=== PATIENT | female | born 1960 | race Caucasian/White ===

== ENCOUNTER → 2018-01-27 | Outpatient (REF) | payer MEDICARE ==
[2018-01-27 15:36] LABS: ALBUMIN/GLOBULIN RATIO 1.11 (1.00-1.93); ALKALINE PHOSPHATASE 77 U/L (45-117); ALT/SGPT 49 U/L (12-78); ANION GAP 12 MEQ/L (8-16); AST/SGOT 43 U/L (7-37); BILIRUBIN,TOTAL 1.1 MG/DL (0.2-1.0); BLOOD UREA NITROGEN 8 MG/DL (7-18); CARBON DIOXIDE LEVEL 31 MEQ/L (21-32); CHLORIDE LEVEL 93 MEQ/L (98-107); CHOLESTEROL LEVEL 224 MG/DL (<200); CHOLESTEROL RISK RATIO 2.036 (<5); CREATININE FOR GFR 0.64 MG/DL (0.55-1.30); GLOMERULAR FILTRATION RATE > 60.0 (>51); GLUCOSE, FASTING 103 MG/DL (70-100); HDL CHOLESTEROL 110 MG/DL (>40); LDL CHOLESTEROL 100.2 MG/DL (<100); NON-HDL-C 114 MG/DL; SODIUM LEVEL 136 MEQ/L (136-145); TOTAL PROTEIN 7.6 GM/DL (6.4-8.2); TRIGLYCERIDES LEVEL 69 MG/DL (<150)
== END ==
LOC: M SFHCLACO 10:08
DX: I10 Essential (primary) hypertension (principal); Z68.37 Body mass index [BMI] 37.0-37.9, adult; E63.9 Nutritional deficiency, unspecified; K21.9 Gastro-esophageal reflux disease without esophagitis; F10.10 Alcohol abuse, uncomplicated
CPT/HCPCS: 80053

== ENCOUNTER 2018-05-20 11:00 | Inpatient (IN) | payer MEDICARE ==
[2018-05-20 12:58] LABS: BASO % 0.2 % (0.0-1.0); EOS % 0.2 % (0.0-3.0); HEMATOCRIT 36.8 % (36.0-47.0); HEMOGLOBIN 14.2 g/dl (12.0-15.5); IMMATURE GRANULOCYTE % 0.4 % (0-3.0); LYMPH # 0.8 10^3/uL (1.5-4.5); LYMPH % 16.7 % (24.0-44.0); MEAN CORPUSCULAR HEMOGLOBIN 35.4 pg (27.0-33.0); MEAN CORPUSCULAR VOLUME 91.8 fl (80.0-96.0); MONO # 0.5 10^3/uL (0.0-0.8); MONO % 10.7 % (0.0-5.0); NEUTROPHILS # 3.2 10^3/uL (1.8-7.7); NEUTROPHILS % 71.8 % (36.0-66.0); PLATELET COUNT, AUTOMATED 235 10^3/uL (150-450); RED BLOOD COUNT 4.01 10^6/uL (4.00-5.40); WHITE BLOOD COUNT 4.5 10^3/uL (4.0-10.0)
[2018-05-20 12:59] LABS: MEAN CORPUSCULAR HGB CONC 36.5 g/dl (32.0-36.5); POS COUNT POS FLAG
[2018-05-20 13:06] LABS: INR 0.89; PROTHROMBIN TIME 12.1 SECONDS (12.1-14.4)
[2018-05-20 13:07] LABS: PARTIAL THROMBOPLASTIN TIME 25.3 SECONDS (25.4-37.6)
[2018-05-20 13:29] LABS: ALBUMIN 4.4 GM/DL (3.2-5.2); ALBUMIN/GLOBULIN RATIO 1.22 (1.00-1.93); ALKALINE PHOSPHATASE 91 U/L (45-117); ALT/SGPT 144 U/L (12-78); ANION GAP 11 MEQ/L (8-16); AST/SGOT 110 U/L (7-37); BILIRUBIN,DIRECT 0.4 MG/DL (0.0-0.2); BILIRUBIN,TOTAL 1.3 MG/DL (0.2-1.0); BLOOD UREA NITROGEN 14 MG/DL (7-18); C REACTIVE PROTEIN QUANTITATIV 1.26 MG/DL (0.00-0.30); CALCIUM LEVEL 7.7 MG/DL (8.5-10.1); CARBON DIOXIDE LEVEL 31 MEQ/L (21-32); CHLORIDE LEVEL 75 MEQ/L (98-107); CPK CREATINE PHOSPHOKINASE 159 U/L (26-192); CREATININE FOR GFR 1.11 MG/DL (0.55-1.30); GLOMERULAR FILTRATION RATE 53.7 (>51); GLUCOSE, FASTING 103 MG/DL (70-100); TROPONIN I < 0.02 NG/ML (< 0.10)
[2018-05-20 13:34] LABS: CK-MB VALUE MASS 3.4 NG/ML (<3.6); MB/CK RELATIVE INDEX 2.13 (< OR =4)
[2018-05-20 13:36] LABS: SODIUM LEVEL 117 MEQ/L (136-145)
[2018-05-20 13:37] LABS: POTASSIUM SERUM 2.6 MEQ/L (3.5-5.1)
[2018-05-20] MEDS: NS 1,000 ML IV (14:00)
[2018-05-20 14:37] LABS: OSMOLALITY SERUM 244 MOSM/KG (275-295)
[2018-05-20 16:09] LABS: SODIUM,RANDOM URINE 46 MEQ/L
[2018-05-20 16:12] LABS: APPEARANCE, URINE CLEAR (CLEAR); BACTERIA, URINE AUTO 1+ (NEGATIVE); BILIRUBIN, URINE AUTO NEGATIVE (NEGATIVE); BLOOD, URINE BLOOD NEGATIVE (NEGATIVE); COLOR, URINE YELLOW (YELLOW); GLUCOSE, URINE (UA) AUTO NEGATIVE (NEGATIVE); KETONE, URINE AUTO NEGATIVE (NEGATIVE); LEUKOCYTE ESTERASE, URINE AUTO TRACE (NEGATIVE); NITRITE, URINE AUTO NEGATIVE (NEGATIVE); PROTEIN, URINE AUTO NEGATIVE (NEGATIVE); RBC, URINE AUTO 0 /HPF (0-3); SPECIFIC GRAVITY URINE AUTO 1.002 (1.002-1.035); SQUAMOUS EPITHELIAL CELL UR AU 1 /HPF (0-6); UROBILINOGEN, URINE AUTO 0.2 mg/dL (0.0-2.0); WBC, URINE AUTO 5 /HPF (0-3)
[2018-05-20 16:29] LABS: OSMOLALITY URINE 144 MOSM/KG (500-800)
[2018-05-20] MEDS: POTASSIUM CHLORIDE 10 MEQ SR TABLET PO ×2 (16:51→23:48)
[2018-05-20] MEDS: NORCO, ANEXSIA 5/325MG TABLET (HYDROcodone/ACETAMINOPHEN) PO (16:52)
[2018-05-20] MEDS: MAG SULF 1GM/100ML (MAG RUN) 1 GM in APPROPRIATE DILUENT 1 EA IV ×3 (16:52→23:50)
[2018-05-20] MEDS ORDERED: ONDANSETRON 4 MG TAB (S0181) PO (20:15)
[2018-05-20] MEDS ORDERED: ONDANSETRON 4MG/2ML VIAL (J2405) IV (20:15)
[2018-05-20] MEDS: PERCOCET 5MG/325MG TAB PO (20:24)
[2018-05-20 21:02] LABS: ANION GAP 12 MEQ/L (8-16); BLOOD UREA NITROGEN 11 MG/DL (7-18); CALCIUM LEVEL 7.5 MG/DL (8.5-10.1); CARBON DIOXIDE LEVEL 30 MEQ/L (21-32); CHLORIDE LEVEL 82 MEQ/L (98-107); GLOMERULAR FILTRATION RATE > 60.0 (>51); GLUCOSE, FASTING 105 MG/DL (70-100); MAGNESIUM LEVEL 1.6 MG/DL (1.8-2.4); POTASSIUM SERUM 3.1 MEQ/L (3.5-5.1)
[2018-05-20 21:54] LABS: SODIUM LEVEL 124 MEQ/L (136-145)
[2018-05-20] MEDS ORDERED: LORazepam 2 MG/ML VIAL (J2060) IV (22:00)
[2018-05-20] MEDS: KETOROLAC 30 MG/ML VIAL (J1885) IV (23:47)
[2018-05-20] MEDS: LISINOPRIL 40 MG TAB PO (23:48)
[2018-05-20] MEDS: ASPIRIN 81 MG ENTERIC TAB PO (23:48)
[2018-05-21] MEDS: CARVedilol 12.5 MG TAB PO ×3 (00:05→20:41)
[2018-05-21 01:04] LABS: ANION GAP 9 MEQ/L (8-16); BLOOD UREA NITROGEN 14 MG/DL (7-18); CALCIUM LEVEL 7.2 MG/DL (8.5-10.1); CARBON DIOXIDE LEVEL 31 MEQ/L (21-32); CHLORIDE LEVEL 85 MEQ/L (98-107); CREATININE FOR GFR 0.95 MG/DL (0.55-1.30); GLOMERULAR FILTRATION RATE > 60.0 (>51); GLUCOSE, FASTING 110 MG/DL (70-100); POTASSIUM SERUM 3.3 MEQ/L (3.5-5.1); SODIUM LEVEL 125 MEQ/L (136-145)
[2018-05-21] MEDS: MAG SULF 1GM/100ML (MAG RUN) 1 GM in APPROPRIATE DILUENT 1 EA IV (01:28)
[2018-05-21] MEDS: PERCOCET 5MG/325MG TAB PO ×2 (01:28→05:54)
[2018-05-21] MEDS: TIOTROPIUM INHALER/CAPSULE (SPIRIVA) INH (07:28)
[2018-05-21 07:36] LABS: ALBUMIN 3.8 GM/DL (3.2-5.2); ALBUMIN/GLOBULIN RATIO 1.27 (1.00-1.93); ALKALINE PHOSPHATASE 73 U/L (45-117); ALT/SGPT 108 U/L (12-78); ANION GAP 8 MEQ/L (8-16); AST/SGOT 70 U/L (7-37); BILIRUBIN,TOTAL 0.9 MG/DL (0.2-1.0); BLOOD UREA NITROGEN 12 MG/DL (7-18); CALCIUM LEVEL 7.7 MG/DL (8.5-10.1); CARBON DIOXIDE LEVEL 32 MEQ/L (21-32); CHLORIDE LEVEL 87 MEQ/L (98-107); CREATININE FOR GFR 0.79 MG/DL (0.55-1.30); GLOMERULAR FILTRATION RATE > 60.0 (>51); GLUCOSE, FASTING 84 MG/DL (70-100); MAGNESIUM LEVEL 2.3 MG/DL (1.8-2.4); POTASSIUM SERUM 3.6 MEQ/L (3.5-5.1); SODIUM LEVEL 127 MEQ/L (136-145); TOTAL PROTEIN 6.8 GM/DL (6.4-8.2)
[2018-05-21 07:49] LABS: BASO % 0.3 % (0.0-1.0); EOS % 0.9 % (0.0-3.0); HEMATOCRIT 34.6 % (36.0-47.0); IMMATURE GRANULOCYTE % 0.3 % (0-3.0); LYMPH # 0.9 10^3/uL (1.5-4.5); LYMPH % 27.4 % (24.0-44.0); MEAN CORPUSCULAR HEMOGLOBIN 35.5 pg (27.0-33.0); MEAN CORPUSCULAR VOLUME 94.5 fl (80.0-96.0); MONO # 0.5 10^3/uL (0.0-0.8); MONO % 13.7 % (0.0-5.0); NEUTROPHILS # 1.9 10^3/uL (1.8-7.7); NEUTROPHILS % 57.4 % (36.0-66.0); PLATELET COUNT, AUTOMATED 220 10^3/uL (150-450); RED BLOOD COUNT 3.66 10^6/uL (4.00-5.40); RED CELL DISTRIBUTION WIDTH 13.4 % (11.5-14.5); WHITE BLOOD COUNT 3.3 10^3/uL (4.0-10.0)
[2018-05-21 07:51] LABS: POS COUNT POS FLAG
[2018-05-21 07:55] LABS: MEAN CORPUSCULAR HGB CONC 37.6 g/dl (32.0-36.5)
[2018-05-21] MEDS: D5W 1,000 ML IV (08:15)
[2018-05-21] MEDS: ALBUTEROL SULFATE 2.5 MG/0.5 ML INH NEB SOLN NEB ×3 (08:37→21:38)
[2018-05-21] MEDS: THIAMINE 100 MG TAB PO ×2 (09:00→20:41)
[2018-05-21] MEDS: NICOTINE 14 MG/24 HR TRANSDERMAL TD (09:00)
[2018-05-21] MEDS: amLODIPine 10 MG TAB PO (09:00)
[2018-05-21] MEDS ORDERED: NICOTINE 21MG/24HR 1 EA TRANSDERMAL TD (09:00)
[2018-05-21] MEDS ORDERED: MULTIVITAMINS/MINERALS THERAP 1 TAB PO (09:00)
[2018-05-21] MEDS ORDERED: FOLIC ACID 1 MG TAB PO (09:00)
[2018-05-21] MEDS ORDERED: NICOTINE 14 MG/24 HR TRANSDERMAL TD (09:00)
[2018-05-21] MEDS: MULTIVITAMINS/MINERALS THERAP 1 TAB PO (09:00)
[2018-05-21] MEDS: ENOXAPARIN 40 MG/0.4 ML SYRINGE (J1650) SC (09:00)
[2018-05-21] MEDS ORDERED: THIAMINE 100 MG TAB PO (09:00)
[2018-05-21] MEDS: FOLIC ACID 1 MG TAB PO (09:10)
[2018-05-21] MEDS: LORazepam 2 MG TAB PO (10:48)
[2018-05-21 12:07] LABS: ANION GAP 5 MEQ/L (8-16); BLOOD UREA NITROGEN 12 MG/DL (7-18); CALCIUM LEVEL 7.8 MG/DL (8.5-10.1); CARBON DIOXIDE LEVEL 34 MEQ/L (21-32); CHLORIDE LEVEL 86 MEQ/L (98-107); CREATININE FOR GFR 0.77 MG/DL (0.55-1.30); GLOMERULAR FILTRATION RATE > 60.0 (>51); GLUCOSE, FASTING 90 MG/DL (70-100); POTASSIUM SERUM 3.6 MEQ/L (3.5-5.1); SODIUM LEVEL 125 MEQ/L (136-145)
[2018-05-21] MEDS ORDERED: KCL 20MEQ IN D5W 1000ML 1,000 ML IV (13:00)
[2018-05-21 13:51] LABS: OSMOLALITY URINE 180 MOSM/KG (500-800)
[2018-05-21 14:07] LABS: SODIUM,RANDOM URINE 52 MEQ/L
[2018-05-21] MEDS: CALCIUM GLUCONATE 1,000 MG in D5W MINI-BAG PLUS 100 ML IV (15:34)
[2018-05-21] MEDS: KCL 20MEQ IN D5W 1000ML 1,000 ML IV (17:00)
[2018-05-21 18:20] LABS: ANION GAP 8 MEQ/L (8-16); BLOOD UREA NITROGEN 13 MG/DL (7-18); CALCIUM LEVEL 8.8 MG/DL (8.5-10.1); CARBON DIOXIDE LEVEL 33 MEQ/L (21-32); CHLORIDE LEVEL 85 MEQ/L (98-107); GLOMERULAR FILTRATION RATE > 60.0 (>51); GLUCOSE, FASTING 101 MG/DL (70-100); POTASSIUM SERUM 4.2 MEQ/L (3.5-5.1); SODIUM LEVEL 126 MEQ/L (136-145)
[2018-05-21] MEDS: ASPIRIN 81 MG ENTERIC TAB PO (20:41)
[2018-05-21] MEDS: SYMBICORT 80/4.5MCG INHALER 6GM INH (21:38)
[2018-05-22 01:28] LABS: OSMOLALITY URINE 170 MOSM/KG (500-800)
[2018-05-22 01:31] LABS: SODIUM,RANDOM URINE 51 MEQ/L
[2018-05-22 02:49] LABS: BASO % 0.5 % (0.0-1.0); EOS # 0.1 10^3/uL (0.0-0.50); EOS % 2.3 % (0.0-3.0); HEMOGLOBIN 12.3 g/dl (12.0-15.5); IMMATURE GRANULOCYTE % 0.5 % (0-3.0); LYMPH # 0.9 10^3/uL (1.5-4.5); LYMPH % 23.5 % (24.0-44.0); MEAN CORPUSCULAR HEMOGLOBIN 34.8 pg (27.0-33.0); MEAN CORPUSCULAR HGB CONC 36.2 g/dl (32.0-36.5); MEAN CORPUSCULAR VOLUME 96.3 fl (80.0-96.0); MONO # 0.6 10^3/uL (0.0-0.8); MONO % 14.2 % (0.0-5.0); NEUTROPHILS # 2.3 10^3/uL (1.8-7.7); PLATELET COUNT, AUTOMATED 211 10^3/uL (150-450); RED BLOOD COUNT 3.53 10^6/uL (4.00-5.40); RED CELL DISTRIBUTION WIDTH 13.5 % (11.5-14.5); WHITE BLOOD COUNT 3.9 10^3/uL (4.0-10.0)
[2018-05-22 03:12] LABS: ALBUMIN 3.5 GM/DL (3.2-5.2); ALBUMIN/GLOBULIN RATIO 1.09 (1.00-1.93); ALKALINE PHOSPHATASE 80 U/L (45-117); ALT/SGPT 92 U/L (12-78); ANION GAP 8 MEQ/L (8-16); AST/SGOT 49 U/L (7-37); BILIRUBIN,TOTAL 0.6 MG/DL (0.2-1.0); BLOOD UREA NITROGEN 11 MG/DL (7-18); CALCIUM LEVEL 8.6 MG/DL (8.5-10.1); CARBON DIOXIDE LEVEL 31 MEQ/L (21-32); CHLORIDE LEVEL 88 MEQ/L (98-107); GLOMERULAR FILTRATION RATE > 60.0 (>51); GLUCOSE, FASTING 92 MG/DL (70-100); MAGNESIUM LEVEL 1.6 MG/DL (1.8-2.4); POTASSIUM SERUM 4.1 MEQ/L (3.5-5.1); SODIUM LEVEL 127 MEQ/L (136-145); TOTAL PROTEIN 6.7 GM/DL (6.4-8.2)
[2018-05-22] MEDS: ACETAMINOPHEN TAB 650MG DOSE (2X325MG) PO ×2 (03:12→11:46)
[2018-05-22] MEDS: KCL 20MEQ IN D5W 1000ML 1,000 ML IV (03:13)
[2018-05-22] MEDS: MAG SULF 1GM/100ML (MAG RUN) 1 GM in APPROPRIATE DILUENT 1 EA IV (04:30)
[2018-05-22] MEDS: TIOTROPIUM INHALER/CAPSULE (SPIRIVA) INH (07:48)
[2018-05-22] MEDS: SYMBICORT 80/4.5MCG INHALER 6GM INH ×2 (07:48→21:21)
[2018-05-22] MEDS: ALBUTEROL SULFATE 2.5 MG/0.5 ML INH NEB SOLN NEB ×3 (07:48→15:27)
[2018-05-22] MEDS: MULTIVITAMINS/MINERALS THERAP 1 TAB PO (08:35)
[2018-05-22] MEDS: FOLIC ACID 1 MG TAB PO (08:36)
[2018-05-22] MEDS: CARVedilol 12.5 MG TAB PO ×2 (08:36→20:42)
[2018-05-22] MEDS: amLODIPine 10 MG TAB PO (08:36)
[2018-05-22] MEDS: NICOTINE 14 MG/24 HR TRANSDERMAL TD (08:37)
[2018-05-22] MEDS: THIAMINE 100 MG TAB PO ×2 (08:37→20:41)
[2018-05-22] MEDS: ENOXAPARIN 40 MG/0.4 ML SYRINGE (J1650) SC (08:37)
[2018-05-22 09:43] LABS: SODIUM,RANDOM URINE 79 MEQ/L
[2018-05-22 11:25] LABS: OSMOLALITY URINE 244 MOSM/KG (500-800)
[2018-05-22 11:26] LABS: ANION GAP 10 MEQ/L (8-16); BLOOD UREA NITROGEN 11 MG/DL (7-18); CARBON DIOXIDE LEVEL 29 MEQ/L (21-32); CHLORIDE LEVEL 87 MEQ/L (98-107); CREATININE FOR GFR 0.65 MG/DL (0.55-1.30); GLOMERULAR FILTRATION RATE > 60.0 (>51); GLUCOSE, FASTING 77 MG/DL (70-100); SODIUM LEVEL 126 MEQ/L (136-145)
[2018-05-22] MEDS: LevoFLOXacin 250 MG TABLET PO (11:46)
[2018-05-22] MEDS: FUROSEMIDE 20 MG/2 ML VIAL (J1940) IV (11:47)
[2018-05-22] MEDS ORDERED: SODIUM CHLORIDE 1 GM TAB PO (12:00)
[2018-05-22 15:26] LABS: ANION GAP 8 MEQ/L (8-16); BLOOD UREA NITROGEN 12 MG/DL (7-18); CALCIUM LEVEL 8.5 MG/DL (8.5-10.1); CARBON DIOXIDE LEVEL 29 MEQ/L (21-32); CHLORIDE LEVEL 87 MEQ/L (98-107); CREATININE FOR GFR 0.73 MG/DL (0.55-1.30); GLOMERULAR FILTRATION RATE > 60.0 (>51); GLUCOSE, FASTING 129 MG/DL (70-100); POTASSIUM SERUM 3.8 MEQ/L (3.5-5.1); SODIUM LEVEL 124 MEQ/L (136-145)
[2018-05-22] MEDS: SODIUM CHLORIDE 1 GM TAB PO ×2 (15:39→20:41)
[2018-05-22] MEDS: PERCOCET 5MG/325MG TAB PO ×2 (15:40→23:43)
[2018-05-22] MEDS: ASPIRIN 81 MG ENTERIC TAB PO (20:41)
[2018-05-23 00:34] LABS: ANION GAP 9 MEQ/L (8-16); BLOOD UREA NITROGEN 13 MG/DL (7-18); CALCIUM LEVEL 8.6 MG/DL (8.5-10.1); CARBON DIOXIDE LEVEL 29 MEQ/L (21-32); CHLORIDE LEVEL 88 MEQ/L (98-107); CREATININE FOR GFR 0.66 MG/DL (0.55-1.30); GLOMERULAR FILTRATION RATE > 60.0 (>51); GLUCOSE, FASTING 101 MG/DL (70-100); SODIUM LEVEL 126 MEQ/L (136-145)
[2018-05-23] MEDS: LevoFLOXacin 250 MG TABLET PO (06:05)
[2018-05-23] MEDS: PERCOCET 5MG/325MG TAB PO ×2 (06:07→20:09)
[2018-05-23] MEDS: SYMBICORT 80/4.5MCG INHALER 6GM INH ×2 (07:43→21:13)
[2018-05-23] MEDS: TIOTROPIUM INHALER/CAPSULE (SPIRIVA) INH (07:43)
[2018-05-23] MEDS: ALBUTEROL SULFATE 2.5 MG/0.5 ML INH NEB SOLN NEB ×4 (07:43→23:26)
[2018-05-23] MEDS: NICOTINE 14 MG/24 HR TRANSDERMAL TD (09:21)
[2018-05-23] MEDS: SODIUM CHLORIDE 1 GM TAB PO ×3 (09:21→20:08)
[2018-05-23] MEDS: ENOXAPARIN 40 MG/0.4 ML SYRINGE (J1650) SC (09:21)
[2018-05-23] MEDS: amLODIPine 10 MG TAB PO (09:22)
[2018-05-23] MEDS: THIAMINE 100 MG TAB PO ×2 (09:22→20:08)
[2018-05-23] MEDS: CARVedilol 12.5 MG TAB PO ×2 (09:22→20:09)
[2018-05-23] MEDS: FOLIC ACID 1 MG TAB PO (09:22)
[2018-05-23] MEDS: MULTIVITAMINS/MINERALS THERAP 1 TAB PO (09:22)
[2018-05-23 10:49] LABS: BASO % 0.2 % (0.0-1.0); EOS # 0.1 10^3/uL (0.0-0.50); EOS % 2.3 % (0.0-3.0); HEMATOCRIT 35.3 % (36.0-47.0); HEMOGLOBIN 12.8 g/dl (12.0-15.5); IMMATURE GRANULOCYTE % 0.2 % (0-3.0); LYMPH # 0.9 10^3/uL (1.5-4.5); LYMPH % 20.3 % (24.0-44.0); MEAN CORPUSCULAR HEMOGLOBIN 35.5 pg (27.0-33.0); MEAN CORPUSCULAR HGB CONC 36.3 g/dl (32.0-36.5); MEAN CORPUSCULAR VOLUME 97.8 fl (80.0-96.0); MONO # 0.6 10^3/uL (0.0-0.8); MONO % 13.1 % (0.0-5.0); NEUTROPHILS # 2.7 10^3/uL (1.8-7.7); NEUTROPHILS % 63.9 % (36.0-66.0); PLATELET COUNT, AUTOMATED 223 10^3/uL (150-450); RED BLOOD COUNT 3.61 10^6/uL (4.00-5.40); RED CELL DISTRIBUTION WIDTH 13.4 % (11.5-14.5); WHITE BLOOD COUNT 4.3 10^3/uL (4.0-10.0)
[2018-05-23 11:02] LABS: ALBUMIN 3.7 GM/DL (3.2-5.2); ALBUMIN/GLOBULIN RATIO 1.12 (1.00-1.93); ALKALINE PHOSPHATASE 84 U/L (45-117); ALT/SGPT 87 U/L (12-78); ANION GAP 9 MEQ/L (8-16); AST/SGOT 44 U/L (7-37); BILIRUBIN,TOTAL 0.5 MG/DL (0.2-1.0); BLOOD UREA NITROGEN 11 MG/DL (7-18); CALCIUM LEVEL 8.7 MG/DL (8.5-10.1); CARBON DIOXIDE LEVEL 29 MEQ/L (21-32); CHLORIDE LEVEL 90 MEQ/L (98-107); GLOMERULAR FILTRATION RATE > 60.0 (>51); GLUCOSE, FASTING 110 MG/DL (70-100); MAGNESIUM LEVEL 1.2 MG/DL (1.8-2.4); SODIUM LEVEL 128 MEQ/L (136-145); URIC ACID 3.8 MG/DL (2.6-6.0)
[2018-05-23] MEDS: ACETAMINOPHEN TAB 650MG DOSE (2X325MG) PO (11:27)
[2018-05-23 13:23] LABS: CREATININE,RANDOM URINE 59.2 MG/DL
[2018-05-23 13:23] LABS: SODIUM,RANDOM URINE 59 MEQ/L
[2018-05-23] MEDS: MAG SULF 1GM/100ML (MAG RUN) 1 GM in APPROPRIATE DILUENT 1 EA IV ×3 (13:37→15:48)
[2018-05-23] MEDS: PANTOPRAZOLE 40MG TAB (PROTONIX) PO (13:37)
[2018-05-23 16:50] LABS: ANION GAP 9 MEQ/L (8-16); BLOOD UREA NITROGEN 14 MG/DL (7-18); CARBON DIOXIDE LEVEL 28 MEQ/L (21-32); CHLORIDE LEVEL 91 MEQ/L (98-107); CREATININE FOR GFR 0.83 MG/DL (0.55-1.30); GLOMERULAR FILTRATION RATE > 60.0 (>51); GLUCOSE, FASTING 125 MG/DL (70-100); SODIUM LEVEL 128 MEQ/L (136-145)
[2018-05-23] MEDS: ASPIRIN 81 MG ENTERIC TAB PO (20:09)
[2018-05-23] MEDS: NYSTATIN 100,000 UNITS/GM TOPICAL PWD 15 GM TOP (20:09)
[2018-05-23 22:24] LABS: ANION GAP 10 MEQ/L (8-16); BLOOD UREA NITROGEN 17 MG/DL (7-18); CARBON DIOXIDE LEVEL 28 MEQ/L (21-32); CHLORIDE LEVEL 93 MEQ/L (98-107); CREATININE FOR GFR 0.79 MG/DL (0.55-1.30); GLOMERULAR FILTRATION RATE > 60.0 (>51); GLUCOSE, FASTING 113 MG/DL (70-100); POTASSIUM SERUM 4.3 MEQ/L (3.5-5.1); SODIUM LEVEL 131 MEQ/L (136-145)
[2018-05-24 05:21] LABS: EOS # 0.1 10^3/uL (0.0-0.50); EOS % 1.9 % (0.0-3.0); HEMATOCRIT 32.9 % (36.0-47.0); HEMOGLOBIN 11.9 g/dl (12.0-15.5); IMMATURE GRANULOCYTE % 0.3 % (0-3.0); LYMPH # 0.9 10^3/uL (1.5-4.5); LYMPH % 29.3 % (24.0-44.0); MEAN CORPUSCULAR HEMOGLOBIN 35.3 pg (27.0-33.0); MEAN CORPUSCULAR HGB CONC 36.2 g/dl (32.0-36.5); MEAN CORPUSCULAR VOLUME 97.6 fl (80.0-96.0); MONO # 0.6 10^3/uL (0.0-0.8); MONO % 17.8 % (0.0-5.0); NEUTROPHILS # 1.6 10^3/uL (1.8-7.7); NEUTROPHILS % 49.7 % (36.0-66.0); PLATELET COUNT, AUTOMATED 218 10^3/uL (150-450); RED BLOOD COUNT 3.37 10^6/uL (4.00-5.40); RED CELL DISTRIBUTION WIDTH 13.4 % (11.5-14.5); WHITE BLOOD COUNT 3.1 10^3/uL (4.0-10.0)
[2018-05-24 05:39] LABS: ALBUMIN 3.2 GM/DL (3.2-5.2); ALBUMIN/GLOBULIN RATIO 0.86 (1.00-1.93); ALKALINE PHOSPHATASE 92 U/L (45-117); ALT/SGPT 73 U/L (12-78); ANION GAP 10 MEQ/L (8-16); AST/SGOT 39 U/L (7-37); BILIRUBIN,TOTAL 0.3 MG/DL (0.2-1.0); BLOOD UREA NITROGEN 17 MG/DL (7-18); CALCIUM LEVEL 8.9 MG/DL (8.5-10.1); CARBON DIOXIDE LEVEL 24 MEQ/L (21-32); CHLORIDE LEVEL 96 MEQ/L (98-107); CREATININE FOR GFR 0.66 MG/DL (0.55-1.30); GLOMERULAR FILTRATION RATE > 60.0 (>51); GLUCOSE, FASTING 85 MG/DL (70-100); MAGNESIUM LEVEL 1.5 MG/DL (1.8-2.4); POTASSIUM SERUM 4.3 MEQ/L (3.5-5.1); SODIUM LEVEL 130 MEQ/L (136-145); TOTAL PROTEIN 6.9 GM/DL (6.4-8.2)
[2018-05-24] MEDS: LevoFLOXacin 250 MG TABLET PO (06:10)
[2018-05-24] MEDS: MAG SULF 1GM/100ML (MAG RUN) 1 GM in APPROPRIATE DILUENT 1 EA IV ×2 (07:47→12:11)
[2018-05-24] MEDS: ALBUTEROL SULFATE 2.5 MG/0.5 ML INH NEB SOLN NEB ×3 (07:56→23:42)
[2018-05-24] MEDS: TIOTROPIUM INHALER/CAPSULE (SPIRIVA) INH (07:56)
[2018-05-24] MEDS: SYMBICORT 80/4.5MCG INHALER 6GM INH ×2 (07:56→21:52)
[2018-05-24] MEDS: NYSTATIN 100,000 UNITS/GM TOPICAL PWD 15 GM TOP ×2 (08:51→20:32)
[2018-05-24] MEDS: ENOXAPARIN 40 MG/0.4 ML SYRINGE (J1650) SC (08:51)
[2018-05-24] MEDS: NICOTINE 14 MG/24 HR TRANSDERMAL TD (08:51)
[2018-05-24] MEDS: MULTIVITAMINS/MINERALS THERAP 1 TAB PO (08:51)
[2018-05-24] MEDS: PANTOPRAZOLE 40MG TAB (PROTONIX) PO (08:51)
[2018-05-24] MEDS: SODIUM CHLORIDE 1 GM TAB PO ×3 (08:52→20:31)
[2018-05-24] MEDS: CARVedilol 12.5 MG TAB PO ×2 (08:52→20:32)
[2018-05-24] MEDS: FOLIC ACID 1 MG TAB PO (08:52)
[2018-05-24] MEDS: amLODIPine 10 MG TAB PO (08:52)
[2018-05-24] MEDS: LISINOPRIL 10 MG TAB PO ×2 (12:10→20:31)
[2018-05-24] MEDS: ASPIRIN 81 MG ENTERIC TAB PO (20:31)
[2018-05-24] MEDS: PERCOCET 5MG/325MG TAB PO (23:45)
[2018-05-25 05:13] LABS: BASO % 0.8 % (0.0-1.0); EOS # 0.1 10^3/uL (0.0-0.50); HEMATOCRIT 32.5 % (36.0-47.0); HEMOGLOBIN 11.7 g/dl (12.0-15.5); IMMATURE GRANULOCYTE % 0.4 % (0-3.0); LYMPH % 36.5 % (24.0-44.0); MEAN CORPUSCULAR HEMOGLOBIN 34.6 pg (27.0-33.0); MEAN CORPUSCULAR VOLUME 96.2 fl (80.0-96.0); MONO # 0.6 10^3/uL (0.0-0.8); MONO % 21.8 % (0.0-5.0); NEUTROPHILS % 37.5 % (36.0-66.0); PLATELET COUNT, AUTOMATED 225 10^3/uL (150-450); RED BLOOD COUNT 3.38 10^6/uL (4.00-5.40); RED CELL DISTRIBUTION WIDTH 13.5 % (11.5-14.5); WHITE BLOOD COUNT 2.7 10^3/uL (4.0-10.0)
[2018-05-25] MEDS: LevoFLOXacin 250 MG TABLET PO (05:18)
[2018-05-25 05:32] LABS: ALBUMIN 3.1 GM/DL (3.2-5.2); ALBUMIN/GLOBULIN RATIO 0.89 (1.00-1.93); ALKALINE PHOSPHATASE 69 U/L (45-117); ALT/SGPT 79 U/L (12-78); ANION GAP 8 MEQ/L (8-16); AST/SGOT 48 U/L (7-37); BILIRUBIN,TOTAL 0.4 MG/DL (0.2-1.0); BLOOD UREA NITROGEN 18 MG/DL (7-18); CALCIUM LEVEL 8.4 MG/DL (8.5-10.1); CARBON DIOXIDE LEVEL 25 MEQ/L (21-32); CHLORIDE LEVEL 99 MEQ/L (98-107); CREATININE FOR GFR 0.54 MG/DL (0.55-1.30); GLOMERULAR FILTRATION RATE > 60.0 (>51); GLUCOSE, FASTING 73 MG/DL (70-100); MAGNESIUM LEVEL 1.3 MG/DL (1.8-2.4); POTASSIUM SERUM 4.4 MEQ/L (3.5-5.1); SODIUM LEVEL 132 MEQ/L (136-145); TOTAL PROTEIN 6.6 GM/DL (6.4-8.2)
[2018-05-25] MEDS: MAGNESIUM OXIDE 400 MG TAB (MAG-OX) PO ×3 (06:03→20:09)
[2018-05-25] MEDS: MAG SULF 1GM/100ML (MAG RUN) 1 GM in APPROPRIATE DILUENT 1 EA IV ×2 (06:58→10:23)
[2018-05-25] MEDS: ALBUTEROL SULFATE 2.5 MG/0.5 ML INH NEB SOLN NEB ×3 (08:00→23:41)
[2018-05-25] MEDS: ENOXAPARIN 40 MG/0.4 ML SYRINGE (J1650) SC (08:54)
[2018-05-25] MEDS: NICOTINE 14 MG/24 HR TRANSDERMAL TD (08:54)
[2018-05-25] MEDS: NYSTATIN 100,000 UNITS/GM TOPICAL PWD 15 GM TOP ×2 (08:54→20:09)
[2018-05-25] MEDS: CARVedilol 12.5 MG TAB PO ×2 (08:54→20:08)
[2018-05-25] MEDS: SODIUM CHLORIDE 1 GM TAB PO (08:54)
[2018-05-25] MEDS: MULTIVITAMINS/MINERALS THERAP 1 TAB PO (08:55)
[2018-05-25] MEDS: LISINOPRIL 10 MG TAB PO ×2 (08:55→20:09)
[2018-05-25] MEDS: amLODIPine 10 MG TAB PO (08:55)
[2018-05-25] MEDS: PANTOPRAZOLE 40MG TAB (PROTONIX) PO (08:56)
[2018-05-25] MEDS: FOLIC ACID 1 MG TAB PO (08:56)
[2018-05-25] MEDS: SYMBICORT 80/4.5MCG INHALER 6GM INH ×2 (09:06→21:22)
[2018-05-25] MEDS: TIOTROPIUM INHALER/CAPSULE (SPIRIVA) INH (09:06)
[2018-05-25] MEDS: ASPIRIN 81 MG ENTERIC TAB PO (20:09)
[2018-05-26 05:49] LABS: BASO % 1.2 % (0.0-1.0); EOS # 0.1 10^3/uL (0.0-0.50); EOS % 3.1 % (0.0-3.0); HEMATOCRIT 33.8 % (36.0-47.0); HEMOGLOBIN 12.2 g/dl (12.0-15.5); IMMATURE GRANULOCYTE % 0.4 % (0-3.0); LYMPH # 0.9 10^3/uL (1.5-4.5); LYMPH % 36.3 % (24.0-44.0); MEAN CORPUSCULAR HEMOGLOBIN 35.5 pg (27.0-33.0); MEAN CORPUSCULAR HGB CONC 36.1 g/dl (32.0-36.5); MEAN CORPUSCULAR VOLUME 98.3 fl (80.0-96.0); MONO # 0.5 10^3/uL (0.0-0.8); MONO % 19.7 % (0.0-5.0); NEUTROPHILS % 39.3 % (36.0-66.0); PLATELET COUNT, AUTOMATED 246 10^3/uL (150-450); RED BLOOD COUNT 3.44 10^6/uL (4.00-5.40); RED CELL DISTRIBUTION WIDTH 13.4 % (11.5-14.5); WHITE BLOOD COUNT 2.6 10^3/uL (4.0-10.0)
[2018-05-26 06:16] LABS: ALBUMIN 3.3 GM/DL (3.2-5.2); ALBUMIN/GLOBULIN RATIO 0.94 (1.00-1.93); ALKALINE PHOSPHATASE 84 U/L (45-117); ALT/SGPT 93 U/L (12-78); ANION GAP 8 MEQ/L (8-16); AST/SGOT 61 U/L (7-37); BILIRUBIN,TOTAL 0.3 MG/DL (0.2-1.0); BLOOD UREA NITROGEN 17 MG/DL (7-18); CALCIUM LEVEL 8.9 MG/DL (8.5-10.1); CARBON DIOXIDE LEVEL 24 MEQ/L (21-32); CHLORIDE LEVEL 100 MEQ/L (98-107); CREATININE FOR GFR 0.65 MG/DL (0.55-1.30); GLOMERULAR FILTRATION RATE > 60.0 (>51); GLUCOSE, FASTING 83 MG/DL (70-100); POTASSIUM SERUM 4.6 MEQ/L (3.5-5.1); SODIUM LEVEL 132 MEQ/L (136-145); TOTAL PROTEIN 6.8 GM/DL (6.4-8.2)
[2018-05-26] MEDS: TIOTROPIUM INHALER/CAPSULE (SPIRIVA) INH (07:55)
[2018-05-26] MEDS: SYMBICORT 80/4.5MCG INHALER 6GM INH (07:55)
[2018-05-26] MEDS: ALBUTEROL SULFATE 2.5 MG/0.5 ML INH NEB SOLN NEB (07:57)
[2018-05-26] MEDS: MAG SULF 1GM/100ML (MAG RUN) 1 GM in APPROPRIATE DILUENT 1 EA IV ×3 (08:04→10:29)
[2018-05-26] MEDS: NICOTINE 14 MG/24 HR TRANSDERMAL TD (08:10)
[2018-05-26] MEDS: ENOXAPARIN 40 MG/0.4 ML SYRINGE (J1650) SC (08:10)
[2018-05-26] MEDS: MAGNESIUM OXIDE 400 MG TAB (MAG-OX) PO (08:11)
[2018-05-26] MEDS: FOLIC ACID 1 MG TAB PO (08:11)
[2018-05-26] MEDS: PANTOPRAZOLE 40MG TAB (PROTONIX) PO (08:11)
[2018-05-26] MEDS: MULTIVITAMINS/MINERALS THERAP 1 TAB PO (08:11)
[2018-05-26] MEDS: amLODIPine 10 MG TAB PO (08:14)
[2018-05-26] MEDS: LISINOPRIL 10 MG TAB PO (08:14)
[2018-05-26] MEDS: CARVedilol 12.5 MG TAB PO (08:14)
[2018-05-26] MEDS: NYSTATIN 100,000 UNITS/GM TOPICAL PWD 15 GM TOP (08:15)
== END 2018-05-26 12:41 | disposition home or self-care (01) | DRG 641 ==
LOC: M PCU 05-21 12:18 → M ED 11:00 → M ED INP 20:03
DX: E87.1 Hypo-osmolality and hyponatremia (principal); N39.0 Urinary tract infection, site not specified; E83.42 Hypomagnesemia; I70.203 Unspecified atherosclerosis of native arteries of extremities, bilateral legs; K70.10 Alcoholic hepatitis without ascites; R51 Headache; J44.9 Chronic obstructive pulmonary disease, unspecified; F17.210 Nicotine dependence, cigarettes, uncomplicated; I10 Essential (primary) hypertension; Z79.899 Other long term (current) drug therapy; E78.5 Hyperlipidemia, unspecified; E87.6 Hypokalemia; Z79.82 Long term (current) use of aspirin; Z96.641 Presence of right artificial hip joint; E83.51 Hypocalcemia; B96.4 Proteus (mirabilis) (morganii) as the cause of diseases classified elsewhere

== ENCOUNTER → 2018-06-19 | Outpatient (CLI) | payer MEDICARE ==
[~2018-06-19] MED LIST: ISOVUE-370 76% 100ML VIAL (Q9967) As Ordered
== END ==
LOC: M RAD 11:02
DX: M79.651 Pain in right thigh (principal); M79.652 Pain in left thigh; K44.9 Diaphragmatic hernia without obstruction or gangrene; I70.301 Unspecified atherosclerosis of unspecified type of bypass graft(s) of the extremities, right leg; I70.0 Atherosclerosis of aorta; I70.202 Unspecified atherosclerosis of native arteries of extremities, left leg
CPT/HCPCS: Q9967

== ENCOUNTER 2018-07-03 06:38 | Outpatient (CLI) | payer MEDICARE ==
[2018-07-03] MEDS: MAGNESIUM SULFATE 1 GM/100 ML D5W BAG (10MG/ML) (J3475) IV ×4 (07:18→10:15)
== END 2018-07-03 11:20 | disposition home or self-care (01) ==
LOC: M INFU 06:38
DX: E83.42 Hypomagnesemia (principal)
CPT/HCPCS: J3475

== ENCOUNTER → 2018-07-30 | Outpatient (CLI) | payer MEDICARE ==
[~2018-07-30] MED LIST changes: +HEPARIN 1,000 UNITS/ML 10ML VIAL (FOR RADIOLOGY& DIALYSIS ONLY) As Ordered; +ISOVUE-300 61% 50ML VIAL (Q9967) As Ordered; -ISOVUE-370 76% 100ML VIAL (Q9967) As Ordered; +LIDOCAINE 2% MDV 20 ML VIAL As Ordered; +MIDAZOLAM INJ 2 MG/2 ML VIAL (J2250) As Ordered; +diphenhydrAMINE 50 MG CAP As Ordered; +fentaNYL 100 MCG/2 ML INJECTION (J3010) As Ordered
== END | disposition home or self-care (01) ==
LOC: M IRPRO 06:27
DX: I73.9 Peripheral vascular disease, unspecified (principal)
CPT/HCPCS: 36246

== ENCOUNTER 2018-08-28 10:54 | Inpatient (IN) | payer MEDICARE ==
[~2018-08-28 10:54] MED LIST changes: -HEPARIN 1,000 UNITS/ML 10ML VIAL (FOR RADIOLOGY& DIALYSIS ONLY) As Ordered; -ISOVUE-300 61% 50ML VIAL (Q9967) As Ordered; +LIDOCAINE 1% MDV 20ML VIAL SQ; -LIDOCAINE 2% MDV 20 ML VIAL As Ordered; -MIDAZOLAM INJ 2 MG/2 ML VIAL (J2250) As Ordered; -diphenhydrAMINE 50 MG CAP As Ordered; -fentaNYL 100 MCG/2 ML INJECTION (J3010) As Ordered
[2018-08-28] MEDS: LR 1,000 ML IV (12:15)
[2018-08-28] MEDS ORDERED: LIDOCAINE 1% SDV INJ 30 ML VIAL As Ordered ×2 (12:42→16:47)
[2018-08-28] MEDS ORDERED: BUPIVACAINE HCL 0.5% 30 ML VIAL As Ordered ×2 (12:43→16:48)
[2018-08-28] MEDS ORDERED: ONDANSETRON 4MG/2ML VIAL (J2405) As Ordered (16:15)
[2018-08-28] MEDS ORDERED: LIDOCAINE 2% INJ 100 MG/5 ML SDV (FOR ANES.) As Ordered (16:15)
[2018-08-28] MEDS ORDERED: dexameTHASONE 4 MG/ML 1ML VIAL (J1100) As Ordered ×2 (16:15)
[2018-08-28] MEDS ORDERED: ROCURONIUM BROMIDE 50 MG/5 ML VIAL As Ordered (16:15)
[2018-08-28] MEDS ORDERED: PROPOFOL 200 MG/20 ML VIAL As Ordered (16:15)
[2018-08-28] MEDS ORDERED: HEPARIN SOD (PORCINE) 5000 UNITS/ML VIAL As Ordered ×3 (16:16→16:47)
[2018-08-28] MEDS ORDERED: HYDROmorphone HCL 2 MG/ML 1ML VIAL (J1170) As Ordered (16:21)
[2018-08-28] MEDS ORDERED: MIDAZOLAM INJ 2 MG/2 ML VIAL (J2250) As Ordered (16:21)
[2018-08-28] MEDS ORDERED: fentaNYL 250 MCG/5 ML INJECTION (J3010) As Ordered (16:22)
[2018-08-28] MEDS ORDERED: THROMBIN SOLN 20,000 UNITS KIT As Ordered (16:47)
[2018-08-28] MEDS: THROMBIN SOLN 20,000 UNITS KIT As Ordered (17:35)
[2018-08-28] MEDS: HEPARIN SOD (PORCINE) 5000 UNITS/ML VIAL As Ordered (18:40)
[2018-08-28] MEDS ORDERED: ONDANSETRON 4MG/2ML VIAL (J2405) IV ×2 (19:00→19:30)
[2018-08-28] MEDS ORDERED: NORCO, ANEXSIA 5/325MG TABLET (HYDROcodone/ACETAMINOPHEN) PO (19:00)
[2018-08-28] MEDS ORDERED: ACETAMINOPHEN TAB 650MG DOSE (2X325MG) PO (19:00)
[2018-08-28] MEDS: fentaNYL 100 MCG/2 ML INJECTION (J3010) IV ×4 (19:15→19:36)
[2018-08-28] MEDS ORDERED: fentaNYL 100 MCG/2 ML INJECTION (J3010) As Ordered (19:18)
[2018-08-28] MEDS ORDERED: ALBUTEROL 90 MCG/ACT 8GM HFA INHALER INH (19:30)
[2018-08-28] MEDS ORDERED: LR 1,000 ML IV (19:30)
[2018-08-28] MEDS: NORCO, ANEXSIA 5/325MG TABLET (HYDROcodone/ACETAMINOPHEN) PO ×2 (19:35→20:00)
[2018-08-28] MEDS ORDERED: PILL CRUSHER/CUTTER 1 EACH XX (19:45)
[2018-08-28] MEDS: ASPIRIN 81 MG ENTERIC TAB PO (21:54)
[2018-08-28] MEDS: DOCUSATE SODIUM 100 MG CAP PO (21:55)
[2018-08-28] MEDS: MAGNESIUM OXIDE 400 MG TAB (MAG-OX) PO (21:55)
[2018-08-28] MEDS: CARVedilol 12.5 MG TAB PO (21:55)
[2018-08-28] MEDS: LISINOPRIL 10 MG TAB PO (21:56)
[2018-08-28] MEDS: CLOPIDOGREL 75 MG TAB PO (21:56)
[2018-08-28] MEDS ORDERED: HEPARIN SOD (PORCINE) 5000 UNITS/ML VIAL SC (22:00)
[2018-08-29] MEDS: NORCO, ANEXSIA 5/325MG TABLET (HYDROcodone/ACETAMINOPHEN) PO ×2 (00:14→08:52)
[2018-08-29 06:16] LABS: BASO % 0.2 % (0.0-1.0); HEMATOCRIT 37.3 % (36.0-47.0); HEMOGLOBIN 12.9 g/dl (12.0-15.5); IMMATURE GRANULOCYTE % 0.5 % (0-3.0); LYMPH # 0.6 10^3/uL (1.5-4.5); LYMPH % 9.7 % (24.0-44.0); MEAN CORPUSCULAR HEMOGLOBIN 33.2 pg (27.0-33.0); MEAN CORPUSCULAR HGB CONC 34.6 g/dl (32.0-36.5); MEAN CORPUSCULAR VOLUME 96.1 fl (80.0-96.0); MONO # 0.1 10^3/uL (0.0-0.8); NEUTROPHILS # 5.3 10^3/uL (1.8-7.7); NEUTROPHILS % 87.6 % (36.0-66.0); PLATELET COUNT, AUTOMATED 250 10^3/uL (150-450); RED BLOOD COUNT 3.88 10^6/uL (4.00-5.40); RED CELL DISTRIBUTION WIDTH 12.4 % (11.5-14.5); WHITE BLOOD COUNT 6.1 10^3/uL (4.0-10.0)
[2018-08-29 07:15] LABS: ANION GAP 8 MEQ/L (8-16); BLOOD UREA NITROGEN 12 MG/DL (7-18); CALCIUM LEVEL 8.4 MG/DL (8.5-10.1); CARBON DIOXIDE LEVEL 27 MEQ/L (21-32); CHLORIDE LEVEL 96 MEQ/L (98-107); CREATININE FOR GFR 0.73 MG/DL (0.55-1.30); GLOMERULAR FILTRATION RATE > 60.0 (>51); GLUCOSE, FASTING 144 MG/DL (70-100); POTASSIUM SERUM 4.2 MEQ/L (3.5-5.1); SODIUM LEVEL 131 MEQ/L (136-145)
[2018-08-29] MEDS: TIOTROPIUM INHALER/CAPSULE (SPIRIVA) INH (07:23)
[2018-08-29] MEDS: FLUBLOK(EGG FREE)(QUAD)INFLUENZA VACC 0.5ML SYRINGE (90682)18YRS&OLDER IM (08:44)
[2018-08-29] MEDS: amLODIPine 10 MG TAB PO (08:46)
[2018-08-29] MEDS: MAGNESIUM OXIDE 400 MG TAB (MAG-OX) PO ×3 (08:46→21:53)
[2018-08-29] MEDS: DOCUSATE SODIUM 100 MG CAP PO ×2 (08:46→21:00)
[2018-08-29] MEDS: CARVedilol 12.5 MG TAB PO ×2 (08:46→21:54)
[2018-08-29] MEDS: MULTIVITAMINS/MINERALS THERAP 1 TAB PO (08:47)
[2018-08-29] MEDS: THIAMINE 100 MG TAB PO (08:47)
[2018-08-29] MEDS: LISINOPRIL 10 MG TAB PO ×2 (08:48→21:54)
[2018-08-29] MEDS: NICOTINE 14 MG/24 HR TRANSDERMAL TD (08:48)
[2018-08-29] MEDS: PANTOPRAZOLE 40MG TAB (PROTONIX) PO (08:48)
[2018-08-29] MEDS: ASPIRIN 81 MG ENTERIC TAB PO (21:54)
[2018-08-30] MEDS: TIOTROPIUM INHALER/CAPSULE (SPIRIVA) INH ×3 (00:33→21:00)
[2018-08-30] MEDS: NORCO, ANEXSIA 5/325MG TABLET (HYDROcodone/ACETAMINOPHEN) PO ×2 (03:07→14:42)
[2018-08-30] MEDS: NICOTINE 14 MG/24 HR TRANSDERMAL TD (08:39)
[2018-08-30] MEDS: amLODIPine 10 MG TAB PO (08:42)
[2018-08-30] MEDS: MAGNESIUM OXIDE 400 MG TAB (MAG-OX) PO ×3 (08:43→20:05)
[2018-08-30] MEDS: THIAMINE 100 MG TAB PO (08:43)
[2018-08-30] MEDS: MULTIVITAMINS/MINERALS THERAP 1 TAB PO (08:43)
[2018-08-30] MEDS: LISINOPRIL 10 MG TAB PO ×2 (08:43→20:05)
[2018-08-30] MEDS: PANTOPRAZOLE 40MG TAB (PROTONIX) PO (08:43)
[2018-08-30] MEDS: CARVedilol 12.5 MG TAB PO ×2 (08:44→20:04)
[2018-08-30] MEDS: DOCUSATE SODIUM 100 MG CAP PO ×2 (08:44→20:03)
[2018-08-30] MEDS: ASPIRIN 81 MG ENTERIC TAB PO (20:05)
[2018-08-31] MEDS: NORCO, ANEXSIA 5/325MG TABLET (HYDROcodone/ACETAMINOPHEN) PO (02:07)
[2018-08-31] MEDS: NICOTINE 14 MG/24 HR TRANSDERMAL TD (09:11)
[2018-08-31] MEDS: amLODIPine 10 MG TAB PO (09:11)
[2018-08-31] MEDS: MAGNESIUM OXIDE 400 MG TAB (MAG-OX) PO (09:11)
[2018-08-31] MEDS: DOCUSATE SODIUM 100 MG CAP PO (09:12)
[2018-08-31] MEDS: MULTIVITAMINS/MINERALS THERAP 1 TAB PO (09:12)
[2018-08-31] MEDS: LISINOPRIL 10 MG TAB PO (09:12)
[2018-08-31] MEDS: CARVedilol 12.5 MG TAB PO (09:12)
[2018-08-31] MEDS: PANTOPRAZOLE 40MG TAB (PROTONIX) PO (09:12)
[2018-08-31] MEDS: THIAMINE 100 MG TAB PO (09:45)
== END 2018-08-31 14:18 | disposition home or self-care (01) | DRG 272 ==
LOC: M OR 10:54 → M MSPAV 20:42
PROC: 04CH0ZZ Extirpation of Matter from Right External Iliac Artery, Open Approach (ICD-10-PCS; principal; 2018-08-28 12:15)
PROC: 04CK0ZZ Extirpation of Matter from Right Femoral Artery, Open Approach (ICD-10-PCS; 2018-08-28 12:15)
PROC: 04UK0JZ Supplement Right Femoral Artery with Synthetic Substitute, Open Approach (ICD-10-PCS; 2018-08-28 12:15)
PROC: 04UH0JZ Supplement Right External Iliac Artery with Synthetic Substitute, Open Approach (ICD-10-PCS; 2018-08-28 12:15)
DX: T82.868A Thrombosis due to vascular prosthetic devices, implants and grafts, initial encounter (principal); I87.8 Other specified disorders of veins; I70.219 Atherosclerosis of native arteries of extremities with intermittent claudication, unspecified extremity; I10 Essential (primary) hypertension; J44.9 Chronic obstructive pulmonary disease, unspecified; Z87.891 Personal history of nicotine dependence; Z79.899 Other long term (current) drug therapy; Z79.82 Long term (current) use of aspirin; E78.5 Hyperlipidemia, unspecified; Y83.2 Surgical operation with anastomosis, bypass or graft as the cause of abnormal reaction of the patient, or of later complication, without mention of misadventure at the time of the procedure

== ENCOUNTER → 2018-10-13 | Outpatient (CLI) | payer MEDICARE ==
[~2018-10-13] MED LIST changes: +AMLO10TA5 PO; +ASPI81TA85 PO; +CARV25TA PO; +FOLI1TAB11 PO; +HYDR50TAB PO; -LIDOCAINE 1% MDV 20ML VIAL SQ; +LIPI80TA PO; +LISI10TA4 PO; +LISI40TA PO; +MAG400TA PO; +NICO14PA TD; +NORCOTAB PO; +PANT40TA3 PO; +PLAV1TAB2 PO; +PROAAER10 INH; +SYMB80INH INH; +THIA100TA PO; +TIOT18INH INH; +VITA50TA47 PO; +VITMTA PO
--- NOTE | 2018-10-19 14:25 | REP ---
Unilateral right lower extremity arterial Doppler ultrasound: History: Peripheral vascular disease. Breast pain right leg. Findings: Ankle brachial index on the right is measured at 0.57. A 2.1 cm right-sided Tian's cyst is noted incidentally. There is a 3.8 x 4.4 x 2.0 cm hematoma at the right common femoral artery and anastomosis of the bypass graft. Bypass graft is less than optimally visualized. No flow is seen in the bypass graft. Biphasic and monophasic waveforms are noted throughout the arterial tree in the right lower extremity. There is evidence of severe 3.4 to 1 stenosis in the superficial femoral artery. The the distal superficial femoral artery is occluded. Popliteal arteries revascularized. Velocity chart right lower extremity arteries: Right CF A 112 cm/S Profunda 105 Proximal SFA 63 to 217 Mid SFA occluded. Distal SFA occluded. Popliteal 56 Proximal AT A 25 reversed. Tibioperoneal trunk 28 Proximal COMMUTATOR V RING ASSEMBLER 21 Distal COMMUTATOR V RING ASSEMBLER 20 12/04. Distal AT A 42 Electronically Signed by Lionel Gan MD 10/13/2018 03:11 P
== END ==
LOC: M RAD 10:23
PROVIDERS: ATTEND Surgery Vascular Surgery
DX: I70.291 Other atherosclerosis of native arteries of extremities, right leg (principal); M71.21 Synovial cyst of popliteal space [Baker], right knee; I74.3 Embolism and thrombosis of arteries of the lower extremities

== ENCOUNTER 2018-11-19 22:09 | Emergency (ER) | payer MEDICARE ==
[~2018-11-19] VITALS: Ht 149.9 cm; Wt 87.2 kg
[2018-11-19] MEDS ORDERED: NS 1,000 ML IV SCH (22:40)
[2018-11-19] MEDS ORDERED: LIDOCAINE 4% INJ 5 ML AMP INH ONE (22:45)
[2018-11-19] MEDS ORDERED: KETAMINE HCL 200 MG/20 ML VIAL IV ONE (23:00)
[2018-11-19 23:22] LABS: BLOOD UREA NITROGEN 21 MG/DL (7-18); CALCIUM LEVEL 8.9 MG/DL (8.5-10.1); CARBON DIOXIDE LEVEL 29 MEQ/L (21-32); CHLORIDE LEVEL 99 MEQ/L (98-107); CREATININE FOR GFR 0.81 MG/DL (0.55-1.30); GLOMERULAR FILTRATION RATE > 60.0 (>51); GLUCOSE, FASTING 119 MG/DL (70-100); POTASSIUM SERUM 3.5 MEQ/L (3.5-5.1); SODIUM LEVEL 135 MEQ/L (136-145)
[2018-11-19 23:23] LABS: ALBUMIN 3.4 GM/DL (3.2-5.2); ALT/SGPT 16 U/L (12-78); BILIRUBIN,DIRECT 0.1 MG/DL (0.0-0.2); BILIRUBIN,TOTAL 0.4 MG/DL (0.2-1.0); C REACTIVE PROTEIN QUANTITATIV 4.18 MG/DL (0.00-0.30); COMPLEMENT C4 19 MG/DL (10-40); TOTAL PROTEIN 7.3 GM/DL (6.4-8.2)
[2018-11-20 01:30] VITALS: BP 166/91
[2018-11-20] MEDS ORDERED: PRED20TA PO (02:09)
[2018-11-20] MEDS ORDERED: LOSA25TA14 PO (02:09)
[2018-11-22 08:51] LABS: TRYPTASE 4.1 ug/L (2.2-13.2)
[2018-11-25 00:06] LABS: C1 ESTER INHIB. NON FUNCTIONAL 30 mg/dL (21-39); C1 ESTERASE INHIB. FUNCTIONAL > 109 (.); COAGULATION FACTOR XII ACTIVIT 109 % (50-150)
== END 2018-11-20 02:24 | disposition home or self-care (01) ==
LOC: M ED 22:09
DX: T78.3XXA Angioneurotic edema, initial encounter (principal); Y92.9 Unspecified place or not applicable; Y93.9 Activity, unspecified; I10 Essential (primary) hypertension; Z79.82 Long term (current) use of aspirin; Z79.899 Other long term (current) drug therapy
CPT/HCPCS: 36430; 80048; 80076; 83519; 85280; 85652; 86140; 86160; 86161; 86850; 86900; 86901; 86927; 93041; 94640; 94760; 99285; P9017

== ENCOUNTER 2021-07-09 05:42 | Inpatient (IN) | payer MEDICARE ==
[~2021-07-09] VITALS: Ht 160 cm; Wt 97.1 kg
[~2021-07-09 05:42] MED LIST changes: -AMLO10TA5 PO; +AMLO1TAB25 PO; -ASPI81TA85 PO; +ASPI81TA86 PO; +HYDR-3715 PO; +LISI10TA22 PO; -LISI10TA4 PO; -LISI40TA PO; +LISI40TA4 PO; +LOSA25TA14 PO; -MAG400TA PO; +MAGN400T35 PO; -NORCOTAB PO; +PANT40TA29 PO; -PANT40TA3 PO; +PRED20TA PO
[2021-07-09] MEDS ORDERED: IPRATROPIUM 0.5MG/ALBUTEROL 2.5MG INH SOL UD 3ML (DUONEB) NEB PRN (05:50)
[2021-07-09 06:08] LABS: ABG BASE EXCESS 3.2 (-2.0-2.0); ABG HCO3 27.1 MEQ/L (22.0-26.0); ABG PARTIAL PRESSURE CO2 39.1 mmHg (35.0-45.0); ABG PARTIAL PRESSURE O2 83.3 mmHg (75.0-100.0); ABG STANDARD HCO3 27.3 MEQ/L (22.0-26.0); ABG TOTAL CO2 28.3 MEQ/L (23.0-31.0); ABG pH (ARTERIAL) 7.459 UNITS (7.350-7.450)
[2021-07-09 06:23] LABS: BASO % 0.4 % (0.0-1.0); HEMATOCRIT 49.7 % (36.0-47.0); HEMOGLOBIN 17.1 g/dl (12.0-15.5); LYMPH # 0.6 10^3/uL (1.5-5.0); LYMPH % 7.7 % (24.0-44.0); MEAN CORPUSCULAR HEMOGLOBIN 31.8 pg (27.0-33.0); MEAN CORPUSCULAR HGB CONC 34.4 g/dl (32.0-36.5); MEAN CORPUSCULAR VOLUME 92.4 fl (80.0-96.0); MONO # 0.5 10^3/uL (0.0-0.8); NEUTROPHILS # 6.4 10^3/uL (1.5-8.5); NEUTROPHILS % 84.6 % (36.0-66.0); RED BLOOD COUNT 5.38 10^6/uL (4.00-5.40); WHITE BLOOD COUNT 7.6 10^3/uL (4.0-10.0)
[2021-07-09 07:00] LABS: PLATELET COUNT, AUTOMATED 222 10^3/uL (150-450)
[2021-07-09 07:44] LABS: ALBUMIN 2.8 GM/DL (3.2-5.2); ALT/SGPT 26 U/L (12-78); BILIRUBIN,DIRECT 0.3 MG/DL (0.0-0.2); BILIRUBIN,TOTAL 0.8 MG/DL (0.2-1.0); BLOOD UREA NITROGEN 11 MG/DL (7-18); CALCIUM LEVEL 7.6 MG/DL (8.8-10.2); CARBON DIOXIDE LEVEL 29 MEQ/L (21-32); CHLORIDE LEVEL 92 MEQ/L (98-107); CK-MB VALUE MASS < 1.0 NG/ML (<3.6); CPK CREATINE PHOSPHOKINASE 88 U/L (26-192); CREATININE FOR GFR 0.64 MG/DL (0.55-1.30); GLOMERULAR FILTRATION RATE > 60.0 (>45); GLUCOSE, FASTING 134 MG/DL (70-100); MB/CK RELATIVE INDEX 1.14 (< OR =4); NT-PRO BNP 993 PG/ML (<125); POTASSIUM SERUM 3.5 MEQ/L (3.5-5.1); SODIUM LEVEL 131 MEQ/L (136-145); TOTAL PROTEIN 6.7 GM/DL (6.4-8.2); TROPONIN I < 0.02 NG/ML (< 0.10)
--- NOTE | 2021-07-09 07:44 | REP ---
INDICATION: DYSPNEA/COUGH COMPARISON: 05/20/2018 TECHNIQUE: Portable AP view of the chest FINDINGS: The mediastinum and cardiac silhouette are stable and within normal limits for portable technique. Right lower lobe airspace disease suggests acute pneumonia. Possible small adjacent pleural reaction. No pneumothorax. Skeletal structures are intact. IMPRESSION: Early right lower lobe opacity suggesting pneumonia. <Electronically signed by Adan White > 07/09/21 [id number]
[2021-07-09] MEDS: SYMBICORT 160/4.5MCG INHALER 6GM INH SCH ×2 (08:00→20:21)
[2021-07-09] MEDS ORDERED: CARV3.12 PO (08:15)
[2021-07-09] MEDS ORDERED: AMLO25TA PO (08:15)
[2021-07-09] MEDS ORDERED: HOME MED LIST COMPLETE! XX SCH (08:20)
[2021-07-09] MEDS: CARVedilol 3.125 MG TAB PO SCH ×2 (09:00→19:53)
--- NOTE | 2021-07-09 11:41 | CR.PDOC ---
General Date of Consultation: Jul 09, 2021 Referring Provider: Mila Elias MD Attending Physician: MARILIN ARELLANO MD Consultation REASON FOR CONSULTATION/CHIEF COMPLAINT: Acute hypoxic respiratory failure 2/2 COVID pneumonia HISTORY OF PRESENT ILLNESS: 60-year-old female with PMHx of asthma and COPD, o besity, smoker presenting to ED for increased shortness of breath. Patient states that she was exposed to COVID via friends and is unvaccinated. She was put on nonrebreather mask with 86% saturation and brought to ED. She was tried on nasal cannula 5L however failed that and was placed on BiPAP (16/6 and FIO2 60%) in the ED. CXR shows right lower lobe pneumonia. Patient is being admitted for COVID pneumonia and possible secondary bacterial pneumonia with acute hypoxic respiratory failure. Pulmon Patient was seen at bedside with her BiPAP mask on. She states that the mask made her feel claustrophobic and would like to remove it. Trial of weaning off BiPAP was conducted and pt was saturating around 96%. Has dry cough and shortness of breath. No other complaints. ALLERGIES: Please see below. HOME MEDICATIONS: Please see below. PAST MEDICAL HISTORY/PAST SURGICAL HISTORY: (obtained from chart review; patient was unable to speak in complete sentences due to BiPAP) 1. COPD 2. Mild persistent asthma 3. Obesity BMI of 37.9 4. Hypertension 5. Depression 6. GERD 7. Stress incontinence 8. Active smoker 9. Peripheral vascular disease with complete occlusion of her bilateral SFA with claudication since 2009 10. History of CVA right basal ganglia lacunar infarct in 2007 11. Chronic low back pain status post laminectomy 12. Cholecystectomy 1997 13. Laminectomy 1990 14. L5-S1 spinal fusion 2001 15. Right femoral-popliteal bypass in November 2010 FAMILY HISTORY: Father from [place] Mother has hypertension diabetes and valvular heart disease SOCIAL HISTORY: Tobacco use: active smoker ETOH: occasional Illicit drug use: denies REVIEW OF SYSTEMS: CONSTITUTIONAL: denies current fever, chills HEENT: +cough CARDIOVASCULAR: denies chest pain or palpitations RESPIRATORY: +shortness of breath GENITOURINARY: denies dysuria MUSCULOSKELETAL: denies myalgias or arthralgias GASTROINTESTINAL: denies n/v/d, constipation, abdominal pain SKIN: denies new skin lesions NEUROLOGICAL: denies any headaches PSYCHIATRIC: denies any new mood changes PHYSICAL EXAMINATION: VITAL SIGNS: Please see below. GENERAL APPEARANCE: in no acute distress HEENT: head normocephalic atraumatic; moist mucus membranes RESPIRATORY: b/l wheezing heard throughout lung reynolds; good air entry b/l CARDIOVASCULAR: regular rate and rhythm; S1, S2; no murmurs, gallops or rubs noted ABDOMEN: soft, nondistended, normoactive bowel sounds, no tenderness to palpation EXTREMITIES: tender to palpation on her Left calf; no pitting edema b/l NEUROLOGICAL: CN II-XII grossly intact; no focal neurological deficits PSYCHIATRIC: appropriate mood and affect LABORATORY DATA: Please see below. ASSESSMENT/PLAN: This is a 60 year old female presenting with shortness of breath, testing positive for COVID admitted under hospitalist for acute hypoxic respiratory failure 2/2 COVID pneumonia. She was initially tried on NC 5L however failed that and was placed on BiPAP (16/6 and FIO2 60%) in the ED. Trial of weaning off BiPAP was conducted and pt was saturating around 96%; will recommend Vapotherm instead. Patient does not need to admitted to ICU. 1. Acute hypoxic respiratory failure 2/2 COVID pneumonia and possible secondary bacterial PNA superimposed -CXR from ED showed Right lower lobe opacity; unable to r/o superimposed secondary bacterial PNA -start her on Remdesivir as well as Dexamethasone -recommend Vapotherm instead of BiPAP 2. COPD -b/l lung reynolds have wheezing -continue her home inhalers of Albuterol and Spiriva Vital Signs/I&O Vital Signs Date Time Temp Pulse Resp B/P (MAP) Pulse Ox O2 Delivery O2 Flow Rate FiO2 07/09/21 10:30 75 24 153/83 (106) 97 NIPPV (BIPAP/CPAP) 07/09/21 06:09 98.3 07/09/21 06:09 60 Laboratory Data Labs 24H Laboratory Tests 2 07/09/21 05:55: Lactic Acid Level 2.1*H 07/09/21 05:56: Immature Granulocyte % (Auto) 0.3, Neutrophils (%) (Auto) 84.6H, Lymphocytes (%) (Auto) 7.7L, Monocytes (%) (Auto) 7.0, Eosinophils (%) (Auto) 0.0, Basophils (%) (Auto) 0.4, Neutrophils # (Auto) 6.4, Lymphocytes # (Auto) 0.6L, Monocytes # (Auto) 0.5, Eosinophils # (Auto) 0.0, Basophils # (Auto) 0.0, Nucleated Red Blood Cells % (auto) 0.0 07/09/21 05:58: Blood Gas Bicarbonate Standard 27.3H, Arterial Blood pH 7.459H, Arterial Blood Partial Pressure CO2 39.1, Arterial Blood Partial Pressure O2 83.3, Arterial Blood Total CO2 28.3, Arterial Blood HCO3 27.1H, Arterial Blood Base Excess 3.2H, Arterial Blood Oxygen Saturation 96.0 07/09/21 06:50: Anion Gap 10, Glomerular Filtration Rate > 60.0, Calcium Level 7.6L, Total Bilirubin 0.8, Direct Bilirubin 0.3H, Aspartate Amino Transf (AST/SGOT) 31, Alanine Aminotransferase (ALT/SGPT) 26, Alkaline Phosphatase 99, Total Creatine Kinase 88, Creatine Kinase MB < 1.0, Creatine Kinase MB Relative Index 1.14, Troponin I < 0.02, BX-Yeb-L-Type Natriuretic Peptide 993H, Total Protein 6.7, Albumin 2.8L, Albumin/Globulin Ratio 0.7L CBC/BMP Laboratory Tests 07/09/21 05:56 07/09/21 06:50 Microbiology Microbiology 07/09/21 Blood Culture, Received Pending 07/09/21 Respiratory Virus Panel (PCR) ([facility]) - Final, Complete SARS-CoV-2 (COVID 19) 07/09/21 Blood Culture, Received Pending Allergies Coded Allergies: lisinopril (Verified Allergy, Unknown, 07/09/21) Home Medications Scheduled Amlodipine Besylate (Amlodipine Besylate) 2.5 Mg Tablet, 2.5 MG PO DAILY, (Reported) Carvedilol (Carvedilol) 3.125 Mg Tablet, 3.125 MG PO BID, (Reported) GME ATTESTATION GME ATTESTATION My faculty preceptor for this patient encounter was physically present during the encounter and was fully available. All aspects of the patient interview, examination, medical decision making process, and medical care plan development were reviewed and approved by the faculty preceptor. The faculty preceptor is aware and concurs with the plan as stated in the body of this note and will attest to such by his/her cosignature. ATTENDING NOTE This is a 60-year-old female with past medical history of COPD being admitted to the hospital with COVID-19 pneumonia. She was having symptom of myalgia arthralgia and fever for several days. This was followed by shortness of breath for the last several days, the reason for why patient came to the emergency department. In the emergency department, patient was found to be profoundly hypoxic and requiring BiPAP. Therefore ICU was consulted. Upon my evaluation of patient, patient appears to be stable and conversing well. On examination, she has predominantly expiratory wheeze with very subtle inspiratory crackles. This led me to think that she is a mild COPD exacerbation as opposed to COVID-19 pneumonia. Patient was immediately put on BiPAP in the emergency department without any evidence of respiratory acidosis. Therefore, I recommend patient to be switched to Vapotherm and immediately get treatment for COVID-19 pneumonitis. She should also get remdesivir and Decadron. Her inhaler; albuterol and Spiriva should also be continued during this hospitalization. Latoya Lira DO Jul 09, 2021 11:40 MARILIN ARELLANO MD Jul 09, 2021 15:30
[2021-07-09] MEDS: ALBUTEROL 90 MCG/ACT 8GM HFA INHALER INH SCH ×3 (12:00→23:24)
[2021-07-09] MEDS: ACETAMINOPHEN TAB 650MG DOSE (2X325MG) PO PRN ×2 (12:50→23:19)
[2021-07-09] MEDS ORDERED: REMDESIVIR 200 MG in NS 250 ML IV ONE ×2 (13:00→18:00)
--- NOTE | 2021-07-09 13:28 | HPEPDOC ---
General Date of Admission 07/09/21 Date of Service: Jul 09, 2021 Chief Complaint The patient is a 60-year-old female admitted with a reason for visit of SOB. Source: Patient, RN/MD History of Present Illness 60-year-old female with asthma and COPD, obesity, smoker presented to the emergency room for respiratory distress. She has a 7 day history of upper respiratory symptoms and increasing shortness of breath. Today she called EMS for respiratory distress. EMS on arrival found her to be saturating at 60% in room air. She has had multiple COVID exposures from friends. She is unvaccinated. She complained of stuffy nose sore throat cough congestion along with body aches malaise and increasing shortness of breath. She was put on nonrebreather mask with 86% saturation and brought to ED. she was tried on nasal cannula 5 L however she was so she was placed on BiPAP in the ED. Currently she is at 60% FiO2 16 x 6 BiPAP support. Chest x-ray showed right lower lobe pn eumonia. Patient is being admitted for COVID pneumonia and possibly secondary bacterial pneumonia with acute hypoxic respiratory failure. Patient also complained of loose bowel movements denied any abdominal pain or vomiting. She does have some nausea and poor appetite. Home Medications Scheduled Amlodipine Besylate (Amlodipine Besylate) 2.5 Mg Tablet, 2.5 MG PO DAILY, (Reported) Carvedilol (Carvedilol) 3.125 Mg Tablet, 3.125 MG PO BID, (Reported) Allergies Coded Allergies: lisinopril (Verified Allergy, Unknown, 07/09/21) Past Medical History Medical History COPD Mild persistent asthma Obesity BMI of 37.9 Hypertension Depression GERD Stress incontinence Smoker Peripheral vascular disease with complete occlusion of her bilateral SFA with claudication since 2009 History of CVA right basal ganglia lacunar infarct in 2007 Chronic low back pain status post laminectomy Cholecystectomy 1997 Laminectomy 1990 L5-S1 spinal fusion 2001 Right femoral-popliteal bypass in November 2010 Family History Father from [place] Mother has hypertension diabetes and valvular heart disease Social History * Smoker: current smoker Alcohol: occationally Drugs: denies A-FIB/CHADSVASC A-FIB History Current/History of A-Fib/PAF?: No Review of Systems Constitutional: Reports: Malaise, Weakness, Fatigue Eyes: Denies: Pain, Vision change ENT: Reports: Head Aches, Sinus Congestion, Sore Throat Skin: Denies: Rash, Lesions, Breakdown Pulmonary: Reports: Dyspnea, Cough Cardiovascular: Denies: Chest Pain, Palpitations, Orthopnea, Paroxysmal Noc. Dyspnea, Lt Headedness Gastrointestinal: Reports: Nausea, Diarrhea Genitourinary: Denies: Dysuria, Frequency, Incontinence, Retention Hematologic: Denies: Bruising, Bleeding Excessively Musculoskeletal: Reports: Back Pain; Denies: Neck Pain, Joint Pain, Muscle Pain, Spasms Physical Examination General Exam: Positive: Alert, Cooperative, Other (On BiPAP) Eye Exam: Positive: PERRLA, Conjunctiva & lids normal, EOMI; Negative: Sclera icteric ENT Exam: Positive: Atraumatic, Mucous membr. moist/pink, Pharynx Normal Neck Exam: Positive: Supple; Negative: JVD, thyromegaly Chest Exam: Positive: Rhonchi, Wheezing, Diminished, Other (Diffuse crackles) Heart Exam: Positive: Rate Normal, Regular Rhythm, Normal S1, Normal S2; Negative: Murmurs, Rubs Telemetry: Positive: Sinus Abdomen Exam: Positive: Normal bowel sounds, Soft; Negative: Tenderness Extremity Exam: Negative: Clubbing, Cyanosis, Edema Psych Exam: Positive: Memory Intact, Oriented x 3 Vital Signs Vital Signs Date Time Temp Pulse Resp B/P (MAP) Pulse Ox O2 Delivery O2 Flow Rate FiO2 07/09/21 07:45 79 26 169/81 (110) 97 NIPPV (BIPAP/CPAP) 07/09/21 06:09 98.3 07/09/21 06:09 60 Laboratory Data Labs 24H Laboratory Tests 2 07/09/21 05:55: Lactic Acid Level 2.1*H 07/09/21 05:56: Immature Granulocyte % (Auto) 0.3, Neutrophils (%) (Auto) 84.6H, Lymphocytes (%) (Auto) 7.7L, Monocytes (%) (Auto) 7.0, Eosinophils (%) (Auto) 0.0, Basophils (%) (Auto) 0.4, Neutrophils # (Auto) 6.4, Lymphocytes # (Auto) 0.6L, Monocytes # (Auto) 0.5, Eosinophils # (Auto) 0.0, Basophils # (Auto) 0.0, Nucleated Red Blood Cells % (auto) 0.0 07/09/21 05:58: Blood Gas Bicarbonate Standard 27.3H, Arterial Blood pH 7.459H, Arterial Blood Partial Pressure CO2 39.1, Arterial Blood Partial Pressure O2 83.3, Arterial Blood Total CO2 28.3, Arterial Blood HCO3 27.1H, Arterial Blood Base Excess 3.2H, Arterial Blood Oxygen Saturation 96.0 07/09/21 06:50: Anion Gap 10, Glomerular Filtration Rate > 60.0, Calcium Level 7.6L, Total Bilirubin 0.8, Direct Bilirubin 0.3H, Aspartate Amino Transf (AST/SGOT) 31, Alanine Aminotransferase (ALT/SGPT) 26, Alkaline Phosphatase 99, Total Creatine Kinase 88, Creatine Kinase MB < 1.0, Creatine Kinase MB Relative Index 1.14, Troponin I < 0.02, QL-Uqv-G-Type Natriuretic Peptide 993H, Total Protein 6.7, Albumin 2.8L, Albumin/Globulin Ratio 0.7L CBC/BMP Laboratory Tests 07/09/21 05:56 07/09/21 06:50 Microbiology Microbiology 07/09/21 Blood Culture, Received Pending 07/09/21 Respiratory Virus Panel (PCR) ([facility]LAN) - Final, Complete SARS-CoV-2 (COVID 19) 07/09/21 Blood Culture, Received Pending Assessment/Plan 60-year-old female with asthma and COPD, obesity, smoker presented to the emergency room for respiratory distress. She has a 7 day history of upper respiratory symptoms and increasing shortness of breath. Today she called EMS for respiratory distress. EMS on arrival found her to be saturating at 60% in room air. She has had multiple COVID exposures from friends. She is unvaccinated. She complained of stuffy nose sore throat cough congestion along with body aches malaise and increasing shortness of breath. She was put on nonrebreather mask with 86% saturation and brought to ED. she was tried on nasal cannula 5 L however she was so she was placed on BiPAP in the ED. Currently she is at 60% FiO2 16 x 6 BiPAP support. Chest x-ray showed right lower lobe pneumonia. Patient is being admitted for COVID pneumonia and possibly secondary bacterial pneumonia with acute hypoxic respiratory failure. Covid pneumonia with acute hypoxic respiratory failure Patient is on BiPAP in ED We will try to wean off BiPAP and see if she can tolerate Vapotherm Start on dexamethasone, remdesivir, aspirin Incentive spirometry when able and awake proning if able. Albuterol and Symbicort inhalers. Covid labs ordered Possible bacterial pneumonia We will start on levofloxacin We will check a mycoplasma antibody urine for Legionella and urine for Streptococcus pneumonia Procalcitonin Asthma/COPD exacerbation Will continue with dexamethasone twice a day, Symbicort, albuterol and levofloxacin Hypertension Continue home meds Mild dehydration Has increased hematocrit Plan / VTE VTE Prophylaxis Ordered?: Yes Mila Elias MD Jul 09, 2021 08:15
[2021-07-09] MEDS ORDERED: SODIUM CHLORIDE 0.9% INJ 10 ML SYR IV ONE ×2 (15:00→18:00)
[2021-07-09 15:30] VITALS: O2SAT 93
[2021-07-09 15:34] VITALS: BP 175/85
[2021-07-09] MEDS: dexameTHASONE 20MG/5ML VIAL (J1100 PER 1MG) IV SCH ×2 (15:39→19:46)
[2021-07-09] MEDS: PANTOPRAZOLE 40MG VIAL (C9113 PER 1) IV SCH ×2 (15:42→19:46)
[2021-07-09] MEDS: LevoFLOXacin IV 750 MG in IV 1 EA IV SCH (15:46)
[2021-07-09] MEDS: ENOXAPARIN 40MG/0.4ML SYRINGE (J1650 PER 10MG) SC SCH (15:47)
[2021-07-09] MEDS: ASPIRIN 81MG ENTERIC TABLET PO SCH (15:47)
--- NOTE | 2021-07-09 19:18 | ECGEPIP ---
[facility] - ED Test Date: 2021-07-09 Pat Name: KALI KEYES Department: Room: 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
[2021-07-09 19:54] VITALS: BP 168/74
[2021-07-09] MEDS ORDERED: traZODone 25MG PER 1/2 TABLET PO ONE (20:00)
[2021-07-10] VITALS (7 sets, daily range): BP systolic 142–173; BP diastolic 62–87; O2SAT 94–95
[2021-07-10] MEDS ORDERED: KETOROLAC 30 MG/ML 1ML VIAL IV ONE (02:45)
[2021-07-10] MEDS: ALBUTEROL 90 MCG/ACT 8GM HFA INHALER INH SCH ×6 (03:25→23:32)
[2021-07-10 06:34] LABS: BASO % 0.2 % (0.0-1.0); HEMATOCRIT 47.4 % (36.0-47.0); HEMOGLOBIN 16.3 g/dl (12.0-15.5); LYMPH # 0.6 10^3/uL (1.5-5.0); LYMPH % 12.1 % (24.0-44.0); MEAN CORPUSCULAR HGB CONC 34.4 g/dl (32.0-36.5); MEAN CORPUSCULAR VOLUME 90.3 fl (80.0-96.0); MONO # 0.2 10^3/uL (0.0-0.8); NEUTROPHILS # 3.8 10^3/uL (1.5-8.5); NEUTROPHILS % 82.3 % (36.0-66.0); PLATELET COUNT, AUTOMATED 210 10^3/uL (150-450); RED BLOOD COUNT 5.25 10^6/uL (4.00-5.40); WHITE BLOOD COUNT 4.6 10^3/uL (4.0-10.0)
[2021-07-10 06:54] LABS: ALBUMIN 2.4 GM/DL (3.2-5.2); ALT/SGPT 22 U/L (12-78); BILIRUBIN,DIRECT 0.2 MG/DL (0.0-0.2); BILIRUBIN,TOTAL 0.6 MG/DL (0.2-1.0); BLOOD UREA NITROGEN 13 MG/DL (7-18); CALCIUM LEVEL 8.4 MG/DL (8.8-10.2); CARBON DIOXIDE LEVEL 29 MEQ/L (21-32); CHLORIDE LEVEL 93 MEQ/L (98-107); CREATININE FOR GFR 0.54 MG/DL (0.55-1.30); GLOMERULAR FILTRATION RATE > 60.0 (>45); GLUCOSE, FASTING 139 MG/DL (70-100); MAGNESIUM LEVEL 1.2 MG/DL (1.8-2.4); SODIUM LEVEL 130 MEQ/L (136-145); TOTAL PROTEIN 6.8 GM/DL (6.4-8.2)
[2021-07-10] MEDS: SYMBICORT 160/4.5MCG INHALER 6GM INH SCH ×2 (07:44→20:52)
[2021-07-10] MEDS: MAG SULF 1GM/100ML (MAG RUN) 1 GM in IV 1 EA IV SCH ×4 (09:39→19:01)
[2021-07-10] MEDS: dexameTHASONE 20MG/5ML VIAL (J1100 PER 1MG) IV SCH ×2 (09:40→20:33)
[2021-07-10] MEDS: LIDOCAINE 5% (LIDODERM) PATCH TD SCH (09:40)
[2021-07-10] MEDS: PANTOPRAZOLE 40MG VIAL (C9113 PER 1) IV SCH ×2 (09:40→20:33)
[2021-07-10] MEDS: ENOXAPARIN 40MG/0.4ML SYRINGE (J1650 PER 10MG) SC SCH (09:40)
[2021-07-10] MEDS: POTASSIUM CHLORIDE 10MEQ SR TABLET PO SCH ×3 (09:41→13:00)
[2021-07-10] MEDS: CARVedilol 3.125 MG TAB PO SCH ×2 (09:41→20:36)
[2021-07-10] MEDS: ASPIRIN 81MG ENTERIC TABLET PO SCH (09:42)
[2021-07-10] MEDS: LevoFLOXacin IV 750 MG in IV 1 EA IV SCH (11:27)
[2021-07-10] MEDS: ACETAMINOPHEN TAB 650MG DOSE (2X325MG) PO PRN ×2 (11:36→20:48)
--- NOTE | 2021-07-10 12:20 | IPNPDOC ---
Text Note Date of Service The patient was seen on 07/10/21. NOTE Subjective: Patient is a 60-year-old female with a history of asthma and COPD who presented to the emergency department with respiratory distress. Patient has a 7-day history of respiratory symptoms including shortness of breath. Patient was found to be Covid positive. Chest x-ray shows right lower lobe pneumonia. Patient was admitted for Covid pneumonia and possible secondary bacterial pneumonia with acute hypoxic respiratory failure requiring Vapotherm. Patient states that she is still having some shortness of breath but is otherwise feeling better. Review of systems: General: Patient denies fevers HEENT: Patient denies headaches Cardiovascular: Patient denies chest pain Respiratory: Patient reports improvement in her shortness of breath. GI: Patient denies abdominal pain, nausea, vomiting, diarrhea : Patient denies increased frequency or pain with urination Extremities: Patient denies swelling or pain in extremities Neurological: Patient denies numbness or tingling in legs Physical exam: Vitals: See below General: Alert and oriented female patient who was sitting on the edge of the bed when I walked in. Patient Vapotherm nasal cannula oxygen in place. Patient did not appear to be in any acute distress HEENT: Normocephalic, atraumatic, moist mucous membranes. Neck: No lymphadenopathy or thyromegaly Cardiac: Regular rate and rhythm, no murmurs, normal S1, normal S2 Pulm: Diminished breath sounds with scattered end expiratory wheezing Abd: Nondistended, nontender to palpation, normal bowel sounds Ext: No edema bilateral lower extremities Labs: See below Imaging: No new imaging has been performed Assessment/plan: 60-year-old female with history of asthma COPD, obesity, smoking who presented to the emergency room with respiratory distress and was found to have COVID-19 pneumonia 1. Acute hypoxic respiratory failure requiring Vapotherm therapy. Patient was initially placed on BiPAP. Pulmonology saw the patient and recommended trying Vapotherm. Patient has been able to tolerate Vapotherm. Patient has been started on dexamethasone and remdesivir. Baricitinib will be added today. Continue using albuterol and Symbicort inhalers. 2. COVID-19. Continue oxygen therapy as above. 3. Possible bacterial pneumonia. Will start on levofloxacin. Continue to monitor. 4. Asthma/COPD exacerbation. Patient will be on dexamethasone twice a day, Symbicort, albuterol levofloxacin. 5. Hypertension. Continue home medications. 6. Hypokalemia. This has been repleted and will continue to monitor. 7. Hypomagnesemia. Patient will receive 4 mag runs throughout the day today to replete her magnesium as this is quite low. 8. Hyponatremia. We will continue to monitor at this time. This does appear chronic in nature. DVT Prophylaxis: Lovenox Disposition: Pending improvement in oxygenation. VS,Fishbone, I+O VS, Fishbone, I+O Laboratory Tests 07/10/21 05:55 Vital Signs Date Time Temp Pulse Resp B/P (MAP) Pulse Ox O2 Delivery O2 Flow Rate FiO2 07/10/21 11:28 96.6 77 20 144/66 (92) 96 HVNI-Vapotherm 35.0 50 I&O- Last 24 Hours up to 6 AM 07/10/21 06:00 Intake Total 800 ml Balance 800 ml HALI GUPTA DO Jul 10, 2021 12:20
[2021-07-10] MEDS ORDERED: REMDESIVIR 100 MG in NS 250 ML IV SCH (13:00)
[2021-07-10] MEDS ORDERED: SODIUM CHLORIDE 0.9% INJ 10 ML SYR IV SCH (14:00)
[2021-07-10] MEDS: BARICITINIB 2MG TABLET (OLUMIANT) FOR EUA PO SCH (14:58)
[2021-07-10 17:07] LABS: MYCOPLASMA PNEUMONIAE IgG 702 U/mL (0-99); MYCOPLASMA PNEUMONIAE IgM <770 U/mL (0-769)
[2021-07-10] MEDS ORDERED: traMADol 50 MG TAB PO ONE (18:00)
[2021-07-10] MEDS: REMDESIVIR 100 MG in NS 250 ML IV SCH (18:06)
[2021-07-10] MEDS: SODIUM CHLORIDE 0.9% INJ 10 ML SYR IV SCH (19:51)
[2021-07-10] MEDS: **NOTE PATIENT COMMENT** MISC XX SCH (21:26)
[2021-07-10] MEDS ORDERED: traZODone 25MG PER 1/2 TABLET PO ONE (22:00)
[2021-07-10] MEDS ORDERED: ANALGESIC BALM CRM 3OZ TOP PRN (22:00)
[2021-07-11] MEDS: ALBUTEROL 90 MCG/ACT 8GM HFA INHALER INH SCH ×5 (03:59→20:00)
[2021-07-11 04:00] VITALS: BP 155/80
[2021-07-11 08:05] LABS: BASO % 0.2 % (0.0-1.0); HEMATOCRIT 47.7 % (36.0-47.0); HEMOGLOBIN 16.2 g/dl (12.0-15.5); LYMPH # 0.7 10^3/uL (1.5-5.0); LYMPH % 15.9 % (24.0-44.0); MEAN CORPUSCULAR HEMOGLOBIN 31.5 pg (27.0-33.0); MEAN CORPUSCULAR VOLUME 92.8 fl (80.0-96.0); MONO # 0.3 10^3/uL (0.0-0.8); NEUTROPHILS # 3.4 10^3/uL (1.5-8.5); NEUTROPHILS % 77.2 % (36.0-66.0); PLATELET COUNT, AUTOMATED 252 10^3/uL (150-450); RED BLOOD COUNT 5.14 10^6/uL (4.00-5.40); WHITE BLOOD COUNT 4.4 10^3/uL (4.0-10.0)
[2021-07-11] MEDS: SYMBICORT 160/4.5MCG INHALER 6GM INH SCH ×2 (08:12→20:55)
[2021-07-11 08:19] LABS: INR 1.05; PROTHROMBIN TIME 14.1 SECONDS (12.7-14.5)
[2021-07-11 08:20] LABS: PARTIAL THROMBOPLASTIN TIME 30.4 SECONDS (25.9-37.0)
[2021-07-11 09:00] LABS: ALBUMIN 2.5 GM/DL (3.2-5.2); ALT/SGPT 24 U/L (12-78); BILIRUBIN,DIRECT 0.2 MG/DL (0.0-0.2); BILIRUBIN,TOTAL 0.6 MG/DL (0.2-1.0); BLOOD UREA NITROGEN 19 MG/DL (7-18); CALCIUM LEVEL 8.1 MG/DL (8.8-10.2); CARBON DIOXIDE LEVEL 31 MEQ/L (21-32); CHLORIDE LEVEL 95 MEQ/L (98-107); CPK CREATINE PHOSPHOKINASE 208 U/L (26-192); CREATININE FOR GFR 0.58 MG/DL (0.55-1.30); FERRITIN 399 NG/ML (8-252); GLOMERULAR FILTRATION RATE > 60.0 (>45); GLUCOSE, FASTING 144 MG/DL (70-100); LDH LACTATE DEHYDROGENASE 269 U/L (84-246); MAGNESIUM LEVEL 1.9 MG/DL (1.8-2.4); NT-PRO BNP 633 PG/ML (<125); POTASSIUM SERUM 3.8 MEQ/L (3.5-5.1); SODIUM LEVEL 131 MEQ/L (136-145); TOTAL PROTEIN 6.6 GM/DL (6.4-8.2); TROPONIN I < 0.02 NG/ML (< 0.10)
[2021-07-11] MEDS: dexameTHASONE 20MG/5ML VIAL (J1100 PER 1MG) IV SCH ×2 (09:11→21:32)
[2021-07-11] MEDS: ASPIRIN 81MG ENTERIC TABLET PO SCH (09:11)
[2021-07-11] MEDS: PANTOPRAZOLE 40MG VIAL (C9113 PER 1) IV SCH ×2 (09:12→21:32)
[2021-07-11] MEDS: LevoFLOXacin IV 750 MG in IV 1 EA IV SCH (09:12)
[2021-07-11] MEDS: ENOXAPARIN 40MG/0.4ML SYRINGE (J1650 PER 10MG) SC SCH (09:13)
[2021-07-11] MEDS: LIDOCAINE 5% (LIDODERM) PATCH TD SCH (09:13)
[2021-07-11] MEDS: ACETAMINOPHEN TAB 650MG DOSE (2X325MG) PO PRN (09:14)
[2021-07-11] MEDS: CARVedilol 3.125 MG TAB PO SCH ×2 (09:14→21:32)
[2021-07-11] MEDS: BARICITINIB 2MG TABLET (OLUMIANT) FOR EUA PO SCH (09:14)
[2021-07-11 13:58] VITALS: BP 146/78
--- NOTE | 2021-07-11 15:21 | IPNPDOC ---
Text Note Date of Service The patient was seen on 07/11/21. NOTE Subjective: Patient is a 60-year-old female with a history of asthma and COPD presented to the emergency department with respiratory distress. Patient had a 7-day history of respiratory symptoms including shortness of breath and cough. Patient was found to be Covid positive. Chest x-ray shows right lower lobe pneumonia. Patient was admitted for Covid pneumonia possible secondary bacterial pneumonia with acute hypoxic respiratory failure requiring Vapotherm. Patient states that she feels like she is still getting better but when she gets up and walks around, the shortness of breath is worse. Patient does not any other complaints today. Review of systems: General: Patient denies fevers HEENT: Patient denies headaches Cardiovascular: Patient denies chest pain Respiratory: Patient reports shortness of breath as above GI: Patient denies abdominal pain, nausea, vomiting, diarrhea : Patient denies increased frequency or pain with urination Extremities: Patient denies swelling or pain in extremities Neurological: Patient denies numbness or tingling in legs Physical exam: Vitals: See below General: Alert and oriented female patient who was laying in bed when I walked in the room. Patient had Vapotherm nasal cannula oxygen in place. Patient did not appear to be in any acute distress. HEENT: Normocephalic, atraumatic, moist mucous membranes. Neck: No lymphadenopathy or thyromegaly Cardiac: Regular rate and rhythm, no murmurs, normal S1, normal S2 Pulm: Diminished breath sounds with scattered end expiratory wheezing bilaterally Abd: Nondistended, nontender to palpation, normal bowel sounds Ext: No edema bilateral lower extremities Labs: See below Imaging: No new imaging has been performed Assessment/plan: 60-year-old female with a history of asthma, COPD, obesity, smoking who presented to the emergency room with respiratory distress found to have COVID-19 pneumonia 1. Acute hypoxic respiratory failure requiring Vapotherm therapy. Patient was initially placed on BiPAP. Pulmonology saw the patient recommended trying Vapotherm. Patient has been able to tolerate Vapotherm. Patient is on dexamethasone, remdesivir, and baricitinib. Continue albuterol and Symbicort. Continue to wean down oxygen as tolerated. 2. COVID-19. Continue oxygen therapy as above. 3. Possible bacterial pneumonia. Continue levofloxacin. 4. Asthma/COPD exacerbation. Patient is on dexamethasone twice a day. Continue Symbicort and albuterol. 5. Hypertension. Continue home medications. 6. Hypokalemia, this is resolved with repletion. We will continue to monitor. 7. Hypomagnesemia. Resolved with repletion. Continue to monitor. 8. Hyponatremia. This appears chronic in nature and does not appear to be causing her any symptoms at this time. We will continue to monitor. DVT Prophylaxis: Lovenox Disposition: Pending improvement in oxygenation Nathaniel OLIVARES, I+O VSNathaniel I+O Laboratory Tests 07/11/21 07:36 Vital Signs Date Time Temp Pulse Resp B/P (MAP) Pulse Ox O2 Delivery O2 Flow Rate FiO2 07/11/21 13:58 97.8 72 22 146/78 (100) 94 HVNI-Vapotherm 35.0 60 I&O- Last 24 Hours up to 6 AM 07/11/21 06:00 Intake Total 1800 ml Output Total 450 ml Balance 1350 ml HALI GUPTA DO Jul 11, 2021 15:21
[2021-07-11] MEDS: SODIUM CHLORIDE 0.9% INJ 10 ML SYR IV SCH (17:28)
[2021-07-11] MEDS: REMDESIVIR 100 MG in NS 250 ML IV SCH (17:28)
[2021-07-11 20:00] VITALS: O2SAT 94
[2021-07-11] MEDS: **NOTE PATIENT COMMENT** MISC XX SCH (21:32)
[2021-07-11] MEDS: NYSTATIN 100,000 UNITS/GM TOPICAL PWD 15 GM TOP SCH (21:32)
[2021-07-11] MEDS: traZODone 50 MG TAB PO PRN (21:32)
[2021-07-11 22:00] VITALS: BP 153/70
[2021-07-12] MEDS: ALBUTEROL 90 MCG/ACT 8GM HFA INHALER INH SCH ×2 (01:04→03:22)
[2021-07-12] MEDS: LEVALBUTEROL 1.25 MG/0.5 ML CONCENTRATE NEB INH SCH ×6 (04:00→23:06)
[2021-07-12 07:03] LABS: HEMATOCRIT 46.9 % (36.0-47.0); HEMOGLOBIN 16.2 g/dl (12.0-15.5); MEAN CORPUSCULAR HEMOGLOBIN 32.1 pg (27.0-33.0); MEAN CORPUSCULAR HGB CONC 34.5 g/dl (32.0-36.5); MEAN CORPUSCULAR VOLUME 92.9 fl (80.0-96.0); PLATELET COUNT, AUTOMATED 266 10^3/uL (150-450); RED BLOOD COUNT 5.05 10^6/uL (4.00-5.40); WHITE BLOOD COUNT 4.7 10^3/uL (4.0-10.0)
[2021-07-12 07:26] LABS: BLOOD UREA NITROGEN 18 MG/DL (7-18); CALCIUM LEVEL 8.1 MG/DL (8.8-10.2); CARBON DIOXIDE LEVEL 33 MEQ/L (21-32); CHLORIDE LEVEL 95 MEQ/L (98-107); CREATININE FOR GFR 0.59 MG/DL (0.55-1.30); GLOMERULAR FILTRATION RATE > 60.0 (>45); GLUCOSE, FASTING 124 MG/DL (70-100); MAGNESIUM LEVEL 1.6 MG/DL (1.8-2.4); POTASSIUM SERUM 3.8 MEQ/L (3.5-5.1); SODIUM LEVEL 132 MEQ/L (136-145)
[2021-07-12] MEDS: SYMBICORT 160/4.5MCG INHALER 6GM INH SCH ×2 (07:56→21:05)
[2021-07-12 07:59] LABS: ATYPICAL LYMPH 1 % (0-5); LYMPHOCYTES 8 % (16-44); MONOCYTES 2 % (0-5); NEUTROPHILS 89 % (28-66); PLATELET ESTIMATE NORMAL (NORMAL)
[2021-07-12] MEDS: LevoFLOXacin IV 750 MG in IV 1 EA IV SCH (10:23)
[2021-07-12] MEDS: BARICITINIB 2MG TABLET (OLUMIANT) FOR EUA PO SCH (10:24)
[2021-07-12] MEDS: ASPIRIN 81MG ENTERIC TABLET PO SCH (10:24)
[2021-07-12] MEDS: dexameTHASONE 20MG/5ML VIAL (J1100 PER 1MG) IV SCH ×2 (10:25→20:33)
[2021-07-12] MEDS: PANTOPRAZOLE 40MG VIAL (C9113 PER 1) IV SCH ×2 (10:25→20:33)
[2021-07-12] MEDS: ENOXAPARIN 40MG/0.4ML SYRINGE (J1650 PER 10MG) SC SCH (10:27)
[2021-07-12] MEDS: NYSTATIN 100,000 UNITS/GM TOPICAL PWD 15 GM TOP SCH ×2 (10:27→20:33)
[2021-07-12] MEDS: LIDOCAINE 5% (LIDODERM) PATCH TD SCH (10:27)
[2021-07-12] MEDS: CARVedilol 3.125 MG TAB PO SCH ×2 (10:27→20:38)
[2021-07-12 14:00] VITALS: BP 171/90
--- NOTE | 2021-07-12 14:43 | IPNPDOC ---
Text Note Date of Service The patient was seen on 07/12/21. NOTE Subjective: Patient is a 60-year-old female with a history of asthma and COPD presents to the emergency department with respiratory distress. Patient had a 7-day history of respiratory symptoms including shortness of breath and cough. Patient was found to be Covid positive. Chest x-ray shows right lower lobe pneumonia. Patient was noted Covid pneumonia. Patient is getting slightly better. Patient does say her shortness of breath is improved although she is coughing more but this is a dry cough. Patient is otherwise feeling well. Patient denies having any issues eating or drinking. Review of systems: General: Patient denies fevers HEENT: Patient denies headaches Cardiovascular: Patient denies chest pain Respiratory: Patient reports decrease shortness of breath and increased cough that is nonproductive GI: Patient denies abdominal pain, nausea, vomiting, diarrhea : Patient denies increased frequency or pain with urination Extremities: Patient denies swelling or pain in extremities Neurological: Patient denies numbness or tingling in legs Physical exam: Vitals: See below General: Alert and oriented female patient who was sitting on the edge of the bed with Vapotherm nasal cannula oxygen in place when I walked in. Patient did not appear to be in any acute distress. HEENT: Normocephalic, atraumatic, moist mucous membranes. Neck: No lymphadenopathy or thyromegaly Cardiac: Regular rate and rhythm, no murmurs, normal S1, normal S2 Pulm: Diminished breath sounds bilaterally Abd: Nondistended, nontender to palpation, normal bowel sounds Ext: No edema bilateral lower extremities Labs: See below Imaging: No new imaging has been performed Assessment/plan: 60-year-old female with history of asthma, COPD, obesity, smoking who presented to the emergency room with respiratory distress found to have COVID-19 pneumonia. 1. Acute hypoxic respiratory failure requiring Vapotherm therapy. Initially placed on BiPAP. Pulmonology saw the patient and recommended Vapotherm. Patient's been doing well on Vapotherm. Continue dexamethasone, remdesivir, baricitinib. Continue albuterol and Symbicort for COPD. Continue wean down oxygen as tolerated. 2. COVID-19. Continue oxygen treatment as above. 3. Possible bacterial pneumonia. Continue levofloxacin for total 7 days. 4. Asthma/COPD exacerbation. On dexamethasone twice a day. Continue Symbicort and albuterol. 5. Hypertension. Continue home medications. 6. Hypokalemia. This is resolved with repletion. Continue to monitor. 7. Hypomagnesemia. Patient needs repletion today which has been ordered. 8. Hyponatremia. This appears chronic in nature and is asymptomatic at this time. DVT Prophylaxis: Lovenox Disposition: Pending improvement oxygenation. VS,Fishbone, I+O VS, Fishbone, I+O Laboratory Tests 07/12/21 06:17 Vital Signs Date Time Temp Pulse Resp B/P (MAP) Pulse Ox O2 Delivery O2 Flow Rate FiO2 07/12/21 10:25 69 150/70 07/12/21 07:58 93 HVNI-Vapotherm 25.0 60 07/12/21 06:05 98.4 18 I&O- Last 24 Hours up to 6 AM 07/12/21 05:59 Intake Total 1040 ml Output Total 0 ml Balance 1040 ml HALI GUPTA DO Jul 12, 2021 14:43
[2021-07-12] MEDS ORDERED: MAG SULF 1GM/100ML (MAG RUN) 1 GM in IV 1 EA IV ONE (15:00)
[2021-07-12 17:38] VITALS: O2SAT 92
[2021-07-12] MEDS: REMDESIVIR 100 MG in NS 250 ML IV SCH (19:10)
[2021-07-12] MEDS: SODIUM CHLORIDE 0.9% INJ 10 ML SYR IV SCH (19:11)
[2021-07-12] MEDS: traZODone 50 MG TAB PO PRN (20:33)
[2021-07-12] MEDS: **NOTE PATIENT COMMENT** MISC XX SCH (20:38)
[2021-07-12 22:00] VITALS: BP_SYST 185; BP_SYST 191; BP_DIAS 100; BP_DIAS 103; O2SAT 92
[2021-07-12 23:00] VITALS: BP 191/100
[2021-07-12] MEDS ORDERED: **hydrALAZINE** 50 MG TAB PO ONE (23:05)
[2021-07-13 00:30] VITALS: BP 165/89
[2021-07-13] MEDS: LEVALBUTEROL 1.25 MG/0.5 ML CONCENTRATE NEB INH SCH ×4 (02:57→15:27)
[2021-07-13 05:17] LABS: HEMATOCRIT 48.3 % (36.0-47.0); HEMOGLOBIN 16.4 g/dl (12.0-15.5); MEAN CORPUSCULAR VOLUME 91.3 fl (80.0-96.0); PLATELET COUNT, AUTOMATED 269 10^3/uL (150-450); RED BLOOD COUNT 5.29 10^6/uL (4.00-5.40); WHITE BLOOD COUNT 4.4 10^3/uL (4.0-10.0)
[2021-07-13 05:26] LABS: INR 1.04; PARTIAL THROMBOPLASTIN TIME 28.9 SECONDS (25.9-37.0)
[2021-07-13] MEDS: LevoFLOXacin 750 MG TABLET PO SCH (05:28)
[2021-07-13] MEDS: CARVedilol 3.125 MG TAB PO SCH ×2 (05:29→19:50)
[2021-07-13] MEDS: ACETAMINOPHEN TAB 650MG DOSE (2X325MG) PO PRN ×3 (05:30→19:51)
[2021-07-13 05:44] LABS: ATYPICAL LYMPH 2 % (0-5); LYMPHOCYTES 13 % (16-44); MONOCYTES 13 % (0-5); NEUTROPHILS 72 % (28-66)
[2021-07-13 05:45] LABS: PLATELET ESTIMATE NORMAL (NORMAL)
[2021-07-13 05:53] LABS: ALT/SGPT 43 U/L (12-78); BILIRUBIN,DIRECT 0.2 MG/DL (0.0-0.2); BILIRUBIN,TOTAL 0.6 MG/DL (0.2-1.0); BLOOD UREA NITROGEN 15 MG/DL (7-18); CALCIUM LEVEL 8.1 MG/DL (8.8-10.2); CARBON DIOXIDE LEVEL 33 MEQ/L (21-32); CHLORIDE LEVEL 96 MEQ/L (98-107); CPK CREATINE PHOSPHOKINASE 180 U/L (26-192); FERRITIN 354 NG/ML (8-252); GLOMERULAR FILTRATION RATE > 60.0 (>45); GLUCOSE, FASTING 128 MG/DL (70-100); LDH LACTATE DEHYDROGENASE 349 U/L (84-246); MAGNESIUM LEVEL 1.5 MG/DL (1.8-2.4); NT-PRO BNP 1033 PG/ML (<125); POTASSIUM SERUM 3.8 MEQ/L (3.5-5.1); SODIUM LEVEL 134 MEQ/L (136-145); TOTAL PROTEIN 7.2 GM/DL (6.4-8.2); TROPONIN I < 0.02 NG/ML (< 0.10)
[2021-07-13 06:00] VITALS: BP 124/64
[2021-07-13] MEDS: BARICITINIB 2MG TABLET (OLUMIANT) FOR EUA PO SCH (08:06)
[2021-07-13] MEDS: ENOXAPARIN 40MG/0.4ML SYRINGE (J1650 PER 10MG) SC SCH (08:06)
[2021-07-13] MEDS: MAG SULF 1GM/100ML (MAG RUN) 1 GM in IV 1 EA IV SCH ×2 (08:07→11:35)
[2021-07-13] MEDS: LIDOCAINE 5% (LIDODERM) PATCH TD SCH (08:07)
[2021-07-13] MEDS: ASPIRIN 81MG ENTERIC TABLET PO SCH (08:08)
[2021-07-13] MEDS: PANTOPRAZOLE 40MG VIAL (C9113 PER 1) IV SCH ×2 (08:08→19:51)
[2021-07-13] MEDS: dexameTHASONE 20MG/5ML VIAL (J1100 PER 1MG) IV SCH ×2 (08:08→19:51)
[2021-07-13] MEDS: NYSTATIN 100,000 UNITS/GM TOPICAL PWD 15 GM TOP SCH ×2 (08:13→19:51)
[2021-07-13] MEDS: SYMBICORT 160/4.5MCG INHALER 6GM INH SCH ×2 (09:36→19:58)
--- NOTE | 2021-07-13 15:58 | IPNPDOC ---
Text Note Date of Service The patient was seen on 07/13/21. NOTE Subjective: Patient is a 60-year-old female with history of asthma and COPD presented to the emergency department with respiratory distress. Patient had a 7-day history of respiratory symptoms shortness of breath and cough prior to coming in. Patient was found to be COVID-19 positive. Chest x-ray showed right lower lobe pneumonia. Patient was noted also to have Covid pneumonia. Patient is getting slightly better but is complaining of a headache when her blood pressure gets elevated. Patient has a medication list included amlodipine 10 mg. Patient is otherwise doing well. Review of systems: General: Patient denies fevers HEENT: Patient denies headaches Cardiovascular: Patient denies chest pain Respiratory: Patient denies shortness of breath, cough GI: Patient denies abdominal pain, nausea, vomiting, diarrhea : Patient denies increased frequency or pain with urination Extremities: Patient denies swelling or pain in extremities Neurological: Patient denies numbness or tingling in legs Physical exam: Vitals: See below General: Alert and oriented female sitting on side of the bed when I walked in with Vapotherm a post cannula oxygen in place. Patient did not appear to be in any acute HEENT: Normocephalic, atraumatic, moist mucous membranes. Neck: No lymphadenopathy or thyromegaly Cardiac: Regular rate and rhythm, no murmurs, normal S1, normal S2 Pulm: Diminished breath sounds bilaterally Abd: Nondistended, nontender to palpation, normal bowel sounds Ext: No edema bilateral lower extremities Labs: See below Imaging: No new imaging is been performed Assessment/plan: 60-year-old female with a history of asthma, COPD, obesity, smoking who p resented to the emergency department in respiratory distress was found to have COVID-19 pneumonia. 1. Acute hypoxic respiratory failure secondary to COVID-19. Initially placed on BiPAP. Pulmonology saw the patient recommended Vapotherm. Patient has been doing well on Vapotherm. Continue dexamethasone, remdesivir, baricitinib. Patient is on Symbicort for COPD. Continue to wean down oxygen as tolerated. 2. COVID-19. Continue treatment as above. 3. Possible bacterial pneumonia. Continue levofloxacin for 7 days. 4. Asthma/COPD exacerbation. On dexamethasone twice a day. Continue Symbicort. 5. Hypertension. Patient was on amlodipine 10 mg at home. This has been increased. Patient stated that her headache went away when she got the full dose of amlodipine today. 6. Hypokalemia. Resolved with repletion. Continue to monitor. 7. Hypomagnesemia. Patient needs repletion today which has been ordered. 8. Hyponatremia. This appears chronic in nature and she is asymptomatic at this time. DVT Prophylaxis: Lovenox Disposition: Pending provement oxygenation. VS,Fishbone, I+O VS, Fishbone, I+O Laboratory Tests 07/13/21 04:42 Vital Signs Date Time Temp Pulse Resp B/P (MAP) Pulse Ox O2 Delivery O2 Flow Rate FiO2 07/13/21 15:24 92 HVNI-Vapotherm 15.0 45 07/13/21 11:45 83 201/100 07/13/21 06:00 96.8 20 I&O- Last 24 Hours up to 6 AM 07/13/21 06:00 Intake Total 600 ml Balance 600 ml HALI GUPTA DO Jul 13, 2021 15:58
[2021-07-13 16:00] VITALS: BP 130/69
[2021-07-13] MEDS: SODIUM CHLORIDE 0.9% INJ 10 ML SYR IV SCH (17:10)
[2021-07-13] MEDS: REMDESIVIR 100 MG in NS 250 ML IV SCH (17:10)
[2021-07-13 19:49] VITALS: BP 172/85
[2021-07-13] MEDS: **NOTE PATIENT COMMENT** MISC XX SCH (19:52)
[2021-07-14 03:37] VITALS: BP 184/90
[2021-07-14] MEDS ORDERED: **hydrALAZINE** 50 MG TAB PO ONE (03:50)
[2021-07-14 05:26] VITALS: BP 132/88
[2021-07-14] MEDS: ACETAMINOPHEN TAB 650MG DOSE (2X325MG) PO PRN ×3 (05:27→19:18)
[2021-07-14] MEDS: LevoFLOXacin 750 MG TABLET PO SCH (05:27)
[2021-07-14] MEDS: SYMBICORT 160/4.5MCG INHALER 6GM INH SCH ×2 (07:49→20:06)
[2021-07-14 08:05] LABS: BASO % 0.2 % (0.0-1.0); HEMOGLOBIN 15.4 g/dl (12.0-15.5); LYMPH # 0.6 10^3/uL (1.5-5.0); LYMPH % 12.5 % (24.0-44.0); MEAN CORPUSCULAR HGB CONC 34.2 g/dl (32.0-36.5); MEAN CORPUSCULAR VOLUME 90.5 fl (80.0-96.0); MONO # 0.3 10^3/uL (0.0-0.8); NEUTROPHILS # 3.8 10^3/uL (1.5-8.5); PLATELET COUNT, AUTOMATED 285 10^3/uL (150-450); RED BLOOD COUNT 4.97 10^6/uL (4.00-5.40); WHITE BLOOD COUNT 4.9 10^3/uL (4.0-10.0)
[2021-07-14 08:31] LABS: BLOOD UREA NITROGEN 16 MG/DL (7-18); CARBON DIOXIDE LEVEL 34 MEQ/L (21-32); CHLORIDE LEVEL 94 MEQ/L (98-107); GLOMERULAR FILTRATION RATE > 60.0 (>45); GLUCOSE, FASTING 141 MG/DL (70-100); MAGNESIUM LEVEL 1.4 MG/DL (1.8-2.4); POTASSIUM SERUM 3.4 MEQ/L (3.5-5.1); SODIUM LEVEL 133 MEQ/L (136-145)
[2021-07-14] MEDS: BARICITINIB 2MG TABLET (OLUMIANT) FOR EUA PO SCH (09:08)
[2021-07-14] MEDS: ENOXAPARIN 40MG/0.4ML SYRINGE (J1650 PER 10MG) SC SCH (09:09)
[2021-07-14] MEDS: PANTOPRAZOLE 40MG VIAL (C9113 PER 1) IV SCH ×2 (09:09→19:20)
[2021-07-14] MEDS: dexameTHASONE 20MG/5ML VIAL (J1100 PER 1MG) IV SCH ×2 (09:09→19:20)
[2021-07-14] MEDS: NYSTATIN 100,000 UNITS/GM TOPICAL PWD 15 GM TOP SCH ×2 (09:09→19:20)
[2021-07-14] MEDS: CARVedilol 3.125 MG TAB PO SCH (09:10)
[2021-07-14] MEDS: ASPIRIN 81MG ENTERIC TABLET PO SCH (09:10)
[2021-07-14] MEDS: LIDOCAINE 5% (LIDODERM) PATCH TD SCH (09:10)
[2021-07-14 10:35] VITALS: BP 184/91
[2021-07-14] MEDS ORDERED: CARVedilol 3.125 MG TAB PO ONE (11:25)
[2021-07-14] MEDS: MAG SULF 1GM/100ML (MAG RUN) 1 GM in IV 1 EA IV SCH ×3 (11:47→17:38)
[2021-07-14] MEDS: POTASSIUM CHLORIDE 10MEQ SR TABLET PO SCH ×2 (11:48→13:44)
[2021-07-14 13:43] VITALS: BP 148/73
[2021-07-14] MEDS ORDERED: KETOROLAC 30 MG/ML 1ML VIAL IV ONE (14:15)
--- NOTE | 2021-07-14 15:34 | IPNPDOC ---
Text Note Date of Service The patient was seen on 07/14/21. NOTE Subjective: Patient is a 60-year-old female with history of asthma and COPD presented to emergency department with respiratory distress. Patient had a 7- day history of respiratory symptoms of shortness of breath and cough prior to coming in. Patient was found to be COVID-19 positive. Chest x-ray showed right lower lobe pneumonia. Patient was also noted to have Covid pneumonia. Patient's breathing is getting better but she is complaining of a headache on the left side of her head for the past 5 to 6 days although has been getting worse over the past few days. Patient's blood pressures also been elevated. Patient has medication list that includes amlodipine 10 mg carvedilol 25 mg which she had not been on prior to this. Patient is otherwise feeling well. Review of systems: General: Patient denies fevers HEENT: Patient reports headaches as above Cardiovascular: Patient denies chest pain Respiratory: Patient reports improvement in her shortness of breath, cough GI: Patient denies abdominal pain, nausea, vomiting, diarrhea : Patient denies increased frequency or pain with urination Extremities: Patient denies swelling or pain in extremities Neurological: Patient denies numbness or tingling in legs Physical exam: Vitals: See below General: Alert and oriented female patient who was sitting on the side of the bed when I walked in. Patient had Vapotherm nasal cannula in place. Patient did not appear to be in any acute distress. HEENT: Normocephalic, atraumatic, moist mucous membranes. Neck: No lymphadenopathy or thyromegaly Cardiac: Regular rate and rhythm, no murmurs, normal S1, normal S2 Pulm: Diminished breath sounds bilaterally. Abd: Nondistended, nontender to palpation, normal bowel sounds Ext: No edema bilateral lower extremities Labs: See below Imaging: No new imaging has been performed Assessment/plan: 60-year-old female with history of asthma, COPD, obesity, smoking presented the emergency department respiratory distress who was found to have COVID-19 pneumonia. 1. Acute hypoxic respiratory failure secondary COVID-19. Initially placed on BiPAP. Pulmonary saw the patient recommended Vapotherm. Patient doing well we continue to wean down Vapotherm. Continue dexamethasone, baricitinib. Remdesivir course finished. Patient is on Symbicort for COPD. 2. COVID-19. Continue treatment as above. 3. Possible bacterial pneumonia. Continue levofloxacin for 7 days. 4. Headache. Patient describes a headache starting in the back of her neck radiating up to the right side of her head. Patient says that the headache is better when her blood pressure is better controlled but was still complaining of a headache today. Due to the area of the headache, patient could have giant cell arteritis however, patient is being treated with high-dose steroids that she is on dexamethasone 10 mg twice a day. This is higher than the dose of prednisone that is given for giant cell arteritis. Is patient still having headaches I believe this is lower down the differential however, we will order an ESR today but this may be falsely elevated due to the patient's active COVID- 19 infection. Patient will continue with steroids. Patient was given a dose of Toradol see if this will help with a headache. Blood pressure medication has also been increased. 5. Asthma/COPD exacerbation. On dexamethasone twice a day. Continue Symbicort. 6. Hypertension. Carvedilol has been increased to 12.5 twice daily. Continue amlodipine 10 mg. 7. Hypokalemia. Repletion today. 8. Hypomagnesemia. Repleted today. 9. Hyponatremia. This appears chronic in nature and she is asymptomatic at this time. DVT Prophylaxis: Lovenox Disposition: Pending clinical improvement. VS,Nathaniel, I+O VSNathaniel, I+O Laboratory Tests 07/14/21 06:30 Vital Signs Date Time Temp Pulse Resp B/P (MAP) Pulse Ox O2 Delivery O2 Flow Rate FiO2 07/14/21 13:43 97.2 82 20 148/73 (98) 93 HVNI-Vapotherm 15.0 45 I&O- Last 24 Hours up to 6 AM 07/14/21 06:00 Intake Total 960 ml Balance 960 ml HALI GUPTA DO Jul 14, 2021 15:34
[2021-07-14] MEDS: hydrOXYzine 25 MG TAB PO PRN (19:18)
[2021-07-14] MEDS: CARVedilol 12.5 MG TAB PO SCH (19:18)
[2021-07-14] MEDS: **NOTE PATIENT COMMENT** MISC XX SCH (19:20)
[2021-07-14 20:28] VITALS: BP 144/78
[2021-07-15] MEDS: ACETAMINOPHEN TAB 650MG DOSE (2X325MG) PO PRN ×3 (01:19→16:12)
[2021-07-15 04:46] VITALS: BP 180/80
[2021-07-15] MEDS: CARVedilol 12.5 MG TAB PO SCH ×2 (05:02→20:56)
[2021-07-15] MEDS: LevoFLOXacin 750 MG TABLET PO SCH (05:02)
[2021-07-15 05:11] LABS: BASO % 0.2 % (0.0-1.0); HEMATOCRIT 44.9 % (36.0-47.0); HEMOGLOBIN 15.7 g/dl (12.0-15.5); LYMPH # 0.6 10^3/uL (1.5-5.0); LYMPH % 11.9 % (24.0-44.0); MEAN CORPUSCULAR HEMOGLOBIN 31.3 pg (27.0-33.0); MEAN CORPUSCULAR VOLUME 89.4 fl (80.0-96.0); MONO # 0.3 10^3/uL (0.0-0.8); MONO % 6.2 % (2.0-8.0); NEUTROPHILS # 3.9 10^3/uL (1.5-8.5); NEUTROPHILS % 80.1 % (36.0-66.0); PLATELET COUNT, AUTOMATED 306 10^3/uL (150-450); RED BLOOD COUNT 5.02 10^6/uL (4.00-5.40); WHITE BLOOD COUNT 4.9 10^3/uL (4.0-10.0)
[2021-07-15 05:26] LABS: INR 1.02; PARTIAL THROMBOPLASTIN TIME 26.7 SECONDS (25.9-37.0); PROTHROMBIN TIME 13.8 SECONDS (12.7-14.5)
[2021-07-15 05:37] LABS: ALBUMIN 2.6 GM/DL (3.2-5.2); ALT/SGPT 37 U/L (12-78); BILIRUBIN,DIRECT 0.2 MG/DL (0.0-0.2); BILIRUBIN,TOTAL 0.7 MG/DL (0.2-1.0); BLOOD UREA NITROGEN 18 MG/DL (7-18); C REACTIVE PROTEIN QUANTITATIV 1.13 MG/DL (0.00-0.30); CALCIUM LEVEL 7.6 MG/DL (8.8-10.2); CARBON DIOXIDE LEVEL 34 MEQ/L (21-32); CHLORIDE LEVEL 92 MEQ/L (98-107); CPK CREATINE PHOSPHOKINASE 88 U/L (26-192); CREATININE FOR GFR 0.61 MG/DL (0.55-1.30); FERRITIN 380 NG/ML (8-252); GLOMERULAR FILTRATION RATE > 60.0 (>45); GLUCOSE, FASTING 141 MG/DL (70-100); LDH LACTATE DEHYDROGENASE 301 U/L (84-246); MAGNESIUM LEVEL 1.7 MG/DL (1.8-2.4); NT-PRO BNP 542 PG/ML (<125); POTASSIUM SERUM 4.3 MEQ/L (3.5-5.1); SODIUM LEVEL 130 MEQ/L (136-145); TOTAL PROTEIN 6.1 GM/DL (6.4-8.2); TROPONIN I < 0.02 NG/ML (< 0.10)
[2021-07-15 05:54] LABS: ERYTHROCYTE SEDIMENTATION RATE 2 mm/hr (0-30)
[2021-07-15 08:00] VITALS: BP 174/83
[2021-07-15] MEDS ORDERED: MAG SULF 1GM/100ML (MAG RUN) 1 GM in IV 1 EA IV ONE (08:00)
[2021-07-15] MEDS: PANTOPRAZOLE 40MG VIAL (C9113 PER 1) IV SCH ×2 (09:06→20:56)
[2021-07-15] MEDS: ASPIRIN 81MG ENTERIC TABLET PO SCH (09:06)
[2021-07-15] MEDS: ENOXAPARIN 40MG/0.4ML SYRINGE (J1650 PER 10MG) SC SCH (09:07)
[2021-07-15] MEDS: dexameTHASONE 20MG/5ML VIAL (J1100 PER 1MG) IV SCH ×2 (09:07→20:56)
[2021-07-15] MEDS: LIDOCAINE 5% (LIDODERM) PATCH TD SCH (09:07)
[2021-07-15] MEDS: BARICITINIB 2MG TABLET (OLUMIANT) FOR EUA PO SCH (09:07)
[2021-07-15] MEDS: NYSTATIN 100,000 UNITS/GM TOPICAL PWD 15 GM TOP SCH ×2 (09:08→20:56)
[2021-07-15] MEDS: SYMBICORT 160/4.5MCG INHALER 6GM INH SCH ×2 (09:19→20:01)
[2021-07-15] MEDS: hydrOXYzine 25 MG TAB PO PRN ×2 (09:25→16:12)
[2021-07-15] MEDS ORDERED: CHLORTHALIDONE 25 MG TAB PO ONE (12:20)
--- NOTE | 2021-07-15 12:22 | IPNPDOC ---
Text Note Date of Service The patient was seen on 07/15/21. NOTE Subjective: Patient is a 60-year-old female with history of asthma and COPD presented to the emergency department respiratory distress. Patient had a 7-day history of respiratory symptoms including shortness of breath and cough prior to coming in. Patient was found to be COVID-19 positive. Chest x-ray showed right lower lobe pneumonia. Patient also noted to have Covid pneumonia. Patient's breathing is getting better. Patient's blood pressure has been elevated and her blood pressure medications have been increased. Patient is also having a worsening headache along the right side of her neck into the back of her head. Patient is otherwise feeling better today. Review of systems: General: Patient denies fevers HEENT: Patient reports headaches as above Cardiovascular: Patient denies chest pain Respiratory: Patient reports improvement in her shortness of breath and her cough GI: Patient denies abdominal pain, nausea, vomiting, diarrhea : Patient denies increased frequency or pain with urination Extremities: Patient denies swelling or pain in extremities Neurological: Patient denies numbness or tingling in legs Physical exam: Vitals: See below General: Alert and oriented female patient who was sitting in the bedside chair with oxygen. Patient had nasal cannula oxygen in place. Patient not appear to be in any acute distress HEENT: Normocephalic, atraumatic, moist mucous membranes. Neck: No lymphadenopathy or thyromegaly. Patient had a very hypertonic trapezius and scalene muscles on the right side of her neck Cardiac: Regular rate and rhythm, no murmurs, normal S1, normal S2 Pulm: Diminished breath sounds bilaterally with scattered end expiratory wheezing Abd: Nondistended, nontender to palpation, normal bowel sounds Ext: No edema bilateral lower extremities Labs: See below Imaging: No new imaging is been performed Assessment/plan: 60-year-old female with a history of asthma, COPD, obesity, smoking presented the emergency department respiratory distress found to have COVID-19 pneumonia. 1. Acute hypoxic respiratory failure secondary COVID-19. Initially placed on BiPAP. Pulmonary saw the patient and recommended Vapotherm. Patient was weaned off of Vapotherm onto nasal cannula oxygen. Patient is currently on 3 L. Tracey nue dexamethasone and baricitinib. Remdesivir course is been finished. Continue Symbicort for COPD. 2. COVID-19. Continue current treatment as above. 3. Possible bacterial pneumonia. Levofloxacin day 7 was today. Has been discontinued. 4. Headache. This appears to be a tension headache. ESR was normal. Giant cell arteritis is very unlikely at this time however, we will continue to mo nitor. Patient is currently on steroids. I will continue to treat the patient's headaches as needed. 5. Asthma/COPD exacerbation. On dexamethasone and Symbicort. 6. Hypertension. Still having blood pressures in the 170s to 180s systolic. Patient cannot be on JACKELYN or ARB therapy as she had angioedema to lisinopril. Thiazide type diuretic could be added however, patient is already hyponatremic and this will most likely only worsen this. We will increase the patient's carvedilol at this time. 7. Hypokalemia. Continue repletion as necessary. 8. Hypomagnesemia. Continue repletion as necessary. 9. Hyponatremia. This appears chronic in nature and she is asymptomatic at this time. DVT Prophylaxis: Lovenox Disposition: Pending clinical improvement Nathaniel OLIVARES, I+O VSNathaniel I+O Laboratory Tests 07/15/21 04:35 Vital Signs Date Time Temp Pulse Resp B/P (MAP) Pulse Ox O2 Delivery O2 Flow Rate FiO2 07/15/21 09:00 3.0 07/15/21 08:00 97.1 86 18 174/83 (113) 94 Nasal Cannula 07/15/21 04:46 45 I&O- Last 24 Hours up to 6 AM 07/15/21 06:00 Intake Total 1260 ml Balance 1260 ml HALI GUPTA DO Jul 15, 2021 12:22
[2021-07-15 13:03] VITALS: BP 168/92
[2021-07-15] MEDS: **hydrALAZINE** 10 MG TAB PO SCH ×2 (13:06→17:30)
[2021-07-15 14:33] VITALS: BP 148/88
[2021-07-15] MEDS: traZODone 50 MG TAB PO PRN (20:56)
[2021-07-15] MEDS: **NOTE PATIENT COMMENT** MISC XX SCH (20:57)
[2021-07-15 21:00] VITALS: BP 150/74
[2021-07-16] VITALS (8 sets, daily range): BP systolic 132–163; BP diastolic 62–90; O2SAT 93–96
[2021-07-16] MEDS: ACETAMINOPHEN TAB 650MG DOSE (2X325MG) PO PRN ×4 (00:05→18:39)
[2021-07-16] MEDS: hydrOXYzine 25 MG TAB PO PRN ×4 (00:05→18:39)
[2021-07-16] MEDS: **hydrALAZINE** 10 MG TAB PO SCH ×4 (06:00→18:00)
[2021-07-16 07:14] LABS: BASO % 0.3 % (0.0-1.0); EOS % 0.2 % (0.0-3.0); HEMATOCRIT 47.2 % (36.0-47.0); HEMOGLOBIN 16.5 g/dl (12.0-15.5); LYMPH # 0.7 10^3/uL (1.5-5.0); LYMPH % 10.4 % (24.0-44.0); MEAN CORPUSCULAR HEMOGLOBIN 31.4 pg (27.0-33.0); MEAN CORPUSCULAR VOLUME 89.7 fl (80.0-96.0); MONO # 0.6 10^3/uL (0.0-0.8); MONO % 9.3 % (2.0-8.0); NEUTROPHILS # 5.1 10^3/uL (1.5-8.5); NEUTROPHILS % 78.4 % (36.0-66.0); PLATELET COUNT, AUTOMATED 351 10^3/uL (150-450); RED BLOOD COUNT 5.26 10^6/uL (4.00-5.40); WHITE BLOOD COUNT 6.6 10^3/uL (4.0-10.0)
[2021-07-16 07:59] LABS: BLOOD UREA NITROGEN 17 MG/DL (7-18); CALCIUM LEVEL 7.8 MG/DL (8.8-10.2); CARBON DIOXIDE LEVEL 35 MEQ/L (21-32); CHLORIDE LEVEL 92 MEQ/L (98-107); CREATININE FOR GFR 0.65 MG/DL (0.55-1.30); GLOMERULAR FILTRATION RATE > 60.0 (>45); GLUCOSE, FASTING 110 MG/DL (70-100); MAGNESIUM LEVEL 1.7 MG/DL (1.8-2.4); POTASSIUM SERUM 4.2 MEQ/L (3.5-5.1); SODIUM LEVEL 130 MEQ/L (136-145)
[2021-07-16] MEDS: SYMBICORT 160/4.5MCG INHALER 6GM INH SCH ×2 (08:18→20:48)
[2021-07-16] MEDS: ASPIRIN 81MG ENTERIC TABLET PO SCH (08:26)
[2021-07-16] MEDS: BARICITINIB 2MG TABLET (OLUMIANT) FOR EUA PO SCH (08:27)
[2021-07-16] MEDS: LIDOCAINE 5% (LIDODERM) PATCH TD SCH (08:27)
[2021-07-16] MEDS: CARVedilol 12.5 MG TAB PO SCH ×2 (08:27→20:47)
[2021-07-16] MEDS: PANTOPRAZOLE 40MG VIAL (C9113 PER 1) IV SCH (08:28)
[2021-07-16] MEDS: dexameTHASONE 20MG/5ML VIAL (J1100 PER 1MG) IV SCH ×2 (08:28→20:48)
[2021-07-16] MEDS: ENOXAPARIN 40MG/0.4ML SYRINGE (J1650 PER 10MG) SC SCH (08:28)
[2021-07-16] MEDS: NYSTATIN 100,000 UNITS/GM TOPICAL PWD 15 GM TOP SCH ×2 (08:30→20:48)
[2021-07-16] MEDS ORDERED: CHLORTHALIDONE 25 MG TAB PO SCH (09:00)
[2021-07-16] MEDS ORDERED: MAG SULF 1GM/100ML (MAG RUN) 1 GM in IV 1 EA IV ONE (13:15)
--- NOTE | 2021-07-16 13:17 | IPNPDOC ---
Text Note Date of Service The patient was seen on 07/16/21. NOTE SUBJECTIVE: Patient is seen and examined this morning at bedside. She states that she did not sleep well and is feeling slightly worse today than yesterday. She does note her breathing feels stable and is not worse than yesterday. She reports continued intermittent headaches. She denies any sputum and her cough or hemoptysis. OBJECTIVE: VITAL SIGNS: See below GENERAL: Alert, comfortable, in no acute distress HEENT: Normocephalic, atraumatic, moist mucous membranes NECK: Supple, trachea midline, no lymphadenopathy CARDIOVASCULAR: Regular rate and rhythm, normal S1 and S2. No murmurs, rubs, or gallops RESPIRATORY: End expiratory wheeze throughout bilateral lung reynolds with diminished breath sounds throughout. ABDOMEN: Soft, nontender, nondistended, bowel sounds present. EXTREMITIES: No cyanosis or edema. PSYCHIATRIC: Mood and affect appropriate ASSESSMENT/PLAN: 60-year-old female with past medical history of asthma, COPD, obesity, and tobacco abuse, presented initially with shortness of breath found to have COVID- 19 pneumonia #Acute hypoxic respiratory failure secondary to COVID-19 pneumonia Status post BiPAP and Vapotherm, currently on 3 L via nasal cannula of oxygen Status post remdesivir. Continue dexamethasone and baricitinib. On admission she was started on IV Protonix 40 mg twice daily I suspect for GI prophylaxis while she is on the IV dexamethasone. Continue with regular prone positioning and incentive spirometer use. #COPD with acute exacerbation On dexamethasone as above Continue home Symbicort. #Possible superimposed bacterial pneumonia Status post 7-day course of Levaquin #Recurrent headache Likely tension type, may be related to steroid use, continue supportive care #Hypertension patient's blood pressure improved today after increasing dose of carvedilol Continue to avoid JACKELYN inhibitor's or ARB due to history of angioedema on lisinopril #Hypokalemia Improved, continue to replete as needed #Hypomagnesemia Persistently low today, will give IV magnesium sulfate Patient has been on 40 mg twice daily IV Protonix since admission, I suspect as GI prophylaxis while on steroids as this is not a home medication. This is likely why she has persistent hypomagnesemia despite adequate replacement Will decrease her dose of Protonix to once a day to help prevent electrolyte abnormality #Hyponatremia Stable and asymptomatic, likely chronic Monitor BMP daily DVT prophylaxis: Subcutaneous Lovenox Disposition: Pending clinical improvement, may need home oxygen therapy on discharge VS,Fishbone, I+O VS, Fishbone, I+O Laboratory Tests 07/16/21 06:43 Vital Signs Date Time Temp Pulse Resp B/P (MAP) Pulse Ox O2 Delivery O2 Flow Rate FiO2 07/16/21 12:39 177/79 07/16/21 09:00 2.0 07/16/21 09:00 93 Nasal Cannula 07/16/21 08:27 90 07/16/21 06:52 97.7 20 07/15/21 04:46 45 I&O- Last 24 Hours up to 6 AM 07/16/21 06:00 Intake Total 940 ml Balance 940 ml GME ATTESTATION GME ATTESTATION My faculty preceptor for this patient encounter was physically present during the encounter and was fully available. All aspects of the patient interview, examination, medical decision making process, and medical care plan development were reviewed and approved by the faculty preceptor. The faculty preceptor is aware and concurs with the plan as stated in the body of this note and will attest to such by his/her cosignature. ATTENDING NOTE I, Wellington Gupta DO, have independently examined this patient and performed my own physical exam, as well as reviewed the documentation and edited where necessary. I have discussed in detail with the resident the findings and plan of treatment as documented by the resident and edited their note. I agree with their findings and treatment plan and have edited their documentation. I will continue to follow the patient during this hospital stay. RODGER BLACKMAN D.O. Jul 16, 2021 13:17 WELLINGTON GUPTA DO Jul 16, 2021 16:20
[2021-07-16] MEDS: **NOTE PATIENT COMMENT** MISC XX SCH (20:48)
[2021-07-16] MEDS: NICOTINE 14 MG/24 HR TRANSDERMAL TD PRN (22:31)
[2021-07-16] MEDS: traZODone 50 MG TAB PO PRN (22:31)
[2021-07-17] MEDS: hydrOXYzine 25 MG TAB PO PRN ×2 (01:49→16:58)
[2021-07-17] MEDS: ACETAMINOPHEN TAB 650MG DOSE (2X325MG) PO PRN ×3 (01:51→16:58)
[2021-07-17 04:00] VITALS: BP 160/80
[2021-07-17] MEDS: **hydrALAZINE** 10 MG TAB PO SCH ×4 (06:00→18:00)
[2021-07-17 06:55] VITALS: BP 152/76
[2021-07-17 07:17] LABS: HEMATOCRIT 50.3 % (36.0-47.0); HEMOGLOBIN 17.2 g/dl (12.0-15.5); MEAN CORPUSCULAR HEMOGLOBIN 31.3 pg (27.0-33.0); MEAN CORPUSCULAR HGB CONC 34.2 g/dl (32.0-36.5); MEAN CORPUSCULAR VOLUME 91.6 fl (80.0-96.0); PLATELET COUNT, AUTOMATED 376 10^3/uL (150-450); RED BLOOD COUNT 5.49 10^6/uL (4.00-5.40); WHITE BLOOD COUNT 7.2 10^3/uL (4.0-10.0)
[2021-07-17 07:48] LABS: BLOOD UREA NITROGEN 18 MG/DL (7-18); CARBON DIOXIDE LEVEL 36 MEQ/L (21-32); CHLORIDE LEVEL 94 MEQ/L (98-107); CREATININE FOR GFR 0.62 MG/DL (0.55-1.30); GLOMERULAR FILTRATION RATE > 60.0 (>45); GLUCOSE, FASTING 112 MG/DL (70-100); MAGNESIUM LEVEL 1.8 MG/DL (1.8-2.4); POTASSIUM SERUM 4.2 MEQ/L (3.5-5.1); SODIUM LEVEL 133 MEQ/L (136-145)
[2021-07-17] MEDS: ASPIRIN 81MG ENTERIC TABLET PO SCH (08:10)
[2021-07-17] MEDS: CARVedilol 12.5 MG TAB PO SCH ×2 (08:11→21:35)
[2021-07-17] MEDS: BARICITINIB 2MG TABLET (OLUMIANT) FOR EUA PO SCH (08:11)
[2021-07-17] MEDS: dexameTHASONE 20MG/5ML VIAL (J1100 PER 1MG) IV SCH (08:11)
[2021-07-17] MEDS: LIDOCAINE 5% (LIDODERM) PATCH TD SCH (08:18)
[2021-07-17] MEDS: ENOXAPARIN 40MG/0.4ML SYRINGE (J1650 PER 10MG) SC SCH (08:18)
[2021-07-17] MEDS: NYSTATIN 100,000 UNITS/GM TOPICAL PWD 15 GM TOP SCH ×2 (08:18→21:35)
[2021-07-17] MEDS: SYMBICORT 160/4.5MCG INHALER 6GM INH SCH ×2 (08:28→21:11)
[2021-07-17] MEDS ORDERED: PANTOPRAZOLE 40MG VIAL (C9113 PER 1) IV SCH (09:00)
--- NOTE | 2021-07-17 09:59 | IPNPDOC ---
Text Note Date of Service The patient was seen on 07/17/21. NOTE SUBJECTIVE: Patient is seen and examined this morning at bedside. She states she is feeling slightly better than yesterday but still feels like she is not at her baseline functioning. She gets short of breath with any exertion. She is sitting up in a chair this morning and states she has been working with physical therapy. Continues with nonproductive cough and wheezing. OBJECTIVE: VITAL SIGNS: See below GENERAL: Alert, comfortable, in no acute distress HEENT: Normocephalic, atraumatic, moist mucous membranes NECK: Supple, trachea midline, no lymphadenopathy CARDIOVASCULAR: Regular rate and rhythm, normal S1 and S2. No murmurs, rubs, or gallops RESPIRATORY: End expiratory wheeze throughout bilateral lung reynolds with diminished breath sounds throughout. ABDOMEN: Soft, nontender, nondistended, bowel sounds present. EXTREMITIES: No cyanosis or edema. PSYCHIATRIC: Mood and affect appropriate ASSESSMENT/PLAN: 60-year-old female with past medical history of asthma, COPD, obesity, and tobacco abuse, presented initially with shortness of breath found to have COVID- 19 pneumonia #Acute hypoxic respiratory failure secondary to COVID-19 pneumonia Status post BiPAP and Vapotherm, currently on 2-3 L via nasal cannula of oxygen Status post remdesivir. Continue dexamethasone and baricitinib. Continue Protonix while on steroid. Continue with regular prone positioning and incentive spirometer use. #COPD with acute exacerbation On dexamethasone as above Continue home Symbicort. #Possible superimposed bacterial pneumonia Status post 7-day course of Levaquin #Recurrent headache Likely tension type, may be related to steroid use, continue supportive care #Hypertension Continue to titrate up on dose of carvedilol for optimal blood pressure control Continue to avoid JACKELYN inhibitor's or ARB due to history of angioedema on lisinopril #Hypokalemia Resolved with potassium supplementation #Hypomagnesemia Resolved with decreased dosing of Protonix and magnesium supplementation #Hyponatremia Stable and asymptomatic, likely chronic DVT prophylaxis: Subcutaneous Lovenox Disposition: - Transfer to [facility] status today - Anticipate DC home tomorrow with / care at home VS,Nathaniel, I+O VS, Fishbone, I+O Laboratory Tests 07/17/21 06:22 Vital Signs Date Time Temp Pulse Resp B/P (MAP) Pulse Ox O2 Delivery O2 Flow Rate FiO2 07/17/21 08:10 77 152/76 07/17/21 04:00 99.0 20 97 07/16/21 23:46 Nasal Cannula 2.0 07/15/21 04:46 45 I&O- Last 24 Hours up to 6 AM 07/17/21 06:00 Intake Total 600 ml Balance 600 ml GME ATTESTATION GME ATTESTATION My faculty preceptor for this patient encounter was physically present during the encounter and was fully available. All aspects of the patient interview, examination, medical decision making process, and medical care plan development were reviewed and approved by the faculty preceptor. The faculty preceptor is aware and concurs with the plan as stated in the body of this note and will attest to such by his/her cosignature. ATTENDING NOTE I, Ena Aiken, have independently examined this patient and performed my own physical exam, as well as reviewed the documentation and edited where necessary with the resident. For medical students we have performed the physical exam together and discussed medical decision making and I have verified the history. I have discussed in detail with the resident / student the findings and plan of treatment as documented by the resident / student and edited their note. I agree with their findings and treatment plan and have edited their documentation. I will continue to follow the patient during this hospital stay. RODGER BLACKMAN D.O. Jul 17, 2021 09:59 ENA AIKEN MD Jul 17, 2021 14:34
[2021-07-17 20:00] VITALS: O2SAT 96
[2021-07-17 21:32] VITALS: BP 152/80
[2021-07-17] MEDS: **NOTE PATIENT COMMENT** MISC XX SCH (21:36)
[2021-07-18] VITALS: O2SAT 95
[2021-07-18] MEDS: traZODone 50 MG TAB PO PRN (00:29)
[2021-07-18 04:00] VITALS: O2SAT 90
[2021-07-18 05:24] VITALS: BP 144/80
[2021-07-18 05:31] VITALS: O2SAT 96
[2021-07-18 05:51] LABS: HEMATOCRIT 49.4 % (36.0-47.0); HEMOGLOBIN 16.9 g/dl (12.0-15.5); MEAN CORPUSCULAR HEMOGLOBIN 31.2 pg (27.0-33.0); MEAN CORPUSCULAR HGB CONC 34.2 g/dl (32.0-36.5); MEAN CORPUSCULAR VOLUME 91.1 fl (80.0-96.0); PLATELET COUNT, AUTOMATED 408 10^3/uL (150-450); RED BLOOD COUNT 5.42 10^6/uL (4.00-5.40); WHITE BLOOD COUNT 7.4 10^3/uL (4.0-10.0)
[2021-07-18] MEDS: **hydrALAZINE** 10 MG TAB PO SCH ×3 (05:58→12:00)
[2021-07-18 06:00] VITALS: O2SAT 96
[2021-07-18 06:21] LABS: BLOOD UREA NITROGEN 18 MG/DL (7-18); CALCIUM LEVEL 8.1 MG/DL (8.8-10.2); CARBON DIOXIDE LEVEL 38 MEQ/L (21-32); CHLORIDE LEVEL 93 MEQ/L (98-107); CREATININE FOR GFR 0.64 MG/DL (0.55-1.30); GLOMERULAR FILTRATION RATE > 60.0 (>45); GLUCOSE, FASTING 128 MG/DL (70-100); MAGNESIUM LEVEL 1.6 MG/DL (1.8-2.4); POTASSIUM SERUM 4.5 MEQ/L (3.5-5.1); SODIUM LEVEL 131 MEQ/L (136-145)
[2021-07-18] MEDS: SYMBICORT 160/4.5MCG INHALER 6GM INH SCH (07:55)
[2021-07-18] MEDS ORDERED: MAG SULF 1GM/100ML (MAG RUN) 1 GM in IV 1 EA IV ONE (07:55)
[2021-07-18] MEDS: ASPIRIN 81MG ENTERIC TABLET PO SCH (08:46)
[2021-07-18] MEDS: CARVedilol 12.5 MG TAB PO SCH (08:47)
[2021-07-18] MEDS: LIDOCAINE 5% (LIDODERM) PATCH TD SCH (08:48)
[2021-07-18] MEDS: ENOXAPARIN 40MG/0.4ML SYRINGE (J1650 PER 10MG) SC SCH (08:48)
[2021-07-18] MEDS: NYSTATIN 100,000 UNITS/GM TOPICAL PWD 15 GM TOP SCH (08:49)
[2021-07-18] MEDS ORDERED: PANTOPRAZOLE 40MG TAB (PROTONIX) PO SCH (09:00)
[2021-07-18] MEDS ORDERED: PRED10TA2 PO (10:20)
[2021-07-18] MEDS ORDERED: CARV25TA PO (10:20)
[2021-07-18] MEDS ORDERED: AMLO1TAB25 PO (10:20)
[2021-07-18] MEDS: BARICITINIB 2MG TABLET (OLUMIANT) FOR EUA PO SCH (10:35)
[2021-07-18] MEDS: NICOTINE 14 MG/24 HR TRANSDERMAL TD PRN (10:35)
[2021-07-18 12:00] VITALS: BP 142/76
[2021-07-18] MEDS: ACETAMINOPHEN TAB 650MG DOSE (2X325MG) PO PRN (13:40)
--- NOTE | 2021-07-18 13:57 | DS.PDOC ---
Discharge Summary General Date of Admission Jul 09, 2021 at 07:56 Date of Discharge July 18, 2021 Attending Physician: ENA AIKEN MD Discharge Summary PROCEDURES PERFORMED DURING STAY: None. ADMITTING/DISCHARGE DIAGNOSES: Acute hypoxic respiratory failure secondary to COVID-19 pneumonia Superimposed bacterial pneumonia/community-acquired pneumonia COPD Mild persistent asthma Obesity Hypertension GERD Depression Stress incontinence Tobacco abuse Peripheral vascular disease History of CVA Chronic low back pain COMPLICATIONS/CHIEF COMPLAINT: Covid-19, Respiratory Failure. HISTORY OF PRESENT ILLNESS: 60-year-old female who presented to the emergency room due to 7 days of worsening upper respiratory symptoms including worsening shortness of breath. The patient had called EMS due to her difficulty breathing and was found to be saturating 60% on room air at home. The patient reported multiple Covid exposures from her friends. The patient is unvaccinated. She additionally complained of runny nose, sore throat, cough, congestion, body aches, and fatigue. She noted recent loose bowel movements over the preceding few days with poor appetite due to nausea. She denies any abdominal pain or vomiting. In the emergency department, the patient was found to be satting 86% on nonrebreather and was initiated on BiPAP. Chest x-ray findings showed a right lower lobe pneumonia and testing for SARS-CoV-2 virus was positive. Hospitalist team was called for admission. HOSPITAL COURSE: The patient was admitted to the hospital and started on treatment for both COVID-19 pneumonia and superimposed bacterial pneumonia with acute exacerbation of COPD. For the bacterial pneumonia, the patient completed a 7-day course of Levaquin. For the COVID-19 pneumonia, the patient required BiPAP initially and was able to be titrated down to Vapotherm and eventually to 3 L/min via nasal cannula. She was treated with remdesivir and dexamethasone on admission. The day following her admission, baricitinib was added to her treatment regimen. On the day of discharge, the patient continues to require supplemental oxygen via nasal cannula at 2 L/min. She will be discharged to use this at home and follow-up with her primary care provider regarding discontinuation of supplemental oxygen when she has improved further. Additionally, the patient will be discharged on oral prednisone taper. Additionally, throughout the patient's hospitalization she had elevated blood pressure readings. Her home doses of amlodipine and carvedilol were titrated up in order to better control her blood pressure. The patient was discharged on these higher doses of both amlodipine and carvedilol compared to her home doses. During the patient's admission, she had multiple electrolyte abnormalities including hypokalemia, hypomagnesemia, and hyponatremia. These were monitored and electrolytes were repleted as necessary. DISCHARGE MEDICATIONS: Please see below. ALLERGIES: Please see below. PHYSICAL EXAMINATION ON DISCHARGE: VITAL SIGNS: Please see below. GENERAL: Alert, comfortable, in no acute distress HEENT: Normocephalic, atraumatic, moist mucous membranes NECK: Supple, trachea midline, no lymphadenopathy CARDIOVASCULAR: Regular rate and rhythm, normal S1 and S2. No murmurs, rubs, or gallops RESPIRATORY: End expiratory wheeze throughout bilateral lung reynolds with diminished breath sounds throughout. ABDOMEN: Soft, nontender, nondistended, bowel sounds present. EXTREMITIES: No cyanosis or edema. PSYCHIATRIC: Mood and affect appropriate LABORATORY DATA: Please see below. IMAGING: (Impressions per radiologist report) - CXR Early right lower lobe opacity suggesting pneumonia. PROGNOSIS: Fair ACTIVITY: As tolerated. DIET: As tolerated DISCHARGE PLAN/DISPOSITION: Home with home health DISCHARGE INSTRUCTIONS: Follow-up with your PCP in 7-10 days Please complete full steroid taper Please take new prescriptions for blood pressure medications which are a higher dose than your home medications were. If your symptoms return or your condition worsens, please call your PCP or return to the ED for further evaluation. ITEMS TO FOLLOWUP ON ON OUTPATIENT: 1. COVID-19 pneumonia requiring supplemental oxygen 2. Electrolyte abnormalities during hospital admission 3. Hypertension, the patient's blood pressure medications have been adjusted during her hospitalization. DISCHARGE CONDITION: Stable. TIME SPENT ON DISCHARGE: 35 minutes. Vital Signs/I&Os Vital Signs Date Time Temp Pulse Resp B/P (MAP) Pulse Ox O2 Delivery O2 Flow Rate FiO2 07/18/21 12:00 142/76 07/18/21 09:00 2.0 07/18/21 08:46 67 07/18/21 06:00 96 Nasal Cannula 07/18/21 05:24 96.6 18 07/15/21 04:46 45 I&O- Last 24 Hours up to 6 AM 07/18/21 06:00 Intake Total 2100 ml Balance 2100 ml Laboratory Data Labs 24H Laboratory Tests 2 07/18/21 05:22: Nucleated Red Blood Cells % (auto) 0.0, Anion Gap 0L, Glomerular Filtration Rate > 60.0, Calcium Level 8.1L, Magnesium Level 1.6L CBC/BMP Laboratory Tests 07/18/21 05:22 Microbiology Microbiology 07/09/21 Blood Culture - Final, Complete NO GROWTH AFTER 5 DAYS 07/09/21 Respiratory Virus Panel (PCR) ([facility]) - Final, Complete SARS-CoV-2 (COVID 19) 07/09/21 Blood Culture - Final, Complete NO GROWTH AFTER 5 DAYS Discharge Medications Scheduled Amlodipine Besylate (Amlodipine Besylate) 10 Mg Tablet, 10 MG PO DAILY Carvedilol (Carvedilol) 25 Mg Tablet, 25 MG PO BID Prednisone (Prednisone) 10 Mg Tablet, 10 MG PO TAPER Take 4 tabs daily x 3 days, then 3 tabs daily x 3 days, then 2 tabs daily x 3 days, then 1 tab daily x 3 days and stop Scheduled PRN Hydroxyzine HCl (Hydroxyzine HCl) 25 Mg Tablet, 25 MG PO Q6HP PRN for ANXIETY Allergies Coded Allergies: lisinopril (Verified Allergy, Unknown, 07/09/21) GME ATTESTATION GME ATTESTATION My faculty preceptor for this patient encounter was physically present during the encounter and was fully available. All aspects of the patient interview, examination, medical decision making process, and medical care plan development were reviewed and approved by the faculty preceptor. The faculty preceptor is aware and concurs with the plan as stated in the body of this note and will attest to such by his/her cosignature. ATTENDING NOTE I, Ena Aiken, have independently examined this patient and performed my own physical exam, as well as reviewed the documentation and edited where necessary with the resident. For medical students we have performed the physical exam together and discussed medical decision making and I have verified the history. I have discussed in detail with the resident / student the findings and plan of treatment as documented by the resident / student and edited their note. I agree with their findings and treatment plan and have edited their documentation. I will continue to follow the patient during this hospital stay. Time spent on discharge 35 minutes RODGER BLACKMAN D.O. Jul 18, 2021 13:56 ENA AIKEN MD Jul 18, 2021 15:06
[2021-07-18] MEDS ORDERED: HYDR-3363 PO (14:38)
[2021-07-19 17:07] LABS: BODY FLUID CULTURE Not indicated. (.); LEGIONELLA ANTIGEN URINE Negative (Negative); ORGANISM ID Not indicated. (.); SPECIMEN SOURCE Urine (.); URINE STREP PNEUMONIAE ANTIGEN Negative (Negative)
== END 2021-07-18 14:36 | disposition home health service (06) | DRG 177 ==
LOC: M ED 05:42 → M ED INP 07:56 → UNDOADMIN 07:56 → ENRESERV 09:40 → M 4MAIN 15:26
PROVIDERS: ADMIT Internal Medicine Nephrology; ATTEND Internal Medicine
DX: U07.1 COVID-19 (principal); J12.82 Pneumonia due to coronavirus disease 2019; J15.9 Unspecified bacterial pneumonia; J96.01 Acute respiratory failure with hypoxia; J44.1 Chronic obstructive pulmonary disease with (acute) exacerbation; J44.0 Chronic obstructive pulmonary disease with (acute) lower respiratory infection; E87.1 Hypo-osmolality and hyponatremia; E66.9 Obesity, unspecified; Z68.37 Body mass index [BMI] 37.0-37.9, adult; I73.9 Peripheral vascular disease, unspecified; Z86.73 Personal history of transient ischemic attack (TIA), and cerebral infarction without residual deficits; F17.200 Nicotine dependence, unspecified, uncomplicated; M54.59 Other low back pain; K21.9 Gastro-esophageal reflux disease without esophagitis; I10 Essential (primary) hypertension; J45.30 Mild persistent asthma, uncomplicated; Z79.899 Other long term (current) drug therapy; Z88.8 Allergy status to other drugs, medicaments and biological substances; E86.0 Dehydration; E83.42 Hypomagnesemia; E87.6 Hypokalemia

== ENCOUNTER → 2021-07-30 | Outpatient (REF) | payer MEDICARE ==
[~2021-07-30] MED LIST changes: +AMLO25TA PO; +CARV3.12 PO; +HYDR-3363 PO; +PRED10TA2 PO
[2021-07-30 16:53] LABS: HEMOGLOBIN 14.2 g/dl (12.0-15.5); MEAN CORPUSCULAR HEMOGLOBIN 31.2 pg (27.0-33.0); MEAN CORPUSCULAR HGB CONC 33.8 g/dl (32.0-36.5); MEAN CORPUSCULAR VOLUME 92.3 fl (80.0-96.0); PLATELET COUNT, AUTOMATED 277 10^3/uL (150-450); RED BLOOD COUNT 4.55 10^6/uL (4.00-5.40); WHITE BLOOD COUNT 7.9 10^3/uL (4.0-10.0)
[2021-07-30 17:33] LABS: ALBUMIN 3.1 GM/DL (3.2-5.2); ALT/SGPT 29 U/L (12-78); BILIRUBIN,TOTAL 0.7 MG/DL (0.2-1.0); BLOOD UREA NITROGEN 17 MG/DL (7-18); CALCIUM LEVEL 9.2 MG/DL (8.8-10.2); CARBON DIOXIDE LEVEL 33 MEQ/L (21-32); CHLORIDE LEVEL 94 MEQ/L (98-107); CREATININE FOR GFR 0.67 MG/DL (0.55-1.30); GLOMERULAR FILTRATION RATE > 60.0 (>45); GLUCOSE, FASTING 99 MG/DL (70-100); MAGNESIUM LEVEL 1.2 MG/DL (1.8-2.4); SODIUM LEVEL 134 MEQ/L (136-145); TOTAL PROTEIN 6.5 GM/DL (6.4-8.2)
== END ==
LOC: M SFHCADAM 12:02
PROVIDERS: ATTEND Physician Assistant
DX: U09.9 Post COVID-19 condition, unspecified (principal); E61.2 Magnesium deficiency

== ENCOUNTER 2021-10-10 11:54 | Inpatient (IN) | payer MEDICARE ==
[~2021-10-10] VITALS: Ht 152.4 cm; Wt 94.9 kg
[~2021-10-10 11:54] MED LIST changes: +LOSA25TA13 PO; -LOSA25TA14 PO
[2021-10-10] MEDS ORDERED: PANT40TA29 PO (12:03)
[2021-10-10] MEDS ORDERED: CLOP75TA2 PO (12:03)
[2021-10-10] MEDS ORDERED: BREO1INH3 INH (12:03)
[2021-10-10] MEDS ORDERED: ALBU8.5H INH (12:03)
[2021-10-10] MEDS ORDERED: HYDR-3490 PO (12:03)
[2021-10-10 12:31] LABS: VENOUS BASE EXCESS 9.9 (-2.0-2.0); VENOUS HCO3 38.2 MEQ/L (23.0-27.0); VENOUS O2 SATURATION 58.7 % (60.0-80.0); VENOUS PARTIAL PRESSURE CO2 67.1 mmHg (38.0-50.0); VENOUS PARTIAL PRESSURE O2 31.4 mmHg (30.0-50.0); VENOUS PH 7.373 UNITS (7.330-7.430); VENOUS STANDARD HCO3 32.6 MEQ/L; VENOUS TOTAL CO2 40.2 MEQ/L (24.0-28.0)
[2021-10-10 12:35] LABS: HEMATOCRIT 40.7 % (36.0-47.0); HEMOGLOBIN 14.2 g/dl (12.0-15.5); MEAN CORPUSCULAR HEMOGLOBIN 31.1 pg (27.0-33.0); MEAN CORPUSCULAR HGB CONC 34.9 g/dl (32.0-36.5); MEAN CORPUSCULAR VOLUME 89.1 fl (80.0-96.0); PLATELET COUNT, AUTOMATED 272 10^3/uL (150-450); RED BLOOD COUNT 4.57 10^6/uL (4.00-5.40); WHITE BLOOD COUNT 3.8 10^3/uL (4.0-10.0)
[2021-10-10 12:50] LABS: ABG BASE EXCESS 8.6 (-2.0-2.0); ABG HCO3 35.5 MEQ/L (22.0-26.0); ABG O2 SATURATION 91.2 % (95.0-99.0); ABG PARTIAL PRESSURE CO2 57.9 mmHg (35.0-45.0); ABG STANDARD HCO3 32.3 MEQ/L (22.0-26.0); ABG TOTAL CO2 37.3 MEQ/L (23.0-31.0); ABG pH (ARTERIAL) 7.406 UNITS (7.350-7.450)
[2021-10-10] MEDS: COMBIVENT RESPIMAT 100-20MCG INHALER 4GM INH SCH ×3 (12:58→13:49)
[2021-10-10 13:22] LABS: ALBUMIN 3.7 GM/DL (3.2-5.2); ALT/SGPT 23 U/L (12-78); BILIRUBIN,DIRECT 0.3 MG/DL (0.0-0.2); BILIRUBIN,TOTAL 0.7 MG/DL (0.2-1.0); BLOOD UREA NITROGEN 12 MG/DL (7-18); CALCIUM LEVEL 8.9 MG/DL (8.8-10.2); CARBON DIOXIDE LEVEL 37 MEQ/L (21-32); CHLORIDE LEVEL 83 MEQ/L (98-107); CREATININE FOR GFR 0.53 MG/DL (0.55-1.30); GLOMERULAR FILTRATION RATE > 60.0 (>45); GLUCOSE, FASTING 125 MG/DL (70-100); NT-PRO BNP 297 PG/ML (<125); SODIUM LEVEL 130 MEQ/L (136-145); TOTAL PROTEIN 7.1 GM/DL (6.4-8.2)
[2021-10-10 13:27] LABS: ATYPICAL LYMPH 8 % (0-5); LYMPHOCYTES 16 % (16-44); MONOCYTES 14 % (0-5); NEUTROPHILS 61 % (28-66); PLATELET ESTIMATE NORMAL (NORMAL)
[2021-10-10] MEDS ORDERED: ACETAMINOPHEN 500 MG TAB PO ONE (13:35)
[2021-10-10] MEDS ORDERED: POTASSIUM CHLORIDE 10MEQ SR TABLET PO ONE (14:00)
[2021-10-10] MEDS ORDERED: ISOVUE-370 76% 100ML VIAL As Ordered ONE (14:13)
[2021-10-10] MEDS ORDERED: OSELTAMIVIR PHOSPHATE 75 MG CAP (TAMIFLU) PO ONE (14:30)
[2021-10-10] MEDS ORDERED: HYDR-3363 PO (14:41)
[2021-10-10] MEDS ORDERED: CARV25TA PO (14:41)
[2021-10-10] MEDS ORDERED: AMLO1TAB25 PO (14:41)
[2021-10-10] MEDS ORDERED: ALB2.5NEB INH (14:41)
[2021-10-10] MEDS ORDERED: HOME MED LIST COMPLETE! XX SCH (14:45)
[2021-10-10] MEDS: IPRATROPIUM 0.5MG/ALBUTEROL 2.5MG INH SOL UD 3ML (DUONEB) NEB SCH ×2 (15:50→20:23)
[2021-10-10] MEDS: methylPREDNISolone 125MG 2ML VIAL IV SCH ×2 (16:06→20:45)
[2021-10-10] MEDS: PANTOPRAZOLE 40MG TAB (PROTONIX) PO SCH (16:07)
[2021-10-10] MEDS: CLOPIDOGREL 75 MG TAB PO SCH (16:07)
[2021-10-10] MEDS: cefTRIAXone SOD 1 GM in D5W MINI-BAG PLUS 50 ML IV SCH (16:08)
[2021-10-10 17:21] LABS: MAGNESIUM LEVEL 2.2 MG/DL (1.8-2.4)
[2021-10-10 17:24] VITALS: BP 141/86
[2021-10-10] MEDS ORDERED: IPRATROPIUM 0.5MG/ALBUTEROL 2.5MG INH SOL UD 3ML (DUONEB) NEB PRN (17:25)
[2021-10-10 17:26] LABS: INR 0.93; PROTHROMBIN TIME 12.9 SECONDS (12.7-14.5)
[2021-10-10 17:27] LABS: PARTIAL THROMBOPLASTIN TIME 26.9 SECONDS (25.9-37.0)
[2021-10-10] MEDS: DOXYCYCLINE HYCLATE 100 MG in D5W MINI-BAG PLUS 100 ML IV SCH (17:31)
[2021-10-10] MEDS: hydrOXYzine 25 MG TAB PO PRN (18:44)
[2021-10-10 20:00] VITALS: BP 149/95
[2021-10-10] MEDS: ADVAIR HFA 230/21MCG INHALER INH SCH (20:23)
[2021-10-10 20:36] LABS: BLOOD UREA NITROGEN 13 MG/DL (7-18); CALCIUM LEVEL 8.9 MG/DL (8.8-10.2); CARBON DIOXIDE LEVEL 33 MEQ/L (21-32); CHLORIDE LEVEL 84 MEQ/L (98-107); CREATININE FOR GFR 0.89 MG/DL (0.55-1.30); GLOMERULAR FILTRATION RATE > 60.0 (>45); GLUCOSE, FASTING 266 MG/DL (70-100); POTASSIUM SERUM 3.5 MEQ/L (3.5-5.1); SODIUM LEVEL 125 MEQ/L (136-145)
[2021-10-10] MEDS: CARVedilol 12.5 MG TAB PO SCH (20:45)
[2021-10-10] MEDS: OSELTAMIVIR PHOSPHATE 75 MG CAP (TAMIFLU) PO SCH (21:07)
[2021-10-10 21:31] LABS: ABG BASE EXCESS 6.8 (-2.0-2.0); ABG HCO3 32.5 MEQ/L (22.0-26.0); ABG O2 SATURATION 92.7 % (95.0-99.0); ABG PARTIAL PRESSURE CO2 50.2 mmHg (35.0-45.0); ABG PARTIAL PRESSURE O2 64.5 mmHg (75.0-100.0); ABG STANDARD HCO3 30.5 MEQ/L (22.0-26.0); ABG pH (ARTERIAL) 7.429 UNITS (7.350-7.450)
[2021-10-10] MEDS: ACETAMINOPHEN TAB 650MG DOSE (2X325MG) PO PRN (21:33)
[2021-10-10] MEDS ORDERED: TIOTROPIUM INHALER/CAPSULE (SPIRIVA) INH ONE (22:00)
[2021-10-10] MEDS ORDERED: NS 1,000 ML IV SCH (22:05)
[2021-10-11] VITALS: BP 157/84
[2021-10-11] MEDS: IPRATROPIUM 0.5MG/ALBUTEROL 2.5MG INH SOL UD 3ML (DUONEB) NEB SCH ×6 (00:03→20:00)
[2021-10-11] MEDS: methylPREDNISolone 125MG 2ML VIAL IV SCH ×4 (03:45→21:30)
[2021-10-11] MEDS: DOXYCYCLINE HYCLATE 100 MG in D5W MINI-BAG PLUS 100 ML IV SCH ×2 (03:46→17:17)
[2021-10-11 04:00] VITALS: BP 150/81
[2021-10-11 05:28] LABS: HEMATOCRIT 36.7 % (36.0-47.0); HEMOGLOBIN 13.2 g/dl (12.0-15.5); MEAN CORPUSCULAR HEMOGLOBIN 31.5 pg (27.0-33.0); MEAN CORPUSCULAR VOLUME 87.6 fl (80.0-96.0); PLATELET COUNT, AUTOMATED 253 10^3/uL (150-450); RED BLOOD COUNT 4.19 10^6/uL (4.00-5.40); WHITE BLOOD COUNT 1.6 10^3/uL (4.0-10.0)
[2021-10-11] MEDS: hydrOXYzine 25 MG TAB PO PRN ×2 (05:50→19:08)
[2021-10-11 06:00] LABS: BLOOD UREA NITROGEN 15 MG/DL (7-18); CALCIUM LEVEL 8.4 MG/DL (8.8-10.2); CARBON DIOXIDE LEVEL 33 MEQ/L (21-32); CHLORIDE LEVEL 86 MEQ/L (98-107); CREATININE FOR GFR 0.62 MG/DL (0.55-1.30); GLOMERULAR FILTRATION RATE > 60.0 (>45); GLUCOSE, FASTING 198 MG/DL (70-100); MAGNESIUM LEVEL 1.7 MG/DL (1.8-2.4); POTASSIUM SERUM 3.3 MEQ/L (3.5-5.1); SODIUM LEVEL 128 MEQ/L (136-145)
[2021-10-11] MEDS ORDERED: POTASSIUM CHLORIDE 10MEQ SR TABLET PO ONE (07:45)
[2021-10-11 07:50] VITALS: BP 198/100
[2021-10-11] MEDS: ADVAIR HFA 230/21MCG INHALER INH SCH ×2 (08:13→20:24)
[2021-10-11] MEDS: NS 1,000 ML IV SCH (08:22)
[2021-10-11] MEDS: MAG SULF 1GM/100ML (MAG RUN) 1 GM in IV 1 EA IV SCH ×2 (08:23→10:02)
[2021-10-11] MEDS: ACETAMINOPHEN TAB 650MG DOSE (2X325MG) PO PRN ×2 (08:24→18:51)
[2021-10-11] MEDS: CLOPIDOGREL 75 MG TAB PO SCH (08:24)
[2021-10-11] MEDS: ENOXAPARIN 40MG/0.4ML SYRINGE (J1650 PER 10MG) SC SCH (08:25)
[2021-10-11] MEDS: CARVedilol 12.5 MG TAB PO SCH ×2 (08:25→20:15)
[2021-10-11] MEDS: PANTOPRAZOLE 40MG TAB (PROTONIX) PO SCH (08:26)
[2021-10-11 09:33] VITALS: BP 138/74
[2021-10-11] MEDS: OSELTAMIVIR PHOSPHATE 75 MG CAP (TAMIFLU) PO SCH ×2 (10:11→20:14)
[2021-10-11 13:10] LABS: ABG HCO3 34.1 MEQ/L (22.0-26.0); ABG O2 SATURATION 91.1 % (95.0-99.0); ABG PARTIAL PRESSURE CO2 48.1 mmHg (35.0-45.0); ABG STANDARD HCO3 32.6 MEQ/L (22.0-26.0); ABG TOTAL CO2 35.5 MEQ/L (23.0-31.0); ABG pH (ARTERIAL) 7.468 UNITS (7.350-7.450)
[2021-10-11] MEDS: guaiFENesin ER 600 MG TAB PO SCH ×2 (13:48→20:14)
[2021-10-11] MEDS: traMADol 50 MG TAB PO PRN (13:49)
[2021-10-11] MEDS: cefTRIAXone SOD 1 GM in D5W MINI-BAG PLUS 50 ML IV SCH (15:39)
[2021-10-11 16:00] VITALS: BP 150/80
[2021-10-11] MEDS: SODIUM CHLORIDE HYPERTONIC 3% 15ML NEB SOL INH SCH (16:00)
[2021-10-11] MEDS: NICOTINE 14 MG/24 HR TRANSDERMAL TD SCH (17:08)
[2021-10-11 20:00] VITALS: BP 180/90
[2021-10-12] VITALS: BP 154/89
[2021-10-12] MEDS: traMADol 50 MG TAB PO PRN ×3 (00:16→18:47)
[2021-10-12] MEDS: IPRATROPIUM 0.5MG/ALBUTEROL 2.5MG INH SOL UD 3ML (DUONEB) NEB SCH ×7 (00:51→23:49)
[2021-10-12] MEDS: SODIUM CHLORIDE HYPERTONIC 3% 15ML NEB SOL INH SCH ×2 (00:51→06:22)
[2021-10-12] MEDS: NS 1,000 ML IV SCH (01:06)
[2021-10-12] MEDS: methylPREDNISolone 125MG 2ML VIAL IV SCH ×4 (03:56→22:06)
[2021-10-12] MEDS: DOXYCYCLINE HYCLATE 100 MG in D5W MINI-BAG PLUS 100 ML IV SCH ×2 (03:56→17:35)
[2021-10-12 04:00] VITALS: BP 173/83
[2021-10-12 06:22] LABS: HEMATOCRIT 38.4 % (36.0-47.0); HEMOGLOBIN 13.2 g/dl (12.0-15.5); MEAN CORPUSCULAR HEMOGLOBIN 31.1 pg (27.0-33.0); MEAN CORPUSCULAR HGB CONC 34.4 g/dl (32.0-36.5); MEAN CORPUSCULAR VOLUME 90.4 fl (80.0-96.0); PLATELET COUNT, AUTOMATED 248 10^3/uL (150-450); RED BLOOD COUNT 4.25 10^6/uL (4.00-5.40); WHITE BLOOD COUNT 4.5 10^3/uL (4.0-10.0)
[2021-10-12] MEDS: TIOTROPIUM INHALER/CAPSULE (SPIRIVA) INH SCH (06:22)
[2021-10-12] MEDS: ADVAIR HFA 230/21MCG INHALER INH SCH ×2 (06:22→19:18)
[2021-10-12 06:48] LABS: BLOOD UREA NITROGEN 13 MG/DL (7-18); CALCIUM LEVEL 8.6 MG/DL (8.8-10.2); CARBON DIOXIDE LEVEL 35 MEQ/L (21-32); CHLORIDE LEVEL 87 MEQ/L (98-107); CREATININE FOR GFR 0.58 MG/DL (0.55-1.30); GLOMERULAR FILTRATION RATE > 60.0 (>45); GLUCOSE, FASTING 152 MG/DL (70-100); POTASSIUM SERUM 3.6 MEQ/L (3.5-5.1); SODIUM LEVEL 129 MEQ/L (136-145)
[2021-10-12 08:36] VITALS: BP 154/88
[2021-10-12] MEDS: ENOXAPARIN 40MG/0.4ML SYRINGE (J1650 PER 10MG) SC SCH (09:06)
[2021-10-12] MEDS: NICOTINE 14 MG/24 HR TRANSDERMAL TD SCH (09:06)
[2021-10-12] MEDS: guaiFENesin ER 600 MG TAB PO SCH ×2 (09:07→22:06)
[2021-10-12] MEDS: OSELTAMIVIR PHOSPHATE 75 MG CAP (TAMIFLU) PO SCH ×2 (09:07→22:06)
[2021-10-12] MEDS: CARVedilol 12.5 MG TAB PO SCH ×2 (09:07→22:06)
[2021-10-12] MEDS: PANTOPRAZOLE 40MG TAB (PROTONIX) PO SCH (09:07)
[2021-10-12] MEDS: CLOPIDOGREL 75 MG TAB PO SCH (09:07)
[2021-10-12] MEDS: hydrOXYzine 25 MG TAB PO PRN ×2 (10:05→22:05)
[2021-10-12 12:28] VITALS: BP 164/78
[2021-10-12] MEDS ORDERED: methylPREDNISolone 125MG 2ML VIAL IV ONE (13:00)
[2021-10-12 13:32] LABS: ABG BASE EXCESS 10.3 (-2.0-2.0); ABG O2 SATURATION 92.5 % (95.0-99.0); ABG PARTIAL PRESSURE CO2 52.3 mmHg (35.0-45.0); ABG PARTIAL PRESSURE O2 64.7 mmHg (75.0-100.0); ABG STANDARD HCO3 33.9 MEQ/L (22.0-26.0); ABG TOTAL CO2 37.6 MEQ/L (23.0-31.0); ABG pH (ARTERIAL) 7.456 UNITS (7.350-7.450)
[2021-10-12] MEDS: ACETAMINOPHEN TAB 650MG DOSE (2X325MG) PO PRN (13:56)
[2021-10-12 15:25] VITALS: BP 145/83
[2021-10-12] MEDS: cefTRIAXone SOD 1 GM in D5W MINI-BAG PLUS 50 ML IV SCH (16:43)
[2021-10-12 20:00] VITALS: BP 125/69
[2021-10-13] MEDS: ACETAMINOPHEN TAB 650MG DOSE (2X325MG) PO PRN ×3 (00:02→16:06)
[2021-10-13] MEDS: traMADol 50 MG TAB PO PRN ×3 (01:44→20:20)
[2021-10-13] MEDS: IPRATROPIUM 0.5MG/ALBUTEROL 2.5MG INH SOL UD 3ML (DUONEB) NEB SCH ×6 (03:40→23:08)
[2021-10-13] MEDS: methylPREDNISolone 125MG 2ML VIAL IV SCH (04:00)
[2021-10-13] MEDS: DOXYCYCLINE HYCLATE 100 MG in D5W MINI-BAG PLUS 100 ML IV SCH ×2 (05:28→16:49)
[2021-10-13] MEDS ORDERED: predniSONE 20 MG TAB PO ONE (06:00)
[2021-10-13 06:29] LABS: HEMOGLOBIN 13.3 g/dl (12.0-15.5); MEAN CORPUSCULAR HEMOGLOBIN 30.6 pg (27.0-33.0); MEAN CORPUSCULAR VOLUME 87.4 fl (80.0-96.0); PLATELET COUNT, AUTOMATED 338 10^3/uL (150-450); RED BLOOD COUNT 4.35 10^6/uL (4.00-5.40); WHITE BLOOD COUNT 6.1 10^3/uL (4.0-10.0)
[2021-10-13 06:53] LABS: BLOOD UREA NITROGEN 21 MG/DL (7-18); CALCIUM LEVEL 8.7 MG/DL (8.8-10.2); CARBON DIOXIDE LEVEL 37 MEQ/L (21-32); CHLORIDE LEVEL 83 MEQ/L (98-107); CREATININE FOR GFR 0.64 MG/DL (0.55-1.30); GLOMERULAR FILTRATION RATE > 60.0 (>45); GLUCOSE, FASTING 144 MG/DL (70-100); POTASSIUM SERUM 3.5 MEQ/L (3.5-5.1); SODIUM LEVEL 128 MEQ/L (136-145)
[2021-10-13 06:58] VITALS: BP 166/94
[2021-10-13] MEDS: ADVAIR HFA 230/21MCG INHALER INH SCH ×2 (08:11→19:35)
[2021-10-13] MEDS: TIOTROPIUM INHALER/CAPSULE (SPIRIVA) INH SCH (08:11)
[2021-10-13] MEDS: PANTOPRAZOLE 40MG TAB (PROTONIX) PO SCH (10:20)
[2021-10-13] MEDS: CARVedilol 12.5 MG TAB PO SCH ×2 (10:22→20:20)
[2021-10-13] MEDS: guaiFENesin ER 600 MG TAB PO SCH ×2 (10:22→20:20)
[2021-10-13] MEDS: OSELTAMIVIR PHOSPHATE 75 MG CAP (TAMIFLU) PO SCH ×2 (10:23→20:20)
[2021-10-13] MEDS: ENOXAPARIN 40MG/0.4ML SYRINGE (J1650 PER 10MG) SC SCH (10:23)
[2021-10-13] MEDS: NICOTINE 14 MG/24 HR TRANSDERMAL TD SCH (10:23)
[2021-10-13] MEDS: CLOPIDOGREL 75 MG TAB PO SCH (10:23)
[2021-10-13] MEDS: predniSONE 20 MG TAB PO SCH ×2 (11:38→20:20)
[2021-10-13] MEDS: NYSTATIN 500,000 U/5 ML SUSP UDC SS SCH ×2 (11:38→17:55)
[2021-10-13] MEDS: SODIUM CHLORIDE NASAL 0.65% SPRAY BTL (OCEAN) PRN ×2 (11:47→20:37)
[2021-10-13] MEDS: hydrOXYzine 25 MG TAB PO PRN (13:25)
[2021-10-13 14:00] VITALS: BP 120/70
[2021-10-13] MEDS: cefTRIAXone SOD 1 GM in D5W MINI-BAG PLUS 50 ML IV SCH (16:06)
[2021-10-13] MEDS: ANALGESIC BALM CRM 3OZ TOP SCH ×2 (16:14→20:20)
[2021-10-13 20:20] VITALS: BP 159/88
[2021-10-14] MEDS: NYSTATIN 500,000 U/5 ML SUSP UDC SS SCH ×4 (00:49→18:22)
[2021-10-14] MEDS ORDERED: ONDANSETRON 4MG/2ML VIAL IV PRN (02:35)
[2021-10-14] MEDS: IPRATROPIUM 0.5MG/ALBUTEROL 2.5MG INH SOL UD 3ML (DUONEB) NEB SCH ×6 (03:12→23:23)
[2021-10-14 06:00] LABS: HEMATOCRIT 36.7 % (36.0-47.0); HEMOGLOBIN 12.9 g/dl (12.0-15.5); MEAN CORPUSCULAR HEMOGLOBIN 30.5 pg (27.0-33.0); MEAN CORPUSCULAR HGB CONC 35.1 g/dl (32.0-36.5); MEAN CORPUSCULAR VOLUME 86.8 fl (80.0-96.0); PLATELET COUNT, AUTOMATED 345 10^3/uL (150-450); RED BLOOD COUNT 4.23 10^6/uL (4.00-5.40); WHITE BLOOD COUNT 5.6 10^3/uL (4.0-10.0)
[2021-10-14] MEDS: DOXYCYCLINE HYCLATE 100 MG in D5W MINI-BAG PLUS 100 ML IV SCH (06:15)
[2021-10-14 06:21] LABS: BLOOD UREA NITROGEN 16 MG/DL (7-18); CALCIUM LEVEL 8.2 MG/DL (8.8-10.2); CARBON DIOXIDE LEVEL 39 MEQ/L (21-32); CHLORIDE LEVEL 80 MEQ/L (98-107); CREATININE FOR GFR 0.53 MG/DL (0.55-1.30); GLOMERULAR FILTRATION RATE > 60.0 (>45); GLUCOSE, FASTING 133 MG/DL (70-100); SODIUM LEVEL 126 MEQ/L (136-145)
[2021-10-14] MEDS: TIOTROPIUM INHALER/CAPSULE (SPIRIVA) INH SCH (07:41)
[2021-10-14] MEDS: ADVAIR HFA 230/21MCG INHALER INH SCH ×2 (07:43→19:21)
[2021-10-14] MEDS: POTASSIUM CHLORIDE 10MEQ SR TABLET PO SCH ×3 (09:56→11:41)
[2021-10-14] MEDS: OSELTAMIVIR PHOSPHATE 75 MG CAP (TAMIFLU) PO SCH ×2 (09:56→20:52)
[2021-10-14] MEDS: CARVedilol 12.5 MG TAB PO SCH ×2 (09:59→20:56)
[2021-10-14] MEDS: CLOPIDOGREL 75 MG TAB PO SCH (10:00)
[2021-10-14] MEDS: ENOXAPARIN 40MG/0.4ML SYRINGE (J1650 PER 10MG) SC SCH (10:00)
[2021-10-14] MEDS: guaiFENesin ER 600 MG TAB PO SCH ×2 (10:00→20:52)
[2021-10-14] MEDS: predniSONE 20 MG TAB PO SCH ×2 (10:00→20:52)
[2021-10-14] MEDS: DOXYCYCLINE HYCLATE 100MG TABLET PO SCH ×2 (10:00→20:52)
[2021-10-14] MEDS: PANTOPRAZOLE 40MG TAB (PROTONIX) PO SCH (10:00)
[2021-10-14] MEDS: ANALGESIC BALM CRM 3OZ TOP SCH ×3 (10:01→20:58)
[2021-10-14] MEDS: NICOTINE 14 MG/24 HR TRANSDERMAL TD SCH (10:01)
[2021-10-14] MEDS: SODIUM CHLORIDE NASAL 0.65% SPRAY BTL (OCEAN) PRN (10:08)
[2021-10-14] MEDS: ACETAMINOPHEN TAB 650MG DOSE (2X325MG) PO PRN (13:20)
[2021-10-14 14:00] VITALS: BP 128/70
[2021-10-14] MEDS: traMADol 50 MG TAB PO PRN (18:23)
[2021-10-14 21:40] VITALS: BP 124/58
[2021-10-15] MEDS: NYSTATIN 500,000 U/5 ML SUSP UDC SS SCH ×4 (01:21→17:59)
[2021-10-15] MEDS: hydrOXYzine 25 MG TAB PO PRN (01:21)
[2021-10-15] MEDS: IPRATROPIUM 0.5MG/ALBUTEROL 2.5MG INH SOL UD 3ML (DUONEB) NEB SCH ×6 (03:07→23:16)
[2021-10-15 06:00] VITALS: BP 128/68
[2021-10-15 06:49] LABS: HEMATOCRIT 36.6 % (36.0-47.0); HEMOGLOBIN 12.6 g/dl (12.0-15.5); MEAN CORPUSCULAR HEMOGLOBIN 30.7 pg (27.0-33.0); MEAN CORPUSCULAR HGB CONC 34.4 g/dl (32.0-36.5); MEAN CORPUSCULAR VOLUME 89.1 fl (80.0-96.0); PLATELET COUNT, AUTOMATED 341 10^3/uL (150-450); RED BLOOD COUNT 4.11 10^6/uL (4.00-5.40)
[2021-10-15 07:16] LABS: BLOOD UREA NITROGEN 16 MG/DL (7-18); CALCIUM LEVEL 8.5 MG/DL (8.8-10.2); CARBON DIOXIDE LEVEL 41 MEQ/L (21-32); CHLORIDE LEVEL 86 MEQ/L (98-107); CREATININE FOR GFR 0.56 MG/DL (0.55-1.30); GLOMERULAR FILTRATION RATE > 60.0 (>45); GLUCOSE, FASTING 138 MG/DL (70-100); SODIUM LEVEL 131 MEQ/L (136-145)
[2021-10-15] MEDS: TIOTROPIUM INHALER/CAPSULE (SPIRIVA) INH SCH (07:27)
[2021-10-15] MEDS: ADVAIR HFA 230/21MCG INHALER INH SCH ×2 (07:27→20:00)
[2021-10-15] MEDS: guaiFENesin ER 600 MG TAB PO SCH ×2 (08:38→20:21)
[2021-10-15] MEDS: ENOXAPARIN 40MG/0.4ML SYRINGE (J1650 PER 10MG) SC SCH (08:38)
[2021-10-15] MEDS: DOXYCYCLINE HYCLATE 100MG TABLET PO SCH ×2 (08:38→20:21)
[2021-10-15] MEDS: PANTOPRAZOLE 40MG TAB (PROTONIX) PO SCH (08:39)
[2021-10-15] MEDS: CLOPIDOGREL 75 MG TAB PO SCH (08:39)
[2021-10-15] MEDS: predniSONE 20 MG TAB PO SCH ×2 (08:39→20:21)
[2021-10-15] MEDS: OSELTAMIVIR PHOSPHATE 75 MG CAP (TAMIFLU) PO SCH (08:39)
[2021-10-15] MEDS: NICOTINE 14 MG/24 HR TRANSDERMAL TD SCH (08:40)
[2021-10-15] MEDS: ANALGESIC BALM CRM 3OZ TOP SCH ×3 (08:40→20:22)
[2021-10-15] MEDS: CARVedilol 12.5 MG TAB PO SCH ×2 (09:00→20:22)
[2021-10-15 14:00] VITALS: BP 164/76
[2021-10-15] MEDS: traMADol 50 MG TAB PO PRN (14:03)
[2021-10-15 22:00] VITALS: BP 136/76
[2021-10-16] MEDS: hydrOXYzine 25 MG TAB PO PRN (00:17)
[2021-10-16] MEDS: NYSTATIN 500,000 U/5 ML SUSP UDC SS SCH ×2 (00:17→05:05)
[2021-10-16] MEDS: IPRATROPIUM 0.5MG/ALBUTEROL 2.5MG INH SOL UD 3ML (DUONEB) NEB SCH ×3 (04:00→11:19)
[2021-10-16 06:00] VITALS: BP 152/89
[2021-10-16] MEDS: ADVAIR HFA 230/21MCG INHALER INH SCH (07:40)
[2021-10-16] MEDS: TIOTROPIUM INHALER/CAPSULE (SPIRIVA) INH SCH (07:40)
[2021-10-16] MEDS: PANTOPRAZOLE 40MG TAB (PROTONIX) PO SCH (08:05)
[2021-10-16] MEDS: DOXYCYCLINE HYCLATE 100MG TABLET PO SCH (08:05)
[2021-10-16] MEDS: predniSONE 20 MG TAB PO SCH (08:06)
[2021-10-16] MEDS: CLOPIDOGREL 75 MG TAB PO SCH (08:06)
[2021-10-16] MEDS: guaiFENesin ER 600 MG TAB PO SCH (08:07)
[2021-10-16 08:08] VITALS: BP 155/89
[2021-10-16] MEDS: CARVedilol 12.5 MG TAB PO SCH (08:08)
[2021-10-16] MEDS: ENOXAPARIN 40MG/0.4ML SYRINGE (J1650 PER 10MG) SC SCH (08:09)
[2021-10-16] MEDS: NICOTINE 14 MG/24 HR TRANSDERMAL TD SCH (08:09)
[2021-10-16] MEDS: ANALGESIC BALM CRM 3OZ TOP SCH (08:17)
[2021-10-16] MEDS ORDERED: DOXY100T PO (10:46)
[2021-10-16] MEDS ORDERED: BREO1INH3 INH (10:46)
[2021-10-16] MEDS ORDERED: PRED10TA2 PO (10:46)
[2021-10-16] MEDS ORDERED: MUCI600T31 PO (10:46)
== END 2021-10-16 13:50 | disposition home or self-care (01) | DRG 193 ==
LOC: M ED 11:54 → M ED INP 14:54 → ENRESERV 16:15 → M PCU 17:20 → M MSPAV 10-12 14:15
PROVIDERS: ADMIT Internal Medicine; ATTEND Family Medicine
DX: J10.1 Influenza due to other identified influenza virus with other respiratory manifestations (principal); J96.01 Acute respiratory failure with hypoxia; J44.1 Chronic obstructive pulmonary disease with (acute) exacerbation; Z68.41 Body mass index [BMI] 40.0-44.9, adult; E87.1 Hypo-osmolality and hyponatremia; I10 Essential (primary) hypertension; E66.9 Obesity, unspecified; K21.9 Gastro-esophageal reflux disease without esophagitis; I73.9 Peripheral vascular disease, unspecified; Z79.899 Other long term (current) drug therapy; Z88.8 Allergy status to other drugs, medicaments and biological substances; Z86.73 Personal history of transient ischemic attack (TIA), and cerebral infarction without residual deficits; G44.209 Tension-type headache, unspecified, not intractable

== ENCOUNTER 2022-02-12 17:37 | Inpatient (IN) | payer MEDICARE ==
[~2022-02-12] VITALS: Ht 149.9 cm; Wt 99.1 kg
[~2022-02-12 17:37] MED LIST changes: +ALB2.5NEB INH; +ALBU8.5H INH; +BREO1INH3 INH; +CLOP75TA2 PO; +DOXY100T PO; +HYDR-3490 PO; +MUCI600T31 PO
[2022-02-12] MEDS ORDERED: PRED20TA PO (17:53)
[2022-02-12] MEDS ORDERED: SPIR-10 PO (17:53)
[2022-02-12] MEDS ORDERED: COMBIVENT RESPIMAT 100-20MCG INHALER 4GM INH ONE (18:15)
[2022-02-12 18:24] LABS: BASO % 0.1 % (0.0-1.0); HEMATOCRIT 43.4 % (36.0-47.0); HEMOGLOBIN 15.1 g/dl (12.0-15.5); LYMPH # 0.6 10^3/uL (1.5-5.0); LYMPH % 5.7 % (24.0-44.0); MEAN CORPUSCULAR HEMOGLOBIN 30.1 pg (27.0-33.0); MEAN CORPUSCULAR HGB CONC 34.8 g/dl (32.0-36.5); MEAN CORPUSCULAR VOLUME 86.5 fl (80.0-96.0); MONO # 0.4 10^3/uL (0.0-0.8); MONO % 3.8 % (2.0-8.0); NEUTROPHILS # 9.4 10^3/uL (1.5-8.5); NEUTROPHILS % 89.9 % (36.0-66.0); PLATELET COUNT, AUTOMATED 227 10^3/uL (150-450); RED BLOOD COUNT 5.02 10^6/uL (4.00-5.40); WHITE BLOOD COUNT 10.4 10^3/uL (4.0-10.0)
[2022-02-12 18:28] LABS: ABG BASE EXCESS 8.4 (-2.0-2.0); ABG HCO3 33.7 MEQ/L (22.0-26.0); ABG O2 SATURATION 93.8 % (95.0-99.0); ABG PARTIAL PRESSURE CO2 48.2 mmHg (35.0-45.0); ABG PARTIAL PRESSURE O2 66.5 mmHg (75.0-100.0); ABG STANDARD HCO3 32.1 MEQ/L (22.0-26.0); ABG TOTAL CO2 35.1 MEQ/L (23.0-31.0); ABG pH (ARTERIAL) 7.462 UNITS (7.350-7.450)
[2022-02-12] MEDS ORDERED: FUROSEMIDE 40MG/4ML VIAL (J1940) IV ONE (18:55)
[2022-02-12] MEDS ORDERED: ACETAMINOPHEN 325 MG TAB PO ONE (18:55)
[2022-02-12 19:00] LABS: ALBUMIN 2.7 GM/DL (3.2-5.2); ALT/SGPT 22 U/L (12-78); BILIRUBIN,DIRECT 0.2 MG/DL (0.0-0.2); BILIRUBIN,TOTAL 0.8 MG/DL (0.2-1.0); BLOOD UREA NITROGEN 16 MG/DL (7-18); CALCIUM LEVEL 7.8 MG/DL (8.8-10.2); CARBON DIOXIDE LEVEL 31 MEQ/L (21-32); CHLORIDE LEVEL 84 MEQ/L (98-107); CREATININE FOR GFR 0.58 MG/DL (0.55-1.30); GLOMERULAR FILTRATION RATE > 60.0 (>45); GLUCOSE, FASTING 124 MG/DL (70-100); NT-PRO BNP 326 PG/ML (<125); POTASSIUM SERUM 3.3 MEQ/L (3.5-5.1); SODIUM LEVEL 125 MEQ/L (136-145); TOTAL PROTEIN 5.5 GM/DL (6.4-8.2)
[2022-02-12] MEDS ORDERED: POTA99TA14 PO (20:43)
[2022-02-12] MEDS ORDERED: MAGN500T6 PO (20:43)
[2022-02-12] MEDS ORDERED: HOME MED LIST COMPLETE! XX SCH (20:45)
[2022-02-12] MEDS ORDERED: TRAM50TA2 PO (20:48)
[2022-02-12] MEDS ORDERED: SPIRONOLACTONE 25 MG TAB PO SCH (21:00)
[2022-02-12 21:29] LABS: PHOSPHORUS LEVEL 2.8 MG/DL (2.5-4.9)
[2022-02-12] MEDS ORDERED: IPRATROPIUM 0.5MG/ALBUTEROL 2.5MG INH SOL UD 3ML (DUONEB) NEB ONE (21:30)
[2022-02-12] MEDS ORDERED: methylPREDNISolone 125MG 2ML VIAL IV SCH (22:00)
[2022-02-12] MEDS: guaiFENesin ER 600 MG TAB PO SCH (22:05)
[2022-02-12] MEDS: CARVedilol 12.5 MG TAB PO SCH (22:05)
[2022-02-12] MEDS ORDERED: POTASSIUM CHLORIDE 10MEQ SR TABLET PO ONE (23:20)
[2022-02-12] MEDS: NIFEdipine 30 MG XL TAB PO SCH (23:55)
[2022-02-13] MEDS ORDERED: FUROSEMIDE 40MG/4ML VIAL (J1940) IV SCH
[2022-02-13] MEDS ORDERED: ACETAMINOPHEN 500 MG TAB PO ONE (00:55)
[2022-02-13] MEDS ORDERED: ALBUTEROL SULFATE 2.5 MG/0.5 ML INH NEB SOLN INH ONE (01:00)
[2022-02-13] MEDS ORDERED: methylPREDNISolone 125MG 2ML VIAL IV SCH (01:00)
[2022-02-13 01:22] LABS: BLOOD UREA NITROGEN 20 MG/DL (7-18); CALCIUM LEVEL 8.5 MG/DL (8.8-10.2); CARBON DIOXIDE LEVEL 37 MEQ/L (21-32); CHLORIDE LEVEL 75 MEQ/L (98-107); CREATININE FOR GFR 0.88 MG/DL (0.55-1.30); GLOMERULAR FILTRATION RATE > 60.0 (>45); GLUCOSE, FASTING 164 MG/DL (70-100); POTASSIUM SERUM 3.7 MEQ/L (3.5-5.1); SODIUM LEVEL 119 MEQ/L (136-145)
[2022-02-13] MEDS ORDERED: GLUCOSE 4GM CHEW TABLET PO PRN (01:35)
[2022-02-13] MEDS ORDERED: DEXTROSE 50% 50 ML SYRINGE IV PRN (01:35)
[2022-02-13] MEDS ORDERED: GLUCAGON INJ 1MG VIAL SC PRN (01:35)
[2022-02-13] MEDS: INSULIN LISPRO (NovoLOG) PER UNIT SC SCH ×2 (01:45→05:49)
[2022-02-13] MEDS ORDERED: IPRATROPIUM 0.5MG/ALBUTEROL 2.5MG INH SOL UD 3ML (DUONEB) NEB SCH (02:00)
[2022-02-13 02:39] LABS: ABG BASE EXCESS 11.1 (-2.0-2.0); ABG O2 SATURATION 95.4 % (95.0-99.0); ABG PARTIAL PRESSURE CO2 52.3 mmHg (35.0-45.0); ABG PARTIAL PRESSURE O2 73.1 mmHg (75.0-100.0); ABG STANDARD HCO3 34.9 MEQ/L (22.0-26.0); ABG TOTAL CO2 38.6 MEQ/L (23.0-31.0); ABG pH (ARTERIAL) 7.468 UNITS (7.350-7.450)
[2022-02-13] MEDS ORDERED: NS 500 ML IV ONE (03:30)
[2022-02-13] MEDS ORDERED: NS 1,000 ML IV SCH (03:30)
[2022-02-13] MEDS: methylPREDNISolone 125MG 2ML VIAL IV SCH ×3 (05:49→21:31)
[2022-02-13] MEDS ORDERED: ALBUTEROL SULFATE 2.5 MG/0.5 ML INH NEB SOLN NEB SCH (08:00)
[2022-02-13 08:11] LABS: CALCIUM LEVEL 8.5 MG/DL (8.8-10.2); CREATININE FOR GFR 1.02 MG/DL (0.55-1.30); GLOMERULAR FILTRATION RATE 58.5 (>45); POTASSIUM SERUM 3.7 MEQ/L (3.5-5.1)
[2022-02-13] MEDS ORDERED: traMADol 50 MG TAB PO ONE (08:45)
[2022-02-13] MEDS: PANTOPRAZOLE 40MG TAB (PROTONIX) PO SCH (09:11)
[2022-02-13] MEDS: guaiFENesin ER 600 MG TAB PO SCH ×2 (09:11→20:46)
[2022-02-13] MEDS: ENOXAPARIN 40MG/0.4ML SYRINGE (J1650 PER 10MG) SC SCH (09:12)
[2022-02-13] MEDS: CARVedilol 12.5 MG TAB PO SCH ×2 (09:13→20:46)
[2022-02-13] MEDS: CLOPIDOGREL 75 MG TAB PO SCH (09:13)
[2022-02-13] MEDS: FORMOTEROL FUMARATE 20 MCG/2 ML INHALATION SOLUTION (PERFOROMIST) INH SCH ×2 (13:00→20:00)
[2022-02-13] MEDS: TIOTROPIUM INHALER/CAPSULE (SPIRIVA) INH SCH (13:00)
[2022-02-13] MEDS: BUDESONIDE 0.5 MG/2 ML INHALATION SUSPENSION INH SCH ×2 (13:00→20:16)
[2022-02-13] MEDS: ALBUTEROL SULFATE 2.5 MG/0.5 ML INH NEB SOLN NEB SCH ×3 (13:08→20:16)
[2022-02-13 13:51] LABS: BLOOD UREA NITROGEN 20 MG/DL (7-18); CALCIUM LEVEL 8.9 MG/DL (8.8-10.2); CARBON DIOXIDE LEVEL 32 MEQ/L (21-32); CHLORIDE LEVEL 80 MEQ/L (98-107); CREATININE FOR GFR 0.95 MG/DL (0.55-1.30); GLOMERULAR FILTRATION RATE > 60.0 (>45); GLUCOSE, FASTING 160 MG/DL (70-100); POTASSIUM SERUM 3.7 MEQ/L (3.5-5.1); SODIUM LEVEL 123 MEQ/L (136-145)
[2022-02-13] MEDS: hydrOXYzine 25 MG TAB PO PRN (14:26)
[2022-02-13 14:58] LABS: SODIUM,RANDOM URINE < 10 MEQ/L
[2022-02-13 15:02] LABS: OSMOLALITY URINE 721 MOSM/KG (50-1400)
[2022-02-13] MEDS: NYSTATIN 500,000 U/5 ML SUSP UDC SS SCH ×2 (16:57→20:46)
[2022-02-13 18:25] VITALS: BP 147/79
[2022-02-13] MEDS: NS 1,000 ML IV SCH (19:38)
[2022-02-13] MEDS: MAG SULF 1GM/100ML (MAG RUN) 1 GM in IV 1 EA IV SCH ×2 (19:38→20:45)
[2022-02-13 19:40] LABS: BLOOD UREA NITROGEN 21 MG/DL (7-18); CALCIUM LEVEL 8.9 MG/DL (8.8-10.2); CARBON DIOXIDE LEVEL 35 MEQ/L (21-32); CHLORIDE LEVEL 80 MEQ/L (98-107); GLOMERULAR FILTRATION RATE > 60.0 (>45); GLUCOSE, FASTING 160 MG/DL (70-100); POTASSIUM SERUM 3.8 MEQ/L (3.5-5.1); SODIUM LEVEL 120 MEQ/L (136-145)
[2022-02-13 20:00] VITALS: O2SAT 92
[2022-02-13 20:13] VITALS: BP 155/68
[2022-02-13] MEDS: NIFEdipine 30 MG XL TAB PO SCH (20:56)
[2022-02-13 22:00] VITALS: BP 144/69; O2SAT 92
[2022-02-13] MEDS: traMADol 50 MG TAB PO PRN (22:02)
[2022-02-14] VITALS (11 sets, daily range): BP systolic 130–166; BP diastolic 70–88; O2SAT 92–93
[2022-02-14] MEDS: ACETAMINOPHEN TAB 650MG DOSE (2X325MG) PO PRN ×2 (00:34→09:24)
[2022-02-14] MEDS: hydrOXYzine 25 MG TAB PO PRN ×2 (00:34→19:22)
[2022-02-14] MEDS: ALBUTEROL SULFATE 2.5 MG/0.5 ML INH NEB SOLN NEB SCH ×6 (00:46→19:27)
[2022-02-14 01:19] LABS: BLOOD UREA NITROGEN 18 MG/DL (7-18); CALCIUM LEVEL 8.6 MG/DL (8.8-10.2); CARBON DIOXIDE LEVEL 37 MEQ/L (21-32); CHLORIDE LEVEL 79 MEQ/L (98-107); CREATININE FOR GFR 0.67 MG/DL (0.55-1.30); GLOMERULAR FILTRATION RATE > 60.0 (>45); GLUCOSE, FASTING 142 MG/DL (70-100); POTASSIUM SERUM 3.9 MEQ/L (3.5-5.1); SODIUM LEVEL 122 MEQ/L (136-145)
[2022-02-14 05:14] LABS: EOS # 0.1 10^3/uL (0.0-0.5); HEMATOCRIT 42.5 % (36.0-47.0); HEMOGLOBIN 14.9 g/dl (12.0-15.5); LYMPH # 0.6 10^3/uL (1.5-5.0); LYMPH % 5.7 % (24.0-44.0); MEAN CORPUSCULAR HEMOGLOBIN 29.7 pg (27.0-33.0); MEAN CORPUSCULAR HGB CONC 35.1 g/dl (32.0-36.5); MEAN CORPUSCULAR VOLUME 84.7 fl (80.0-96.0); MONO # 0.4 10^3/uL (0.0-0.8); MONO % 3.7 % (2.0-8.0); NEUTROPHILS # 9.9 10^3/uL (1.5-8.5); NEUTROPHILS % 88.9 % (36.0-66.0); PLATELET COUNT, AUTOMATED 218 10^3/uL (150-450); RED BLOOD COUNT 5.02 10^6/uL (4.00-5.40); WHITE BLOOD COUNT 11.2 10^3/uL (4.0-10.0)
[2022-02-14] MEDS: methylPREDNISolone 125MG 2ML VIAL IV SCH ×3 (05:25→21:46)
[2022-02-14 05:35] LABS: BLOOD UREA NITROGEN 18 MG/DL (7-18); CALCIUM LEVEL 9.2 MG/DL (8.8-10.2); CARBON DIOXIDE LEVEL 36 MEQ/L (21-32); CHLORIDE LEVEL 79 MEQ/L (98-107); CREATININE FOR GFR 0.66 MG/DL (0.55-1.30); GLOMERULAR FILTRATION RATE > 60.0 (>45); GLUCOSE, FASTING 147 MG/DL (70-100); SODIUM LEVEL 121 MEQ/L (136-145)
[2022-02-14] MEDS ORDERED: INSULIN LISPRO (NovoLOG) PER UNIT SC SCH ×2 (07:30→21:00)
[2022-02-14] MEDS: FORMOTEROL FUMARATE 20 MCG/2 ML INHALATION SOLUTION (PERFOROMIST) INH SCH ×2 (08:00→19:27)
[2022-02-14] MEDS: BUDESONIDE 0.5 MG/2 ML INHALATION SUSPENSION INH SCH ×2 (08:45→19:27)
[2022-02-14] MEDS: TIOTROPIUM INHALER/CAPSULE (SPIRIVA) INH SCH (08:45)
[2022-02-14] MEDS: INSULIN LISPRO (NovoLOG) PER UNIT SC SCH ×4 (08:48→20:38)
[2022-02-14] MEDS: ENOXAPARIN 40MG/0.4ML SYRINGE (J1650 PER 10MG) SC SCH (09:22)
[2022-02-14] MEDS: NYSTATIN 500,000 U/5 ML SUSP UDC SS SCH ×3 (09:22→20:38)
[2022-02-14] MEDS: CLOPIDOGREL 75 MG TAB PO SCH (09:24)
[2022-02-14] MEDS: PANTOPRAZOLE 40MG TAB (PROTONIX) PO SCH (09:24)
[2022-02-14] MEDS: CARVedilol 12.5 MG TAB PO SCH ×2 (09:24→20:37)
[2022-02-14] MEDS: guaiFENesin ER 600 MG TAB PO SCH ×2 (09:24→20:36)
[2022-02-14] MEDS: NS 1,000 ML IV SCH ×2 (09:25→21:47)
[2022-02-14 12:36] LABS: BLOOD UREA NITROGEN 20 MG/DL (7-18); CALCIUM LEVEL 8.9 MG/DL (8.8-10.2); CARBON DIOXIDE LEVEL 34 MEQ/L (21-32); CHLORIDE LEVEL 81 MEQ/L (98-107); CREATININE FOR GFR 0.78 MG/DL (0.55-1.30); GLOMERULAR FILTRATION RATE > 60.0 (>45); GLUCOSE, FASTING 126 MG/DL (70-100); POTASSIUM SERUM 3.7 MEQ/L (3.5-5.1); SODIUM LEVEL 125 MEQ/L (136-145)
[2022-02-14 12:49] LABS: OSMOLALITY URINE 758 MOSM/KG (50-1400)
[2022-02-14 12:54] LABS: SODIUM,RANDOM URINE < 10 MEQ/L
[2022-02-14 18:23] LABS: BLOOD UREA NITROGEN 23 MG/DL (7-18); CALCIUM LEVEL 8.8 MG/DL (8.8-10.2); CARBON DIOXIDE LEVEL 35 MEQ/L (21-32); CHLORIDE LEVEL 85 MEQ/L (98-107); CREATININE FOR GFR 0.76 MG/DL (0.55-1.30); GLOMERULAR FILTRATION RATE > 60.0 (>45); GLUCOSE, FASTING 142 MG/DL (70-100); POTASSIUM SERUM 4.2 MEQ/L (3.5-5.1); SODIUM LEVEL 125 MEQ/L (136-145)
[2022-02-14] MEDS: NIFEdipine 30 MG XL TAB PO SCH (21:45)
[2022-02-14] MEDS: traMADol 50 MG TAB PO PRN (21:46)
[2022-02-15] VITALS (17 sets, daily range): BP systolic 123–137; BP diastolic 63–87; O2SAT 84–94
[2022-02-15 00:20] LABS: BLOOD UREA NITROGEN 21 MG/DL (7-18); CALCIUM LEVEL 8.3 MG/DL (8.8-10.2); CARBON DIOXIDE LEVEL 36 MEQ/L (21-32); CHLORIDE LEVEL 86 MEQ/L (98-107); CREATININE FOR GFR 0.78 MG/DL (0.55-1.30); GLOMERULAR FILTRATION RATE > 60.0 (>45); GLUCOSE, FASTING 133 MG/DL (70-100); POTASSIUM SERUM 4.1 MEQ/L (3.5-5.1); SODIUM LEVEL 126 MEQ/L (136-145)
[2022-02-15] MEDS: ALBUTEROL SULFATE 2.5 MG/0.5 ML INH NEB SOLN NEB SCH ×7 (00:53→23:50)
[2022-02-15 04:53] LABS: BASO % 0.1 % (0.0-1.0); HEMATOCRIT 40.4 % (36.0-47.0); HEMOGLOBIN 14.1 g/dl (12.0-15.5); LYMPH # 0.4 10^3/uL (1.5-5.0); LYMPH % 3.2 % (24.0-44.0); MEAN CORPUSCULAR HEMOGLOBIN 30.7 pg (27.0-33.0); MEAN CORPUSCULAR HGB CONC 34.9 g/dl (32.0-36.5); MONO # 0.5 10^3/uL (0.0-0.8); MONO % 4.1 % (2.0-8.0); NEUTROPHILS # 10.7 10^3/uL (1.5-8.5); NEUTROPHILS % 91.9 % (36.0-66.0); PLATELET COUNT, AUTOMATED 227 10^3/uL (150-450); RED BLOOD COUNT 4.59 10^6/uL (4.00-5.40); WHITE BLOOD COUNT 11.6 10^3/uL (4.0-10.0)
[2022-02-15 05:16] LABS: BLOOD UREA NITROGEN 20 MG/DL (7-18); CALCIUM LEVEL 8.2 MG/DL (8.8-10.2); CARBON DIOXIDE LEVEL 39 MEQ/L (21-32); CHLORIDE LEVEL 85 MEQ/L (98-107); CREATININE FOR GFR 0.63 MG/DL (0.55-1.30); GLOMERULAR FILTRATION RATE > 60.0 (>45); GLUCOSE, FASTING 142 MG/DL (70-100); POTASSIUM SERUM 4.6 MEQ/L (3.5-5.1); SODIUM LEVEL 126 MEQ/L (136-145)
[2022-02-15] MEDS: methylPREDNISolone 125MG 2ML VIAL IV SCH ×3 (06:09→21:44)
[2022-02-15] MEDS: TIOTROPIUM INHALER/CAPSULE (SPIRIVA) INH SCH (07:06)
[2022-02-15] MEDS: FORMOTEROL FUMARATE 20 MCG/2 ML INHALATION SOLUTION (PERFOROMIST) INH SCH ×2 (07:06→19:52)
[2022-02-15] MEDS: BUDESONIDE 0.5 MG/2 ML INHALATION SUSPENSION INH SCH ×2 (07:06→19:52)
[2022-02-15] MEDS ORDERED: IPRATROPIUM 0.5MG/ALBUTEROL 2.5MG INH SOL UD 3ML (DUONEB) NEB ONE (08:15)
[2022-02-15] MEDS: INSULIN LISPRO (NovoLOG) PER UNIT SC SCH ×4 (09:08→20:22)
[2022-02-15] MEDS: ACETAMINOPHEN TAB 650MG DOSE (2X325MG) PO PRN ×2 (09:08→14:07)
[2022-02-15] MEDS: ENOXAPARIN 40MG/0.4ML SYRINGE (J1650 PER 10MG) SC SCH (09:09)
[2022-02-15] MEDS: NYSTATIN 500,000 U/5 ML SUSP UDC SS SCH ×3 (09:09→20:22)
[2022-02-15] MEDS: cefTRIAXone SOD 1 GM in D5W MINI-BAG PLUS 50 ML IV SCH (09:09)
[2022-02-15] MEDS: CARVedilol 12.5 MG TAB PO SCH ×2 (09:09→20:22)
[2022-02-15] MEDS: guaiFENesin ER 600 MG TAB PO SCH ×2 (09:10→20:20)
[2022-02-15] MEDS: CLOPIDOGREL 75 MG TAB PO SCH (09:10)
[2022-02-15] MEDS: PANTOPRAZOLE 40MG TAB (PROTONIX) PO SCH (09:10)
[2022-02-15] MEDS ORDERED: ISOVUE-370 76% 100ML VIAL As Ordered ONE (10:39)
[2022-02-15] MEDS: DOXYCYCLINE HYCLATE 100 MG in D5W MINI-BAG PLUS 100 ML IV SCH ×2 (11:30→21:44)
[2022-02-15] MEDS: hydrOXYzine 25 MG TAB PO PRN (11:30)
[2022-02-15 12:21] LABS: SODIUM,RANDOM URINE < 10 MEQ/L
[2022-02-15] MEDS: NIFEdipine 30 MG XL TAB PO SCH (20:21)
[2022-02-15] MEDS: NS 1,000 ML IV SCH (21:44)
[2022-02-15] MEDS: traMADol 50 MG TAB PO PRN (21:47)
[2022-02-15 22:31] LABS: OSMOLALITY URINE 916 MOSM/KG (50-1400)
[2022-02-16] VITALS: BP 154/82; O2SAT 92
[2022-02-16] MEDS: NS 1,000 ML IV SCH (00:28)
[2022-02-16] MEDS: ACETAMINOPHEN TAB 650MG DOSE (2X325MG) PO PRN ×2 (03:28→17:27)
[2022-02-16 04:00] VITALS: BP 153/89; O2SAT 92
[2022-02-16 04:52] LABS: BASO % 0.1 % (0.0-1.0); HEMATOCRIT 41.5 % (36.0-47.0); HEMOGLOBIN 13.9 g/dl (12.0-15.5); LYMPH # 0.4 10^3/uL (1.5-5.0); LYMPH % 4.5 % (24.0-44.0); MEAN CORPUSCULAR HEMOGLOBIN 29.8 pg (27.0-33.0); MEAN CORPUSCULAR HGB CONC 33.5 g/dl (32.0-36.5); MEAN CORPUSCULAR VOLUME 88.9 fl (80.0-96.0); MONO # 0.4 10^3/uL (0.0-0.8); NEUTROPHILS # 8.3 10^3/uL (1.5-8.5); NEUTROPHILS % 90.7 % (36.0-66.0); PLATELET COUNT, AUTOMATED 226 10^3/uL (150-450); RED BLOOD COUNT 4.67 10^6/uL (4.00-5.40); WHITE BLOOD COUNT 9.2 10^3/uL (4.0-10.0)
[2022-02-16 05:11] LABS: BLOOD UREA NITROGEN 20 MG/DL (7-18); CALCIUM LEVEL 8.6 MG/DL (8.8-10.2); CARBON DIOXIDE LEVEL 34 MEQ/L (21-32); CHLORIDE LEVEL 91 MEQ/L (98-107); CREATININE FOR GFR 0.68 MG/DL (0.55-1.30); GLOMERULAR FILTRATION RATE > 60.0 (>45); GLUCOSE, FASTING 214 MG/DL (70-100); SODIUM LEVEL 131 MEQ/L (136-145)
[2022-02-16] MEDS: ALBUTEROL SULFATE 2.5 MG/0.5 ML INH NEB SOLN NEB SCH ×5 (05:31→19:52)
[2022-02-16] MEDS: methylPREDNISolone 125MG 2ML VIAL IV SCH ×3 (05:57→21:58)
[2022-02-16 06:00] VITALS: BP 144/79
[2022-02-16] MEDS: TIOTROPIUM INHALER/CAPSULE (SPIRIVA) INH SCH (07:21)
[2022-02-16] MEDS: FORMOTEROL FUMARATE 20 MCG/2 ML INHALATION SOLUTION (PERFOROMIST) INH SCH ×2 (07:22→19:52)
[2022-02-16] MEDS: BUDESONIDE 0.5 MG/2 ML INHALATION SUSPENSION INH SCH ×2 (07:22→19:52)
[2022-02-16 07:47] VITALS: BP 139/83
[2022-02-16] MEDS: NYSTATIN 500,000 U/5 ML SUSP UDC SS SCH ×3 (09:59→21:56)
[2022-02-16] MEDS: ENOXAPARIN 40MG/0.4ML SYRINGE (J1650 PER 10MG) SC SCH (09:59)
[2022-02-16] MEDS: CLOPIDOGREL 75 MG TAB PO SCH (09:59)
[2022-02-16] MEDS: PANTOPRAZOLE 40MG TAB (PROTONIX) PO SCH (09:59)
[2022-02-16] MEDS: CARVedilol 12.5 MG TAB PO SCH ×2 (09:59→21:57)
[2022-02-16] MEDS: guaiFENesin ER 600 MG TAB PO SCH ×2 (09:59→21:58)
[2022-02-16] MEDS: INSULIN LISPRO (NovoLOG) PER UNIT SC SCH ×4 (10:00→21:00)
[2022-02-16] MEDS: cefTRIAXone SOD 1 GM in D5W MINI-BAG PLUS 50 ML IV SCH (10:01)
[2022-02-16] MEDS: DOXYCYCLINE HYCLATE 100 MG in D5W MINI-BAG PLUS 100 ML IV SCH ×2 (10:47→21:59)
[2022-02-16] MEDS ORDERED: TOLVAPTAN 7.5 MG HALF-TAB PO ONE (12:00)
[2022-02-16 12:37] LABS: OSMOLALITY URINE 883 MOSM/KG (50-1400)
[2022-02-16 12:57] LABS: SODIUM,RANDOM URINE 17 MEQ/L
[2022-02-16 16:15] VITALS: BP 145/80
[2022-02-16 20:00] VITALS: BP 138/76
[2022-02-16] MEDS: traMADol 50 MG TAB PO PRN (21:58)
[2022-02-16] MEDS: NIFEdipine 30 MG XL TAB PO SCH (22:08)
[2022-02-17] MEDS: ALBUTEROL SULFATE 2.5 MG/0.5 ML INH NEB SOLN NEB SCH ×6 (00:12→19:46)
[2022-02-17] MEDS: ALBUTEROL SULFATE 2.5 MG/0.5 ML INH NEB SOLN NEB PRN ×2 (01:23→14:41)
[2022-02-17 04:00] VITALS: BP 132/80
[2022-02-17 05:04] LABS: EOS % 0.1 % (0.0-3.0); HEMATOCRIT 44.1 % (36.0-47.0); HEMOGLOBIN 14.3 g/dl (12.0-15.5); LYMPH # 0.5 10^3/uL (1.5-5.0); LYMPH % 6.1 % (24.0-44.0); MEAN CORPUSCULAR HEMOGLOBIN 29.2 pg (27.0-33.0); MEAN CORPUSCULAR HGB CONC 32.4 g/dl (32.0-36.5); MEAN CORPUSCULAR VOLUME 90.2 fl (80.0-96.0); MONO # 0.2 10^3/uL (0.0-0.8); MONO % 2.6 % (2.0-8.0); NEUTROPHILS # 6.8 10^3/uL (1.5-8.5); NEUTROPHILS % 90.3 % (36.0-66.0); PLATELET COUNT, AUTOMATED 253 10^3/uL (150-450); RED BLOOD COUNT 4.89 10^6/uL (4.00-5.40); WHITE BLOOD COUNT 7.6 10^3/uL (4.0-10.0)
[2022-02-17 05:23] LABS: BLOOD UREA NITROGEN 17 MG/DL (7-18); CALCIUM LEVEL 8.3 MG/DL (8.8-10.2); CARBON DIOXIDE LEVEL 36 MEQ/L (21-32); CHLORIDE LEVEL 92 MEQ/L (98-107); CREATININE FOR GFR 0.62 MG/DL (0.55-1.30); GLOMERULAR FILTRATION RATE > 60.0 (>45); GLUCOSE, FASTING 142 MG/DL (70-100); POTASSIUM SERUM 4.1 MEQ/L (3.5-5.1); SODIUM LEVEL 132 MEQ/L (136-145)
[2022-02-17] MEDS: methylPREDNISolone 125MG 2ML VIAL IV SCH ×3 (06:05→20:39)
[2022-02-17] MEDS: BUDESONIDE 0.5 MG/2 ML INHALATION SUSPENSION INH SCH ×2 (07:14→19:44)
[2022-02-17] MEDS: FORMOTEROL FUMARATE 20 MCG/2 ML INHALATION SOLUTION (PERFOROMIST) INH SCH ×2 (07:14→19:46)
[2022-02-17] MEDS: TIOTROPIUM INHALER/CAPSULE (SPIRIVA) INH SCH (07:14)
[2022-02-17 07:33] VITALS: BP 158/75
[2022-02-17] MEDS: CARVedilol 12.5 MG TAB PO SCH ×2 (08:24→20:40)
[2022-02-17] MEDS: ENOXAPARIN 40MG/0.4ML SYRINGE (J1650 PER 10MG) SC SCH (08:24)
[2022-02-17] MEDS: CLOPIDOGREL 75 MG TAB PO SCH (08:24)
[2022-02-17] MEDS: NYSTATIN 500,000 U/5 ML SUSP UDC SS SCH ×3 (08:24→20:39)
[2022-02-17] MEDS: guaiFENesin ER 600 MG TAB PO SCH ×2 (08:25→20:39)
[2022-02-17] MEDS: PANTOPRAZOLE 40MG TAB (PROTONIX) PO SCH (08:25)
[2022-02-17] MEDS: INSULIN LISPRO (NovoLOG) PER UNIT SC SCH ×4 (08:26→20:38)
[2022-02-17 09:32] LABS: SODIUM,RANDOM URINE 12 MEQ/L
[2022-02-17 09:43] LABS: OSMOLALITY URINE 577 MOSM/KG (50-1400)
[2022-02-17] MEDS: cefTAZidime 2 GM in D5W MINI-BAG PLUS 50 ML IV SCH ×2 (09:51→16:54)
[2022-02-17 10:00] VITALS: BP 138/88
[2022-02-17] MEDS: DOXYCYCLINE HYCLATE 100 MG in D5W MINI-BAG PLUS 100 ML IV SCH ×2 (11:02→20:39)
[2022-02-17] MEDS: NICOTINE 14 MG/24 HR TRANSDERMAL TD SCH (12:22)
[2022-02-17] MEDS: hydrOXYzine 25 MG TAB PO PRN (14:28)
[2022-02-17] MEDS ORDERED: TOLVAPTAN 15 MG TAB (SAMSCA) PO ONE (15:00)
[2022-02-17 15:59] VITALS: BP 134/78
[2022-02-17 20:00] VITALS: BP 152/60
[2022-02-17] MEDS: NIFEdipine 30 MG XL TAB PO SCH (20:42)
[2022-02-17] MEDS: traMADol 50 MG TAB PO PRN (22:18)
[2022-02-18] MEDS: cefTAZidime 2 GM in D5W MINI-BAG PLUS 50 ML IV SCH ×3 (01:03→18:15)
[2022-02-18] MEDS: ALBUTEROL SULFATE 2.5 MG/0.5 ML INH NEB SOLN NEB SCH ×6 (01:22→21:24)
[2022-02-18 04:00] VITALS: BP 140/90
[2022-02-18] MEDS: methylPREDNISolone 125MG 2ML VIAL IV SCH ×3 (04:56→21:56)
[2022-02-18 05:47] LABS: BASO % 0.1 % (0.0-1.0); HEMOGLOBIN 14.1 g/dl (12.0-15.5); LYMPH # 0.5 10^3/uL (1.5-5.0); LYMPH % 6.6 % (24.0-44.0); MEAN CORPUSCULAR HEMOGLOBIN 30.6 pg (27.0-33.0); MEAN CORPUSCULAR HGB CONC 33.6 g/dl (32.0-36.5); MEAN CORPUSCULAR VOLUME 91.1 fl (80.0-96.0); MONO # 0.3 10^3/uL (0.0-0.8); MONO % 4.3 % (2.0-8.0); NEUTROPHILS # 6.9 10^3/uL (1.5-8.5); PLATELET COUNT, AUTOMATED 276 10^3/uL (150-450); RED BLOOD COUNT 4.61 10^6/uL (4.00-5.40); WHITE BLOOD COUNT 7.8 10^3/uL (4.0-10.0)
[2022-02-18 06:19] LABS: BLOOD UREA NITROGEN 19 MG/DL (7-18); CALCIUM LEVEL 8.4 MG/DL (8.8-10.2); CARBON DIOXIDE LEVEL 36 MEQ/L (21-32); CHLORIDE LEVEL 94 MEQ/L (98-107); CREATININE FOR GFR 0.91 MG/DL (0.55-1.30); GLOMERULAR FILTRATION RATE > 60.0 (>45); GLUCOSE, FASTING 224 MG/DL (70-100); POTASSIUM SERUM 3.7 MEQ/L (3.5-5.1); SODIUM LEVEL 136 MEQ/L (136-145)
[2022-02-18] MEDS: FORMOTEROL FUMARATE 20 MCG/2 ML INHALATION SOLUTION (PERFOROMIST) INH SCH ×2 (07:54→21:24)
[2022-02-18] MEDS: TIOTROPIUM INHALER/CAPSULE (SPIRIVA) INH SCH (07:54)
[2022-02-18] MEDS: BUDESONIDE 0.5 MG/2 ML INHALATION SUSPENSION INH SCH ×2 (07:54→21:23)
[2022-02-18 08:00] VITALS: BP 181/84
[2022-02-18] MEDS: CARVedilol 12.5 MG TAB PO SCH ×2 (10:00→20:29)
[2022-02-18] MEDS: PANTOPRAZOLE 40MG TAB (PROTONIX) PO SCH (10:01)
[2022-02-18] MEDS: CLOPIDOGREL 75 MG TAB PO SCH (10:01)
[2022-02-18] MEDS: NICOTINE 14 MG/24 HR TRANSDERMAL TD SCH (10:02)
[2022-02-18] MEDS: NYSTATIN 500,000 U/5 ML SUSP UDC SS SCH ×3 (10:02→20:28)
[2022-02-18] MEDS: INSULIN LISPRO (NovoLOG) PER UNIT SC SCH ×4 (10:02→20:05)
[2022-02-18] MEDS: ENOXAPARIN 40MG/0.4ML SYRINGE (J1650 PER 10MG) SC SCH (10:03)
[2022-02-18] MEDS: guaiFENesin ER 600 MG TAB PO SCH ×2 (10:03→20:29)
[2022-02-18] MEDS: DOXYCYCLINE HYCLATE 100MG TABLET PO SCH ×2 (10:38→20:29)
[2022-02-18 11:50] VITALS: BP 140/68
[2022-02-18] MEDS ORDERED: FUROSEMIDE 40MG/4ML VIAL (J1940) IV ONE (12:05)
[2022-02-18 15:57] VITALS: BP 165/87
[2022-02-18] MEDS: hydrOXYzine 25 MG TAB PO PRN (19:15)
[2022-02-18 19:34] VITALS: BP 144/70
[2022-02-18] MEDS: NIFEdipine 30 MG XL TAB PO SCH (20:29)
[2022-02-18] MEDS: traMADol 50 MG TAB PO PRN (23:55)
[2022-02-19] MEDS: ALBUTEROL SULFATE 2.5 MG/0.5 ML INH NEB SOLN NEB SCH ×6 (01:53→20:37)
[2022-02-19] MEDS: cefTAZidime 2 GM in D5W MINI-BAG PLUS 50 ML IV SCH ×3 (02:07→17:37)
[2022-02-19 04:00] VITALS: BP 135/78
[2022-02-19 04:59] LABS: BASO % 0.1 % (0.0-1.0); LYMPH # 0.6 10^3/uL (1.5-5.0); LYMPH % 6.5 % (24.0-44.0); MEAN CORPUSCULAR HGB CONC 33.3 g/dl (32.0-36.5); MEAN CORPUSCULAR VOLUME 89.9 fl (80.0-96.0); MONO # 0.4 10^3/uL (0.0-0.8); MONO % 3.7 % (2.0-8.0); NEUTROPHILS # 8.3 10^3/uL (1.5-8.5); PLATELET COUNT, AUTOMATED 290 10^3/uL (150-450); RED BLOOD COUNT 4.67 10^6/uL (4.00-5.40); WHITE BLOOD COUNT 9.4 10^3/uL (4.0-10.0)
[2022-02-19 05:19] LABS: BLOOD UREA NITROGEN 23 MG/DL (7-18); CALCIUM LEVEL 8.8 MG/DL (8.8-10.2); CARBON DIOXIDE LEVEL 40 MEQ/L (21-32); CHLORIDE LEVEL 93 MEQ/L (98-107); CREATININE FOR GFR 0.75 MG/DL (0.55-1.30); GLOMERULAR FILTRATION RATE > 60.0 (>45); GLUCOSE, FASTING 184 MG/DL (70-100); POTASSIUM SERUM 3.7 MEQ/L (3.5-5.1); SODIUM LEVEL 136 MEQ/L (136-145)
[2022-02-19] MEDS: methylPREDNISolone 125MG 2ML VIAL IV SCH (05:48)
[2022-02-19] MEDS: hydrOXYzine 25 MG TAB PO PRN ×2 (05:48→17:41)
[2022-02-19] MEDS: FORMOTEROL FUMARATE 20 MCG/2 ML INHALATION SOLUTION (PERFOROMIST) INH SCH ×2 (07:12→20:38)
[2022-02-19] MEDS: BUDESONIDE 0.5 MG/2 ML INHALATION SUSPENSION INH SCH ×2 (07:12→20:37)
[2022-02-19] MEDS: TIOTROPIUM INHALER/CAPSULE (SPIRIVA) INH SCH (07:27)
[2022-02-19 08:00] VITALS: BP 140/84
[2022-02-19] MEDS: NYSTATIN 500,000 U/5 ML SUSP UDC SS SCH ×3 (08:22→20:27)
[2022-02-19] MEDS: ENOXAPARIN 40MG/0.4ML SYRINGE (J1650 PER 10MG) SC SCH (08:24)
[2022-02-19] MEDS: NICOTINE 14 MG/24 HR TRANSDERMAL TD SCH (08:24)
[2022-02-19] MEDS: INSULIN LISPRO (NovoLOG) PER UNIT SC SCH ×4 (08:24→20:08)
[2022-02-19] MEDS: CLOPIDOGREL 75 MG TAB PO SCH (08:25)
[2022-02-19] MEDS: guaiFENesin ER 600 MG TAB PO SCH ×2 (08:25→20:28)
[2022-02-19] MEDS: PANTOPRAZOLE 40MG TAB (PROTONIX) PO SCH (08:25)
[2022-02-19] MEDS: DOXYCYCLINE HYCLATE 100MG TABLET PO SCH ×2 (08:25→20:27)
[2022-02-19] MEDS: CARVedilol 12.5 MG TAB PO SCH ×2 (08:26→20:28)
[2022-02-19] MEDS: predniSONE 20 MG TAB PO SCH (09:12)
[2022-02-19] MEDS ORDERED: FUROSEMIDE 40MG/4ML VIAL (J1940) IV ONE (10:15)
[2022-02-19] MEDS: ACETAMINOPHEN TAB 650MG DOSE (2X325MG) PO PRN (10:52)
[2022-02-19] MEDS ORDERED: POTASSIUM CHLORIDE 10MEQ SR TABLET PO ONE (11:00)
[2022-02-19 12:00] VITALS: BP 140/52
[2022-02-19 16:00] VITALS: BP 153/54
[2022-02-19 20:07] VITALS: BP 144/84
[2022-02-19] MEDS: traMADol 50 MG TAB PO PRN (20:29)
[2022-02-19] MEDS: NIFEdipine 30 MG XL TAB PO SCH (20:33)
[2022-02-20] MEDS: ALBUTEROL SULFATE 2.5 MG/0.5 ML INH NEB SOLN NEB SCH ×7 (00:37→23:20)
[2022-02-20] MEDS: ACETAMINOPHEN TAB 650MG DOSE (2X325MG) PO PRN (01:16)
[2022-02-20] MEDS: cefTAZidime 2 GM in D5W MINI-BAG PLUS 50 ML IV SCH ×2 (02:15→10:48)
[2022-02-20 04:13] VITALS: BP 130/70
[2022-02-20 05:38] LABS: BASO % 0.1 % (0.0-1.0); HEMATOCRIT 42.1 % (36.0-47.0); HEMOGLOBIN 13.9 g/dl (12.0-15.5); LYMPH # 1.9 10^3/uL (1.5-5.0); MEAN CORPUSCULAR HEMOGLOBIN 29.6 pg (27.0-33.0); MEAN CORPUSCULAR VOLUME 89.6 fl (80.0-96.0); MONO # 0.8 10^3/uL (0.0-0.8); MONO % 8.6 % (2.0-8.0); NEUTROPHILS # 6.3 10^3/uL (1.5-8.5); NEUTROPHILS % 69.5 % (36.0-66.0); PLATELET COUNT, AUTOMATED 282 10^3/uL (150-450); WHITE BLOOD COUNT 9.1 10^3/uL (4.0-10.0)
[2022-02-20 05:59] LABS: BLOOD UREA NITROGEN 31 MG/DL (7-18); CALCIUM LEVEL 8.3 MG/DL (8.8-10.2); CARBON DIOXIDE LEVEL 39 MEQ/L (21-32); CHLORIDE LEVEL 89 MEQ/L (98-107); CREATININE FOR GFR 0.93 MG/DL (0.55-1.30); GLOMERULAR FILTRATION RATE > 60.0 (>45); GLUCOSE, FASTING 176 MG/DL (70-100); POTASSIUM SERUM 3.2 MEQ/L (3.5-5.1); SODIUM LEVEL 135 MEQ/L (136-145)
[2022-02-20] MEDS ORDERED: POTASSIUM CHLORIDE 10MEQ SR TABLET PO ONE (06:50)
[2022-02-20] MEDS: traMADol 50 MG TAB PO PRN ×2 (06:56→17:36)
[2022-02-20 07:57] VITALS: BP 126/58
[2022-02-20] MEDS: FORMOTEROL FUMARATE 20 MCG/2 ML INHALATION SOLUTION (PERFOROMIST) INH SCH ×2 (08:29→19:12)
[2022-02-20] MEDS: TIOTROPIUM INHALER/CAPSULE (SPIRIVA) INH SCH (08:29)
[2022-02-20] MEDS: BUDESONIDE 0.5 MG/2 ML INHALATION SUSPENSION INH SCH ×2 (08:29→19:12)
[2022-02-20] MEDS: INSULIN LISPRO (NovoLOG) PER UNIT SC SCH ×4 (08:38→20:13)
[2022-02-20] MEDS: NYSTATIN 500,000 U/5 ML SUSP UDC SS SCH ×3 (08:39→20:17)
[2022-02-20] MEDS: ENOXAPARIN 40MG/0.4ML SYRINGE (J1650 PER 10MG) SC SCH (08:39)
[2022-02-20] MEDS: predniSONE 20 MG TAB PO SCH (08:39)
[2022-02-20] MEDS: guaiFENesin ER 600 MG TAB PO SCH ×2 (08:39→20:17)
[2022-02-20] MEDS: DOXYCYCLINE HYCLATE 100MG TABLET PO SCH ×2 (08:40→20:17)
[2022-02-20] MEDS: PANTOPRAZOLE 40MG TAB (PROTONIX) PO SCH (08:40)
[2022-02-20] MEDS: CLOPIDOGREL 75 MG TAB PO SCH (08:41)
[2022-02-20] MEDS: NICOTINE 14 MG/24 HR TRANSDERMAL TD SCH (08:41)
[2022-02-20] MEDS: CARVedilol 12.5 MG TAB PO SCH ×2 (08:42→20:18)
[2022-02-20] MEDS ORDERED: SPIRONOLACTONE 50 MG TAB PO ONE (11:40)
[2022-02-20] MEDS ORDERED: FUROSEMIDE 40MG/4ML VIAL (J1940) IV ONE (11:40)
[2022-02-20] MEDS: hydrOXYzine 25 MG TAB PO PRN (12:30)
[2022-02-20] MEDS ORDERED: TIOT18INH INH (15:29)
[2022-02-20] MEDS ORDERED: PERF20NE2 INH (15:29)
[2022-02-20] MEDS ORDERED: BUDE0.5S6 INH (15:29)
[2022-02-20] MEDS: LevoFLOXacin 750 MG TABLET PO SCH (16:54)
[2022-02-20 16:56] VITALS: BP 130/85
[2022-02-20] MEDS: NIFEdipine 30 MG XL TAB PO SCH (21:14)
[2022-02-20 21:54] VITALS: BP 128/82
[2022-02-20 22:48] VITALS: BP 130/82
[2022-02-21] MEDS: traMADol 50 MG TAB PO PRN (01:46)
[2022-02-21] MEDS: ALBUTEROL SULFATE 2.5 MG/0.5 ML INH NEB SOLN NEB SCH ×6 (03:33→23:34)
[2022-02-21] MEDS: hydrOXYzine 25 MG TAB PO PRN ×2 (04:06→22:35)
[2022-02-21] MEDS: LevoFLOXacin 750 MG TABLET PO SCH (05:01)
[2022-02-21 06:00] VITALS: BP 138/74
[2022-02-21] MEDS: INSULIN LISPRO (NovoLOG) PER UNIT SC SCH ×4 (07:30→20:26)
[2022-02-21 07:35] LABS: BASO % 0.1 % (0.0-1.0); EOS % 0.1 % (0.0-3.0); HEMATOCRIT 42.7 % (36.0-47.0); HEMOGLOBIN 14.1 g/dl (12.0-15.5); LYMPH # 2.7 10^3/uL (1.5-5.0); LYMPH % 25.7 % (24.0-44.0); MEAN CORPUSCULAR HEMOGLOBIN 29.8 pg (27.0-33.0); MEAN CORPUSCULAR VOLUME 90.3 fl (80.0-96.0); MONO # 1.1 10^3/uL (0.0-0.8); MONO % 10.9 % (2.0-8.0); NEUTROPHILS # 6.5 10^3/uL (1.5-8.5); NEUTROPHILS % 62.4 % (36.0-66.0); PLATELET COUNT, AUTOMATED 267 10^3/uL (150-450); RED BLOOD COUNT 4.73 10^6/uL (4.00-5.40); WHITE BLOOD COUNT 10.4 10^3/uL (4.0-10.0)
[2022-02-21 08:04] LABS: BLOOD UREA NITROGEN 30 MG/DL (7-18); CALCIUM LEVEL 8.7 MG/DL (8.8-10.2); CARBON DIOXIDE LEVEL 44 MEQ/L (21-32); CHLORIDE LEVEL 87 MEQ/L (98-107); CREATININE FOR GFR 0.74 MG/DL (0.55-1.30); GLOMERULAR FILTRATION RATE > 60.0 (>45); GLUCOSE, FASTING 73 MG/DL (70-100); POTASSIUM SERUM 4.1 MEQ/L (3.5-5.1); SODIUM LEVEL 135 MEQ/L (136-145)
[2022-02-21] MEDS: TIOTROPIUM INHALER/CAPSULE (SPIRIVA) INH SCH (08:16)
[2022-02-21] MEDS: FORMOTEROL FUMARATE 20 MCG/2 ML INHALATION SOLUTION (PERFOROMIST) INH SCH ×2 (08:16→19:11)
[2022-02-21] MEDS: BUDESONIDE 0.5 MG/2 ML INHALATION SUSPENSION INH SCH ×2 (08:16→19:11)
[2022-02-21] MEDS: ENOXAPARIN 40MG/0.4ML SYRINGE (J1650 PER 10MG) SC SCH (08:57)
[2022-02-21] MEDS: NYSTATIN 500,000 U/5 ML SUSP UDC SS SCH ×3 (08:57→20:32)
[2022-02-21] MEDS: CARVedilol 12.5 MG TAB PO SCH ×2 (08:58→20:32)
[2022-02-21] MEDS: DOXYCYCLINE HYCLATE 100MG TABLET PO SCH ×2 (08:58→20:32)
[2022-02-21] MEDS: guaiFENesin ER 600 MG TAB PO SCH ×2 (08:58→20:32)
[2022-02-21] MEDS: predniSONE 20 MG TAB PO SCH (08:58)
[2022-02-21] MEDS: PANTOPRAZOLE 40MG TAB (PROTONIX) PO SCH (08:58)
[2022-02-21] MEDS: CLOPIDOGREL 75 MG TAB PO SCH (08:58)
[2022-02-21] MEDS: NICOTINE 14 MG/24 HR TRANSDERMAL TD SCH (08:58)
[2022-02-21] MEDS ORDERED: FUROSEMIDE 40MG/4ML VIAL (J1940) IV ONE ×2 (12:00→18:00)
[2022-02-21] MEDS ORDERED: SPIRONOLACTONE 50 MG TAB PO ONE (12:00)
[2022-02-21] MEDS ORDERED: INCR1INH INH (13:01)
[2022-02-21 14:00] VITALS: BP 132/81
[2022-02-21] MEDS ORDERED: MAG SULF 1GM/100ML (MAG RUN) 1 GM in IV 1 EA IV ONE (14:45)
[2022-02-21] MEDS: PERCOCET 5MG/325MG TAB PO PRN ×2 (18:23→22:35)
[2022-02-21 20:58] VITALS: BP 132/72
[2022-02-21] MEDS: NIFEdipine 30 MG XL TAB PO SCH (21:25)
[2022-02-22] MEDS: ALBUTEROL SULFATE 2.5 MG/0.5 ML INH NEB SOLN NEB SCH ×5 (03:37→20:08)
[2022-02-22] MEDS: PERCOCET 5MG/325MG TAB PO PRN ×4 (03:38→21:12)
[2022-02-22] MEDS: LevoFLOXacin 750 MG TABLET PO SCH (05:13)
[2022-02-22 06:00] VITALS: BP 138/77
[2022-02-22 06:59] LABS: HEMATOCRIT 41.6 % (36.0-47.0); HEMOGLOBIN 13.7 g/dl (12.0-15.5); MEAN CORPUSCULAR HEMOGLOBIN 29.4 pg (27.0-33.0); MEAN CORPUSCULAR HGB CONC 32.9 g/dl (32.0-36.5); MEAN CORPUSCULAR VOLUME 89.3 fl (80.0-96.0); PLATELET COUNT, AUTOMATED 217 10^3/uL (150-450); RED BLOOD COUNT 4.66 10^6/uL (4.00-5.40); WHITE BLOOD COUNT 10.7 10^3/uL (4.0-10.0)
[2022-02-22] MEDS: FORMOTEROL FUMARATE 20 MCG/2 ML INHALATION SOLUTION (PERFOROMIST) INH SCH ×2 (07:09→20:08)
[2022-02-22] MEDS: TIOTROPIUM INHALER/CAPSULE (SPIRIVA) INH SCH (07:09)
[2022-02-22] MEDS: BUDESONIDE 0.5 MG/2 ML INHALATION SUSPENSION INH SCH ×2 (07:09→20:08)
[2022-02-22 07:15] LABS: BLOOD UREA NITROGEN 25 MG/DL (7-18); CALCIUM LEVEL 8.6 MG/DL (8.8-10.2); CARBON DIOXIDE LEVEL 40 MEQ/L (21-32); CHLORIDE LEVEL 86 MEQ/L (98-107); CREATININE FOR GFR 0.68 MG/DL (0.55-1.30); GLOMERULAR FILTRATION RATE > 60.0 (>45); GLUCOSE, FASTING 92 MG/DL (70-100); MAGNESIUM LEVEL 1.1 MG/DL (1.8-2.4); SODIUM LEVEL 133 MEQ/L (136-145)
[2022-02-22] MEDS: INSULIN LISPRO (NovoLOG) PER UNIT SC SCH ×4 (07:20→19:36)
[2022-02-22] MEDS ORDERED: MAG SULF 1GM/100ML (MAG RUN) 1 GM in IV 1 EA IV ONE (08:00)
[2022-02-22] MEDS: NYSTATIN 500,000 U/5 ML SUSP UDC SS SCH ×3 (08:56→19:34)
[2022-02-22] MEDS: ENOXAPARIN 40MG/0.4ML SYRINGE (J1650 PER 10MG) SC SCH (08:56)
[2022-02-22] MEDS: CARVedilol 12.5 MG TAB PO SCH ×2 (09:00→19:36)
[2022-02-22] MEDS ORDERED: MAGNESIUM OXIDE 400MG TAB (MAG-OX) PO ONE (09:00)
[2022-02-22] MEDS: predniSONE 20 MG TAB PO SCH (09:00)
[2022-02-22] MEDS: PANTOPRAZOLE 40MG TAB (PROTONIX) PO SCH (09:01)
[2022-02-22] MEDS: NICOTINE 14 MG/24 HR TRANSDERMAL TD SCH (09:02)
[2022-02-22] MEDS: guaiFENesin ER 600 MG TAB PO SCH ×2 (09:03→19:34)
[2022-02-22] MEDS: CLOPIDOGREL 75 MG TAB PO SCH (09:03)
[2022-02-22] MEDS: MAGNESIUM GLUCONATE 500 MG TAB PO SCH ×2 (10:33→19:36)
[2022-02-22 14:33] VITALS: BP 126/75
[2022-02-22] MEDS ORDERED: TOLVAPTAN 15 MG TAB (SAMSCA) PO ONE (17:00)
[2022-02-22] MEDS: NIFEdipine 30 MG XL TAB PO SCH (19:35)
[2022-02-22] MEDS: hydrOXYzine 25 MG TAB PO PRN (19:37)
[2022-02-22 22:00] VITALS: BP 117/76
[2022-02-23] MEDS: ALBUTEROL SULFATE 2.5 MG/0.5 ML INH NEB SOLN NEB SCH ×4 (00:53→10:55)
[2022-02-23] MEDS: LevoFLOXacin 750 MG TABLET PO SCH (05:15)
[2022-02-23] MEDS: hydrOXYzine 25 MG TAB PO PRN (05:35)
[2022-02-23 06:00] VITALS: BP 110/57
[2022-02-23 06:13] LABS: HEMATOCRIT 40.6 % (36.0-47.0); HEMOGLOBIN 13.3 g/dl (12.0-15.5); MEAN CORPUSCULAR HEMOGLOBIN 29.4 pg (27.0-33.0); MEAN CORPUSCULAR HGB CONC 32.8 g/dl (32.0-36.5); MEAN CORPUSCULAR VOLUME 89.6 fl (80.0-96.0); PLATELET COUNT, AUTOMATED 231 10^3/uL (150-450); RED BLOOD COUNT 4.53 10^6/uL (4.00-5.40); WHITE BLOOD COUNT 10.3 10^3/uL (4.0-10.0)
[2022-02-23 06:45] LABS: BLOOD UREA NITROGEN 24 MG/DL (7-18); CALCIUM LEVEL 8.7 MG/DL (8.8-10.2); CARBON DIOXIDE LEVEL 44 MEQ/L (21-32); CHLORIDE LEVEL 91 MEQ/L (98-107); CREATININE FOR GFR 0.72 MG/DL (0.55-1.30); GLOMERULAR FILTRATION RATE > 60.0 (>45); GLUCOSE, FASTING 127 MG/DL (70-100); MAGNESIUM LEVEL 1.6 MG/DL (1.8-2.4); SODIUM LEVEL 136 MEQ/L (136-145)
[2022-02-23] MEDS: FORMOTEROL FUMARATE 20 MCG/2 ML INHALATION SOLUTION (PERFOROMIST) INH SCH (07:04)
[2022-02-23] MEDS: TIOTROPIUM INHALER/CAPSULE (SPIRIVA) INH SCH (07:04)
[2022-02-23] MEDS: BUDESONIDE 0.5 MG/2 ML INHALATION SUSPENSION INH SCH (07:04)
[2022-02-23] MEDS: ENOXAPARIN 40MG/0.4ML SYRINGE (J1650 PER 10MG) SC SCH (08:22)
[2022-02-23] MEDS: CLOPIDOGREL 75 MG TAB PO SCH (08:22)
[2022-02-23] MEDS: MAGNESIUM GLUCONATE 500 MG TAB PO SCH (08:22)
[2022-02-23] MEDS: guaiFENesin ER 600 MG TAB PO SCH (08:22)
[2022-02-23] MEDS: PANTOPRAZOLE 40MG TAB (PROTONIX) PO SCH (08:22)
[2022-02-23] MEDS: NYSTATIN 500,000 U/5 ML SUSP UDC SS SCH (08:22)
[2022-02-23] MEDS: NICOTINE 14 MG/24 HR TRANSDERMAL TD SCH (08:23)
[2022-02-23 08:24] VITALS: BP 118/59
[2022-02-23] MEDS: INSULIN LISPRO (NovoLOG) PER UNIT SC SCH (08:24)
[2022-02-23] MEDS: CARVedilol 12.5 MG TAB PO SCH (08:24)
[2022-02-23] MEDS: PERCOCET 5MG/325MG TAB PO PRN (08:27)
[2022-02-23] MEDS ORDERED: PANT40TA29 PO (10:13)
[2022-02-23] MEDS ORDERED: MUCI600T31 PO (10:13)
[2022-02-23] MEDS ORDERED: CARV25TA PO (10:13)
[2022-02-23] MEDS ORDERED: HYDR-3363 PO (10:13)
[2022-02-23] MEDS ORDERED: TORS10TA3 PO (10:13)
[2022-02-23] MEDS ORDERED: ALBU8.5H INH (10:13)
[2022-02-23] MEDS ORDERED: CLOP75TA2 PO (10:13)
[2022-02-23] MEDS ORDERED: PERCOCET PO (10:13)
[2022-02-23] MEDS ORDERED: MAGN500T6 PO (10:13)
[2022-02-23] MEDS ORDERED: POTA99TA14 PO (10:13)
== END 2022-02-23 12:05 | disposition home or self-care (01) | DRG 190 ==
LOC: M ED 17:37 → EDBD 17:37 → M ED INP 19:43 → ENRESERV 02-13 05:01 → M PCU 02-13 18:37 → M MS5PR 02-20 16:23
PROVIDERS: ADMIT Internal Medicine; ATTEND Family Medicine
DX: J44.1 Chronic obstructive pulmonary disease with (acute) exacerbation (principal); J96.21 Acute and chronic respiratory failure with hypoxia; E87.3 Alkalosis; E87.1 Hypo-osmolality and hyponatremia; N17.9 Acute kidney failure, unspecified; B37.0 Candidal stomatitis; I11.0 Hypertensive heart disease with heart failure; I73.9 Peripheral vascular disease, unspecified; E86.0 Dehydration; E87.6 Hypokalemia; I27.81 Cor pulmonale (chronic); I50.810 Right heart failure, unspecified; E66.01 Morbid (severe) obesity due to excess calories; K21.9 Gastro-esophageal reflux disease without esophagitis; E83.42 Hypomagnesemia; F41.9 Anxiety disorder, unspecified; F32.A Depression, unspecified; Z99.81 Dependence on supplemental oxygen; Z88.8 Allergy status to other drugs, medicaments and biological substances; Z79.899 Other long term (current) drug therapy; Z86.73 Personal history of transient ischemic attack (TIA), and cerebral infarction without residual deficits; Z79.52 Long term (current) use of systemic steroids; B96.5 Pseudomonas (aeruginosa) (mallei) (pseudomallei) as the cause of diseases classified elsewhere

== ENCOUNTER → 2022-03-13 | Outpatient (REF) | payer MEDICARE ==
[~2022-03-13] MED LIST changes: +BUDE0.5S6 INH; +INCR1INH INH; +MAGN500T6 PO; +PERCOCET PO; +PERF20NE2 INH; +POTA99TA14 PO; +SPIR-10 PO; +TORS10TA3 PO; +TRAM50TA2 PO
[2022-03-13 14:18] LABS: ALBUMIN 3.1 GM/DL (3.2-5.2); ALT/SGPT 16 U/L (12-78); BILIRUBIN,TOTAL 0.3 MG/DL (0.2-1.0); BLOOD UREA NITROGEN 15 MG/DL (7-18); CALCIUM LEVEL 8.5 MG/DL (8.8-10.2); CARBON DIOXIDE LEVEL 41 MEQ/L (21-32); CHLORIDE LEVEL 91 MEQ/L (98-107); CREATININE FOR GFR 0.65 MG/DL (0.55-1.30); GLOMERULAR FILTRATION RATE > 60.0 (>45); GLUCOSE, FASTING 95 MG/DL (70-100); NT-PRO BNP 219 PG/ML (<125); POTASSIUM SERUM 3.4 MEQ/L (3.5-5.1); SODIUM LEVEL 135 MEQ/L (136-145)
== END ==
LOC: M SFHCADAM 11:57
PROVIDERS: ATTEND Family Medicine
DX: R60.9 Edema, unspecified (principal)

== ENCOUNTER 2022-08-04 11:40 | Inpatient (IN) | payer MEDICARE ==
[~2022-08-04] VITALS: Ht 149.9 cm; Wt 95.6 kg
[2022-08-04] MEDS: NICOTINE 14 MG/24 HR TRANSDERMAL TD SCH (09:00)
[~2022-08-04 11:40] MED LIST changes: +CLOP75TA99 PO; -PLAV1TAB2 PO
[2022-08-04] MEDS ORDERED: methylPREDNISolone 125MG 2ML VIAL IV ONE (11:55)
[2022-08-04 12:25] LABS: VENOUS BASE EXCESS 21.1 (-2.0-2.0); VENOUS HCO3 48.8 MEQ/L (23.0-27.0); VENOUS O2 SATURATION 73.5 % (60.0-80.0); VENOUS PARTIAL PRESSURE CO2 62.5 mmHg (38.0-50.0); VENOUS PARTIAL PRESSURE O2 40.1 mmHg (30.0-50.0); VENOUS STANDARD HCO3 45.1 MEQ/L; VENOUS TOTAL CO2 50.7 MEQ/L (24.0-28.0)
[2022-08-04] MEDS ORDERED: traMADol 50 MG TAB PO ONE (12:25)
[2022-08-04] MEDS: ALBUTEROL 90 MCG/ACT 8GM HFA INHALER INH SCH ×3 (12:25→12:56)
[2022-08-04 12:28] LABS: BASO % 0.3 % (0.0-1.0); EOS % 0.4 % (0.0-3.0); HEMATOCRIT 43.7 % (36.0-47.0); HEMOGLOBIN 15.4 g/dl (12.0-15.5); LYMPH # 1.8 10^3/uL (1.5-5.0); LYMPH % 17.9 % (24.0-44.0); MEAN CORPUSCULAR HEMOGLOBIN 30.5 pg (27.0-33.0); MEAN CORPUSCULAR HGB CONC 35.2 g/dl (32.0-36.5); MEAN CORPUSCULAR VOLUME 86.5 fl (80.0-96.0); MONO # 0.8 10^3/uL (0.0-0.8); MONO % 7.4 % (2.0-8.0); NEUTROPHILS # 7.5 10^3/uL (1.5-8.5); NEUTROPHILS % 73.5 % (36.0-66.0); PLATELET COUNT, AUTOMATED 306 10^3/uL (150-450); RED BLOOD COUNT 5.05 10^6/uL (4.00-5.40); WHITE BLOOD COUNT 10.1 10^3/uL (4.0-10.0)
[2022-08-04 13:30] LABS: ALBUMIN 3.5 GM/DL (3.2-5.2); ALT/SGPT 27 U/L (12-78); BILIRUBIN,DIRECT 0.4 MG/DL (0.0-0.2); BILIRUBIN,TOTAL 1.5 MG/DL (0.2-1.0); BLOOD UREA NITROGEN 22 MG/DL (7-18); CALCIUM LEVEL 9.3 MG/DL (8.8-10.2); CARBON DIOXIDE LEVEL 50 MEQ/L (21-32); CHLORIDE LEVEL 75 MEQ/L (98-107); CREATININE FOR GFR 0.98 MG/DL (0.55-1.30); GLOMERULAR FILTRATION RATE > 60.0 (>45); GLUCOSE, FASTING 141 MG/DL (70-100); NT-PRO BNP 201 PG/ML (<125); POTASSIUM SERUM 2.4 MEQ/L (3.5-5.1); SODIUM LEVEL 129 MEQ/L (136-145); THYROXINE (T4) 13.4 UG/DL (4.5-12.0)
[2022-08-04] MEDS ORDERED: POTASSIUM CHLORIDE 10MEQ SR TABLET PO ONE ×2 (13:30→17:00)
[2022-08-04] MEDS ORDERED: KCL 10MEQ/100ML SWI (KRUN) 10 MEQ in IV 1 EA IV ONE (13:30)
[2022-08-04] MEDS ORDERED: ISOVUE-370 76% 100ML VIAL As Ordered ONE (13:35)
[2022-08-04] MEDS ORDERED: IPRATROPIUM 0.5MG/ALBUTEROL 2.5MG INH SOL UD 3ML (DUONEB) NEB PRN (14:35)
[2022-08-04] MEDS ORDERED: NICOTINE POLACRILEX 2 MG GUM PO PRN (15:05)
[2022-08-04] MEDS ORDERED: POTA595T8 PO (15:15)
[2022-08-04] MEDS ORDERED: FLUTISP NARES (15:15)
[2022-08-04] MEDS ORDERED: TORS20TA2 PO (15:15)
[2022-08-04] MEDS ORDERED: TRAM50TA2 PO (15:16)
[2022-08-04] MEDS ORDERED: NICO14DI24 TD (15:16)
[2022-08-04] MEDS ORDERED: HOME MED LIST COMPLETE! XX SCH (15:30)
[2022-08-04 16:20] LABS: MAGNESIUM LEVEL 1.1 MG/DL (1.8-2.4)
[2022-08-04] MEDS: methylPREDNISolone 40MG 1ML VIAL IV SCH (18:10)
[2022-08-04] MEDS: LevoFLOXacin 500 MG TABLET PO SCH (18:11)
[2022-08-04] MEDS ORDERED: **hydrALAZINE** 10 MG TAB PO PRN (20:25)
[2022-08-04 20:40] VITALS: BP 131/84
[2022-08-04] MEDS: IPRATROPIUM 0.5MG/ALBUTEROL 2.5MG INH SOL UD 3ML (DUONEB) NEB SCH (21:03)
[2022-08-04] MEDS: guaiFENesin ER 600 MG TAB PO SCH (21:04)
[2022-08-04] MEDS: ENOXAPARIN 40MG/0.4ML SYRINGE (J1650 PER 10MG) SC SCH (21:04)
[2022-08-04] MEDS: MAG SULF 1GM/100ML (MAG RUN) 1 GM in IV 1 EA IV SCH ×2 (21:05→22:05)
[2022-08-04] MEDS: traMADol 50 MG TAB PO PRN (21:06)
[2022-08-05] MEDS: IPRATROPIUM 0.5MG/ALBUTEROL 2.5MG INH SOL UD 3ML (DUONEB) NEB SCH ×4 (00:29→20:37)
[2022-08-05] MEDS: LIDOCAINE 5% (LIDODERM) PATCH TD SCH (01:09)
[2022-08-05 03:00] LABS: CALCIUM LEVEL 8.9 MG/DL (8.8-10.2); CREATININE FOR GFR 1.17 MG/DL (0.55-1.30); GLOMERULAR FILTRATION RATE 49.9 (>45); MAGNESIUM LEVEL 2.2 MG/DL (1.8-2.4)
[2022-08-05] MEDS: POTASSIUM CHLORIDE 10MEQ SR TABLET PO SCH ×2 (04:52→05:56)
[2022-08-05] MEDS: methylPREDNISolone 40MG 1ML VIAL IV SCH ×2 (04:52→17:39)
[2022-08-05 06:00] VITALS: BP 131/78
[2022-08-05] MEDS: CLOPIDOGREL 75 MG TAB PO SCH (08:30)
[2022-08-05] MEDS: PANTOPRAZOLE 40MG TAB (PROTONIX) PO SCH (08:30)
[2022-08-05] MEDS: guaiFENesin ER 600 MG TAB PO SCH ×2 (08:30→20:31)
[2022-08-05] MEDS: NICOTINE 14 MG/24 HR TRANSDERMAL TD SCH (08:30)
[2022-08-05] MEDS: ENOXAPARIN 40MG/0.4ML SYRINGE (J1650 PER 10MG) SC SCH ×2 (08:31→20:31)
[2022-08-05 08:32] LABS: HEMOGLOBIN 13.8 g/dl (12.0-15.5); MEAN CORPUSCULAR HEMOGLOBIN 30.5 pg (27.0-33.0); MEAN CORPUSCULAR HGB CONC 34.5 g/dl (32.0-36.5); MEAN CORPUSCULAR VOLUME 88.3 fl (80.0-96.0); PLATELET COUNT, AUTOMATED 280 10^3/uL (150-450); RED BLOOD COUNT 4.53 10^6/uL (4.00-5.40); WHITE BLOOD COUNT 11.6 10^3/uL (4.0-10.0)
[2022-08-05] MEDS: MAGIC MOUTHWASH SUSPENSION BTL SS PRN ×2 (08:37→11:08)
[2022-08-05] MEDS: traMADol 50 MG TAB PO PRN ×2 (08:37→18:51)
[2022-08-05] MEDS: NYSTATIN 100,000 UNITS/GM TOPICAL PWD 15 GM TOP SCH ×2 (08:37→20:31)
[2022-08-05] MEDS ORDERED: methylPREDNISolone 40MG 1ML VIAL IV SCH (09:00)
[2022-08-05] MEDS ORDERED: AZITHROMYCIN INJ 500 MG, VIAL MATE ADAPTER 1 EACH in NS 250 ML IV SCH (09:00)
[2022-08-05 09:07] LABS: CALCIUM LEVEL 9.6 MG/DL (8.8-10.2); CREATININE FOR GFR 1.28 MG/DL (0.55-1.30); POTASSIUM SERUM 3.9 MEQ/L (3.5-5.1)
[2022-08-05 14:00] VITALS: BP 147/75
[2022-08-05] MEDS: ACETAMINOPHEN TAB 650MG DOSE (2X325MG) PO PRN ×2 (14:56→22:28)
[2022-08-05] MEDS ORDERED: PREVNAR-20 VACCINE 0.5ML SYRINGE IM.IMMUN ONE (15:00)
[2022-08-05] MEDS ORDERED: FLUBLOK(EGG FREE)(QUAD)INFLUENZA VACC 0.5ML SYRINGE 18YRS & OLDER IM.IMMUN ONE (15:00)
[2022-08-05] MEDS: LevoFLOXacin 500 MG TABLET PO SCH (17:39)
[2022-08-05 21:00] VITALS: BP 144/75
[2022-08-05] MEDS ORDERED: NS 500 ML IV ONE (21:00)
[2022-08-05] MEDS ORDERED: NS 1,000 ML IV SCH (21:00)
[2022-08-06] MEDS: traMADol 50 MG TAB PO PRN ×3 (02:48→22:17)
[2022-08-06] MEDS: IPRATROPIUM 0.5MG/ALBUTEROL 2.5MG INH SOL UD 3ML (DUONEB) NEB SCH ×4 (02:54→19:28)
[2022-08-06] MEDS: methylPREDNISolone 40MG 1ML VIAL IV SCH ×3 (05:08→22:04)
[2022-08-06 05:38] VITALS: BP 145/80
[2022-08-06] MEDS ORDERED: TREL1AER PO (06:24)
[2022-08-06] MEDS: guaiFENesin ER 600 MG TAB PO SCH ×2 (09:26→20:11)
[2022-08-06] MEDS: PANTOPRAZOLE 40MG TAB (PROTONIX) PO SCH (09:26)
[2022-08-06] MEDS: CLOPIDOGREL 75 MG TAB PO SCH (09:26)
[2022-08-06] MEDS: LIDOCAINE 5% (LIDODERM) PATCH TD SCH ×2 (09:27→22:05)
[2022-08-06] MEDS: NICOTINE 14 MG/24 HR TRANSDERMAL TD SCH (09:27)
[2022-08-06] MEDS: ENOXAPARIN 40MG/0.4ML SYRINGE (J1650 PER 10MG) SC SCH ×2 (09:28→20:11)
[2022-08-06] MEDS: NYSTATIN 100,000 UNITS/GM TOPICAL PWD 15 GM TOP SCH ×2 (09:28→22:04)
[2022-08-06] MEDS ORDERED: MAG SULF 1GM/100ML (MAG RUN) 1 GM in IV 1 EA IV ONE ×2 (09:30→09:40)
[2022-08-06] MEDS: ALPRAZolam 0.25 MG TAB PO PRN (09:32)
[2022-08-06 14:00] VITALS: BP 132/77
[2022-08-06] MEDS ORDERED: MAG SULF 1GM/100ML (MAG RUN) X 2 DOSES (2GM TOTAL) IV SCH ×4 (15:00→22:00)
[2022-08-06] MEDS ORDERED: MIRALAX *UNIT DOSE* 17GM PACKET PO PRN (15:55)
[2022-08-06] MEDS ORDERED: SENNA 8.6 MG TAB (SENOKOT) PO PRN (15:55)
[2022-08-06] MEDS: ACETAMINOPHEN TAB 650MG DOSE (2X325MG) PO PRN (16:08)
[2022-08-06 16:12] LABS: MYCOPLASMA PNEUMONIAE IgG 354 U/mL (0-99); MYCOPLASMA PNEUMONIAE IgM <770 U/mL (0-769)
[2022-08-06 16:54] LABS: BLOOD UREA NITROGEN 21 MG/DL (7-18); CALCIUM LEVEL 9.2 MG/DL (8.8-10.2); CARBON DIOXIDE LEVEL 38 MEQ/L (21-32); CHLORIDE LEVEL 87 MEQ/L (98-107); CREATININE FOR GFR 0.98 MG/DL (0.55-1.30); GLOMERULAR FILTRATION RATE > 60.0 (>45); GLUCOSE, FASTING 153 MG/DL (70-100); POTASSIUM SERUM 3.9 MEQ/L (3.5-5.1); SODIUM LEVEL 129 MEQ/L (136-145)
[2022-08-06] MEDS ORDERED: AZITHROMYCIN INJ 500 MG, VIAL MATE ADAPTER 1 EACH in NS 250 ML IV SCH (17:00)
[2022-08-06] MEDS ORDERED: cefTRIAXone SOD 1 GM in D5W MINI-BAG PLUS 50 ML IV SCH (17:00)
[2022-08-06] MEDS ORDERED: SODIUM CHLORIDE NASAL 0.65% SPRAY BTL (OCEAN) PRN (18:50)
[2022-08-06] MEDS: MAG SULF 1GM/100ML (MAG RUN) X 2 DOSES (2GM TOTAL) IV SCH ×4 (20:54→22:03)
[2022-08-06] MEDS ORDERED: SENNA 8.6 MG TAB (SENOKOT) PO SCH (21:00)
[2022-08-07] MEDS: ACETAMINOPHEN TAB 650MG DOSE (2X325MG) PO PRN ×2 (02:33→11:12)
[2022-08-07] MEDS: IPRATROPIUM 0.5MG/ALBUTEROL 2.5MG INH SOL UD 3ML (DUONEB) NEB SCH ×3 (02:39→08:11)
[2022-08-07] MEDS: ALPRAZolam 0.25 MG TAB PO PRN ×2 (02:50→13:41)
[2022-08-07] MEDS: methylPREDNISolone 40MG 1ML VIAL IV SCH (05:16)
[2022-08-07 05:53] LABS: HEMATOCRIT 39.6 % (36.0-47.0); HEMOGLOBIN 12.8 g/dl (12.0-15.5); MEAN CORPUSCULAR HEMOGLOBIN 29.9 pg (27.0-33.0); MEAN CORPUSCULAR HGB CONC 32.3 g/dl (32.0-36.5); MEAN CORPUSCULAR VOLUME 92.5 fl (80.0-96.0); PLATELET COUNT, AUTOMATED 254 10^3/uL (150-450); RED BLOOD COUNT 4.28 10^6/uL (4.00-5.40); WHITE BLOOD COUNT 11.8 10^3/uL (4.0-10.0)
[2022-08-07 06:22] LABS: BLOOD UREA NITROGEN 18 MG/DL (7-18); CALCIUM LEVEL 9.1 MG/DL (8.8-10.2); CARBON DIOXIDE LEVEL 37 MEQ/L (21-32); CHLORIDE LEVEL 89 MEQ/L (98-107); CREATININE FOR GFR 0.74 MG/DL (0.55-1.30); GLOMERULAR FILTRATION RATE > 60.0 (>45); GLUCOSE, FASTING 146 MG/DL (70-100); MAGNESIUM LEVEL 2.2 MG/DL (1.8-2.4); POTASSIUM SERUM 4.2 MEQ/L (3.5-5.1); SODIUM LEVEL 130 MEQ/L (136-145)
[2022-08-07] MEDS: ENOXAPARIN 40MG/0.4ML SYRINGE (J1650 PER 10MG) SC SCH (09:00)
[2022-08-07] MEDS ORDERED: guaiFENesin ER 600 MG TAB PO SCH (09:00)
[2022-08-07] MEDS: traMADol 50 MG TAB PO PRN (09:28)
[2022-08-07] MEDS: PANTOPRAZOLE 40MG TAB (PROTONIX) PO SCH (09:28)
[2022-08-07] MEDS: CLOPIDOGREL 75 MG TAB PO SCH (09:29)
[2022-08-07] MEDS: NICOTINE 14 MG/24 HR TRANSDERMAL TD SCH (09:29)
[2022-08-07] MEDS: LIDOCAINE 5% (LIDODERM) PATCH TD SCH (09:30)
[2022-08-07] MEDS: NYSTATIN 100,000 UNITS/GM TOPICAL PWD 15 GM TOP SCH (09:31)
[2022-08-07] MEDS: MAGIC MOUTHWASH SUSPENSION BTL SS PRN (09:32)
[2022-08-07] MEDS ORDERED: PRED10TA2 PO (09:51)
[2022-08-07] MEDS ORDERED: CEFD300C41 PO (09:51)
[2022-08-07] MEDS ORDERED: AZIT500T5 PO (09:51)
[2022-08-07 10:15] VITALS: BP 150/85
[2022-08-07] MEDS ORDERED: CARVedilol 12.5 MG TAB PO ONE (10:30)
[2022-08-07 10:56] VITALS: BP 150/85
[2022-08-07 12:00] VITALS: BP 150/80
[2022-08-07 17:08] LABS: BODY FLUID CULTURE Not indicated. (.); LEGIONELLA ANTIGEN URINE Negative (Negative); ORGANISM ID Not indicated. (.); SPECIMEN SOURCE Urine (.); URINE STREP PNEUMONIAE ANTIGEN Negative (Negative)
[2022-08-08 15:07] LABS: CHLAMYDIA PNEUMONIAE IgM <1:10 (Neg:<1:10)
== END 2022-08-07 13:50 | disposition home health service (06) | DRG 191 ==
LOC: M ED 11:40 → M ED INP 14:28 → ENRESERV 16:40 → M MSPAV 18:48 → OBSVTOIN 08-06 08:58
PROVIDERS: ADMIT Internal Medicine; ATTEND Internal Medicine
DX: J44.1 Chronic obstructive pulmonary disease with (acute) exacerbation (principal); J96.10 Chronic respiratory failure, unspecified whether with hypoxia or hypercapnia; E87.20 Acidosis, unspecified; E87.6 Hypokalemia; Z99.81 Dependence on supplemental oxygen; K21.9 Gastro-esophageal reflux disease without esophagitis; J44.0 Chronic obstructive pulmonary disease with (acute) lower respiratory infection; F17.200 Nicotine dependence, unspecified, uncomplicated; I10 Essential (primary) hypertension; Z79.02 Long term (current) use of antithrombotics/antiplatelets; J20.9 Acute bronchitis, unspecified; Z88.8 Allergy status to other drugs, medicaments and biological substances; Z79.899 Other long term (current) drug therapy; F32.A Depression, unspecified; F41.9 Anxiety disorder, unspecified; K59.00 Constipation, unspecified

== ENCOUNTER → 2022-08-14 | Outpatient (REF) | payer MEDICARE ==
[~2022-08-14] MED LIST changes: +AZIT500T5 PO; +CEFD300C41 PO; +FLUTISP NARES; +NICO14DI24 TD; +POTA595T8 PO; +TORS20TA2 PO; +TREL1AER PO
[2022-08-14 20:03] LABS: ALBUMIN 3.4 G/DL (3.2-5.2); ALT/SGPT 28 U/L (7.0-40); BILIRUBIN,TOTAL 0.7 MG/DL (0.3-1.2); BLOOD UREA NITROGEN 25 MG/DL (9-23); CALCIUM LEVEL 8.8 MG/DL (8.3-10.6); CHLORIDE LEVEL 84 MMOL/L (98-107); CREATININE FOR GFR 0.94 MG/DL (0.55-1.30); GLOMERULAR FILTRATION RATE > 60.0 (>45); GLUCOSE, FASTING 147 MG/DL (74-106); POTASSIUM SERUM 3.6 MMOL/L (3.5-5.1); SODIUM LEVEL 134 MMOL/L (136-145); TOTAL PROTEIN 6.3 G/DL (5.7-8.2)
[2022-08-14 20:06] LABS: CARBON DIOXIDE LEVEL 40.00001 MMOL/L (20-31)
== END ==
LOC: M SFHCADAM 14:52
PROVIDERS: ATTEND Family Medicine
DX: E87.6 Hypokalemia (principal)

== ENCOUNTER 2022-09-13 18:27 | Inpatient (IN) | payer MEDICARE ==
[~2022-09-13] VITALS: Ht 149.9 cm; Wt 97.1 kg
[2022-09-13] MEDS: COMBIVENT RESPIMAT 100-20MCG INHALER 4GM INH SCH ×3 (19:31→20:51)
[2022-09-13 19:57] LABS: BASO % 0.1 % (0.0-1.0); HEMATOCRIT 36.5 % (36.0-47.0); HEMOGLOBIN 12.6 g/dl (12.0-15.5); LYMPH % 7.5 % (24.0-44.0); MEAN CORPUSCULAR HEMOGLOBIN 30.8 pg (27.0-33.0); MEAN CORPUSCULAR HGB CONC 34.5 g/dl (32.0-36.5); MEAN CORPUSCULAR VOLUME 89.2 fl (80.0-96.0); MONO # 0.7 10^3/uL (0.0-0.8); NEUTROPHILS # 11.9 10^3/uL (1.5-8.5); NEUTROPHILS % 86.7 % (36.0-66.0); PLATELET COUNT, AUTOMATED 430 10^3/uL (150-450); RED BLOOD COUNT 4.09 10^6/uL (4.00-5.40); WHITE BLOOD COUNT 13.7 10^3/uL (4.0-10.0)
[2022-09-13 19:59] LABS: VENOUS BASE EXCESS 19.5 (-2.0-2.0); VENOUS HCO3 46.1 MEQ/L (23.0-27.0); VENOUS O2 SATURATION 94.4 % (60.0-80.0); VENOUS PARTIAL PRESSURE CO2 59.6 mmHg (38.0-50.0); VENOUS PARTIAL PRESSURE O2 71.8 mmHg (30.0-50.0); VENOUS PH 7.506 UNITS (7.330-7.430); VENOUS STANDARD HCO3 43.8 MEQ/L; VENOUS TOTAL CO2 47.9 MEQ/L (24.0-28.0)
[2022-09-13] MEDS ORDERED: methylPREDNISolone 125MG 2ML VIAL IV ONE (20:15)
[2022-09-13 20:34] LABS: BLOOD UREA NITROGEN 30 MG/DL (9-23); CALCIUM LEVEL 8.4 MG/DL (8.3-10.6); CARBON DIOXIDE LEVEL > 40.0 MMOL/L (20-31); CHLORIDE LEVEL 86 MMOL/L (98-107); GLOMERULAR FILTRATION RATE 59.6 (>45); GLUCOSE, FASTING 114 MG/DL (74-106); POTASSIUM SERUM 3.3 MMOL/L (3.5-5.1); SODIUM LEVEL 137 MMOL/L (136-145)
[2022-09-13] MEDS ORDERED: ACETAMINOPHEN 500 MG TAB PO ONE (20:35)
[2022-09-13] MEDS ORDERED: LevoFLOXacin 750 MG TABLET PO SCH (21:00)
[2022-09-13] MEDS ORDERED: IPRATROPIUM 0.5MG/ALBUTEROL 2.5MG INH SOL UD 3ML (DUONEB) NEB PRN (21:25)
[2022-09-13] MEDS ORDERED: HYDR-3363 PO (22:34)
[2022-09-13] MEDS ORDERED: NAPR-885 PO (22:34)
[2022-09-13] MEDS ORDERED: PANT40TA29 PO (22:34)
[2022-09-13] MEDS ORDERED: TRAM50TA2 PO (22:34)
[2022-09-13] MEDS ORDERED: MUCI600T31 PO (22:34)
[2022-09-13] MEDS ORDERED: CARV25TA PO (22:34)
[2022-09-13] MEDS ORDERED: CLOP75TA2 PO (22:34)
[2022-09-13] MEDS ORDERED: VENTAER INH (22:34)
[2022-09-13] MEDS ORDERED: TREL1AER PO (22:34)
[2022-09-13] MEDS ORDERED: PRED10TA2 PO (22:34)
[2022-09-13] MEDS ORDERED: HOME MED LIST COMPLETE! XX SCH (22:35)
[2022-09-13] MEDS ORDERED: NS 1,000 ML IV SCH (22:35)
[2022-09-13] MEDS ORDERED: guaiFENesin SYRUP 200MG 10ML UDC PO PRN (22:35)
[2022-09-13] MEDS ORDERED: POTASSIUM CHLORIDE 10% LIQ 20MEQ/15ML UDC PO ONE (23:00)
[2022-09-13] MEDS ORDERED: LevoFLOXacin 750 MG TABLET PO ONE (23:00)
[2022-09-13] MEDS ORDERED: **hydrALAZINE HCL** 25 MG TAB PO PRN (23:25)
[2022-09-13] MEDS ORDERED: NICOTINE 7 MG/24 HR TRANSDERMAL TD PRN (23:25)
[2022-09-13] MEDS: ADVAIR HFA 230/21MCG INHALER INH SCH (23:27)
[2022-09-13] MEDS: IPRATROPIUM 0.5MG/ALBUTEROL 2.5MG INH SOL UD 3ML (DUONEB) NEB SCH (23:27)
[2022-09-13] MEDS ORDERED: SODIUM CHLORIDE NASAL 0.65% SPRAY BTL (OCEAN) PRN (23:30)
[2022-09-13] MEDS ORDERED: POLYVINYL ALCOHOL OPHTH SOLN 15ML (LIQUITEARS) OU PRN (23:30)
[2022-09-13 23:48] LABS: MAGNESIUM LEVEL 1.2 MG/DL (1.8-2.4)
[2022-09-14] MEDS: MAG SULF 1GM/100ML (MAG RUN) 1 GM in IV 1 EA IV SCH ×2 (02:17→07:15)
[2022-09-14] MEDS: traMADol 50 MG TAB PO PRN (02:22)
[2022-09-14] MEDS: IPRATROPIUM 0.5MG/ALBUTEROL 2.5MG INH SOL UD 3ML (DUONEB) NEB SCH ×5 (03:27→19:17)
[2022-09-14] MEDS ORDERED: methylPREDNISolone 40MG 1ML VIAL IV SCH ×2 (05:00→15:00)
[2022-09-14] MEDS ORDERED: MAG SULF 1GM/100ML (MAG RUN) 1 GM in IV 1 EA IV ONE (07:10)
[2022-09-14 07:16] LABS: VENOUS BASE EXCESS 17.3 (-2.0-2.0); VENOUS HCO3 40.5 MEQ/L (23.0-27.0); VENOUS PARTIAL PRESSURE O2 169.4 mmHg (30.0-50.0); VENOUS PH 7.612 UNITS (7.330-7.430); VENOUS STANDARD HCO3 41.5 MEQ/L; VENOUS TOTAL CO2 41.7 MEQ/L (24.0-28.0)
[2022-09-14 07:42] LABS: MAGNESIUM LEVEL 1.4 MG/DL (1.8-2.4)
[2022-09-14 07:59] LABS: ALBUMIN 2.9 G/DL (3.2-5.2); ALKALINE PHOSPHATASE 76 U/L (46-116); ALT/SGPT 17 U/L (7.0-40); AST/SGOT 15 U/L (<34); BILIRUBIN,TOTAL 0.4 MG/DL (0.3-1.2); BLOOD UREA NITROGEN 32 MG/DL (9-23); CALCIUM LEVEL 8.4 MG/DL (8.3-10.6); CARBON DIOXIDE LEVEL > 40.0 MMOL/L (20-31); CHLORIDE LEVEL 88 MMOL/L (98-107); CREATININE FOR GFR 1.04 MG/DL (0.55-1.30); GLUCOSE, FASTING 150 MG/DL (74-106); POTASSIUM SERUM 3.4 MMOL/L (3.5-5.1); SODIUM LEVEL 136 MMOL/L (136-145)
[2022-09-14] MEDS ORDERED: TIOTROPIUM INHALER/CAPSULE (SPIRIVA) INH SCH (08:00)
[2022-09-14] MEDS: ADVAIR HFA 230/21MCG INHALER INH SCH ×2 (08:00→19:18)
[2022-09-14] MEDS ORDERED: BUDESONIDE 0.5 MG/2 ML INHALATION SUSPENSION INH SCH (08:00)
[2022-09-14] MEDS ORDERED: IPRATROPIUM 0.5MG/ALBUTEROL 2.5MG INH SOL UD 3ML (DUONEB) NEB ONE (08:05)
[2022-09-14] MEDS ORDERED: methylPREDNISolone 125MG 2ML VIAL IV ONE (08:05)
[2022-09-14 08:12] LABS: HEMOGLOBIN A1c 5.7 % (4.0-6.0)
[2022-09-14] MEDS: PANTOPRAZOLE 40MG TAB (PROTONIX) PO SCH (09:00)
[2022-09-14] MEDS: CLOPIDOGREL 75 MG TAB PO SCH (09:00)
[2022-09-14] MEDS ORDERED: FLUTICASONE HFA 220 MCG 12 GM INHALER (FLOVENT) INH SCH (09:00)
[2022-09-14] MEDS: ENOXAPARIN 40MG/0.4ML SYRINGE (J1650 PER 10MG) SC SCH (09:00)
[2022-09-14] MEDS ORDERED: FUROSEMIDE 20MG/2ML VIAL IV ONE ×2 (09:40→10:35)
[2022-09-14] MEDS: DOXYCYCLINE HYCLATE 100 MG in D5W MINI-BAG PLUS 100 ML IV SCH ×2 (10:00→22:36)
[2022-09-14] MEDS: BUDESONIDE 0.5 MG/2 ML INHALATION SUSPENSION INH SCH ×2 (10:39→19:17)
[2022-09-14 12:02] LABS: ABG HCO3 40.3 MEQ/L (22.0-26.0); ABG O2 SATURATION 96.6 % (95.0-99.0); ABG PARTIAL PRESSURE O2 88.9 mmHg (75.0-100.0); ABG STANDARD HCO3 38.9 MEQ/L (22.0-26.0); ABG TOTAL CO2 41.9 MEQ/L (23.0-31.0); ABG pH (ARTERIAL) 7.507 UNITS (7.350-7.450)
[2022-09-14] MEDS ORDERED: POTASSIUM CHLORIDE 10MEQ SR TABLET PO ONE (12:15)
[2022-09-14] MEDS: methylPREDNISolone 40MG 1ML VIAL IV SCH ×2 (13:07→21:31)
[2022-09-14 15:46] LABS: MAGNESIUM LEVEL 1.9 MG/DL (1.8-2.4)
[2022-09-14] MEDS ORDERED: LevoFLOXacin 750 MG TABLET PO SCH (21:00)
[2022-09-14 21:15] VITALS: BP 146/86
[2022-09-14 22:11] VITALS: BP 133/63
[2022-09-14 23:00] VITALS: O2SAT 95
[2022-09-14] MEDS: NAPROXEN 250 MG TAB PO PRN (23:46)
[2022-09-15] VITALS (25 sets, daily range): BP systolic 108–155; BP diastolic 56–89; O2SAT 86–98
[2022-09-15] MEDS: IPRATROPIUM 0.5MG/ALBUTEROL 2.5MG INH SOL UD 3ML (DUONEB) NEB SCH ×6 (00:18→20:08)
[2022-09-15] MEDS: methylPREDNISolone 40MG 1ML VIAL IV SCH ×4 (02:12→19:59)
[2022-09-15 05:31] LABS: HEMATOCRIT 36.3 % (36.0-47.0); MEAN CORPUSCULAR HEMOGLOBIN 30.2 pg (27.0-33.0); MEAN CORPUSCULAR HGB CONC 33.1 g/dl (32.0-36.5); MEAN CORPUSCULAR VOLUME 91.4 fl (80.0-96.0); PLATELET COUNT, AUTOMATED 403 10^3/uL (150-450); RED BLOOD COUNT 3.97 10^6/uL (4.00-5.40); WHITE BLOOD COUNT 11.7 10^3/uL (4.0-10.0)
[2022-09-15 05:47] LABS: MAGNESIUM LEVEL 1.7 MG/DL (1.8-2.4)
[2022-09-15 05:56] LABS: ALBUMIN 3.3 G/DL (3.2-5.2); BILIRUBIN,TOTAL 0.4 MG/DL (0.3-1.2); CALCIUM LEVEL 9.2 MG/DL (8.3-10.6); CREATININE FOR GFR 1.1 MG/DL (0.55-1.30); GLOMERULAR FILTRATION RATE 53.4 (>45); PHOSPHORUS LEVEL 3.6 MG/DL (2.4-5.1); TOTAL PROTEIN 6.2 G/DL (5.7-8.2)
[2022-09-15] MEDS ORDERED: MAG SULF 1GM/100ML (MAG RUN) 1 GM in IV 1 EA IV ONE (08:00)
[2022-09-15] MEDS: BUDESONIDE 0.5 MG/2 ML INHALATION SUSPENSION INH SCH ×2 (08:08→20:08)
[2022-09-15] MEDS: ADVAIR HFA 230/21MCG INHALER INH SCH ×2 (08:08→20:09)
[2022-09-15] MEDS: CLOPIDOGREL 75 MG TAB PO SCH (08:14)
[2022-09-15] MEDS: ENOXAPARIN 40MG/0.4ML SYRINGE (J1650 PER 10MG) SC SCH (08:14)
[2022-09-15] MEDS: PANTOPRAZOLE 40MG TAB (PROTONIX) PO SCH (08:14)
[2022-09-15] MEDS: ACETAMINOPHEN TAB 650MG DOSE (2X325MG) PO PRN (09:40)
[2022-09-15] MEDS: DOXYCYCLINE HYCLATE 100 MG in D5W MINI-BAG PLUS 100 ML IV SCH ×2 (09:40→21:02)
[2022-09-15] MEDS: ACETYLCYSTEINE 20% 4 ML VIAL (200MG/ML) INH SCH ×2 (11:17→20:00)
[2022-09-15] MEDS: NAPROXEN 250 MG TAB PO PRN (18:18)
[2022-09-16] VITALS (19 sets, daily range): BP systolic 119–155; BP diastolic 56–84; O2SAT 84–99
[2022-09-16] MEDS: IPRATROPIUM 0.5MG/ALBUTEROL 2.5MG INH SOL UD 3ML (DUONEB) NEB SCH ×6 (00:38→19:43)
[2022-09-16] MEDS: methylPREDNISolone 40MG 1ML VIAL IV SCH ×3 (01:13→20:11)
[2022-09-16] MEDS ORDERED: RAMELTEON 8 MG TAB (ROZEREM) PO PRN (01:25)
[2022-09-16 06:02] LABS: HEMOGLOBIN 11.4 g/dl (12.0-15.5); MEAN CORPUSCULAR HEMOGLOBIN 30.5 pg (27.0-33.0); MEAN CORPUSCULAR HGB CONC 33.5 g/dl (32.0-36.5); MEAN CORPUSCULAR VOLUME 90.9 fl (80.0-96.0); PLATELET COUNT, AUTOMATED 367 10^3/uL (150-450); RED BLOOD COUNT 3.74 10^6/uL (4.00-5.40); WHITE BLOOD COUNT 12.7 10^3/uL (4.0-10.0)
[2022-09-16 06:26] LABS: MAGNESIUM LEVEL 1.7 MG/DL (1.8-2.4)
[2022-09-16 06:30] LABS: BILIRUBIN,TOTAL 0.4 MG/DL (0.3-1.2); CALCIUM LEVEL 8.9 MG/DL (8.3-10.6); GLOMERULAR FILTRATION RATE 59.6 (>45); TOTAL PROTEIN 5.5 G/DL (5.7-8.2)
[2022-09-16] MEDS: traMADol 50 MG TAB PO PRN (06:53)
[2022-09-16] MEDS: BUDESONIDE 0.5 MG/2 ML INHALATION SUSPENSION INH SCH (07:09)
[2022-09-16] MEDS: ADVAIR HFA 230/21MCG INHALER INH SCH ×2 (07:09→19:43)
[2022-09-16] MEDS: ACETYLCYSTEINE 20% 4 ML VIAL (200MG/ML) INH SCH ×2 (07:09→19:43)
[2022-09-16] MEDS ORDERED: MAG SULF 1GM/100ML (MAG RUN) 1 GM in IV 1 EA IV ONE ×2 (08:00→16:05)
[2022-09-16] MEDS: CLOPIDOGREL 75 MG TAB PO SCH (09:01)
[2022-09-16] MEDS: ENOXAPARIN 40MG/0.4ML SYRINGE (J1650 PER 10MG) SC SCH (09:01)
[2022-09-16] MEDS: PANTOPRAZOLE 40MG TAB (PROTONIX) PO SCH (09:01)
[2022-09-16] MEDS: DOXYCYCLINE HYCLATE 100 MG in D5W MINI-BAG PLUS 100 ML IV SCH (10:25)
[2022-09-16] MEDS: CARVedilol 3.125 MG TAB PO SCH ×2 (10:36→20:10)
[2022-09-16] MEDS ORDERED: NYSTATIN 500,000U/5ML SUSP UDC PO SCH ×2 (15:40→18:00)
[2022-09-16] MEDS: NYSTATIN 500,000U/5ML SUSP UDC SS SCH ×2 (17:39→22:18)
[2022-09-16] MEDS: DOXYCYCLINE HYCLATE 100MG TABLET PO SCH (20:10)
[2022-09-17] VITALS (13 sets, daily range): BP systolic 113–156; BP diastolic 72–83; O2SAT 80–98
[2022-09-17] MEDS: IPRATROPIUM 0.5MG/ALBUTEROL 2.5MG INH SOL UD 3ML (DUONEB) NEB SCH ×7 (00:16→23:05)
[2022-09-17 05:20] LABS: HEMATOCRIT 32.5 % (36.0-47.0); HEMOGLOBIN 11.1 g/dl (12.0-15.5); MEAN CORPUSCULAR HEMOGLOBIN 30.3 pg (27.0-33.0); MEAN CORPUSCULAR HGB CONC 34.2 g/dl (32.0-36.5); MEAN CORPUSCULAR VOLUME 88.8 fl (80.0-96.0); PLATELET COUNT, AUTOMATED 361 10^3/uL (150-450); RED BLOOD COUNT 3.66 10^6/uL (4.00-5.40); WHITE BLOOD COUNT 11.7 10^3/uL (4.0-10.0)
[2022-09-17] MEDS: ACETAMINOPHEN TAB 650MG DOSE (2X325MG) PO PRN (05:24)
[2022-09-17] MEDS: NYSTATIN 500,000U/5ML SUSP UDC SS SCH ×3 (05:24→18:14)
[2022-09-17 05:46] LABS: MAGNESIUM LEVEL 1.8 MG/DL (1.8-2.4)
[2022-09-17 05:50] LABS: ALBUMIN 2.7 G/DL (3.2-5.2); ALKALINE PHOSPHATASE 79 U/L (46-116); ALT/SGPT 21 U/L (7.0-40); AST/SGOT 19 U/L (<34); BILIRUBIN,TOTAL 0.3 MG/DL (0.3-1.2); BLOOD UREA NITROGEN 35 MG/DL (9-23); CALCIUM LEVEL 8.6 MG/DL (8.3-10.6); CARBON DIOXIDE LEVEL 38 MMOL/L (20-31); CHLORIDE LEVEL 90 MMOL/L (98-107); GLOMERULAR FILTRATION RATE > 60.0 (>45); GLUCOSE, FASTING 153 MG/DL (74-106); POTASSIUM SERUM 4.4 MMOL/L (3.5-5.1); SODIUM LEVEL 134 MMOL/L (136-145); TOTAL PROTEIN 5.4 G/DL (5.7-8.2)
[2022-09-17] MEDS: ACETYLCYSTEINE 20% 4 ML VIAL (200MG/ML) INH SCH ×2 (07:29→19:43)
[2022-09-17] MEDS: ADVAIR HFA 230/21MCG INHALER INH SCH ×2 (07:30→19:52)
[2022-09-17] MEDS: DOXYCYCLINE HYCLATE 100MG TABLET PO SCH ×2 (09:00→22:06)
[2022-09-17] MEDS: CLOPIDOGREL 75 MG TAB PO SCH (09:00)
[2022-09-17] MEDS: PANTOPRAZOLE 40MG TAB (PROTONIX) PO SCH (09:00)
[2022-09-17] MEDS: methylPREDNISolone 125MG 2ML VIAL IV SCH (09:01)
[2022-09-17] MEDS: CARVedilol 3.125 MG TAB PO SCH ×2 (09:01→22:06)
[2022-09-17] MEDS: ENOXAPARIN 40MG/0.4ML SYRINGE (J1650 PER 10MG) SC SCH (09:01)
[2022-09-17] MEDS ORDERED: TREL1AER PO (10:47)
[2022-09-18] VITALS: BP 139/77
[2022-09-18] MEDS: NYSTATIN 500,000U/5ML SUSP UDC SS SCH ×3 (00:02→12:00)
[2022-09-18] MEDS: IPRATROPIUM 0.5MG/ALBUTEROL 2.5MG INH SOL UD 3ML (DUONEB) NEB SCH ×3 (03:05→11:42)
[2022-09-18 04:00] VITALS: BP 113/73
[2022-09-18 05:14] LABS: HEMATOCRIT 34.6 % (36.0-47.0); HEMOGLOBIN 11.7 g/dl (12.0-15.5); MEAN CORPUSCULAR HEMOGLOBIN 30.6 pg (27.0-33.0); MEAN CORPUSCULAR HGB CONC 33.8 g/dl (32.0-36.5); MEAN CORPUSCULAR VOLUME 90.6 fl (80.0-96.0); PLATELET COUNT, AUTOMATED 310 10^3/uL (150-450); RED BLOOD COUNT 3.82 10^6/uL (4.00-5.40); WHITE BLOOD COUNT 10.8 10^3/uL (4.0-10.0)
[2022-09-18 05:29] LABS: MAGNESIUM LEVEL 1.5 MG/DL (1.8-2.4)
[2022-09-18 05:38] LABS: ALKALINE PHOSPHATASE 67 U/L (46-116); ALT/SGPT 22 U/L (7.0-40); AST/SGOT 29 U/L (<34); BILIRUBIN,TOTAL 0.4 MG/DL (0.3-1.2); BLOOD UREA NITROGEN 17 MG/DL (9-23); CALCIUM LEVEL 8.6 MG/DL (8.3-10.6); CARBON DIOXIDE LEVEL 35 MMOL/L (20-31); CHLORIDE LEVEL 94 MMOL/L (98-107); CREATININE FOR GFR 0.75 MG/DL (0.55-1.30); GLOMERULAR FILTRATION RATE > 60.0 (>45); GLUCOSE, FASTING 90 MG/DL (74-106); POTASSIUM SERUM 4.4 MMOL/L (3.5-5.1); SODIUM LEVEL 134 MMOL/L (136-145); TOTAL PROTEIN 5.8 G/DL (5.7-8.2)
[2022-09-18] MEDS ORDERED: MAGN400T2 PO (07:16)
[2022-09-18] MEDS ORDERED: METO25TA4 PO (07:16)
[2022-09-18] MEDS ORDERED: PRED10TA2 PO ×2 (07:17→10:45)
[2022-09-18] MEDS ORDERED: AZIT500T5 PO (07:18)
[2022-09-18 08:00] VITALS: BP 127/89
[2022-09-18] MEDS ORDERED: MAG SULF 1GM/100ML (MAG RUN) 1 GM in IV 1 EA IV ONE (08:00)
[2022-09-18] MEDS: ACETYLCYSTEINE 20% 4 ML VIAL (200MG/ML) INH SCH (08:15)
[2022-09-18] MEDS: ADVAIR HFA 230/21MCG INHALER INH SCH (08:15)
[2022-09-18 08:40] VITALS: BP 127/89
[2022-09-18] MEDS: CARVedilol 3.125 MG TAB PO SCH (08:40)
[2022-09-18] MEDS: PANTOPRAZOLE 40MG TAB (PROTONIX) PO SCH (08:40)
[2022-09-18] MEDS: ENOXAPARIN 40MG/0.4ML SYRINGE (J1650 PER 10MG) SC SCH (08:40)
[2022-09-18] MEDS: DOXYCYCLINE HYCLATE 100MG TABLET PO SCH (08:40)
[2022-09-18] MEDS: CLOPIDOGREL 75 MG TAB PO SCH (08:40)
[2022-09-18] MEDS: methylPREDNISolone 125MG 2ML VIAL IV SCH (08:40)
[2022-09-18] MEDS ORDERED: NYST50SS PO (10:45)
[2022-09-18] MEDS ORDERED: NICO14DI6 TOP (10:52)
[2022-09-18] MEDS ORDERED: NICOINH INH (10:52)
== END 2022-09-18 12:34 | disposition home health service (06) | DRG 189 ==
LOC: M ED 18:27 → M ED INP 22:34 → ENRESERV 09-14 11:40 → CANRESERV 09-14 11:40 → ENRESERV 09-14 20:16 → M PCU 09-14 22:08
PROVIDERS: ADMIT Internal Medicine; ATTEND Internal Medicine
DX: J96.21 Acute and chronic respiratory failure with hypoxia (principal); J44.0 Chronic obstructive pulmonary disease with (acute) lower respiratory infection; B37.0 Candidal stomatitis; E66.2 Morbid (severe) obesity with alveolar hypoventilation; E87.3 Alkalosis; Z68.41 Body mass index [BMI] 40.0-44.9, adult; F32.A Depression, unspecified; F41.9 Anxiety disorder, unspecified; K21.9 Gastro-esophageal reflux disease without esophagitis; G89.29 Other chronic pain; I73.9 Peripheral vascular disease, unspecified; E83.42 Hypomagnesemia; I10 Essential (primary) hypertension; R73.9 Hyperglycemia, unspecified; J20.9 Acute bronchitis, unspecified; T38.0X5A Adverse effect of glucocorticoids and synthetic analogues, initial encounter; F17.210 Nicotine dependence, cigarettes, uncomplicated; E87.6 Hypokalemia; Z79.02 Long term (current) use of antithrombotics/antiplatelets; Z79.899 Other long term (current) drug therapy; Z88.8 Allergy status to other drugs, medicaments and biological substances; Z99.81 Dependence on supplemental oxygen; Z98.62 Peripheral vascular angioplasty status; Z90.49 Acquired absence of other specified parts of digestive tract

== ENCOUNTER → 2022-09-27 | Outpatient (REF) | payer MEDICARE ==
[~2022-09-27] MED LIST changes: +MAGN400T2 PO; +METO25TA4 PO; +NAPR-885 PO; +NICO14DI6 TOP; +NICOINH INH; +NYST50SS PO; +VENTAER INH
[2022-09-27 13:17] LABS: MAGNESIUM LEVEL 1.4 MG/DL (1.8-2.4)
[2022-09-27 13:26] LABS: ALBUMIN 3.4 G/DL (3.2-5.2); ALKALINE PHOSPHATASE 84 U/L (46-116); ALT/SGPT 25 U/L (7.0-40); AST/SGOT 16 U/L (<34); BILIRUBIN,TOTAL 0.4 MG/DL (0.3-1.2); BLOOD UREA NITROGEN 27 MG/DL (9-23); CALCIUM LEVEL 9.2 MG/DL (8.3-10.6); CARBON DIOXIDE LEVEL > 40.0 MMOL/L (20-31); CHLORIDE LEVEL 92 MMOL/L (98-107); CREATININE FOR GFR 0.82 MG/DL (0.55-1.30); GLOMERULAR FILTRATION RATE > 60.0 (>45); GLUCOSE, FASTING 126 MG/DL (74-106); POTASSIUM SERUM 3.6 MMOL/L (3.5-5.1); SODIUM LEVEL 139 MMOL/L (136-145)
== END ==
LOC: M SFHCADAM 09:55
PROVIDERS: ATTEND Family Medicine
DX: E87.8 Other disorders of electrolyte and fluid balance, not elsewhere classified (principal)

== ENCOUNTER → 2022-10-11 | Outpatient (REF) | payer MEDICARE ==
[~2022-10-11] MED LIST changes: +FLUT1BLS8 INH; +IBUP-1720 PO; +IBUP200C25 PO; +IPRA0.00 INH; +LIDO5TD TOP; +NYST-38 PO; +NYST-38 SSP; -NYST50SS PO
== END ==
LOC: M LAB REF 14:50
PROVIDERS: ATTEND Internal Medicine Critical Care Medicine
DX: J44.9 Chronic obstructive pulmonary disease, unspecified (principal)

== ENCOUNTER 2022-10-17 19:43 | Inpatient (IN) | payer MEDICARE ==
[~2022-10-17] VITALS: Ht 152.4 cm; Wt 96.1 kg
[~2022-10-17 19:43] MED LIST changes: -FLUT1BLS8 INH; -IBUP-1720 PO; -IBUP200C25 PO; -IPRA0.00 INH; -LIDO5TD TOP; -NYST-38 SSP
[2022-10-17] MEDS ORDERED: IBUP200C25 PO (19:58)
[2022-10-17 20:35] LABS: VENOUS BASE EXCESS 8.5 (-2.0-2.0); VENOUS HCO3 33.5 MEQ/L (23.0-27.0); VENOUS O2 SATURATION 94.1 % (60.0-80.0); VENOUS PARTIAL PRESSURE CO2 47.7 mmHg (38.0-50.0); VENOUS PARTIAL PRESSURE O2 70.1 mmHg (30.0-50.0); VENOUS PH 7.465 UNITS (7.330-7.430); VENOUS STANDARD HCO3 32.2 MEQ/L
[2022-10-17 20:40] LABS: BASO % 0.3 % (0.0-1.0); HEMATOCRIT 38.2 % (36.0-47.0); HEMOGLOBIN 12.3 g/dl (12.0-15.5); LYMPH # 0.5 10^3/uL (1.5-5.0); LYMPH % 4.3 % (24.0-44.0); MEAN CORPUSCULAR HEMOGLOBIN 30.5 pg (27.0-33.0); MEAN CORPUSCULAR HGB CONC 32.2 g/dl (32.0-36.5); MEAN CORPUSCULAR VOLUME 94.8 fl (80.0-96.0); MONO # 0.2 10^3/uL (0.0-0.8); MONO % 1.8 % (2.0-8.0); NEUTROPHILS # 9.7 10^3/uL (1.5-8.5); NEUTROPHILS % 92.4 % (36.0-66.0); PLATELET COUNT, AUTOMATED 325 10^3/uL (150-450); RED BLOOD COUNT 4.03 10^6/uL (4.00-5.40); WHITE BLOOD COUNT 10.5 10^3/uL (4.0-10.0)
[2022-10-17 21:03] LABS: BILIRUBIN,DIRECT 0.1 MG/DL (<0.4)
[2022-10-17 21:04] LABS: ALBUMIN 3.3 G/DL (3.2-5.2); ALKALINE PHOSPHATASE 111 U/L (46-116); ALT/SGPT 21 U/L (7.0-40); AST/SGOT 20 U/L (<34); BILIRUBIN,TOTAL 0.4 MG/DL (0.3-1.2); TOTAL PROTEIN 5.5 G/DL (5.7-8.2)
[2022-10-17 21:05] LABS: THYROID STIMULATING HORMONE 0.905 uIU/ML (0.55-4.78); THYROXINE (T4) 13.7 UG/DL (4.5-10.9)
[2022-10-17 21:06] LABS: CPK CREATINE PHOSPHOKINASE 56 U/L (34-145); MB/CK RELATIVE INDEX 1.78 (< OR =4)
[2022-10-17 22:15] LABS: BLOOD UREA NITROGEN 18 MG/DL (9-23); CARBON DIOXIDE LEVEL 30 MMOL/L (20-31); CHLORIDE LEVEL 98 MMOL/L (98-107); CREATININE FOR GFR 0.77 MG/DL (0.55-1.30); GLOMERULAR FILTRATION RATE > 60.0 (>45); GLUCOSE, FASTING 189 MG/DL (74-106); POTASSIUM SERUM 4.8 MMOL/L (3.5-5.1); SODIUM LEVEL 138 MMOL/L (136-145)
[2022-10-17] MEDS ORDERED: IPRATROPIUM 0.5MG/ALBUTEROL 2.5MG INH SOL UD 3ML (DUONEB) NEB ONE (22:35)
[2022-10-18] VITALS (10 sets, daily range): BP systolic 100–170; BP diastolic 51–91; O2SAT 94–96
[2022-10-18] MEDS ORDERED: FUROSEMIDE 40MG/4ML VIAL IV ONE (00:30)
[2022-10-18] MEDS ORDERED: ISOVUE-370 76% 100ML VIAL As Ordered ONE (00:34)
[2022-10-18] MEDS ORDERED: methylPREDNISolone 125MG 2ML VIAL IV STA (01:20)
[2022-10-18] MEDS ORDERED: LEVALBUTEROL 1.25MG 0.5ML CONCENTRATE NEB NEB PRN (01:20)
[2022-10-18] MEDS: AZITHROMYCIN INJ 500 MG, VIAL MATE ADAPTER 1 EACH in NS 250 ML IV SCH (01:47)
[2022-10-18] MEDS: ACETAMINOPHEN TAB 650MG DOSE (2X325MG) PO PRN (01:53)
[2022-10-18] MEDS ORDERED: FIORICET TAB PO ONE (02:00)
[2022-10-18] MEDS ORDERED: MAGN400T2 PO (02:52)
[2022-10-18] MEDS ORDERED: LIDO5TD TOP (02:52)
[2022-10-18] MEDS ORDERED: NICOINH INH (02:52)
[2022-10-18] MEDS ORDERED: PRED10TA2 PO (02:52)
[2022-10-18] MEDS ORDERED: FLUT1BLS8 INH (02:52)
[2022-10-18] MEDS ORDERED: IBUP-1720 PO (02:52)
[2022-10-18] MEDS ORDERED: NYST-38 SSP (02:52)
[2022-10-18] MEDS ORDERED: METO25TA4 PO (02:52)
[2022-10-18] MEDS ORDERED: IPRA0.00 INH (02:52)
[2022-10-18] MEDS: IPRATROPIUM 0.5MG/ALBUTEROL 2.5MG INH SOL UD 3ML (DUONEB) NEB SCH ×5 (02:58→19:33)
[2022-10-18] MEDS ORDERED: amLODIPine 5 MG TAB PO ONE (05:45)
[2022-10-18] MEDS: TIOTROPIUM INHALER/CAPSULE (SPIRIVA) INH SCH (07:21)
[2022-10-18] MEDS: ADVAIR HFA 115/21MCG INHALER INH SCH ×2 (07:21→19:33)
[2022-10-18] MEDS ORDERED: traMADol 50 MG TAB PO PRN (08:15)
[2022-10-18] MEDS ORDERED: NYSTATIN 500,000U/5ML SUSP UDC SSP PRN (08:15)
[2022-10-18] MEDS: PANTOPRAZOLE 40MG TAB (PROTONIX) PO SCH (09:51)
[2022-10-18] MEDS: ENOXAPARIN 40MG/0.4ML SYRINGE (J1650 PER 10MG) SC SCH (09:51)
[2022-10-18] MEDS: TORSEMIDE 20 MG TAB PO SCH (09:51)
[2022-10-18] MEDS: guaiFENesin ER 600 MG TAB PO SCH ×2 (09:51→21:10)
[2022-10-18] MEDS: METOPROLOL TART 25 MG TABLET PO SCH ×2 (09:52→21:10)
[2022-10-18] MEDS: CLOPIDOGREL 75 MG TAB PO SCH (09:52)
[2022-10-18] MEDS: MAGNESIUM OXIDE 400MG TAB (MAG-OX) PO SCH (09:52)
[2022-10-18] MEDS: LIDOCAINE 5% (LIDODERM) PATCH TOP SCH (09:53)
[2022-10-18] MEDS: methylPREDNISolone 125MG 2ML VIAL IV SCH ×2 (09:53→18:01)
[2022-10-18 10:19] LABS: BASO % 0.1 % (0.0-1.0); HEMATOCRIT 36.7 % (36.0-47.0); HEMOGLOBIN 11.7 g/dl (12.0-15.5); LYMPH # 0.6 10^3/uL (1.5-5.0); LYMPH % 5.8 % (24.0-44.0); MEAN CORPUSCULAR HEMOGLOBIN 29.9 pg (27.0-33.0); MEAN CORPUSCULAR HGB CONC 31.9 g/dl (32.0-36.5); MEAN CORPUSCULAR VOLUME 93.9 fl (80.0-96.0); MONO # 0.1 10^3/uL (0.0-0.8); MONO % 0.7 % (2.0-8.0); NEUTROPHILS # 9.7 10^3/uL (1.5-8.5); NEUTROPHILS % 92.4 % (36.0-66.0); PLATELET COUNT, AUTOMATED 323 10^3/uL (150-450); RED BLOOD COUNT 3.91 10^6/uL (4.00-5.40); WHITE BLOOD COUNT 10.5 10^3/uL (4.0-10.0)
[2022-10-18 10:47] LABS: MAGNESIUM LEVEL 1.3 MG/DL (1.8-2.4)
[2022-10-18 10:49] LABS: BLOOD UREA NITROGEN 18 MG/DL (9-23); CARBON DIOXIDE LEVEL 33 MMOL/L (20-31); CHLORIDE LEVEL 96 MMOL/L (98-107); CREATININE FOR GFR 0.74 MG/DL (0.55-1.30); GLOMERULAR FILTRATION RATE > 60.0 (>45); GLUCOSE, FASTING 244 MG/DL (74-106); POTASSIUM SERUM 4.3 MMOL/L (3.5-5.1); SODIUM LEVEL 138 MMOL/L (136-145)
[2022-10-18] MEDS: MAG SULF 1GM/100ML (MAG RUN) 1 GM in IV 1 EA IV SCH ×2 (15:36→16:50)
[2022-10-19] VITALS: BP 122/63
[2022-10-19] MEDS: IPRATROPIUM 0.5MG/ALBUTEROL 2.5MG INH SOL UD 3ML (DUONEB) NEB SCH ×6 (00:25→19:23)
[2022-10-19] MEDS: AZITHROMYCIN INJ 500 MG, VIAL MATE ADAPTER 1 EACH in NS 250 ML IV SCH (00:28)
[2022-10-19] MEDS: methylPREDNISolone 125MG 2ML VIAL IV SCH ×2 (01:44→10:57)
[2022-10-19 02:00] VITALS: BP 112/59
[2022-10-19 04:00] VITALS: BP 144/74
[2022-10-19 04:33] LABS: HEMATOCRIT 34.2 % (36.0-47.0); HEMOGLOBIN 11.2 g/dl (12.0-15.5); MEAN CORPUSCULAR HEMOGLOBIN 30.5 pg (27.0-33.0); MEAN CORPUSCULAR HGB CONC 32.7 g/dl (32.0-36.5); MEAN CORPUSCULAR VOLUME 93.2 fl (80.0-96.0); PLATELET COUNT, AUTOMATED 308 10^3/uL (150-450); RED BLOOD COUNT 3.67 10^6/uL (4.00-5.40); WHITE BLOOD COUNT 15.9 10^3/uL (4.0-10.0)
[2022-10-19 04:44] LABS: INR 0.88; PROTHROMBIN TIME 12.1 SECONDS (12.5-14.5)
[2022-10-19 04:45] LABS: PARTIAL THROMBOPLASTIN TIME 21.4 SECONDS (24.8-34.2)
[2022-10-19 05:03] LABS: MAGNESIUM LEVEL 1.7 MG/DL (1.8-2.4)
[2022-10-19 05:06] LABS: ALBUMIN 3.1 G/DL (3.2-5.2); ALKALINE PHOSPHATASE 84 U/L (46-116); ALT/SGPT 20 U/L (7.0-40); AST/SGOT 15 U/L (<34); BILIRUBIN,TOTAL 0.4 MG/DL (0.3-1.2); BLOOD UREA NITROGEN 24 MG/DL (9-23); CALCIUM LEVEL 9.4 MG/DL (8.3-10.6); CARBON DIOXIDE LEVEL 32 MMOL/L (20-31); CHLORIDE LEVEL 96 MMOL/L (98-107); CREATININE FOR GFR 0.71 MG/DL (0.55-1.30); GLOMERULAR FILTRATION RATE > 60.0 (>45); GLUCOSE, FASTING 137 MG/DL (74-106); POTASSIUM SERUM 4.3 MMOL/L (3.5-5.1); SODIUM LEVEL 137 MMOL/L (136-145); TOTAL PROTEIN 5.6 G/DL (5.7-8.2)
[2022-10-19] MEDS ORDERED: MAG SULF 1GM/100ML (MAG RUN) 1 GM in IV 1 EA IV ONE (05:30)
[2022-10-19] MEDS: ADVAIR HFA 115/21MCG INHALER INH SCH (07:46)
[2022-10-19] MEDS: TIOTROPIUM INHALER/CAPSULE (SPIRIVA) INH SCH (07:46)
[2022-10-19 08:08] VITALS: BP 149/87
[2022-10-19] MEDS: METOPROLOL TART 25 MG TABLET PO SCH ×2 (08:09→20:14)
[2022-10-19] MEDS: CLOPIDOGREL 75 MG TAB PO SCH (08:09)
[2022-10-19] MEDS: PANTOPRAZOLE 40MG TAB (PROTONIX) PO SCH (08:09)
[2022-10-19] MEDS: guaiFENesin ER 600 MG TAB PO SCH ×2 (08:09→20:13)
[2022-10-19] MEDS: MAGNESIUM OXIDE 400MG TAB (MAG-OX) PO SCH (08:09)
[2022-10-19] MEDS: ENOXAPARIN 40MG/0.4ML SYRINGE (J1650 PER 10MG) SC SCH (08:09)
[2022-10-19] MEDS: LIDOCAINE 5% (LIDODERM) PATCH TOP SCH (08:10)
[2022-10-19] MEDS: TORSEMIDE 20 MG TAB PO SCH (08:10)
[2022-10-19] MEDS ORDERED: FUROSEMIDE 20MG/2ML VIAL IV ONE (10:30)
[2022-10-19] MEDS ORDERED: DOCUSATE SODIUM 100MG CAPSULE PO PRN (11:55)
[2022-10-19 13:44] VITALS: BP 125/71
[2022-10-19] MEDS: FLUTICASONE PROP 0.05% NASAL SPRAY 16 GM (FLONASE) NARES SCH (17:06)
[2022-10-19] MEDS ORDERED: LevoFLOXacin 750 MG TABLET PO SCH (18:00)
[2022-10-19] MEDS: ADVAIR HFA 230/21MCG INHALER INH SCH (19:23)
[2022-10-19 20:00] VITALS: BP 138/80
[2022-10-19] MEDS ORDERED: methylPREDNISolone 125MG 2ML VIAL IV ONE (21:00)
[2022-10-19] MEDS: ACETAMINOPHEN TAB 650MG DOSE (2X325MG) PO PRN (22:12)
[2022-10-20] VITALS: BP 138/80
[2022-10-20] MEDS: IPRATROPIUM 0.5MG/ALBUTEROL 2.5MG INH SOL UD 3ML (DUONEB) NEB SCH ×4 (00:07→11:27)
[2022-10-20 04:00] VITALS: BP 149/71
[2022-10-20 04:31] LABS: BASO % 0.1 % (0.0-1.0); HEMATOCRIT 34.4 % (36.0-47.0); HEMOGLOBIN 11.3 g/dl (12.0-15.5); LYMPH # 0.6 10^3/uL (1.5-5.0); LYMPH % 3.7 % (24.0-44.0); MEAN CORPUSCULAR HEMOGLOBIN 30.4 pg (27.0-33.0); MEAN CORPUSCULAR HGB CONC 32.8 g/dl (32.0-36.5); MEAN CORPUSCULAR VOLUME 92.5 fl (80.0-96.0); MONO # 0.5 10^3/uL (0.0-0.8); MONO % 3.5 % (2.0-8.0); NEUTROPHILS # 14.2 10^3/uL (1.5-8.5); NEUTROPHILS % 91.2 % (36.0-66.0); PLATELET COUNT, AUTOMATED 322 10^3/uL (150-450); RED BLOOD COUNT 3.72 10^6/uL (4.00-5.40); WHITE BLOOD COUNT 15.5 10^3/uL (4.0-10.0)
[2022-10-20 04:54] LABS: MAGNESIUM LEVEL 1.6 MG/DL (1.8-2.4)
[2022-10-20 04:56] LABS: ALBUMIN 2.9 G/DL (3.2-5.2); ALKALINE PHOSPHATASE 77 U/L (46-116); ALT/SGPT 20 U/L (7.0-40); AST/SGOT 14 U/L (<34); BILIRUBIN,TOTAL 0.3 MG/DL (0.3-1.2); BLOOD UREA NITROGEN 28 MG/DL (9-23); CARBON DIOXIDE LEVEL 34 MMOL/L (20-31); CHLORIDE LEVEL 96 MMOL/L (98-107); CREATININE FOR GFR 0.77 MG/DL (0.55-1.30); GLOMERULAR FILTRATION RATE > 60.0 (>45); GLUCOSE, FASTING 138 MG/DL (74-106); POTASSIUM SERUM 3.8 MMOL/L (3.5-5.1); SODIUM LEVEL 137 MMOL/L (136-145); TOTAL PROTEIN 5.5 G/DL (5.7-8.2)
[2022-10-20] MEDS: MAG SULF 1GM/100ML (MAG RUN) 1 GM in IV 1 EA IV SCH ×2 (06:37→07:55)
[2022-10-20] MEDS: LIDOCAINE 5% (LIDODERM) PATCH TOP SCH (07:54)
[2022-10-20] MEDS: CLOPIDOGREL 75 MG TAB PO SCH (07:56)
[2022-10-20] MEDS: TORSEMIDE 20 MG TAB PO SCH (07:56)
[2022-10-20] MEDS: PANTOPRAZOLE 40MG TAB (PROTONIX) PO SCH (07:57)
[2022-10-20] MEDS: guaiFENesin ER 600 MG TAB PO SCH (07:57)
[2022-10-20 08:00] VITALS: BP 146/88
[2022-10-20] MEDS: MAGNESIUM OXIDE 400MG TAB (MAG-OX) PO SCH (08:00)
[2022-10-20 08:02] VITALS: BP 146/88
[2022-10-20] MEDS: METOPROLOL TART 25 MG TABLET PO SCH (08:02)
[2022-10-20] MEDS: FLUTICASONE PROP 0.05% NASAL SPRAY 16 GM (FLONASE) NARES SCH (08:03)
[2022-10-20] MEDS: ENOXAPARIN 40MG/0.4ML SYRINGE (J1650 PER 10MG) SC SCH (08:12)
[2022-10-20] MEDS: TIOTROPIUM INHALER/CAPSULE (SPIRIVA) INH SCH (08:23)
[2022-10-20] MEDS: ADVAIR HFA 230/21MCG INHALER INH SCH (08:24)
[2022-10-20] MEDS ORDERED: predniSONE 20 MG TAB PO SCH (09:00)
[2022-10-20] MEDS ORDERED: LEVO1TAB40 PO (09:46)
[2022-10-20] MEDS ORDERED: PRED10TA2 PO (09:46)
== END 2022-10-20 11:55 | disposition home health service (06) | DRG 291 ==
LOC: M ED 19:43 → M ED INP 10-18 01:20 → ENRESERV 10-18 04:43 → M ICU 10-18 05:33
PROVIDERS: ADMIT Internal Medicine; ATTEND Internal Medicine
DX: I11.0 Hypertensive heart disease with heart failure (principal); J96.21 Acute and chronic respiratory failure with hypoxia; I50.33 Acute on chronic diastolic (congestive) heart failure; J44.1 Chronic obstructive pulmonary disease with (acute) exacerbation; Z68.41 Body mass index [BMI] 40.0-44.9, adult; I73.9 Peripheral vascular disease, unspecified; E66.01 Morbid (severe) obesity due to excess calories; G47.33 Obstructive sleep apnea (adult) (pediatric); K59.00 Constipation, unspecified; Z88.8 Allergy status to other drugs, medicaments and biological substances; Z79.899 Other long term (current) drug therapy; Z86.73 Personal history of transient ischemic attack (TIA), and cerebral infarction without residual deficits; Z99.81 Dependence on supplemental oxygen; Z87.891 Personal history of nicotine dependence

== ENCOUNTER 2022-10-25 12:45 | Outpatient (RCR) | payer MEDICARE ==
[~2022-10-25 12:45] MED LIST changes: +FLUT1BLS8 INH; +IBUP-1720 PO; +IBUP200C25 PO; +IPRA0.00 INH; +LEVO1TAB40 PO; +LIDO5TD TOP; +NYST-38 SSP
== END 2022-10-29 ==
LOC: M PT 12:45
PROVIDERS: ATTEND Family Medicine
DX: R60.9 Edema, unspecified (principal)

== ENCOUNTER 2022-11-11 13:10 | Inpatient (IN) | payer MEDICARE ==
[~2022-11-11] VITALS: Ht 149.9 cm; Wt 96.5 kg
[2022-11-11 19:09] LABS: BASO % 0.2 % (0.0-1.0); EOS # 0.1 10^3/uL (0.0-0.5); EOS % 0.7 % (0.0-3.0); HEMATOCRIT 37.4 % (36.0-47.0); HEMOGLOBIN 12.5 g/dl (12.0-15.5); LYMPH # 1.1 10^3/uL (1.5-5.0); LYMPH % 12.3 % (24.0-44.0); MEAN CORPUSCULAR HEMOGLOBIN 29.9 pg (27.0-33.0); MEAN CORPUSCULAR HGB CONC 33.4 g/dl (32.0-36.5); MEAN CORPUSCULAR VOLUME 89.5 fl (80.0-96.0); MONO # 0.9 10^3/uL (0.0-0.8); MONO % 9.6 % (2.0-8.0); NEUTROPHILS % 76.7 % (36.0-66.0); PLATELET COUNT, AUTOMATED 288 10^3/uL (150-450); RED BLOOD COUNT 4.18 10^6/uL (4.00-5.40); WHITE BLOOD COUNT 9.2 10^3/uL (4.0-10.0)
[2022-11-11 19:30] LABS: CPK CREATINE PHOSPHOKINASE 54 U/L (34-145)
[2022-11-11] MEDS ORDERED: IPRATROPIUM 0.5MG/ALBUTEROL 2.5MG INH SOL UD 3ML (DUONEB) NEB ONE (19:35)
[2022-11-11] MEDS ORDERED: ACETAMINOPHEN TAB 650MG DOSE (2X325MG) PO ONE (19:45)
[2022-11-11 19:50] LABS: ALBUMIN 3.2 G/DL (3.2-5.2); ALKALINE PHOSPHATASE 98 U/L (46-116); ALT/SGPT 18 U/L (7.0-40); AST/SGOT 21 U/L (<34); BILIRUBIN,DIRECT 0.3 MG/DL (<0.4); BILIRUBIN,TOTAL 0.9 MG/DL (0.3-1.2); BLOOD UREA NITROGEN 10 MG/DL (9-23); CALCIUM LEVEL 8.3 MG/DL (8.3-10.6); CARBON DIOXIDE LEVEL 38 MMOL/L (20-31); CHLORIDE LEVEL 88 MMOL/L (98-107); CK-MB VALUE MASS 1.6 NG/ML (<3.6); CREATININE FOR GFR 0.94 MG/DL (0.55-1.30); GLOMERULAR FILTRATION RATE > 60.0 (>45); GLUCOSE, FASTING 106 MG/DL (74-106); MB/CK RELATIVE INDEX 2.96 (< OR =4); POTASSIUM SERUM 2.6 MMOL/L (3.5-5.1); SODIUM LEVEL 134 MMOL/L (136-145); TOTAL PROTEIN 6.3 G/DL (5.7-8.2)
[2022-11-11] MEDS ORDERED: METOPROLOL 5 MG/5 ML VIAL IV STA (20:33)
[2022-11-11] MEDS ORDERED: KCL 10MEQ/100ML SWI (KRUN) 10 MEQ in IV 1 EA IV ONE ×4 (20:35)
[2022-11-11] MEDS ORDERED: ONDANSETRON 4MG 2ML VIAL IV ONE (20:35)
[2022-11-11] MEDS ORDERED: METOPROLOL TART 25 MG TABLET PO ONE (20:35)
[2022-11-11] MEDS ORDERED: FLON1SPR (21:44)
[2022-11-11] MEDS ORDERED: HOME MED LIST COMPLETE! XX SCH (21:45)
[2022-11-11] MEDS ORDERED: PIPERACILLIN/TAZOBACTAM SOD 4.5 GM in D5W MINI-BAG PLUS 50 ML IV ONE (22:00)
[2022-11-11] MEDS ORDERED: ALBUTEROL SULFATE 2.5MG/0.5ML INH NEB SOLN NEB PRN (22:15)
[2022-11-11] MEDS: METOPROLOL TART 25 MG TABLET PO SCH (23:23)
[2022-11-12] MEDS ORDERED: POTASSIUM CHLORIDE 10% LIQ 20MEQ/15ML UDC PO ONE
[2022-11-12 00:33] VITALS: BP 100/78
[2022-11-12] MEDS ORDERED: POTASSIUM CHLORIDE 10MEQ SR TABLET PO ONE ×4 (01:00→16:50)
[2022-11-12] MEDS: MAG SULF 1GM/100ML (MAG RUN) 1 GM in IV 1 EA IV SCH ×4 (01:48→05:36)
[2022-11-12] MEDS: IPRATROPIUM 0.5MG/ALBUTEROL 2.5MG INH SOL UD 3ML (DUONEB) NEB SCH ×7 (02:02→23:20)
[2022-11-12 03:33] VITALS: BP 104/77
[2022-11-12] MEDS: HEPARIN SOD (PORCINE) 5000UNITS/ML 1ML VIAL/SYRINGE SC SCH ×3 (05:36→20:51)
[2022-11-12 06:35] LABS: CALCIUM LEVEL 8.1 MG/DL (8.3-10.6); GLOMERULAR FILTRATION RATE 59.6 (>45); MAGNESIUM LEVEL 2.1 MG/DL (1.8-2.4)
[2022-11-12] MEDS: PIPERACILLIN/TAZOBACTAM SOD 3.375 GM in D5W MINI-BAG PLUS 50 ML IV SCH ×3 (06:49→17:57)
[2022-11-12] MEDS: CLOPIDOGREL 75 MG TAB PO SCH (08:30)
[2022-11-12] MEDS: PANTOPRAZOLE 40MG TAB (PROTONIX) PO SCH (08:30)
[2022-11-12] MEDS: traMADol 50 MG TAB PO PRN (08:31)
[2022-11-12] MEDS: NICOTINE 14 MG/24 HR TRANSDERMAL TD SCH (08:32)
[2022-11-12] MEDS ORDERED: PREPARATION H OINTMENT (HEMORRHOID) PR PRN (08:50)
[2022-11-12] MEDS ORDERED: predniSONE 20 MG TAB PO SCH (09:00)
[2022-11-12] MEDS: METOPROLOL TART 25 MG TABLET PO SCH ×2 (09:00→20:54)
[2022-11-12] MEDS ORDERED: PREPARATION H SUPP (HEMORRHOID) PR PRN (09:55)
[2022-11-12] MEDS ORDERED: methylPREDNISolone 40MG 1ML VIAL IV ONE (10:00)
[2022-11-12] MEDS ORDERED: SENOKOT S TAB PO PRN (10:10)
[2022-11-12] MEDS: ROSUVASTATIN 10 MG TAB (CRESTOR) PO SCH (10:42)
[2022-11-12 14:00] VITALS: BP 121/76
[2022-11-12] MEDS: ADVAIR HFA 230/21MCG INHALER INH SCH (19:47)
[2022-11-12 20:00] VITALS: BP 127/81
[2022-11-12] MEDS: guaiFENesin ER 600 MG TAB PO SCH (20:50)
[2022-11-12] MEDS: MAGNESIUM OXIDE 400MG TAB (MAG-OX) PO SCH (20:51)
[2022-11-13] VITALS (7 sets, daily range): BP systolic 88–126; BP diastolic 50–79
[2022-11-13] MEDS: PIPERACILLIN/TAZOBACTAM SOD 3.375 GM in D5W MINI-BAG PLUS 50 ML IV SCH ×2 (00:13→06:12)
[2022-11-13] MEDS: IPRATROPIUM 0.5MG/ALBUTEROL 2.5MG INH SOL UD 3ML (DUONEB) NEB SCH ×6 (03:21→23:27)
[2022-11-13] MEDS: HEPARIN SOD (PORCINE) 5000UNITS/ML 1ML VIAL/SYRINGE SC SCH ×3 (04:59→20:00)
[2022-11-13 06:22] LABS: MEAN CORPUSCULAR HEMOGLOBIN 30.2 pg (27.0-33.0); MEAN CORPUSCULAR HGB CONC 33.1 g/dl (32.0-36.5); MEAN CORPUSCULAR VOLUME 91.2 fl (80.0-96.0); PLATELET COUNT, AUTOMATED 237 10^3/uL (150-450); RED BLOOD COUNT 3.18 10^6/uL (4.00-5.40)
[2022-11-13 06:53] LABS: HEMOGLOBIN 9.6 g/dl (12.0-15.5)
[2022-11-13 06:57] LABS: BLOOD UREA NITROGEN 11 MG/DL (9-23); CALCIUM LEVEL 8.3 MG/DL (8.3-10.6); CARBON DIOXIDE LEVEL 36 MMOL/L (20-31); CHLORIDE LEVEL 96 MMOL/L (98-107); CREATININE FOR GFR 0.74 MG/DL (0.55-1.30); GLOMERULAR FILTRATION RATE > 60.0 (>45); GLUCOSE, FASTING 99 MG/DL (74-106); MAGNESIUM LEVEL 1.8 MG/DL (1.8-2.4); PHOSPHORUS LEVEL 3.7 MG/DL (2.4-5.1); POTASSIUM SERUM 3.8 MMOL/L (3.5-5.1); SODIUM LEVEL 136 MMOL/L (136-145)
[2022-11-13] MEDS: ADVAIR HFA 230/21MCG INHALER INH SCH ×2 (08:07→19:36)
[2022-11-13 08:22] LABS: HEMATOCRIT 32.6 % (36.0-47.0); HEMOGLOBIN 10.8 g/dl (12.0-15.5)
[2022-11-13] MEDS ORDERED: predniSONE 20 MG TAB PO SCH (09:00)
[2022-11-13] MEDS: guaiFENesin ER 600 MG TAB PO SCH ×2 (09:24→20:00)
[2022-11-13] MEDS: METOPROLOL TART 25 MG TABLET PO SCH ×2 (09:24→20:57)
[2022-11-13] MEDS: POTASSIUM CHLORIDE 10MEQ SR TABLET PO SCH ×2 (09:25→11:34)
[2022-11-13] MEDS: PANTOPRAZOLE 40MG TAB (PROTONIX) PO SCH (09:25)
[2022-11-13] MEDS: CLOPIDOGREL 75 MG TAB PO SCH (09:25)
[2022-11-13] MEDS: ROSUVASTATIN 10 MG TAB (CRESTOR) PO SCH (09:26)
[2022-11-13] MEDS: NICOTINE 14 MG/24 HR TRANSDERMAL TD SCH (09:26)
[2022-11-13] MEDS: FLUTICASONE PROP 0.05% NASAL SPRAY 16 GM (FLONASE) SCH (09:28)
[2022-11-13] MEDS ORDERED: methylPREDNISolone 125MG 2ML VIAL IV ONE ×2 (10:00→21:30)
[2022-11-13] MEDS: LACTOBACILLUS ACIDOPHILUS CAP (BACID) PO SCH (11:31)
[2022-11-13] MEDS: TORSEMIDE 10 MG TABLET PO SCH (11:31)
[2022-11-13] MEDS: CIPROFLOXACIN 500MG TABLET PO SCH ×2 (11:31→18:07)
[2022-11-13] MEDS: metroNIDAZOLE (FLAGYL) 500MG TABLET PO SCH ×2 (14:29→22:21)
[2022-11-13 16:08] LABS: APPEARANCE, URINE CLEAR (CLEAR); BILIRUBIN, URINE AUTO NEGATIVE (NEGATIVE); BLOOD, URINE BLOOD 2+ (NEGATIVE); COLOR, URINE STRAW (YELLOW); GLUCOSE, URINE (UA) AUTO NEGATIVE (NEGATIVE); KETONE, URINE AUTO NEGATIVE (NEGATIVE); LEUKOCYTE ESTERASE, URINE AUTO TRACE (NEGATIVE); NITRITE, URINE AUTO NEGATIVE (NEGATIVE); PROTEIN, URINE AUTO NEGATIVE (NEGATIVE); SPECIFIC GRAVITY URINE AUTO 1.005 (1.002-1.035); UROBILINOGEN, URINE AUTO 0.2 mg/dL (0.0-2.0)
[2022-11-13 16:10] LABS: BACTERIA, URINE AUTO NEGATIVE (NEGATIVE); MUCUS, URINE SMALL (NEGATIVE); RBC, URINE AUTO 1 /HPF (0-3); SQUAMOUS EPITHELIAL CELL UR AU 2 /HPF (0-6); WBC, URINE AUTO 3 /HPF (0-3)
[2022-11-13] MEDS: MAGNESIUM OXIDE 400MG TAB (MAG-OX) PO SCH (20:00)
[2022-11-13] MEDS ORDERED: KETOROLAC 30 MG/ML 1ML VIAL IV ONE (21:30)
[2022-11-13 21:53] LABS: CK-MB VALUE MASS 1.4 NG/ML (<3.6)
[2022-11-13 21:57] LABS: MB/CK RELATIVE INDEX 2.18 (< OR =4)
[2022-11-13] MEDS: LEVALBUTEROL 1.25MG 0.5ML CONCENTRATE NEB INH PRN (23:26)
[2022-11-14] MEDS: traMADol 50 MG TAB PO PRN ×2 (02:22→20:10)
[2022-11-14] MEDS: IPRATROPIUM 0.5MG/ALBUTEROL 2.5MG INH SOL UD 3ML (DUONEB) NEB SCH ×6 (03:03→23:23)
[2022-11-14] MEDS: LEVALBUTEROL 1.25MG 0.5ML CONCENTRATE NEB INH PRN (03:03)
[2022-11-14] MEDS: metroNIDAZOLE (FLAGYL) 500MG TABLET PO SCH ×3 (05:27→21:21)
[2022-11-14] MEDS: CIPROFLOXACIN 500MG TABLET PO SCH (05:27)
[2022-11-14] MEDS: HEPARIN SOD (PORCINE) 5000UNITS/ML 1ML VIAL/SYRINGE SC SCH ×3 (05:28→20:11)
[2022-11-14 06:00] VITALS: BP 117/78
[2022-11-14 06:25] LABS: HEMATOCRIT 29.7 % (36.0-47.0); HEMOGLOBIN 9.5 g/dl (12.0-15.5); MEAN CORPUSCULAR HEMOGLOBIN 29.2 pg (27.0-33.0); MEAN CORPUSCULAR VOLUME 91.4 fl (80.0-96.0); PLATELET COUNT, AUTOMATED 271 10^3/uL (150-450); RED BLOOD COUNT 3.25 10^6/uL (4.00-5.40); WHITE BLOOD COUNT 9.8 10^3/uL (4.0-10.0)
[2022-11-14 07:00] LABS: BLOOD UREA NITROGEN 18 MG/DL (9-23); CARBON DIOXIDE LEVEL 33 MMOL/L (20-31); CHLORIDE LEVEL 96 MMOL/L (98-107); CREATININE FOR GFR 0.87 MG/DL (0.55-1.30); GLOMERULAR FILTRATION RATE > 60.0 (>45); GLUCOSE, FASTING 182 MG/DL (74-106); MAGNESIUM LEVEL 1.2 MG/DL (1.8-2.4); POTASSIUM SERUM 3.6 MMOL/L (3.5-5.1); SODIUM LEVEL 137 MMOL/L (136-145)
[2022-11-14] MEDS ORDERED: MAG SULF 1GM/100ML (MAG RUN) 1 GM in IV 1 EA IV ONE ×2 (07:05→15:00)
[2022-11-14 07:36] LABS: IRON (FE) 71 UG/DL (50-170); PERCENT SATURATION 28.7 % (13.2-45.0); TOTAL IRON BINDING CAPACITY 247 UG/DL (250-425)
[2022-11-14 07:43] LABS: FERRITIN 322.8 NG/ML (7.3-270.7); FOLATE 6.6 NG/ML (>5.4); VITAMIN B12 LEVEL 919 PG/ML (211-911)
[2022-11-14] MEDS: ADVAIR HFA 230/21MCG INHALER INH SCH ×2 (08:17→19:44)
[2022-11-14] MEDS ORDERED: methylPREDNISolone 40MG 1ML VIAL IV SCH (09:00)
[2022-11-14] MEDS: LACTOBACILLUS ACIDOPHILUS CAP (BACID) PO SCH (09:59)
[2022-11-14] MEDS: guaiFENesin ER 600 MG TAB PO SCH ×2 (09:59→20:09)
[2022-11-14] MEDS: POTASSIUM CHLORIDE 10MEQ SR TABLET PO SCH ×2 (10:00→10:01)
[2022-11-14] MEDS: ROSUVASTATIN 10 MG TAB (CRESTOR) PO SCH (10:00)
[2022-11-14] MEDS: CLOPIDOGREL 75 MG TAB PO SCH (10:00)
[2022-11-14] MEDS: PANTOPRAZOLE 40MG TAB (PROTONIX) PO SCH (10:00)
[2022-11-14] MEDS: METOPROLOL TART 25 MG TABLET PO SCH ×2 (10:01→20:09)
[2022-11-14] MEDS: TORSEMIDE 10 MG TABLET PO SCH (10:01)
[2022-11-14] MEDS: methylPREDNISolone 40MG 1ML VIAL IV SCH ×3 (10:01→21:21)
[2022-11-14] MEDS: NICOTINE 14 MG/24 HR TRANSDERMAL TD SCH (10:02)
[2022-11-14] MEDS: FLUTICASONE PROP 0.05% NASAL SPRAY 16 GM (FLONASE) SCH (10:02)
[2022-11-14] MEDS: ACETAMINOPHEN TAB 650MG DOSE (2X325MG) PO PRN (10:16)
[2022-11-14] MEDS ORDERED: IPRATROPIUM 0.5MG/ALBUTEROL 2.5MG INH SOL UD 3ML (DUONEB) NEB ONE (10:30)
[2022-11-14] MEDS ORDERED: methylPREDNISolone 125MG 2ML VIAL IV ONE ×2 (10:30→10:35)
[2022-11-14] MEDS ORDERED: ISOVUE-370 76% 100ML VIAL As Ordered ONE (11:25)
[2022-11-14 11:27] LABS: CHOLESTEROL RISK RATIO 2.52 (<5); HDL CHOLESTEROL 54.2 MG/DL (>40); LDL CHOLESTEROL 65.4 MG/DL (<100)
[2022-11-14 11:35] LABS: ABG BASE EXCESS 5.4 (-2.0-2.0); ABG HCO3 30.1 MEQ/L (22.0-26.0); ABG O2 SATURATION 97.8 % (95.0-99.0); ABG PARTIAL PRESSURE CO2 44.6 mmHg (35.0-45.0); ABG PARTIAL PRESSURE O2 103.3 mmHg (75.0-100.0); ABG STANDARD HCO3 29.3 MEQ/L (22.0-26.0); ABG TOTAL CO2 31.5 MEQ/L (23.0-31.0); ABG pH (ARTERIAL) 7.447 UNITS (7.350-7.450)
[2022-11-14] MEDS ORDERED: LevoFLOXacin IV 750 MG in IV 1 EA IV SCH (12:00)
[2022-11-14 14:00] VITALS: BP 102/76
[2022-11-14] MEDS: LevoFLOXacin 750 MG TABLET PO SCH (17:37)
[2022-11-14] MEDS: MAGNESIUM OXIDE 400MG TAB (MAG-OX) PO SCH (20:10)
[2022-11-14 21:30] VITALS: BP 107/69
[2022-11-15] MEDS: methylPREDNISolone 40MG 1ML VIAL IV SCH ×4 (03:04→21:23)
[2022-11-15] MEDS: IPRATROPIUM 0.5MG/ALBUTEROL 2.5MG INH SOL UD 3ML (DUONEB) NEB SCH ×6 (03:55→23:57)
[2022-11-15 05:00] VITALS: BP 110/69
[2022-11-15] MEDS: HEPARIN SOD (PORCINE) 5000UNITS/ML 1ML VIAL/SYRINGE SC SCH ×3 (05:59→21:23)
[2022-11-15] MEDS: metroNIDAZOLE (FLAGYL) 500MG TABLET PO SCH ×3 (05:59→21:22)
[2022-11-15 06:02] LABS: HEMOGLOBIN 10.1 g/dl (12.0-15.5); MEAN CORPUSCULAR HEMOGLOBIN 29.5 pg (27.0-33.0); MEAN CORPUSCULAR HGB CONC 32.6 g/dl (32.0-36.5); MEAN CORPUSCULAR VOLUME 90.6 fl (80.0-96.0); PLATELET COUNT, AUTOMATED 307 10^3/uL (150-450); RED BLOOD COUNT 3.42 10^6/uL (4.00-5.40); WHITE BLOOD COUNT 11.5 10^3/uL (4.0-10.0)
[2022-11-15 06:33] LABS: BLOOD UREA NITROGEN 16 MG/DL (9-23); CALCIUM LEVEL 8.8 MG/DL (8.3-10.6); CARBON DIOXIDE LEVEL 33 MMOL/L (20-31); CHLORIDE LEVEL 97 MMOL/L (98-107); CREATININE FOR GFR 0.72 MG/DL (0.55-1.30); GLOMERULAR FILTRATION RATE > 60.0 (>45); GLUCOSE, FASTING 155 MG/DL (74-106); MAGNESIUM LEVEL 1.7 MG/DL (1.8-2.4); POTASSIUM SERUM 4.4 MMOL/L (3.5-5.1); SODIUM LEVEL 134 MMOL/L (136-145)
[2022-11-15] MEDS: ADVAIR HFA 230/21MCG INHALER INH SCH ×2 (07:31→19:18)
[2022-11-15] MEDS ORDERED: MAGNESIUM OXIDE 400MG TAB (MAG-OX) PO ONE (08:00)
[2022-11-15] MEDS: CLOPIDOGREL 75 MG TAB PO SCH (10:12)
[2022-11-15] MEDS: TORSEMIDE 10 MG TABLET PO SCH (10:12)
[2022-11-15] MEDS: LACTOBACILLUS ACIDOPHILUS CAP (BACID) PO SCH (10:12)
[2022-11-15] MEDS: guaiFENesin ER 600 MG TAB PO SCH ×2 (10:13→21:22)
[2022-11-15] MEDS: POTASSIUM CHLORIDE 10MEQ SR TABLET PO SCH (10:13)
[2022-11-15] MEDS: ROSUVASTATIN 10 MG TAB (CRESTOR) PO SCH (10:13)
[2022-11-15] MEDS: PANTOPRAZOLE 40MG TAB (PROTONIX) PO SCH (10:13)
[2022-11-15] MEDS: NICOTINE 14 MG/24 HR TRANSDERMAL TD SCH (10:14)
[2022-11-15] MEDS: FLUTICASONE PROP 0.05% NASAL SPRAY 16 GM (FLONASE) SCH (10:14)
[2022-11-15] MEDS: METOPROLOL TART 25 MG TABLET PO SCH ×2 (10:22→21:23)
[2022-11-15] MEDS ORDERED: methylPREDNISolone 125MG 2ML VIAL IV ONE (14:00)
[2022-11-15 14:36] LABS: ABG BASE EXCESS 3.8 (-2.0-2.0); ABG HCO3 27.6 MEQ/L (22.0-26.0); ABG O2 SATURATION 96.6 % (95.0-99.0); ABG PARTIAL PRESSURE CO2 38.8 mmHg (35.0-45.0); ABG PARTIAL PRESSURE O2 87.8 mmHg (75.0-100.0); ABG STANDARD HCO3 27.8 MEQ/L (22.0-26.0); ABG TOTAL CO2 28.8 MEQ/L (23.0-31.0)
[2022-11-15 15:00] VITALS: BP 110/68
[2022-11-15] MEDS ORDERED: FUROSEMIDE 20MG/2ML VIAL IV ONE (15:00)
[2022-11-15 15:10] VITALS: BP 110/68
[2022-11-15] MEDS ORDERED: FUROSEMIDE 20MG/2ML VIAL IV SCH (17:00)
[2022-11-15] MEDS: LevoFLOXacin 750 MG TABLET PO SCH (17:40)
[2022-11-15] MEDS: traMADol 50 MG TAB PO PRN (18:30)
[2022-11-15 21:15] VITALS: BP 106/66
[2022-11-15] MEDS: MAGNESIUM OXIDE 400MG TAB (MAG-OX) PO SCH (21:22)
[2022-11-15] MEDS: LEVALBUTEROL 1.25MG 0.5ML CONCENTRATE NEB INH PRN (21:48)
[2022-11-16] MEDS ORDERED: KETOROLAC 30 MG/ML 1ML VIAL IV ONE (02:55)
[2022-11-16] MEDS: methylPREDNISolone 40MG 1ML VIAL IV SCH ×4 (03:07→21:23)
[2022-11-16] MEDS: IPRATROPIUM 0.5MG/ALBUTEROL 2.5MG INH SOL UD 3ML (DUONEB) NEB SCH ×6 (04:37→23:23)
[2022-11-16] MEDS: metroNIDAZOLE (FLAGYL) 500MG TABLET PO SCH ×3 (05:07→21:41)
[2022-11-16] MEDS: HEPARIN SOD (PORCINE) 5000UNITS/ML 1ML VIAL/SYRINGE SC SCH ×3 (05:07→21:26)
[2022-11-16 05:34] LABS: HEMATOCRIT 34.6 % (36.0-47.0); HEMOGLOBIN 11.2 g/dl (12.0-15.5); MEAN CORPUSCULAR HGB CONC 32.4 g/dl (32.0-36.5); MEAN CORPUSCULAR VOLUME 92.8 fl (80.0-96.0); PLATELET COUNT, AUTOMATED 337 10^3/uL (150-450); RED BLOOD COUNT 3.73 10^6/uL (4.00-5.40); WHITE BLOOD COUNT 12.7 10^3/uL (4.0-10.0)
[2022-11-16 05:59] LABS: BLOOD UREA NITROGEN 19 MG/DL (9-23); CALCIUM LEVEL 8.7 MG/DL (8.3-10.6); CARBON DIOXIDE LEVEL 32 MMOL/L (20-31); CHLORIDE LEVEL 96 MMOL/L (98-107); CREATININE FOR GFR 0.82 MG/DL (0.55-1.30); GLOMERULAR FILTRATION RATE > 60.0 (>45); GLUCOSE, FASTING 172 MG/DL (74-106); MAGNESIUM LEVEL 1.6 MG/DL (1.8-2.4); POTASSIUM SERUM 4.8 MMOL/L (3.5-5.1); SODIUM LEVEL 135 MMOL/L (136-145)
[2022-11-16 06:00] VITALS: BP 149/81
[2022-11-16] MEDS ORDERED: MAG SULF 1GM/100ML (MAG RUN) 1 GM in IV 1 EA IV SCH (07:20)
[2022-11-16] MEDS ORDERED: MAG SULF 1GM/100ML (MAG RUN) 1 GM in IV 1 EA IV ONE (07:25)
[2022-11-16] MEDS: ADVAIR HFA 230/21MCG INHALER INH SCH (08:01)
[2022-11-16] MEDS ORDERED: MAGNESIUM OXIDE 400MG TAB (MAG-OX) PO ONE (09:00)
[2022-11-16] MEDS: FLUTICASONE PROP 0.05% NASAL SPRAY 16 GM (FLONASE) SCH (09:40)
[2022-11-16] MEDS: FUROSEMIDE 20MG/2ML VIAL IV SCH ×2 (09:40→17:56)
[2022-11-16] MEDS: METOPROLOL TART 25 MG TABLET PO SCH ×2 (09:41→21:25)
[2022-11-16] MEDS: PANTOPRAZOLE 40MG TAB (PROTONIX) PO SCH (09:41)
[2022-11-16] MEDS: guaiFENesin ER 600 MG TAB PO SCH ×2 (09:41→21:24)
[2022-11-16] MEDS: LACTOBACILLUS ACIDOPHILUS CAP (BACID) PO SCH (09:41)
[2022-11-16] MEDS: ROSUVASTATIN 10 MG TAB (CRESTOR) PO SCH (09:41)
[2022-11-16] MEDS: POTASSIUM CHLORIDE 10MEQ SR TABLET PO SCH (09:41)
[2022-11-16] MEDS: CLOPIDOGREL 75 MG TAB PO SCH (09:41)
[2022-11-16] MEDS: NICOTINE 14 MG/24 HR TRANSDERMAL TD SCH (09:42)
[2022-11-16 14:00] VITALS: BP 146/81
[2022-11-16] MEDS: SODIUM CHLORIDE HYPERTONIC 3% 15ML NEB SOL INH SCH ×3 (15:30→23:23)
[2022-11-16] MEDS: LevoFLOXacin 750 MG TABLET PO SCH (17:56)
[2022-11-16] MEDS: ACETYLCYSTEINE 10% 30ML VIAL INH SCH (20:12)
[2022-11-16 21:20] VITALS: BP 136/80
[2022-11-16] MEDS: MAGNESIUM OXIDE 400MG TAB (MAG-OX) PO SCH (21:24)
[2022-11-16] MEDS: traMADol 50 MG TAB PO PRN (22:57)
[2022-11-17] MEDS: IPRATROPIUM 0.5MG/ALBUTEROL 2.5MG INH SOL UD 3ML (DUONEB) NEB SCH ×6 (03:00→23:37)
[2022-11-17] MEDS: SODIUM CHLORIDE HYPERTONIC 3% 15ML NEB SOL INH SCH ×6 (03:01→23:37)
[2022-11-17] MEDS: methylPREDNISolone 40MG 1ML VIAL IV SCH ×4 (03:41→20:41)
[2022-11-17] MEDS: HEPARIN SOD (PORCINE) 5000UNITS/ML 1ML VIAL/SYRINGE SC SCH ×3 (05:07→20:42)
[2022-11-17] MEDS: metroNIDAZOLE (FLAGYL) 500MG TABLET PO SCH ×3 (05:07→20:41)
[2022-11-17 05:51] LABS: HEMATOCRIT 32.5 % (36.0-47.0); HEMOGLOBIN 10.6 g/dl (12.0-15.5); MEAN CORPUSCULAR HEMOGLOBIN 29.9 pg (27.0-33.0); MEAN CORPUSCULAR HGB CONC 32.6 g/dl (32.0-36.5); MEAN CORPUSCULAR VOLUME 91.5 fl (80.0-96.0); PLATELET COUNT, AUTOMATED 336 10^3/uL (150-450); RED BLOOD COUNT 3.55 10^6/uL (4.00-5.40); WHITE BLOOD COUNT 14.8 10^3/uL (4.0-10.0)
[2022-11-17 06:00] VITALS: BP 140/86
[2022-11-17 06:23] LABS: BLOOD UREA NITROGEN 29 MG/DL (9-23); CALCIUM LEVEL 8.5 MG/DL (8.3-10.6); CARBON DIOXIDE LEVEL 31 MMOL/L (20-31); CHLORIDE LEVEL 96 MMOL/L (98-107); CREATININE FOR GFR 0.99 MG/DL (0.55-1.30); GLOMERULAR FILTRATION RATE > 60.0 (>45); GLUCOSE, FASTING 128 MG/DL (74-106); MAGNESIUM LEVEL 1.6 MG/DL (1.8-2.4); POTASSIUM SERUM 5.3 MMOL/L (3.5-5.1); SODIUM LEVEL 133 MMOL/L (136-145)
[2022-11-17] MEDS: TRELEGY ELLIPTA (PATIENT'S OWN MED) INH SCH ×2 (08:11→08:32)
[2022-11-17] MEDS: ACETYLCYSTEINE 10% 30ML VIAL INH SCH ×2 (08:11→19:59)
[2022-11-17] MEDS: POTASSIUM CHLORIDE 10MEQ SR TABLET PO SCH (09:00)
[2022-11-17] MEDS: PANTOPRAZOLE 40MG TAB (PROTONIX) PO SCH (09:42)
[2022-11-17] MEDS: METOPROLOL TART 25 MG TABLET PO SCH ×2 (09:42→20:42)
[2022-11-17] MEDS: CLOPIDOGREL 75 MG TAB PO SCH (09:42)
[2022-11-17] MEDS: MAGNESIUM OXIDE 400MG TAB (MAG-OX) PO SCH ×2 (09:42→20:41)
[2022-11-17] MEDS: LACTOBACILLUS ACIDOPHILUS CAP (BACID) PO SCH (09:42)
[2022-11-17] MEDS: guaiFENesin ER 600 MG TAB PO SCH ×2 (09:42→20:41)
[2022-11-17] MEDS: ROSUVASTATIN 10 MG TAB (CRESTOR) PO SCH (09:42)
[2022-11-17] MEDS: FUROSEMIDE 20MG/2ML VIAL IV SCH (09:43)
[2022-11-17] MEDS: NICOTINE 14 MG/24 HR TRANSDERMAL TD SCH (09:43)
[2022-11-17] MEDS: FLUTICASONE PROP 0.05% NASAL SPRAY 16 GM (FLONASE) SCH (09:43)
[2022-11-17] MEDS ORDERED: PATIROMER SORBITEX CALCIUM 8.4 GM POWDER PACKET (VELTASSA) PO ONE (12:25)
[2022-11-17 14:00] VITALS: BP 109/68
[2022-11-17] MEDS: FUROSEMIDE 40MG/4ML VIAL IV SCH (16:16)
[2022-11-17] MEDS: LevoFLOXacin 750 MG TABLET PO SCH (17:03)
[2022-11-17 18:21] LABS: CALCIUM LEVEL 8.9 MG/DL (8.3-10.6); GLOMERULAR FILTRATION RATE 59.6 (>45); POTASSIUM SERUM 4.8 MMOL/L (3.5-5.1)
[2022-11-17 19:55] VITALS: BP 110/67
[2022-11-17 20:31] VITALS: BP 111/70
[2022-11-18] VITALS (7 sets, daily range): BP systolic 119–134; BP diastolic 65–98; O2SAT 85–94
[2022-11-18] MEDS: traMADol 50 MG TAB PO PRN ×2 (00:29→14:30)
[2022-11-18] MEDS: IPRATROPIUM 0.5MG/ALBUTEROL 2.5MG INH SOL UD 3ML (DUONEB) NEB SCH ×6 (03:39→22:39)
[2022-11-18] MEDS: SODIUM CHLORIDE HYPERTONIC 3% 15ML NEB SOL INH SCH ×5 (03:41→19:24)
[2022-11-18] MEDS: methylPREDNISolone 40MG 1ML VIAL IV SCH ×4 (04:14→21:04)
[2022-11-18] MEDS: metroNIDAZOLE (FLAGYL) 500MG TABLET PO SCH ×3 (05:22→20:25)
[2022-11-18] MEDS: HEPARIN SOD (PORCINE) 5000UNITS/ML 1ML VIAL/SYRINGE SC SCH ×3 (05:22→20:26)
[2022-11-18 06:10] LABS: HEMATOCRIT 32.7 % (36.0-47.0); HEMOGLOBIN 10.6 g/dl (12.0-15.5); MEAN CORPUSCULAR HEMOGLOBIN 29.5 pg (27.0-33.0); MEAN CORPUSCULAR HGB CONC 32.4 g/dl (32.0-36.5); MEAN CORPUSCULAR VOLUME 91.1 fl (80.0-96.0); PLATELET COUNT, AUTOMATED 334 10^3/uL (150-450); RED BLOOD COUNT 3.59 10^6/uL (4.00-5.40); WHITE BLOOD COUNT 15.9 10^3/uL (4.0-10.0)
[2022-11-18 06:32] LABS: BLOOD UREA NITROGEN 30 MG/DL (9-23); CALCIUM LEVEL 8.8 MG/DL (8.3-10.6); CARBON DIOXIDE LEVEL 33 MMOL/L (20-31); CHLORIDE LEVEL 96 MMOL/L (98-107); GLOMERULAR FILTRATION RATE > 60.0 (>45); GLUCOSE, FASTING 134 MG/DL (74-106); MAGNESIUM LEVEL 1.6 MG/DL (1.8-2.4); POTASSIUM SERUM 4.8 MMOL/L (3.5-5.1); SODIUM LEVEL 134 MMOL/L (136-145)
[2022-11-18] MEDS: ACETYLCYSTEINE 10% 30ML VIAL INH SCH (08:25)
[2022-11-18] MEDS: TRELEGY ELLIPTA (PATIENT'S OWN MED) INH SCH (08:30)
[2022-11-18] MEDS: CLOPIDOGREL 75 MG TAB PO SCH (09:19)
[2022-11-18] MEDS: guaiFENesin ER 600 MG TAB PO SCH ×2 (09:19→20:25)
[2022-11-18] MEDS: LACTOBACILLUS ACIDOPHILUS CAP (BACID) PO SCH (09:19)
[2022-11-18] MEDS: MAGNESIUM OXIDE 400MG TAB (MAG-OX) PO SCH ×2 (09:20→20:24)
[2022-11-18] MEDS: PANTOPRAZOLE 40MG TAB (PROTONIX) PO SCH (09:20)
[2022-11-18] MEDS: FUROSEMIDE 40MG/4ML VIAL IV SCH ×2 (09:21→16:19)
[2022-11-18] MEDS: ROSUVASTATIN 10 MG TAB (CRESTOR) PO SCH (09:21)
[2022-11-18] MEDS: METOPROLOL TART 25 MG TABLET PO SCH ×2 (09:23→20:26)
[2022-11-18] MEDS: NICOTINE 14 MG/24 HR TRANSDERMAL TD SCH (09:23)
[2022-11-18] MEDS: FLUTICASONE PROP 0.05% NASAL SPRAY 16 GM (FLONASE) SCH (09:24)
[2022-11-18] MEDS: LevoFLOXacin 750 MG TABLET PO SCH (17:20)
[2022-11-18] MEDS: ACETYLCYSTEINE 20% 4 ML VIAL (200MG/ML) INH SCH (19:23)
[2022-11-18] MEDS: ACETAMINOPHEN TAB 650MG DOSE (2X325MG) PO PRN (22:36)
[2022-11-19] MEDS: LEVALBUTEROL 1.25MG 0.5ML CONCENTRATE NEB INH PRN (00:54)
[2022-11-19] MEDS: SODIUM CHLORIDE HYPERTONIC 3% 15ML NEB SOL INH SCH ×7 (00:54→23:28)
[2022-11-19] MEDS: IPRATROPIUM 0.5MG/ALBUTEROL 2.5MG INH SOL UD 3ML (DUONEB) NEB SCH ×6 (03:14→23:28)
[2022-11-19] MEDS: methylPREDNISolone 40MG 1ML VIAL IV SCH ×4 (04:17→21:29)
[2022-11-19] MEDS: HEPARIN SOD (PORCINE) 5000UNITS/ML 1ML VIAL/SYRINGE SC SCH (04:19)
[2022-11-19 05:00] VITALS: BP 121/76
[2022-11-19] MEDS: metroNIDAZOLE (FLAGYL) 500MG TABLET PO SCH ×3 (05:52→21:28)
[2022-11-19 05:53] LABS: HEMATOCRIT 33.4 % (36.0-47.0); MEAN CORPUSCULAR HEMOGLOBIN 29.6 pg (27.0-33.0); MEAN CORPUSCULAR HGB CONC 32.9 g/dl (32.0-36.5); PLATELET COUNT, AUTOMATED 336 10^3/uL (150-450); RED BLOOD COUNT 3.71 10^6/uL (4.00-5.40); WHITE BLOOD COUNT 16.5 10^3/uL (4.0-10.0)
[2022-11-19 06:30] LABS: BLOOD UREA NITROGEN 34 MG/DL (9-23); CALCIUM LEVEL 8.1 MG/DL (8.3-10.6); CARBON DIOXIDE LEVEL 34 MMOL/L (20-31); CHLORIDE LEVEL 93 MMOL/L (98-107); CREATININE FOR GFR 0.92 MG/DL (0.55-1.30); GLOMERULAR FILTRATION RATE > 60.0 (>45); GLUCOSE, FASTING 148 MG/DL (74-106); MAGNESIUM LEVEL 1.5 MG/DL (1.8-2.4); PHOSPHORUS LEVEL 4.7 MG/DL (2.4-5.1); POTASSIUM SERUM 3.9 MMOL/L (3.5-5.1); SODIUM LEVEL 134 MMOL/L (136-145)
[2022-11-19] MEDS: CLOPIDOGREL 75 MG TAB PO SCH (08:09)
[2022-11-19] MEDS: LACTOBACILLUS ACIDOPHILUS CAP (BACID) PO SCH (08:09)
[2022-11-19] MEDS: guaiFENesin ER 600 MG TAB PO SCH ×2 (08:09→21:24)
[2022-11-19] MEDS: PANTOPRAZOLE 40MG TAB (PROTONIX) PO SCH (08:09)
[2022-11-19] MEDS: MAGNESIUM OXIDE 400MG TAB (MAG-OX) PO SCH ×2 (08:09→21:24)
[2022-11-19] MEDS: NICOTINE 14 MG/24 HR TRANSDERMAL TD SCH (08:10)
[2022-11-19] MEDS: ROSUVASTATIN 10 MG TAB (CRESTOR) PO SCH (08:10)
[2022-11-19] MEDS: METOPROLOL TART 25 MG TABLET PO SCH ×2 (08:10→21:28)
[2022-11-19] MEDS: FUROSEMIDE 40MG/4ML VIAL IV SCH ×2 (08:11→16:31)
[2022-11-19] MEDS: FLUTICASONE PROP 0.05% NASAL SPRAY 16 GM (FLONASE) SCH (08:11)
[2022-11-19] MEDS: ACETYLCYSTEINE 20% 4 ML VIAL (200MG/ML) INH SCH ×2 (08:22→20:01)
[2022-11-19] MEDS: TRELEGY ELLIPTA (PATIENT'S OWN MED) INH SCH (08:22)
[2022-11-19 08:23] VITALS: O2SAT 92
[2022-11-19] MEDS: MAG SULF 1GM/100ML (MAG RUN) 1 GM in IV 1 EA IV SCH ×2 (10:02→11:07)
[2022-11-19 11:53] VITALS: O2SAT 93
[2022-11-19 14:00] VITALS: BP 119/75
[2022-11-19 15:44] VITALS: O2SAT 91
[2022-11-19] MEDS: RIVAROXABAN 10MG TAB (XARELTO) PO SCH (18:07)
[2022-11-19 20:43] VITALS: BP 117/70
[2022-11-19] MEDS ORDERED: ACETYLCYSTEINE 20% 30ML VIAL PO SCH (21:00)
[2022-11-19] MEDS: traMADol 50 MG TAB PO PRN (21:29)
[2022-11-20] VITALS (8 sets, daily range): BP systolic 105–145; BP diastolic 71–85; O2SAT 93–95
[2022-11-20] MEDS: IPRATROPIUM 0.5MG/ALBUTEROL 2.5MG INH SOL UD 3ML (DUONEB) NEB SCH ×6 (03:12→23:27)
[2022-11-20] MEDS: SODIUM CHLORIDE HYPERTONIC 3% 15ML NEB SOL INH SCH ×6 (03:12→23:27)
[2022-11-20] MEDS: methylPREDNISolone 40MG 1ML VIAL IV SCH ×3 (04:17→21:30)
[2022-11-20] MEDS ORDERED: SODIUM CHLORIDE NASAL 0.65% SPRAY BTL (OCEAN) PRN (05:00)
[2022-11-20] MEDS: metroNIDAZOLE (FLAGYL) 500MG TABLET PO SCH (05:19)
[2022-11-20] MEDS: FLUTICASONE PROP 0.05% NASAL SPRAY 16 GM (FLONASE) SCH ×2 (05:20→21:30)
[2022-11-20 07:34] LABS: HEMATOCRIT 34.5 % (36.0-47.0); HEMOGLOBIN 11.5 g/dl (12.0-15.5); MEAN CORPUSCULAR HEMOGLOBIN 30.1 pg (27.0-33.0); MEAN CORPUSCULAR HGB CONC 33.3 g/dl (32.0-36.5); MEAN CORPUSCULAR VOLUME 90.3 fl (80.0-96.0); PLATELET COUNT, AUTOMATED 338 10^3/uL (150-450); RED BLOOD COUNT 3.82 10^6/uL (4.00-5.40); WHITE BLOOD COUNT 18.3 10^3/uL (4.0-10.0)
[2022-11-20] MEDS: TRELEGY ELLIPTA (PATIENT'S OWN MED) INH SCH (07:55)
[2022-11-20] MEDS: ACETYLCYSTEINE 20% 4 ML VIAL (200MG/ML) INH SCH ×2 (07:55→19:41)
[2022-11-20 07:56] LABS: BLOOD UREA NITROGEN 28 MG/DL (9-23); CARBON DIOXIDE LEVEL 36 MMOL/L (20-31); CHLORIDE LEVEL 91 MMOL/L (98-107); CREATININE FOR GFR 0.84 MG/DL (0.55-1.30); GLOMERULAR FILTRATION RATE > 60.0 (>45); GLUCOSE, FASTING 156 MG/DL (74-106); MAGNESIUM LEVEL 1.9 MG/DL (1.8-2.4); POTASSIUM SERUM 4.3 MMOL/L (3.5-5.1); SODIUM LEVEL 132 MMOL/L (136-145)
[2022-11-20] MEDS: guaiFENesin ER 600 MG TAB PO SCH ×2 (08:53→21:29)
[2022-11-20] MEDS: CLOPIDOGREL 75 MG TAB PO SCH (08:53)
[2022-11-20] MEDS: MAGNESIUM OXIDE 400MG TAB (MAG-OX) PO SCH ×2 (08:54→21:29)
[2022-11-20] MEDS: ROSUVASTATIN 10 MG TAB (CRESTOR) PO SCH (08:54)
[2022-11-20] MEDS: LACTOBACILLUS ACIDOPHILUS CAP (BACID) PO SCH (08:54)
[2022-11-20] MEDS: METOPROLOL TART 25 MG TABLET PO SCH ×2 (08:58→21:29)
[2022-11-20] MEDS: FUROSEMIDE 40MG/4ML VIAL IV SCH ×2 (09:00→16:58)
[2022-11-20] MEDS: NICOTINE 14 MG/24 HR TRANSDERMAL TD SCH (09:00)
[2022-11-20] MEDS: PANTOPRAZOLE 40MG TAB (PROTONIX) PO SCH (09:01)
[2022-11-20 09:33] LABS: ATYPICAL LYMPH 3 % (0-5); LYMPHOCYTES 7 % (16-44); MONOCYTES 3 % (0-5); NEUTROPHILS 86 % (28-66)
[2022-11-20 09:35] LABS: ANISOCYTOSIS 1+
[2022-11-20 09:36] LABS: PLATELET ESTIMATE NORMAL (NORMAL)
[2022-11-20] MEDS ORDERED: CLOTRIMAZOLE 10 MG TROCHE PO SCH (13:00)
[2022-11-20] MEDS: NYSTATIN 500,000U/5ML SUSP UDC SS SCH ×2 (16:58→21:29)
[2022-11-20] MEDS: RIVAROXABAN 10MG TAB (XARELTO) PO SCH (18:27)
[2022-11-21] VITALS (8 sets, daily range): BP systolic 116–140; BP diastolic 69–81; O2SAT 91–94
[2022-11-21] MEDS: traMADol 50 MG TAB PO PRN (03:28)
[2022-11-21] MEDS: IPRATROPIUM 0.5MG/ALBUTEROL 2.5MG INH SOL UD 3ML (DUONEB) NEB SCH ×6 (03:33→23:30)
[2022-11-21] MEDS: SODIUM CHLORIDE HYPERTONIC 3% 15ML NEB SOL INH SCH ×6 (03:34→23:30)
[2022-11-21] MEDS: ACETYLCYSTEINE 20% 4 ML VIAL (200MG/ML) INH SCH ×2 (07:53→20:19)
[2022-11-21] MEDS: TRELEGY ELLIPTA (PATIENT'S OWN MED) INH SCH (07:53)
[2022-11-21 08:10] LABS: BASO # 0.1 10^3/uL (0.0-0.2); BASO % 0.3 % (0.0-1.0); HEMATOCRIT 36.1 % (36.0-47.0); HEMOGLOBIN 12.1 g/dl (12.0-15.5); LYMPH # 1.5 10^3/uL (1.5-5.0); LYMPH % 6.7 % (24.0-44.0); MEAN CORPUSCULAR HEMOGLOBIN 29.7 pg (27.0-33.0); MEAN CORPUSCULAR HGB CONC 33.5 g/dl (32.0-36.5); MEAN CORPUSCULAR VOLUME 88.7 fl (80.0-96.0); MONO % 7.2 % (2.0-8.0); NEUTROPHILS % 81.5 % (36.0-66.0); PLATELET COUNT, AUTOMATED 336 10^3/uL (150-450); RED BLOOD COUNT 4.07 10^6/uL (4.00-5.40); WHITE BLOOD COUNT 22.1 10^3/uL (4.0-10.0)
[2022-11-21 08:36] LABS: BLOOD UREA NITROGEN 30 MG/DL (9-23); CARBON DIOXIDE LEVEL 37 MMOL/L (20-31); CHLORIDE LEVEL 89 MMOL/L (98-107); CREATININE FOR GFR 0.75 MG/DL (0.55-1.30); GLOMERULAR FILTRATION RATE > 60.0 (>45); GLUCOSE, FASTING 109 MG/DL (74-106); MAGNESIUM LEVEL 1.7 MG/DL (1.8-2.4); POTASSIUM SERUM 3.8 MMOL/L (3.5-5.1); SODIUM LEVEL 132 MMOL/L (136-145)
[2022-11-21 08:50] LABS: MONO # 1.6 10^3/uL (0.0-0.8)
[2022-11-21] MEDS: FUROSEMIDE 40MG/4ML VIAL IV SCH ×2 (09:57→17:02)
[2022-11-21] MEDS: PANTOPRAZOLE 40MG TAB (PROTONIX) PO SCH (09:58)
[2022-11-21] MEDS: ROSUVASTATIN 10 MG TAB (CRESTOR) PO SCH (09:58)
[2022-11-21] MEDS: LACTOBACILLUS ACIDOPHILUS CAP (BACID) PO SCH (09:58)
[2022-11-21] MEDS: METOPROLOL TART 25 MG TABLET PO SCH ×2 (09:58→21:03)
[2022-11-21] MEDS: MAGNESIUM OXIDE 400MG TAB (MAG-OX) PO SCH ×2 (09:58→21:03)
[2022-11-21] MEDS: guaiFENesin ER 600 MG TAB PO SCH ×2 (09:58→21:04)
[2022-11-21] MEDS: NYSTATIN 500,000U/5ML SUSP UDC SS SCH ×4 (09:59→21:04)
[2022-11-21] MEDS: CLOPIDOGREL 75 MG TAB PO SCH (09:59)
[2022-11-21] MEDS: acetaZOLAMIDE 250MG TAB PO SCH (09:59)
[2022-11-21] MEDS: methylPREDNISolone 40MG 1ML VIAL IV SCH ×2 (10:00→21:04)
[2022-11-21] MEDS: NICOTINE 14 MG/24 HR TRANSDERMAL TD SCH (10:00)
[2022-11-21] MEDS: FLUTICASONE PROP 0.05% NASAL SPRAY 16 GM (FLONASE) SCH ×2 (10:00→21:04)
[2022-11-21] MEDS: RIVAROXABAN 10MG TAB (XARELTO) PO SCH (17:02)
[2022-11-22] MEDS: traMADol 50 MG TAB PO PRN ×2 (02:37→14:42)
[2022-11-22] MEDS: IPRATROPIUM 0.5MG/ALBUTEROL 2.5MG INH SOL UD 3ML (DUONEB) NEB SCH ×6 (04:33→23:42)
[2022-11-22] MEDS: SODIUM CHLORIDE HYPERTONIC 3% 15ML NEB SOL INH SCH ×6 (04:34→23:42)
[2022-11-22 05:40] VITALS: BP 127/74
[2022-11-22] MEDS: TRELEGY ELLIPTA (PATIENT'S OWN MED) INH SCH (07:24)
[2022-11-22] MEDS: ACETYLCYSTEINE 20% 4 ML VIAL (200MG/ML) INH SCH ×2 (07:24→19:56)
[2022-11-22 07:40] LABS: BASO # 0.1 10^3/uL (0.0-0.2); BASO % 0.3 % (0.0-1.0); HEMATOCRIT 35.5 % (36.0-47.0); HEMOGLOBIN 11.8 g/dl (12.0-15.5); LYMPH # 1.4 10^3/uL (1.5-5.0); LYMPH % 5.8 % (24.0-44.0); MEAN CORPUSCULAR HEMOGLOBIN 29.7 pg (27.0-33.0); MEAN CORPUSCULAR HGB CONC 33.2 g/dl (32.0-36.5); MEAN CORPUSCULAR VOLUME 89.4 fl (80.0-96.0); MONO % 6.6 % (2.0-8.0); NEUTROPHILS # 19.8 10^3/uL (1.5-8.5); NEUTROPHILS % 83.5 % (36.0-66.0); PLATELET COUNT, AUTOMATED 312 10^3/uL (150-450); RED BLOOD COUNT 3.97 10^6/uL (4.00-5.40); WHITE BLOOD COUNT 23.8 10^3/uL (4.0-10.0)
[2022-11-22 08:09] LABS: BLOOD UREA NITROGEN 29 MG/DL (9-23); CALCIUM LEVEL 8.4 MG/DL (8.3-10.6); CARBON DIOXIDE LEVEL 35 MMOL/L (20-31); CHLORIDE LEVEL 92 MMOL/L (98-107); CREATININE FOR GFR 0.75 MG/DL (0.55-1.30); GLOMERULAR FILTRATION RATE > 60.0 (>45); GLUCOSE, FASTING 141 MG/DL (74-106); MAGNESIUM LEVEL 1.5 MG/DL (1.8-2.4); POTASSIUM SERUM 3.3 MMOL/L (3.5-5.1); SODIUM LEVEL 133 MMOL/L (136-145)
[2022-11-22 08:35] LABS: MONO # 1.6 10^3/uL (0.0-0.8)
[2022-11-22] MEDS: FUROSEMIDE 40MG/4ML VIAL IV SCH (08:45)
[2022-11-22] MEDS: LACTOBACILLUS ACIDOPHILUS CAP (BACID) PO SCH (08:46)
[2022-11-22] MEDS: NYSTATIN 500,000U/5ML SUSP UDC SS SCH ×4 (08:46→20:27)
[2022-11-22] MEDS: methylPREDNISolone 40MG 1ML VIAL IV SCH (08:46)
[2022-11-22] MEDS: PANTOPRAZOLE 40MG TAB (PROTONIX) PO SCH (08:46)
[2022-11-22] MEDS: CLOPIDOGREL 75 MG TAB PO SCH (08:47)
[2022-11-22] MEDS: ROSUVASTATIN 10 MG TAB (CRESTOR) PO SCH (08:47)
[2022-11-22] MEDS: guaiFENesin ER 600 MG TAB PO SCH ×2 (08:48→20:27)
[2022-11-22] MEDS: METOPROLOL TART 25 MG TABLET PO SCH ×2 (08:48→20:30)
[2022-11-22] MEDS: MAGNESIUM OXIDE 400MG TAB (MAG-OX) PO SCH ×2 (08:48→20:27)
[2022-11-22] MEDS: acetaZOLAMIDE 250MG TAB PO SCH (08:49)
[2022-11-22] MEDS: NICOTINE 14 MG/24 HR TRANSDERMAL TD SCH (08:50)
[2022-11-22] MEDS: FLUTICASONE PROP 0.05% NASAL SPRAY 16 GM (FLONASE) SCH ×2 (08:50→20:27)
[2022-11-22] MEDS ORDERED: POTASSIUM CHLORIDE 10MEQ SR TABLET PO ONE (10:15)
[2022-11-22] MEDS ORDERED: MAG SULF 1GM/100ML (MAG RUN) 1 GM in IV 1 EA IV ONE (10:30)
[2022-11-22 13:56] VITALS: O2SAT 93
[2022-11-22 14:00] VITALS: BP 133/79
[2022-11-22] MEDS: FUROSEMIDE 40 MG TAB PO SCH (16:12)
[2022-11-22] MEDS: RIVAROXABAN 10MG TAB (XARELTO) PO SCH (17:31)
[2022-11-22] MEDS: predniSONE 20 MG TAB PO SCH (20:26)
[2022-11-22 20:32] VITALS: BP 138/79
[2022-11-22 21:57] VITALS: O2SAT 94
[2022-11-23] MEDS: SODIUM CHLORIDE HYPERTONIC 3% 15ML NEB SOL INH SCH ×6 (03:32→23:10)
[2022-11-23] MEDS: IPRATROPIUM 0.5MG/ALBUTEROL 2.5MG INH SOL UD 3ML (DUONEB) NEB SCH ×6 (03:32→23:10)
[2022-11-23 06:11] LABS: BASO # 0.1 10^3/uL (0.0-0.2); BASO % 0.3 % (0.0-1.0); HEMATOCRIT 36.4 % (36.0-47.0); LYMPH # 1.1 10^3/uL (1.5-5.0); LYMPH % 4.4 % (24.0-44.0); MEAN CORPUSCULAR HEMOGLOBIN 29.6 pg (27.0-33.0); MEAN CORPUSCULAR VOLUME 89.9 fl (80.0-96.0); MONO # 1.2 10^3/uL (0.0-0.8); MONO % 4.9 % (2.0-8.0); NEUTROPHILS # 21.2 10^3/uL (1.5-8.5); NEUTROPHILS % 86.9 % (36.0-66.0); PLATELET COUNT, AUTOMATED 319 10^3/uL (150-450); RED BLOOD COUNT 4.05 10^6/uL (4.00-5.40); WHITE BLOOD COUNT 24.5 10^3/uL (4.0-10.0)
[2022-11-23 06:46] VITALS: BP 143/65
[2022-11-23 06:47] LABS: BLOOD UREA NITROGEN 26 MG/DL (9-23); CALCIUM LEVEL 8.2 MG/DL (8.3-10.6); CARBON DIOXIDE LEVEL 36 MMOL/L (20-31); CHLORIDE LEVEL 92 MMOL/L (98-107); CREATININE FOR GFR 0.67 MG/DL (0.55-1.30); GLOMERULAR FILTRATION RATE > 60.0 (>45); GLUCOSE, FASTING 156 MG/DL (74-106); MAGNESIUM LEVEL 1.7 MG/DL (1.8-2.4); POTASSIUM SERUM 3.6 MMOL/L (3.5-5.1); SODIUM LEVEL 134 MMOL/L (136-145)
[2022-11-23 07:35] VITALS: BP 150/84
[2022-11-23] MEDS: ACETYLCYSTEINE 20% 4 ML VIAL (200MG/ML) INH SCH ×2 (08:02→19:50)
[2022-11-23] MEDS: acetaZOLAMIDE 250MG TAB PO SCH (08:49)
[2022-11-23] MEDS: NYSTATIN 500,000U/5ML SUSP UDC SS SCH ×4 (08:50→20:47)
[2022-11-23] MEDS: NICOTINE 14 MG/24 HR TRANSDERMAL TD SCH (08:50)
[2022-11-23] MEDS: ROSUVASTATIN 10 MG TAB (CRESTOR) PO SCH (08:50)
[2022-11-23] MEDS: predniSONE 20 MG TAB PO SCH ×2 (08:51→20:48)
[2022-11-23] MEDS: FUROSEMIDE 40 MG TAB PO SCH ×2 (08:52→17:19)
[2022-11-23] MEDS: METOPROLOL TART 25 MG TABLET PO SCH ×2 (08:54→20:49)
[2022-11-23] MEDS: LACTOBACILLUS ACIDOPHILUS CAP (BACID) PO SCH (08:55)
[2022-11-23] MEDS: MAGNESIUM OXIDE 400MG TAB (MAG-OX) PO SCH ×2 (08:55→20:47)
[2022-11-23] MEDS: CLOPIDOGREL 75 MG TAB PO SCH (08:56)
[2022-11-23] MEDS: guaiFENesin ER 600 MG TAB PO SCH ×2 (08:56→20:48)
[2022-11-23] MEDS: PANTOPRAZOLE 40MG TAB (PROTONIX) PO SCH (08:56)
[2022-11-23] MEDS: FLUTICASONE PROP 0.05% NASAL SPRAY 16 GM (FLONASE) SCH ×2 (08:58→20:50)
[2022-11-23] MEDS: TRELEGY ELLIPTA (PATIENT'S OWN MED) INH SCH (08:59)
[2022-11-23] MEDS: POTASSIUM CHLORIDE 10MEQ SR TABLET PO SCH (10:22)
[2022-11-23] MEDS: traMADol 50 MG TAB PO PRN (13:19)
[2022-11-23 13:59] VITALS: BP 147/84
[2022-11-23] MEDS: RIVAROXABAN 10MG TAB (XARELTO) PO SCH (17:19)
[2022-11-23 21:36] VITALS: BP 125/73
[2022-11-24] MEDS: IPRATROPIUM 0.5MG/ALBUTEROL 2.5MG INH SOL UD 3ML (DUONEB) NEB SCH ×6 (03:06→23:30)
[2022-11-24] MEDS: SODIUM CHLORIDE HYPERTONIC 3% 15ML NEB SOL INH SCH ×6 (03:06→23:30)
[2022-11-24 05:13] VITALS: BP 147/81
[2022-11-24 06:17] LABS: BASO # 0.1 10^3/uL (0.0-0.2); BASO % 0.3 % (0.0-1.0); EOS % 0.1 % (0.0-3.0); HEMATOCRIT 37.5 % (36.0-47.0); HEMOGLOBIN 12.4 g/dl (12.0-15.5); LYMPH % 3.8 % (24.0-44.0); MEAN CORPUSCULAR HEMOGLOBIN 29.8 pg (27.0-33.0); MEAN CORPUSCULAR HGB CONC 33.1 g/dl (32.0-36.5); MEAN CORPUSCULAR VOLUME 90.1 fl (80.0-96.0); MONO # 1.3 10^3/uL (0.0-0.8); MONO % 4.9 % (2.0-8.0); NEUTROPHILS # 23.4 10^3/uL (1.5-8.5); NEUTROPHILS % 87.2 % (36.0-66.0); PLATELET COUNT, AUTOMATED 309 10^3/uL (150-450); RED BLOOD COUNT 4.16 10^6/uL (4.00-5.40); WHITE BLOOD COUNT 26.8 10^3/uL (4.0-10.0)
[2022-11-24 06:40] LABS: BLOOD UREA NITROGEN 29 MG/DL (9-23); CALCIUM LEVEL 8.6 MG/DL (8.3-10.6); CARBON DIOXIDE LEVEL 34 MMOL/L (20-31); CHLORIDE LEVEL 92 MMOL/L (98-107); CREATININE FOR GFR 0.71 MG/DL (0.55-1.30); GLOMERULAR FILTRATION RATE > 60.0 (>45); GLUCOSE, FASTING 139 MG/DL (74-106); MAGNESIUM LEVEL 1.5 MG/DL (1.8-2.4); POTASSIUM SERUM 3.6 MMOL/L (3.5-5.1); SODIUM LEVEL 133 MMOL/L (136-145)
[2022-11-24] MEDS: ACETYLCYSTEINE 20% 4 ML VIAL (200MG/ML) INH SCH ×2 (07:37→19:39)
[2022-11-24] MEDS ORDERED: MAG SULF 1GM/100ML (MAG RUN) 1 GM in IV 1 EA IV ONE (08:00)
[2022-11-24] MEDS: NYSTATIN 500,000U/5ML SUSP UDC SS SCH ×4 (08:53→20:34)
[2022-11-24] MEDS: POTASSIUM CHLORIDE 10MEQ SR TABLET PO SCH (08:54)
[2022-11-24] MEDS: MAGNESIUM OXIDE 400MG TAB (MAG-OX) PO SCH ×2 (08:55→20:35)
[2022-11-24] MEDS: ROSUVASTATIN 10 MG TAB (CRESTOR) PO SCH (08:55)
[2022-11-24] MEDS: predniSONE 20 MG TAB PO SCH (08:55)
[2022-11-24] MEDS: CLOPIDOGREL 75 MG TAB PO SCH (08:56)
[2022-11-24] MEDS: guaiFENesin ER 600 MG TAB PO SCH ×2 (08:56→20:35)
[2022-11-24] MEDS: PANTOPRAZOLE 40MG TAB (PROTONIX) PO SCH (08:56)
[2022-11-24] MEDS: LACTOBACILLUS ACIDOPHILUS CAP (BACID) PO SCH (08:56)
[2022-11-24] MEDS: FUROSEMIDE 40 MG TAB PO SCH (08:57)
[2022-11-24] MEDS: NICOTINE 14 MG/24 HR TRANSDERMAL TD SCH (08:59)
[2022-11-24] MEDS: METOPROLOL TART 25 MG TABLET PO SCH ×2 (08:59→20:36)
[2022-11-24] MEDS: TRELEGY ELLIPTA (PATIENT'S OWN MED) INH SCH (11:42)
[2022-11-24] MEDS: FLUTICASONE PROP 0.05% NASAL SPRAY 16 GM (FLONASE) SCH ×2 (13:06→20:37)
[2022-11-24 14:00] VITALS: BP 123/64
[2022-11-24] MEDS: RIVAROXABAN 10MG TAB (XARELTO) PO SCH (17:27)
[2022-11-24] MEDS: traMADol 50 MG TAB PO PRN (17:32)
[2022-11-24 21:07] VITALS: BP 144/78
[2022-11-25] MEDS: IPRATROPIUM 0.5MG/ALBUTEROL 2.5MG INH SOL UD 3ML (DUONEB) NEB SCH ×3 (04:10→11:33)
[2022-11-25] MEDS: SODIUM CHLORIDE HYPERTONIC 3% 15ML NEB SOL INH SCH ×3 (04:10→11:33)
[2022-11-25 06:00] VITALS: BP 132/73
[2022-11-25 06:48] LABS: BASO # 0.1 10^3/uL (0.0-0.2); BASO % 0.3 % (0.0-1.0); EOS % 0.1 % (0.0-3.0); HEMATOCRIT 33.3 % (36.0-47.0); HEMOGLOBIN 11.2 g/dl (12.0-15.5); LYMPH # 2.1 10^3/uL (1.5-5.0); LYMPH % 11.3 % (24.0-44.0); MEAN CORPUSCULAR HEMOGLOBIN 30.2 pg (27.0-33.0); MEAN CORPUSCULAR HGB CONC 33.6 g/dl (32.0-36.5); MEAN CORPUSCULAR VOLUME 89.8 fl (80.0-96.0); MONO % 8.6 % (2.0-8.0); NEUTROPHILS # 14.4 10^3/uL (1.5-8.5); NEUTROPHILS % 76.8 % (36.0-66.0); PLATELET COUNT, AUTOMATED 268 10^3/uL (150-450); RED BLOOD COUNT 3.71 10^6/uL (4.00-5.40); WHITE BLOOD COUNT 18.8 10^3/uL (4.0-10.0)
[2022-11-25 06:54] LABS: MONO # 1.6 10^3/uL (0.0-0.8)
[2022-11-25 07:11] LABS: BLOOD UREA NITROGEN 24 MG/DL (9-23); CALCIUM LEVEL 8.4 MG/DL (8.3-10.6); CARBON DIOXIDE LEVEL 36 MMOL/L (20-31); CHLORIDE LEVEL 94 MMOL/L (98-107); CREATININE FOR GFR 0.66 MG/DL (0.55-1.30); GLOMERULAR FILTRATION RATE > 60.0 (>45); GLUCOSE, FASTING 100 MG/DL (74-106); MAGNESIUM LEVEL 1.6 MG/DL (1.8-2.4); POTASSIUM SERUM 3.1 MMOL/L (3.5-5.1); SODIUM LEVEL 134 MMOL/L (136-145)
[2022-11-25] MEDS: ACETYLCYSTEINE 20% 4 ML VIAL (200MG/ML) INH SCH (07:39)
[2022-11-25] MEDS: TRELEGY ELLIPTA (PATIENT'S OWN MED) INH SCH (07:40)
[2022-11-25] MEDS: NICOTINE 14 MG/24 HR TRANSDERMAL TD SCH (08:52)
[2022-11-25] MEDS: guaiFENesin ER 600 MG TAB PO SCH (08:52)
[2022-11-25] MEDS: NYSTATIN 500,000U/5ML SUSP UDC SS SCH (08:52)
[2022-11-25] MEDS: POTASSIUM CHLORIDE 10MEQ SR TABLET PO SCH (08:52)
[2022-11-25] MEDS: PANTOPRAZOLE 40MG TAB (PROTONIX) PO SCH (08:53)
[2022-11-25] MEDS: CLOPIDOGREL 75 MG TAB PO SCH (08:53)
[2022-11-25] MEDS: LACTOBACILLUS ACIDOPHILUS CAP (BACID) PO SCH (08:53)
[2022-11-25] MEDS: ROSUVASTATIN 10 MG TAB (CRESTOR) PO SCH (08:53)
[2022-11-25] MEDS: predniSONE 20 MG TAB PO SCH (08:53)
[2022-11-25] MEDS: FUROSEMIDE 40 MG TAB PO SCH (08:54)
[2022-11-25 08:55] VITALS: BP 137/61
[2022-11-25] MEDS: FLUTICASONE PROP 0.05% NASAL SPRAY 16 GM (FLONASE) SCH (08:55)
[2022-11-25] MEDS: METOPROLOL TART 25 MG TABLET PO SCH (08:55)
[2022-11-25] MEDS ORDERED: MAGNESIUM OXIDE 400MG TAB (MAG-OX) PO SCH (09:00)
[2022-11-25] MEDS ORDERED: MAGN400T2 PO (10:05)
[2022-11-25] MEDS ORDERED: Sodium Chloride Nasal Spray (10:05)
[2022-11-25] MEDS ORDERED: MUCI600T31 PO (10:05)
[2022-11-25] MEDS ORDERED: RISATAB3 PO (10:05)
[2022-11-25] MEDS ORDERED: PRED10TA2 PO (10:05)
[2022-11-25] MEDS ORDERED: CRES10TA PO (10:05)
[2022-11-25] MEDS ORDERED: POTA-136 PO (10:05)
[2022-11-25] MEDS ORDERED: POTA1TAB14 PO (10:07)
[2022-11-25] MEDS ORDERED: ROSU20TA5 PO (10:08)
[2022-11-25] MEDS ORDERED: POTASSIUM CHLORIDE 10MEQ SR TABLET PO SCH (12:00)
== END 2022-11-25 12:14 | disposition home health service (06) | DRG 640 ==
LOC: M ED 13:10 → M ED INP 13:11 → M MSPAV 11-12 00:28 → OBSVTOIN 11-13 10:00
PROVIDERS: ADMIT Internal Medicine; ATTEND Student in an Organized Health Care Education/Training Program
DX: E87.6 Hypokalemia (principal); I50.33 Acute on chronic diastolic (congestive) heart failure; J18.9 Pneumonia, unspecified organism; J44.1 Chronic obstructive pulmonary disease with (acute) exacerbation; Z68.41 Body mass index [BMI] 40.0-44.9, adult; I50.32 Chronic diastolic (congestive) heart failure; K57.32 Diverticulitis of large intestine without perforation or abscess without bleeding; J96.11 Chronic respiratory failure with hypoxia; J44.0 Chronic obstructive pulmonary disease with (acute) lower respiratory infection; G72.0 Drug-induced myopathy; E66.01 Morbid (severe) obesity due to excess calories; I73.9 Peripheral vascular disease, unspecified; I27.81 Cor pulmonale (chronic); K21.9 Gastro-esophageal reflux disease without esophagitis; R53.1 Weakness; F17.210 Nicotine dependence, cigarettes, uncomplicated; E83.42 Hypomagnesemia; R31.0 Gross hematuria; F41.9 Anxiety disorder, unspecified; I25.10 Atherosclerotic heart disease of native coronary artery without angina pectoris; J98.01 Acute bronchospasm; Z79.899 Other long term (current) drug therapy; Z88.8 Allergy status to other drugs, medicaments and biological substances; F17.290 Nicotine dependence, other tobacco product, uncomplicated; Z99.81 Dependence on supplemental oxygen

== ENCOUNTER 2022-11-15 10:45 | Outpatient (RCR) | payer MEDICARE ==
[~2022-11-15 10:45] MED LIST changes: +FLON1SPR
[2022-11-25] MEDS ORDERED: POTA-136 PO (10:05)
[2022-11-25] MEDS ORDERED: MAGN400T2 PO (10:05)
[2022-11-25] MEDS ORDERED: CRES10TA PO (10:05)
[2022-11-25] MEDS ORDERED: MUCI600T31 PO (10:05)
[2022-11-25] MEDS ORDERED: Sodium Chloride Nasal Spray (10:05)
[2022-11-25] MEDS ORDERED: RISATAB3 PO (10:05)
[2022-11-25] MEDS ORDERED: PRED10TA2 PO (10:05)
[2022-11-25] MEDS ORDERED: POTA1TAB14 PO (10:07)
[2022-11-25] MEDS ORDERED: ROSU20TA5 PO (10:08)
== END 2022-11-26 ==
LOC: M PT 10:45
PROVIDERS: ATTEND Family Medicine
DX: R60.9 Edema, unspecified (principal)

== ENCOUNTER → 2023-01-08 | Outpatient (CLI) | payer MEDICARE ==
[~2023-01-08] MED LIST changes: +CRES10TA PO; +FLUT50SP17 NARES; -FLUTISP NARES; +POTA-136 PO; +POTA1TAB14 PO; +RISATAB3 PO; +ROSU20TA5 PO; +Sodium Chloride Nasal Spray
== END ==
LOC: M RAD 10:57
PROVIDERS: ATTEND Surgery Vascular Surgery
DX: I70.8 Atherosclerosis of other arteries (principal); I73.9 Peripheral vascular disease, unspecified; I74.3 Embolism and thrombosis of arteries of the lower extremities

== ENCOUNTER → 2023-01-14 | Outpatient (CLI) | payer MEDICARE | LOC: M RAD 09:26 | PROVIDERS: ATTEND Surgery Vascular Surgery | DX: I70.8 Atherosclerosis of other arteries (principal); I73.9 Peripheral vascular disease, unspecified ==

== ENCOUNTER → 2023-01-22 | Outpatient (REF) | payer MEDICARE | LOC: M LAB REF 17:08 | PROVIDERS: ATTEND Internal Medicine Critical Care Medicine | DX: J44.9 Chronic obstructive pulmonary disease, unspecified (principal) ==

== ENCOUNTER 2023-02-13 12:19 | Inpatient (IN) | payer MEDICARE ==
[~2023-02-13] VITALS: Ht 152.4 cm; Wt 103.3 kg
[~2023-02-13 12:19] MED LIST changes: +POTA-298 PO; -POTA1TAB14 PO
[2023-02-13 12:59] LABS: BASO % 0.1 % (0.0-1.0); EOS % 0.1 % (0.0-3.0); HEMATOCRIT 31.2 % (36.0-47.0); LYMPH # 0.6 10^3/uL (1.5-5.0); LYMPH % 5.8 % (24.0-44.0); MEAN CORPUSCULAR HGB CONC 32.1 g/dl (32.0-36.5); MEAN CORPUSCULAR VOLUME 90.4 fl (80.0-96.0); MONO # 0.3 10^3/uL (0.0-0.8); MONO % 2.8 % (2.0-8.0); NEUTROPHILS # 9.4 10^3/uL (1.5-8.5); NEUTROPHILS % 90.7 % (36.0-66.0); PLATELET COUNT, AUTOMATED 309 10^3/uL (150-450); RED BLOOD COUNT 3.45 10^6/uL (4.00-5.40); WHITE BLOOD COUNT 10.4 10^3/uL (4.0-10.0)
[2023-02-13] MEDS ORDERED: ALBUTEROL SULFATE 2.5MG/0.5ML INH NEB SOLN NEB ONE (13:05)
[2023-02-13] MEDS ORDERED: IPRATROPIUM 0.02% SOLN 0.5MG 2.5ML NEB NEB ONE (13:05)
[2023-02-13] MEDS ORDERED: methylPREDNISolone 125MG 2ML VIAL IV ONE (13:05)
[2023-02-13 13:32] LABS: CK-MB VALUE MASS < 1.0 NG/ML (<3.6)
[2023-02-13 13:34] LABS: ALBUMIN 3.4 G/DL (3.2-5.2); ALKALINE PHOSPHATASE 119 U/L (46-116); ALT/SGPT < 9 U/L (7.0-40); AST/SGOT 22 U/L (<34); BILIRUBIN,DIRECT < 0.1 MG/DL (<0.4); BILIRUBIN,TOTAL 0.3 MG/DL (0.3-1.2); BLOOD UREA NITROGEN 21 MG/DL (9-23); CALCIUM LEVEL 8.7 MG/DL (8.3-10.6); CARBON DIOXIDE LEVEL 35 MMOL/L (20-31); CHLORIDE LEVEL 99 MMOL/L (98-107); CREATININE FOR GFR 0.88 MG/DL (0.55-1.30); GLOMERULAR FILTRATION RATE > 60.0 (>45); GLUCOSE, FASTING 126 MG/DL (74-106); POTASSIUM SERUM 4.1 MMOL/L (3.5-5.1); SODIUM LEVEL 141 MMOL/L (136-145); TOTAL PROTEIN 6.3 G/DL (5.7-8.2)
[2023-02-13 13:36] LABS: THYROXINE (T4) 11.4 UG/DL (4.5-10.9)
[2023-02-13 13:37] LABS: CPK CREATINE PHOSPHOKINASE 35 U/L (34-145); MB/CK RELATIVE INDEX 2.85 (< OR =4)
[2023-02-13 14:53] LABS: MAGNESIUM LEVEL 1.3 MG/DL (1.8-2.4)
[2023-02-13 14:55] LABS: CK-MB VALUE MASS < 1.0 NG/ML (<3.6); CPK CREATINE PHOSPHOKINASE 31 U/L (34-145); MB/CK RELATIVE INDEX 3.22 (< OR =4)
[2023-02-13] MEDS ORDERED: MAG SULF 1GM/100ML (MAG RUN) 1 GM in IV 1 EA IV ONE ×2 (15:05→19:45)
[2023-02-13] MEDS ORDERED: ACETAMINOPHEN TAB 650MG DOSE (2X325MG) PO PRN (16:20)
[2023-02-13] MEDS ORDERED: ROSU10TA6 PO (16:49)
[2023-02-13] MEDS ORDERED: MAGN400T2 PO (16:49)
[2023-02-13] MEDS ORDERED: HYDR-643 PO (16:49)
[2023-02-13] MEDS ORDERED: POTA-298 PO (16:49)
[2023-02-13] MEDS ORDERED: PRED5TA PO (16:49)
[2023-02-13] MEDS ORDERED: BACI1CAP PO (16:52)
[2023-02-13] MEDS ORDERED: HOME MED LIST COMPLETE! XX SCH (16:55)
[2023-02-13] MEDS ORDERED: cefTRIAXone SOD 1 GM in D5W MINI-BAG PLUS 50 ML IV SCH (18:00)
[2023-02-13 18:35] VITALS: BP 147/85
[2023-02-13] MEDS ORDERED: NYSTATIN 500,000U/5ML SUSP UDC SSP PRN (19:45)
[2023-02-13] MEDS ORDERED: traMADol 50 MG TAB PO PRN (19:45)
[2023-02-13] MEDS ORDERED: PILL CUTTER 1 EACH XX PRN (19:55)
[2023-02-13] MEDS: traMADol 50 MG TAB PO PRN (20:11)
[2023-02-13] MEDS: guaiFENesin ER 600 MG TAB PO SCH (20:35)
[2023-02-13] MEDS: DOXYCYCLINE HYCLATE 100MG TABLET PO SCH (20:35)
[2023-02-13] MEDS: MAGNESIUM OXIDE 400MG TAB (MAG-OX) PO SCH (20:36)
[2023-02-13] MEDS: METOPROLOL TART 25 MG TABLET PO SCH (20:39)
[2023-02-13] MEDS: methylPREDNISolone 125MG 2ML VIAL IV SCH (20:39)
[2023-02-13] MEDS ORDERED: FLUTICASONE PROP 0.05% NASAL SPRAY 16 GM (FLONASE) SCH (21:00)
[2023-02-13] MEDS ORDERED: guaiFENesin ER 600 MG TAB PO SCH (21:00)
[2023-02-13] MEDS ORDERED: MAGNESIUM OXIDE 400MG TAB (MAG-OX) PO SCH (21:00)
[2023-02-13] MEDS ORDERED: METOPROLOL TART 25 MG TABLET PO SCH (21:00)
[2023-02-13] MEDS: IPRATROPIUM 0.5MG/ALBUTEROL 2.5MG INH SOL UD 3ML (DUONEB) NEB SCH (21:03)
[2023-02-13] MEDS: FLUTICASONE PROP 0.05% NASAL SPRAY 16 GM (FLONASE) SCH (21:37)
[2023-02-14] MEDS: ALBUTEROL SULFATE 2.5MG/0.5ML INH NEB SOLN NEB PRN (02:25)
[2023-02-14] MEDS: methylPREDNISolone 125MG 2ML VIAL IV SCH ×3 (05:05→20:55)
[2023-02-14 05:24] VITALS: BP 114/68
[2023-02-14 06:30] LABS: HEMATOCRIT 32.6 % (36.0-47.0); HEMOGLOBIN 10.6 g/dl (12.0-15.5); MEAN CORPUSCULAR HEMOGLOBIN 28.7 pg (27.0-33.0); MEAN CORPUSCULAR HGB CONC 32.5 g/dl (32.0-36.5); MEAN CORPUSCULAR VOLUME 88.3 fl (80.0-96.0); PLATELET COUNT, AUTOMATED 354 10^3/uL (150-450); RED BLOOD COUNT 3.69 10^6/uL (4.00-5.40); WHITE BLOOD COUNT 12.8 10^3/uL (4.0-10.0)
[2023-02-14 07:01] LABS: ALBUMIN 3.2 G/DL (3.2-5.2); ALKALINE PHOSPHATASE 86 U/L (46-116); ALT/SGPT 10 U/L (7.0-40); AST/SGOT 12 U/L (<34); BILIRUBIN,TOTAL 0.4 MG/DL (0.3-1.2); BLOOD UREA NITROGEN 17 MG/DL (9-23); CALCIUM LEVEL 9.3 MG/DL (8.3-10.6); CARBON DIOXIDE LEVEL 35 MMOL/L (20-31); CHLORIDE LEVEL 96 MMOL/L (98-107); CREATININE FOR GFR 0.63 MG/DL (0.55-1.30); GLOMERULAR FILTRATION RATE > 60.0 (>45); GLUCOSE, FASTING 150 MG/DL (74-106); MAGNESIUM LEVEL 1.7 MG/DL (1.8-2.4); POTASSIUM SERUM 3.4 MMOL/L (3.5-5.1); SODIUM LEVEL 136 MMOL/L (136-145); TOTAL PROTEIN 6.1 G/DL (5.7-8.2)
[2023-02-14] MEDS: ADVAIR HFA 115/21MCG INHALER INH SCH ×2 (07:19→19:30)
[2023-02-14] MEDS: TIOTROPIUM INHALER/CAPSULE (SPIRIVA) INH SCH (07:19)
[2023-02-14] MEDS: IPRATROPIUM 0.5MG/ALBUTEROL 2.5MG INH SOL UD 3ML (DUONEB) NEB SCH ×4 (07:19→19:30)
[2023-02-14] MEDS ORDERED: MAG SULF 1GM/100ML (MAG RUN) 1 GM in IV 1 EA IV ONE (08:00)
[2023-02-14] MEDS: ROSUVASTATIN 10 MG TAB (CRESTOR) PO SCH (08:43)
[2023-02-14] MEDS: guaiFENesin ER 600 MG TAB PO SCH ×2 (08:43→20:47)
[2023-02-14] MEDS: DOXYCYCLINE HYCLATE 100MG TABLET PO SCH ×2 (08:44→20:49)
[2023-02-14] MEDS: METOPROLOL TART 25 MG TABLET PO SCH ×2 (08:44→20:48)
[2023-02-14] MEDS: MAGNESIUM OXIDE 400MG TAB (MAG-OX) PO SCH ×2 (08:45→20:49)
[2023-02-14] MEDS: CLOPIDOGREL 75 MG TAB PO SCH (08:45)
[2023-02-14] MEDS: TORSEMIDE 20 MG TAB PO SCH (08:45)
[2023-02-14] MEDS: PANTOPRAZOLE 40MG TAB (PROTONIX) PO SCH (08:45)
[2023-02-14] MEDS: POTASSIUM CHLORIDE 10MEQ SR TABLET PO SCH (08:46)
[2023-02-14] MEDS: FLUTICASONE PROP 0.05% NASAL SPRAY 16 GM (FLONASE) SCH ×2 (08:46→20:52)
[2023-02-14] MEDS ORDERED: POTASSIUM CHLORIDE 10MEQ SR TABLET PO SCH (09:00)
[2023-02-14] MEDS ORDERED: CLOPIDOGREL 75 MG TAB PO SCH (09:00)
[2023-02-14] MEDS ORDERED: PANTOPRAZOLE 40MG TAB (PROTONIX) PO SCH (09:00)
[2023-02-14] MEDS ORDERED: LACTOBACILLUS ACIDOPHILUS CAP (BACID) PO SCH (09:00)
[2023-02-14] MEDS ORDERED: TORSEMIDE 20 MG TAB PO SCH (09:00)
[2023-02-14] MEDS ORDERED: ROSUVASTATIN 10 MG TAB (CRESTOR) PO SCH (09:00)
[2023-02-14] MEDS ORDERED: ENTER DRUG NAME HERE (PATIENT'S OWN MED) INH SCH (09:00)
[2023-02-14] MEDS: traMADol 50 MG TAB PO PRN (11:17)
[2023-02-14 14:00] VITALS: BP 119/71
[2023-02-14 20:00] VITALS: BP 132/80
[2023-02-15] MEDS: traMADol 50 MG TAB PO PRN ×2 (01:29→20:05)
[2023-02-15] MEDS: ALBUTEROL SULFATE 2.5MG/0.5ML INH NEB SOLN NEB PRN (01:37)
[2023-02-15] MEDS: methylPREDNISolone 125MG 2ML VIAL IV SCH ×3 (04:45→21:57)
[2023-02-15 05:51] LABS: HEMATOCRIT 32.4 % (36.0-47.0); HEMOGLOBIN 10.3 g/dl (12.0-15.5); MEAN CORPUSCULAR HEMOGLOBIN 28.2 pg (27.0-33.0); MEAN CORPUSCULAR HGB CONC 31.8 g/dl (32.0-36.5); MEAN CORPUSCULAR VOLUME 88.8 fl (80.0-96.0); PLATELET COUNT, AUTOMATED 355 10^3/uL (150-450); RED BLOOD COUNT 3.65 10^6/uL (4.00-5.40); WHITE BLOOD COUNT 14.8 10^3/uL (4.0-10.0)
[2023-02-15 06:00] VITALS: BP 99/59
[2023-02-15 06:14] LABS: ALBUMIN 3.1 G/DL (3.2-5.2); ALKALINE PHOSPHATASE 91 U/L (46-116); ALT/SGPT 14 U/L (7.0-40); AST/SGOT 12 U/L (<34); BILIRUBIN,TOTAL 0.3 MG/DL (0.3-1.2); BLOOD UREA NITROGEN 31 MG/DL (9-23); CALCIUM LEVEL 9.4 MG/DL (8.3-10.6); CARBON DIOXIDE LEVEL 34 MMOL/L (20-31); CHLORIDE LEVEL 95 MMOL/L (98-107); GLOMERULAR FILTRATION RATE > 60.0 (>45); GLUCOSE, FASTING 201 MG/DL (74-106); MAGNESIUM LEVEL 1.7 MG/DL (1.8-2.4); SODIUM LEVEL 137 MMOL/L (136-145); TOTAL PROTEIN 5.7 G/DL (5.7-8.2)
[2023-02-15] MEDS: IPRATROPIUM 0.5MG/ALBUTEROL 2.5MG INH SOL UD 3ML (DUONEB) NEB SCH ×2 (07:26→11:49)
[2023-02-15] MEDS: TIOTROPIUM INHALER/CAPSULE (SPIRIVA) INH SCH (07:26)
[2023-02-15] MEDS: ADVAIR HFA 115/21MCG INHALER INH SCH ×2 (07:26→19:21)
[2023-02-15] MEDS ORDERED: MAG SULF 1GM/100ML (MAG RUN) 1 GM in IV 1 EA IV ONE (07:30)
[2023-02-15 08:42] LABS: INR 0.91; PARTIAL THROMBOPLASTIN TIME 21.3 SECONDS (24.8-34.2); PROTHROMBIN TIME 12.5 SECONDS (12.5-14.5)
[2023-02-15] MEDS: METOPROLOL TART 12.5 MG PER 1/2 TAB PO SCH ×2 (09:00→20:07)
[2023-02-15] MEDS: PANTOPRAZOLE 40MG TAB (PROTONIX) PO SCH (11:43)
[2023-02-15] MEDS: POTASSIUM CHLORIDE 10MEQ SR TABLET PO SCH (11:43)
[2023-02-15] MEDS: ENOXAPARIN 40MG/0.4ML SYRINGE (J1650 PER 10MG) SC SCH (11:43)
[2023-02-15] MEDS: TORSEMIDE 20 MG TAB PO SCH (11:43)
[2023-02-15] MEDS: CLOPIDOGREL 75 MG TAB PO SCH (11:44)
[2023-02-15] MEDS: ROSUVASTATIN 10 MG TAB (CRESTOR) PO SCH (11:44)
[2023-02-15] MEDS: MAGNESIUM OXIDE 400MG TAB (MAG-OX) PO SCH ×2 (11:44→20:06)
[2023-02-15] MEDS: DOXYCYCLINE HYCLATE 100MG TABLET PO SCH ×2 (11:44→20:06)
[2023-02-15] MEDS: guaiFENesin ER 600 MG TAB PO SCH ×2 (11:44→20:06)
[2023-02-15] MEDS: FLUTICASONE PROP 0.05% NASAL SPRAY 16 GM (FLONASE) SCH ×2 (11:45→20:06)
[2023-02-15 11:53] VITALS: BP 106/60
[2023-02-15] MEDS: NYSTATIN 500,000U/5ML SUSP UDC SSP PRN ×2 (12:33→20:11)
[2023-02-15 13:48] VITALS: BP 119/74
[2023-02-15] MEDS ORDERED: METOPROLOL TART 25 MG TABLET PO ONE (13:55)
[2023-02-15] MEDS ORDERED: FUROSEMIDE 20MG/2ML VIAL IV ONE (14:05)
[2023-02-15] MEDS: LEVALBUTEROL 1.25MG/3ML NEB SOLN INH SCH ×2 (15:31→19:20)
[2023-02-15 20:00] VITALS: BP 90/54
[2023-02-16] MEDS: LEVALBUTEROL HFA 45MCG/ACT 15GM INHALER INH PRN ×2 (00:22→05:39)
[2023-02-16 04:26] LABS: HEMATOCRIT 31.5 % (36.0-47.0); HEMOGLOBIN 10.1 g/dl (12.0-15.5); MEAN CORPUSCULAR HEMOGLOBIN 28.6 pg (27.0-33.0); MEAN CORPUSCULAR HGB CONC 32.1 g/dl (32.0-36.5); MEAN CORPUSCULAR VOLUME 89.2 fl (80.0-96.0); PLATELET COUNT, AUTOMATED 361 10^3/uL (150-450); RED BLOOD COUNT 3.53 10^6/uL (4.00-5.40); WHITE BLOOD COUNT 14.2 10^3/uL (4.0-10.0)
[2023-02-16 04:50] LABS: ALBUMIN 3.2 G/DL (3.2-5.2); ALKALINE PHOSPHATASE 77 U/L (46-116); ALT/SGPT 16 U/L (7.0-40); AST/SGOT 15 U/L (<34); BILIRUBIN,TOTAL 0.3 MG/DL (0.3-1.2); BLOOD UREA NITROGEN 33 MG/DL (9-23); CALCIUM LEVEL 9.2 MG/DL (8.3-10.6); CARBON DIOXIDE LEVEL 36 MMOL/L (20-31); CHLORIDE LEVEL 94 MMOL/L (98-107); CREATININE FOR GFR 0.88 MG/DL (0.55-1.30); GLOMERULAR FILTRATION RATE > 60.0 (>45); GLUCOSE, FASTING 173 MG/DL (74-106); MAGNESIUM LEVEL 1.7 MG/DL (1.8-2.4); POTASSIUM SERUM 4.3 MMOL/L (3.5-5.1); SODIUM LEVEL 136 MMOL/L (136-145); TOTAL PROTEIN 5.7 G/DL (5.7-8.2)
[2023-02-16] MEDS: methylPREDNISolone 125MG 2ML VIAL IV SCH ×3 (05:28→20:37)
[2023-02-16 06:00] VITALS: BP 144/85
[2023-02-16] MEDS: TIOTROPIUM INHALER/CAPSULE (SPIRIVA) INH SCH (07:30)
[2023-02-16] MEDS: ADVAIR HFA 115/21MCG INHALER INH SCH (07:30)
[2023-02-16] MEDS: LEVALBUTEROL 1.25MG/3ML NEB SOLN INH SCH ×4 (07:30→23:34)
[2023-02-16] MEDS: FORMOTEROL FUMARATE 20 MCG/2 ML INHALATION SOLUTION (PERFOROMIST) INH SCH ×2 (08:00→20:28)
[2023-02-16] MEDS: BUDESONIDE 0.5 MG/2 ML INHALATION SUSPENSION INH SCH ×2 (08:00→20:28)
[2023-02-16] MEDS: traMADol 50 MG TAB PO PRN (08:20)
[2023-02-16] MEDS: guaiFENesin ER 600 MG TAB PO SCH ×2 (08:20→20:37)
[2023-02-16] MEDS: CLOPIDOGREL 75 MG TAB PO SCH (08:20)
[2023-02-16] MEDS: PANTOPRAZOLE 40MG TAB (PROTONIX) PO SCH (08:20)
[2023-02-16] MEDS: MAGNESIUM OXIDE 400MG TAB (MAG-OX) PO SCH ×3 (08:21→20:38)
[2023-02-16] MEDS: DOXYCYCLINE HYCLATE 100MG TABLET PO SCH ×2 (08:21→20:37)
[2023-02-16] MEDS: POTASSIUM CHLORIDE 10MEQ SR TABLET PO SCH (08:21)
[2023-02-16] MEDS: ROSUVASTATIN 10 MG TAB (CRESTOR) PO SCH (08:21)
[2023-02-16] MEDS: TORSEMIDE 20 MG TAB PO SCH (08:21)
[2023-02-16] MEDS: METOPROLOL TART 12.5 MG PER 1/2 TAB PO SCH (08:22)
[2023-02-16] MEDS: FLUTICASONE PROP 0.05% NASAL SPRAY 16 GM (FLONASE) SCH ×2 (08:22→20:40)
[2023-02-16 08:43] LABS: ABG BASE EXCESS 7.6 (-2.0-2.0); ABG HCO3 31.6 MMOL/L (22.0-26.0); ABG O2 SATURATION 96.2 % (95.0-99.0); ABG PARTIAL PRESSURE CO2 41.9 mmHg (35.0-45.0); ABG STANDARD HCO3 31.4 MMOL/L. (22.0-26.0); ABG TOTAL CO2 32.9 MMOL/L (23.0-31.0); ABG pH (ARTERIAL) 7.495 UNITS (7.350-7.450)
[2023-02-16] MEDS: ENOXAPARIN 40MG/0.4ML SYRINGE (J1650 PER 10MG) SC SCH (09:23)
[2023-02-16 14:00] VITALS: BP 133/75
[2023-02-16 19:42] VITALS: BP 133/78
[2023-02-16] MEDS: METOPROLOL TART 25 MG TABLET PO SCH (20:39)
[2023-02-16] MEDS: NYSTATIN 500,000U/5ML SUSP UDC SSP PRN (21:00)
[2023-02-17 05:22] VITALS: BP 158/97
[2023-02-17] MEDS: methylPREDNISolone 125MG 2ML VIAL IV SCH ×3 (05:30→21:08)
[2023-02-17 06:13] LABS: HEMATOCRIT 35.2 % (36.0-47.0); HEMOGLOBIN 11.2 g/dl (12.0-15.5); MEAN CORPUSCULAR HEMOGLOBIN 28.4 pg (27.0-33.0); MEAN CORPUSCULAR HGB CONC 31.8 g/dl (32.0-36.5); MEAN CORPUSCULAR VOLUME 89.1 fl (80.0-96.0); PLATELET COUNT, AUTOMATED 385 10^3/uL (150-450); RED BLOOD COUNT 3.95 10^6/uL (4.00-5.40); WHITE BLOOD COUNT 14.1 10^3/uL (4.0-10.0)
[2023-02-17 06:42] LABS: ALBUMIN 3.3 G/DL (3.2-5.2); ALKALINE PHOSPHATASE 79 U/L (46-116); ALT/SGPT 17 U/L (7.0-40); AST/SGOT 18 U/L (<34); BILIRUBIN,TOTAL 0.4 MG/DL (0.3-1.2); BLOOD UREA NITROGEN 31 MG/DL (9-23); CALCIUM LEVEL 9.6 MG/DL (8.3-10.6); CARBON DIOXIDE LEVEL 39 MMOL/L (20-31); CHLORIDE LEVEL 92 MMOL/L (98-107); CREATININE FOR GFR 0.85 MG/DL (0.55-1.30); GLOMERULAR FILTRATION RATE > 60.0 (>45); GLUCOSE, FASTING 128 MG/DL (74-106); MAGNESIUM LEVEL 1.9 MG/DL (1.8-2.4); POTASSIUM SERUM 4.1 MMOL/L (3.5-5.1); SODIUM LEVEL 137 MMOL/L (136-145); TOTAL PROTEIN 5.9 G/DL (5.7-8.2)
[2023-02-17] MEDS: TIOTROPIUM INHALER/CAPSULE (SPIRIVA) INH SCH (07:22)
[2023-02-17] MEDS: BUDESONIDE 0.5 MG/2 ML INHALATION SUSPENSION INH SCH ×2 (07:22→19:03)
[2023-02-17] MEDS: FORMOTEROL FUMARATE 20 MCG/2 ML INHALATION SOLUTION (PERFOROMIST) INH SCH ×2 (07:22→19:03)
[2023-02-17] MEDS: LEVALBUTEROL 1.25MG/3ML NEB SOLN INH SCH ×4 (08:00→23:28)
[2023-02-17] MEDS: POTASSIUM CHLORIDE 10MEQ SR TABLET PO SCH (08:26)
[2023-02-17] MEDS: ENOXAPARIN 40MG/0.4ML SYRINGE (J1650 PER 10MG) SC SCH (08:26)
[2023-02-17] MEDS: TORSEMIDE 20 MG TAB PO SCH (08:27)
[2023-02-17] MEDS: guaiFENesin ER 600 MG TAB PO SCH ×2 (08:27→21:09)
[2023-02-17] MEDS: CLOPIDOGREL 75 MG TAB PO SCH (08:27)
[2023-02-17] MEDS: PANTOPRAZOLE 40MG TAB (PROTONIX) PO SCH (08:27)
[2023-02-17] MEDS: MAGNESIUM OXIDE 400MG TAB (MAG-OX) PO SCH ×3 (08:27→21:09)
[2023-02-17] MEDS: ROSUVASTATIN 10 MG TAB (CRESTOR) PO SCH (08:27)
[2023-02-17] MEDS: DOXYCYCLINE HYCLATE 100MG TABLET PO SCH ×2 (08:27→21:09)
[2023-02-17] MEDS: METOPROLOL TART 25 MG TABLET PO SCH ×2 (08:31→21:10)
[2023-02-17] MEDS: FLUTICASONE PROP 0.05% NASAL SPRAY 16 GM (FLONASE) SCH ×2 (08:31→21:12)
[2023-02-17 14:00] VITALS: BP 141/63
[2023-02-17] MEDS: traMADol 50 MG TAB PO PRN (17:19)
[2023-02-17 19:56] VITALS: BP 135/84
[2023-02-18] MEDS: methylPREDNISolone 125MG 2ML VIAL IV SCH (05:14)
[2023-02-18 05:58] VITALS: BP 154/89
[2023-02-18 06:25] LABS: HEMATOCRIT 35.7 % (36.0-47.0); HEMOGLOBIN 11.6 g/dl (12.0-15.5); MEAN CORPUSCULAR HEMOGLOBIN 28.8 pg (27.0-33.0); MEAN CORPUSCULAR HGB CONC 32.5 g/dl (32.0-36.5); MEAN CORPUSCULAR VOLUME 88.6 fl (80.0-96.0); PLATELET COUNT, AUTOMATED 373 10^3/uL (150-450); RED BLOOD COUNT 4.03 10^6/uL (4.00-5.40)
[2023-02-18 06:56] LABS: ALBUMIN 3.3 G/DL (3.2-5.2); ALKALINE PHOSPHATASE 83 U/L (46-116); ALT/SGPT 19 U/L (7.0-40); AST/SGOT 18 U/L (<34); BILIRUBIN,TOTAL 0.5 MG/DL (0.3-1.2); BLOOD UREA NITROGEN 37 MG/DL (9-23); CALCIUM LEVEL 9.2 MG/DL (8.3-10.6); CARBON DIOXIDE LEVEL > 40.0 MMOL/L (20-31); CHLORIDE LEVEL 94 MMOL/L (98-107); CREATININE FOR GFR 0.87 MG/DL (0.55-1.30); GLOMERULAR FILTRATION RATE > 60.0 (>45); GLUCOSE, FASTING 128 MG/DL (74-106); MAGNESIUM LEVEL 1.9 MG/DL (1.8-2.4); POTASSIUM SERUM 4.2 MMOL/L (3.5-5.1); SODIUM LEVEL 138 MMOL/L (136-145)
[2023-02-18] MEDS: TIOTROPIUM INHALER/CAPSULE (SPIRIVA) INH SCH (07:40)
[2023-02-18] MEDS: FORMOTEROL FUMARATE 20 MCG/2 ML INHALATION SOLUTION (PERFOROMIST) INH SCH ×2 (07:40→19:46)
[2023-02-18] MEDS: LEVALBUTEROL 1.25MG/3ML NEB SOLN INH SCH ×3 (07:40→19:46)
[2023-02-18] MEDS: BUDESONIDE 0.5 MG/2 ML INHALATION SUSPENSION INH SCH ×2 (07:40→19:46)
[2023-02-18] MEDS: guaiFENesin ER 600 MG TAB PO SCH ×2 (08:24→21:24)
[2023-02-18] MEDS: traMADol 50 MG TAB PO PRN ×2 (08:24→16:10)
[2023-02-18] MEDS: METOPROLOL TART 25 MG TABLET PO SCH ×2 (08:25→21:25)
[2023-02-18] MEDS: TORSEMIDE 20 MG TAB PO SCH (08:25)
[2023-02-18] MEDS: PANTOPRAZOLE 40MG TAB (PROTONIX) PO SCH (08:25)
[2023-02-18] MEDS: CLOPIDOGREL 75 MG TAB PO SCH (08:25)
[2023-02-18] MEDS: ROSUVASTATIN 10 MG TAB (CRESTOR) PO SCH (08:25)
[2023-02-18] MEDS: MAGNESIUM OXIDE 400MG TAB (MAG-OX) PO SCH ×3 (08:25→21:25)
[2023-02-18] MEDS: FLUTICASONE PROP 0.05% NASAL SPRAY 16 GM (FLONASE) SCH ×2 (08:26→21:25)
[2023-02-18] MEDS: POTASSIUM CHLORIDE 10MEQ SR TABLET PO SCH (08:26)
[2023-02-18] MEDS: ENOXAPARIN 40MG/0.4ML SYRINGE (J1650 PER 10MG) SC SCH ×2 (08:26→08:29)
[2023-02-18] MEDS ORDERED: traMADol 50 MG TAB PO ONE (09:35)
[2023-02-18] MEDS ORDERED: IPRATROPIUM 0.5MG/ALBUTEROL 2.5MG INH SOL UD 3ML (DUONEB) NEB ONE (09:35)
[2023-02-18 14:00] VITALS: BP 142/84
[2023-02-18] MEDS: methylPREDNISolone 40MG 1ML VIAL IV SCH (16:11)
[2023-02-18 20:33] VITALS: BP 142/86
[2023-02-18] MEDS: NYSTATIN 500,000U/5ML SUSP UDC SSP PRN (21:24)
[2023-02-19] MEDS: LEVALBUTEROL 1.25MG/3ML NEB SOLN INH SCH ×4 (01:10→19:27)
[2023-02-19] MEDS: methylPREDNISolone 40MG 1ML VIAL IV SCH (04:09)
[2023-02-19] MEDS: traMADol 50 MG TAB PO PRN ×2 (04:10→15:20)
[2023-02-19 06:00] VITALS: BP 132/74
[2023-02-19] MEDS: TIOTROPIUM INHALER/CAPSULE (SPIRIVA) INH SCH (07:22)
[2023-02-19] MEDS: BUDESONIDE 0.5 MG/2 ML INHALATION SUSPENSION INH SCH ×2 (07:23→19:27)
[2023-02-19] MEDS: FORMOTEROL FUMARATE 20 MCG/2 ML INHALATION SOLUTION (PERFOROMIST) INH SCH ×2 (07:25→19:27)
[2023-02-19] MEDS: ENOXAPARIN 40MG/0.4ML SYRINGE (J1650 PER 10MG) SC SCH ×2 (09:00→09:11)
[2023-02-19 09:09] VITALS: BP 138/78
[2023-02-19] MEDS: METOPROLOL TART 25 MG TABLET PO SCH ×2 (09:10→20:28)
[2023-02-19] MEDS: ROSUVASTATIN 10 MG TAB (CRESTOR) PO SCH (09:10)
[2023-02-19] MEDS: MAGNESIUM OXIDE 400MG TAB (MAG-OX) PO SCH ×3 (09:10→20:18)
[2023-02-19] MEDS: CLOPIDOGREL 75 MG TAB PO SCH (09:10)
[2023-02-19] MEDS: PANTOPRAZOLE 40MG TAB (PROTONIX) PO SCH (09:10)
[2023-02-19] MEDS: guaiFENesin ER 600 MG TAB PO SCH ×2 (09:10→20:18)
[2023-02-19] MEDS: TORSEMIDE 20 MG TAB PO SCH (09:11)
[2023-02-19] MEDS: FLUTICASONE PROP 0.05% NASAL SPRAY 16 GM (FLONASE) SCH ×2 (09:11→20:26)
[2023-02-19] MEDS: POTASSIUM CHLORIDE 10MEQ SR TABLET PO SCH (09:11)
[2023-02-19 14:00] VITALS: BP 140/76
[2023-02-19] MEDS ORDERED: PRED20TA PO (15:47)
[2023-02-19] MEDS ORDERED: PRED10TA2 PO (15:47)
[2023-02-19] MEDS ORDERED: DOXY-444 PO (15:47)
[2023-02-19] MEDS ORDERED: ALBU8.5H INH (15:47)
[2023-02-19] MEDS ORDERED: METO25TA PO (15:50)
[2023-02-19 20:00] VITALS: BP 116/66
[2023-02-19] MEDS: NYSTATIN 500,000U/5ML SUSP UDC SSP PRN (20:19)
[2023-02-20] MEDS: LEVALBUTEROL 1.25MG/3ML NEB SOLN INH SCH ×2 (01:35→07:36)
[2023-02-20 05:15] VITALS: BP 109/67
[2023-02-20] MEDS: FORMOTEROL FUMARATE 20 MCG/2 ML INHALATION SOLUTION (PERFOROMIST) INH SCH (07:36)
[2023-02-20] MEDS: TIOTROPIUM INHALER/CAPSULE (SPIRIVA) INH SCH (07:36)
[2023-02-20] MEDS: BUDESONIDE 0.5 MG/2 ML INHALATION SUSPENSION INH SCH (07:36)
[2023-02-20] MEDS: ENOXAPARIN 40MG/0.4ML SYRINGE (J1650 PER 10MG) SC SCH (09:00)
[2023-02-20] MEDS ORDERED: predniSONE 20 MG TAB PO SCH (09:00)
[2023-02-20 09:51] VITALS: BP 137/70
[2023-02-20] MEDS: ROSUVASTATIN 10 MG TAB (CRESTOR) PO SCH (09:51)
[2023-02-20] MEDS: METOPROLOL TART 25 MG TABLET PO SCH (09:51)
[2023-02-20] MEDS: CLOPIDOGREL 75 MG TAB PO SCH (09:51)
[2023-02-20] MEDS: MAGNESIUM OXIDE 400MG TAB (MAG-OX) PO SCH (09:51)
[2023-02-20] MEDS: guaiFENesin ER 600 MG TAB PO SCH (09:51)
[2023-02-20] MEDS: PANTOPRAZOLE 40MG TAB (PROTONIX) PO SCH (09:52)
[2023-02-20] MEDS: FLUTICASONE PROP 0.05% NASAL SPRAY 16 GM (FLONASE) SCH (09:52)
[2023-02-20] MEDS: TORSEMIDE 20 MG TAB PO SCH (09:52)
[2023-02-20] MEDS: POTASSIUM CHLORIDE 10MEQ SR TABLET PO SCH (09:52)
[2023-02-20] MEDS ORDERED: PERF20NE2 INH (16:49)
[2023-02-20] MEDS ORDERED: BUDE180INH INH (16:49)
== END 2023-02-20 10:32 | disposition home health service (06) | DRG 189 ==
LOC: EDBD 12:19 → M ED 12:19 → M ED INP 16:20 → M MSPAV 18:27
PROVIDERS: ADMIT Internal Medicine; ATTEND General Practice
DX: J96.21 Acute and chronic respiratory failure with hypoxia (principal); J44.1 Chronic obstructive pulmonary disease with (acute) exacerbation; J45.901 Unspecified asthma with (acute) exacerbation; J81.1 Chronic pulmonary edema; E66.2 Morbid (severe) obesity with alveolar hypoventilation; J44.0 Chronic obstructive pulmonary disease with (acute) lower respiratory infection; Z68.41 Body mass index [BMI] 40.0-44.9, adult; J20.9 Acute bronchitis, unspecified; I10 Essential (primary) hypertension; I73.9 Peripheral vascular disease, unspecified; I27.81 Cor pulmonale (chronic); E83.42 Hypomagnesemia; K21.9 Gastro-esophageal reflux disease without esophagitis; E87.6 Hypokalemia; G62.9 Polyneuropathy, unspecified; Z87.891 Personal history of nicotine dependence; Z88.5 Allergy status to narcotic agent; Z88.8 Allergy status to other drugs, medicaments and biological substances; Z79.899 Other long term (current) drug therapy; Z86.73 Personal history of transient ischemic attack (TIA), and cerebral infarction without residual deficits

== ENCOUNTER → 2023-03-17 | Outpatient (CLI) | payer MEDICARE ==
[~2023-03-17] MED LIST changes: +BACI1CAP PO; +BUDE180INH INH; +DOXY-444 PO; -FLON1SPR; +FLON1SPR NARES; +FORM20VI2 NEB; +HYDR-643 PO; +METO25TA PO; +PRED50TA PO; +PRED5TA PO; +ROSU10TA6 PO; -ROSU20TA5 PO; +ROSU20TA61 PO
== END ==
LOC: M SLEEP 20:00
PROVIDERS: ATTEND Internal Medicine Critical Care Medicine
DX: G47.30 Sleep apnea, unspecified (principal)

== ENCOUNTER 2023-03-23 18:44 | Inpatient (IN) | payer MEDICARE ==
[~2023-03-23] VITALS: Ht 144.8 cm; Wt 99.6 kg
[2023-03-23] MEDS ORDERED: IPRATROPIUM 0.5MG/ALBUTEROL 2.5MG INH SOL UD 3ML (DUONEB) NEB ONE (19:55)
[2023-03-23 20:08] LABS: HEMATOCRIT 37.4 % (36.0-47.0); HEMOGLOBIN 11.7 g/dl (12.0-15.5); MEAN CORPUSCULAR HEMOGLOBIN 28.4 pg (27.0-33.0); MEAN CORPUSCULAR HGB CONC 31.3 g/dl (32.0-36.5); MEAN CORPUSCULAR VOLUME 90.8 fl (80.0-96.0); PLATELET COUNT, AUTOMATED 278 10^3/uL (150-450); RED BLOOD COUNT 4.12 10^6/uL (4.00-5.40); WHITE BLOOD COUNT 14.2 10^3/uL (4.0-10.0)
[2023-03-23 20:30] LABS: LIPASE 22 U/L (12-53)
[2023-03-23 20:32] LABS: ALBUMIN 3.1 G/DL (3.2-5.2); ALKALINE PHOSPHATASE 90 U/L (46-116); ALT/SGPT 31 U/L (7.0-40); AST/SGOT 23 U/L (<34); BILIRUBIN,DIRECT 0.1 MG/DL (<0.4); BILIRUBIN,TOTAL 0.5 MG/DL (0.3-1.2); BLOOD UREA NITROGEN 21 MG/DL (9-23); CALCIUM LEVEL 8.8 MG/DL (8.3-10.6); CARBON DIOXIDE LEVEL 38 MMOL/L (20-31); CHLORIDE LEVEL 92 MMOL/L (98-107); CREATININE FOR GFR 0.78 MG/DL (0.55-1.30); GLOMERULAR FILTRATION RATE > 60.0 (>45); GLUCOSE, FASTING 130 MG/DL (74-106); MAGNESIUM LEVEL 1.4 MG/DL (1.8-2.4); POTASSIUM SERUM 4.5 MMOL/L (3.5-5.1); SODIUM LEVEL 141 MMOL/L (136-145); TOTAL PROTEIN 6.1 G/DL (5.7-8.2)
[2023-03-23] MEDS ORDERED: MAG SULF 1GM/100ML (MAG RUN) 1 GM in IV 1 EA IV ONE ×2 (20:35→22:55)
[2023-03-23 20:37] LABS: RSV AMPLIFICATION NEGATIVE (NEGATIVE)
[2023-03-23] MEDS ORDERED: IPRATROPIUM 0.5MG/ALBUTEROL 2.5MG INH SOL UD 3ML (DUONEB) NEB PRN (22:55)
[2023-03-23] MEDS ORDERED: VANCOMYCIN HCL 1,000 MG, VIAL MATE ADAPTER 1 EACH in D5W 250 ML IV ONE (23:00)
[2023-03-23] MEDS ORDERED: methylPREDNISolone 125MG 2ML VIAL IV SCH (23:00)
[2023-03-23] MEDS ORDERED: PRED5TA PO (23:18)
[2023-03-23] MEDS ORDERED: BUDE0.5S6 INH (23:18)
[2023-03-23] MEDS ORDERED: BUDE180INH INH (23:18)
[2023-03-23] MEDS ORDERED: HOME MED LIST COMPLETE! XX SCH (23:20)
[2023-03-23] MEDS ORDERED: traMADol 50 MG TAB PO PRN (23:25)
[2023-03-23 23:38] VITALS: BP 157/91; TEMP 97.9; O2SAT 97
[2023-03-24] MEDS ORDERED: VANCOMYCIN HCL 750 MG, VIAL MATE ADAPTER 1 EACH in D5W 250 ML IV ONE ×3
[2023-03-24 00:14] LABS: ERYTHROCYTE SEDIMENTATION RATE 62 mm/hr (0-30)
[2023-03-24] MEDS ORDERED: PILL CUTTER 1 EACH XX PRN (00:50)
[2023-03-24] MEDS: IPRATROPIUM 0.5MG/ALBUTEROL 2.5MG INH SOL UD 3ML (DUONEB) NEB SCH ×6 (01:42→23:51)
[2023-03-24] MEDS: NORCO, ANEXSIA 5/325MG TABLET (HYDROcodone/ACETAMINOPHEN) PO PRN ×3 (03:18→17:10)
[2023-03-24 06:00] VITALS: BP 151/90; TEMP 97.9; O2SAT 94
[2023-03-24 06:03] LABS: HEMATOCRIT 31.7 % (36.0-47.0); HEMOGLOBIN 10.4 g/dl (12.0-15.5); MEAN CORPUSCULAR HEMOGLOBIN 28.7 pg (27.0-33.0); MEAN CORPUSCULAR HGB CONC 32.8 g/dl (32.0-36.5); MEAN CORPUSCULAR VOLUME 87.6 fl (80.0-96.0); PLATELET COUNT, AUTOMATED 246 10^3/uL (150-450); RED BLOOD COUNT 3.62 10^6/uL (4.00-5.40); WHITE BLOOD COUNT 10.7 10^3/uL (4.0-10.0)
[2023-03-24 06:35] LABS: PROCALCITONIN <0.04 ng/ml
[2023-03-24 06:40] LABS: BLOOD UREA NITROGEN 18 MG/DL (9-23); CALCIUM LEVEL 8.5 MG/DL (8.3-10.6); CARBON DIOXIDE LEVEL 37 MMOL/L (20-31); CHLORIDE LEVEL 91 MMOL/L (98-107); CREATININE FOR GFR 0.64 MG/DL (0.55-1.30); GLOMERULAR FILTRATION RATE > 60.0 (>45); GLUCOSE, FASTING 174 MG/DL (74-106); MAGNESIUM LEVEL 1.7 MG/DL (1.8-2.4); POTASSIUM SERUM 3.5 MMOL/L (3.5-5.1); SODIUM LEVEL 134 MMOL/L (136-145)
[2023-03-24] MEDS ORDERED: TIOTROPIUM INHALER/CAPSULE (SPIRIVA) INH SCH (08:00)
[2023-03-24] MEDS ORDERED: BUDESONIDE 180MCG INHALER (PULMICORT FLEXHALER) INH SCH (08:00)
[2023-03-24] MEDS ORDERED: FORMOTEROL FUMARATE 20 MCG/2 ML INHALATION SOLUTION (PERFOROMIST) NEB SCH (08:00)
[2023-03-24] MEDS: ADVAIR HFA 115/21MCG INHALER INH SCH ×2 (08:17→20:24)
[2023-03-24] MEDS ORDERED: TORSEMIDE 20 MG TAB PO SCH (09:00)
[2023-03-24] MEDS: ENOXAPARIN 40MG/0.4ML SYRINGE (J1650 PER 10MG) SC SCH (09:00)
[2023-03-24] MEDS: ROSUVASTATIN 10 MG TAB (CRESTOR) PO SCH (10:10)
[2023-03-24] MEDS: guaiFENesin ER 600 MG TAB PO SCH ×2 (10:10→21:11)
[2023-03-24] MEDS: LACTOBACILLUS ACIDOPHILUS CAP (BACID) PO SCH (10:10)
[2023-03-24] MEDS: PANTOPRAZOLE 40MG TAB (PROTONIX) PO SCH (10:11)
[2023-03-24] MEDS: CLOPIDOGREL 75 MG TAB PO SCH (10:11)
[2023-03-24] MEDS: DOCUSATE SODIUM 100MG CAPSULE PO SCH ×2 (10:11→21:11)
[2023-03-24] MEDS: POTASSIUM CHLORIDE 10MEQ SR TABLET PO SCH (10:12)
[2023-03-24] MEDS: MAGNESIUM OXIDE 400MG TAB (MAG-OX) PO SCH ×2 (10:12→21:11)
[2023-03-24] MEDS: FLUTICASONE PROP 0.05% NASAL SPRAY 16 GM (FLONASE) NARES SCH ×2 (10:15→21:12)
[2023-03-24] MEDS: METOPROLOL TART 25 MG TABLET PO SCH ×2 (10:15→21:12)
[2023-03-24] MEDS: VANCOMYCIN HCL 1,000 MG, VIAL MATE ADAPTER 1 EACH in D5W 250 ML IV SCH ×2 (10:17→23:05)
[2023-03-24] MEDS: methylPREDNISolone 125MG 2ML VIAL IV SCH ×2 (10:24→17:09)
[2023-03-24] MEDS: cefTRIAXone SOD 1 GM in D5W MINI-BAG PLUS 50 ML IV SCH (12:24)
[2023-03-24 14:00] VITALS: BP 119/58; TEMP 97.9; O2SAT 94
[2023-03-24] MEDS: NYSTATIN 500,000U/5ML SUSP UDC SSP PRN (17:09)
[2023-03-24] MEDS: ACETAMINOPHEN TAB 650MG DOSE (2X325MG) PO PRN (17:11)
[2023-03-24] MEDS ORDERED: methylPREDNISolone 125MG 2ML VIAL IV ONE (17:30)
[2023-03-24 19:41] VITALS: BP 132/84; TEMP 98.2; O2SAT 97
[2023-03-24] MEDS: BUDESONIDE 0.5 MG/2 ML INHALATION SUSPENSION INH SCH (20:25)
[2023-03-24 21:00] VITALS: O2SAT 96
[2023-03-24] MEDS: traMADol 50 MG TAB PO PRN (21:24)
[2023-03-25] MEDS: NORCO, ANEXSIA 5/325MG TABLET (HYDROcodone/ACETAMINOPHEN) PO PRN ×3 (00:42→20:39)
[2023-03-25] MEDS: NYSTATIN 500,000U/5ML SUSP UDC SSP PRN ×3 (00:42→20:38)
[2023-03-25] MEDS: methylPREDNISolone 125MG 2ML VIAL IV SCH ×3 (01:21→17:52)
[2023-03-25 02:47] VITALS: O2SAT 88
[2023-03-25] MEDS: IPRATROPIUM 0.5MG/ALBUTEROL 2.5MG INH SOL UD 3ML (DUONEB) NEB SCH ×5 (04:18→20:09)
[2023-03-25] MEDS: traMADol 50 MG TAB PO PRN ×2 (04:55→14:27)
[2023-03-25 06:00] VITALS: BP 137/86; TEMP 98.1; O2SAT 93
[2023-03-25 06:02] LABS: BASO % 0.1 % (0.0-1.0); HEMATOCRIT 33.2 % (36.0-47.0); HEMOGLOBIN 10.8 g/dl (12.0-15.5); LYMPH # 0.6 10^3/uL (1.5-5.0); LYMPH % 4.4 % (24.0-44.0); MEAN CORPUSCULAR HEMOGLOBIN 28.9 pg (27.0-33.0); MEAN CORPUSCULAR HGB CONC 32.5 g/dl (32.0-36.5); MEAN CORPUSCULAR VOLUME 88.8 fl (80.0-96.0); MONO # 0.3 10^3/uL (0.0-0.8); MONO % 2.3 % (2.0-8.0); NEUTROPHILS # 11.8 10^3/uL (1.5-8.5); NEUTROPHILS % 92.3 % (36.0-66.0); PLATELET COUNT, AUTOMATED 272 10^3/uL (150-450); RED BLOOD COUNT 3.74 10^6/uL (4.00-5.40); WHITE BLOOD COUNT 12.7 10^3/uL (4.0-10.0)
[2023-03-25] MEDS: ALBUTEROL SULFATE 2.5MG/0.5ML INH NEB SOLN NEB PRN (06:03)
[2023-03-25 06:25] LABS: BLOOD UREA NITROGEN 19 MG/DL (9-23); CALCIUM LEVEL 8.9 MG/DL (8.3-10.6); CARBON DIOXIDE LEVEL 38 MMOL/L (20-31); CHLORIDE LEVEL 91 MMOL/L (98-107); CREATININE FOR GFR 0.66 MG/DL (0.55-1.30); GLOMERULAR FILTRATION RATE > 60.0 (>45); GLUCOSE, FASTING 169 MG/DL (74-106); MAGNESIUM LEVEL 1.5 MG/DL (1.8-2.4); PHOSPHORUS LEVEL 3.5 MG/DL (2.4-5.1); POTASSIUM SERUM 3.9 MMOL/L (3.5-5.1); SODIUM LEVEL 136 MMOL/L (136-145)
[2023-03-25] MEDS: BUDESONIDE 0.5 MG/2 ML INHALATION SUSPENSION INH SCH ×2 (07:40→20:09)
[2023-03-25] MEDS: ADVAIR HFA 115/21MCG INHALER INH SCH ×2 (07:41→20:09)
[2023-03-25] MEDS ORDERED: MAG SULF 1GM/100ML (MAG RUN) 1 GM in IV 1 EA IV ONE (08:00)
[2023-03-25] MEDS: ENOXAPARIN 40MG/0.4ML SYRINGE (J1650 PER 10MG) SC SCH (08:52)
[2023-03-25] MEDS: POTASSIUM CHLORIDE 10MEQ SR TABLET PO SCH (08:54)
[2023-03-25] MEDS: guaiFENesin ER 600 MG TAB PO SCH ×2 (08:55→20:38)
[2023-03-25] MEDS: DOCUSATE SODIUM 100MG CAPSULE PO SCH ×2 (08:56→20:38)
[2023-03-25] MEDS: MAGNESIUM OXIDE 400MG TAB (MAG-OX) PO SCH ×2 (08:56→20:38)
[2023-03-25] MEDS: ROSUVASTATIN 10 MG TAB (CRESTOR) PO SCH (08:57)
[2023-03-25] MEDS: PANTOPRAZOLE 40MG TAB (PROTONIX) PO SCH (08:57)
[2023-03-25] MEDS: ACETAMINOPHEN TAB 650MG DOSE (2X325MG) PO PRN (08:57)
[2023-03-25] MEDS: CLOPIDOGREL 75 MG TAB PO SCH (08:57)
[2023-03-25] MEDS: LACTOBACILLUS ACIDOPHILUS CAP (BACID) PO SCH (08:57)
[2023-03-25] MEDS ORDERED: TORSEMIDE 20 MG TAB PO SCH (09:00)
[2023-03-25] MEDS: METOPROLOL TART 25 MG TABLET PO SCH ×2 (09:02→20:39)
[2023-03-25] MEDS: FLUTICASONE PROP 0.05% NASAL SPRAY 16 GM (FLONASE) NARES SCH ×2 (09:02→20:39)
[2023-03-25 10:53] LABS: ERYTHROCYTE SEDIMENTATION RATE 44 mm/hr (0-30)
[2023-03-25] MEDS: cefTRIAXone SOD 1 GM in D5W MINI-BAG PLUS 50 ML IV SCH (12:00)
[2023-03-25 14:00] VITALS: BP 132/83; TEMP 97.7; O2SAT 96
[2023-03-25] MEDS: FUROSEMIDE 40MG/4ML VIAL IV SCH (17:53)
[2023-03-25 20:00] VITALS: BP 138/97; TEMP 97.2; O2SAT 96
[2023-03-25] MEDS ORDERED: LEVALBUTEROL 1.25MG/3ML NEB SOLN INH SCH (20:00)
[2023-03-25 20:37] VITALS: O2SAT 96
[2023-03-25] MEDS: IPRATROPIUM 0.02% SOLN 0.5MG 2.5ML NEB INH SCH (21:57)
[2023-03-25] MEDS: LEVALBUTEROL 1.25MG/3ML NEB SOLN INH SCH (21:58)
[2023-03-26] MEDS: ALBUTEROL SULFATE 2.5MG/0.5ML INH NEB SOLN NEB PRN (00:05)
[2023-03-26] MEDS: traMADol 50 MG TAB PO PRN ×2 (01:15→16:26)
[2023-03-26] MEDS: methylPREDNISolone 125MG 2ML VIAL IV SCH ×3 (01:15→16:19)
[2023-03-26 02:33] VITALS: O2SAT 96
[2023-03-26] MEDS: LEVALBUTEROL 1.25MG/3ML NEB SOLN INH SCH ×6 (03:09→23:18)
[2023-03-26] MEDS: IPRATROPIUM 0.02% SOLN 0.5MG 2.5ML NEB INH SCH ×6 (03:09→23:18)
[2023-03-26 06:00] VITALS: BP 135/78; TEMP 97.3; O2SAT 95
[2023-03-26 06:21] LABS: HEMATOCRIT 33.1 % (36.0-47.0); HEMOGLOBIN 10.7 g/dl (12.0-15.5); MEAN CORPUSCULAR HEMOGLOBIN 28.6 pg (27.0-33.0); MEAN CORPUSCULAR HGB CONC 32.3 g/dl (32.0-36.5); MEAN CORPUSCULAR VOLUME 88.5 fl (80.0-96.0); PLATELET COUNT, AUTOMATED 327 10^3/uL (150-450); RED BLOOD COUNT 3.74 10^6/uL (4.00-5.40); WHITE BLOOD COUNT 15.8 10^3/uL (4.0-10.0)
[2023-03-26 06:42] LABS: ALBUMIN 2.9 G/DL (3.2-5.2); ALKALINE PHOSPHATASE 77 U/L (46-116); ALT/SGPT 31 U/L (7.0-40); AST/SGOT 15 U/L (<34); BILIRUBIN,TOTAL 0.3 MG/DL (0.3-1.2); BLOOD UREA NITROGEN 25 MG/DL (9-23); CALCIUM LEVEL 9.8 MG/DL (8.3-10.6); CARBON DIOXIDE LEVEL 39 MMOL/L (20-31); CHLORIDE LEVEL 90 MMOL/L (98-107); CREATININE FOR GFR 0.89 MG/DL (0.55-1.30); GLOMERULAR FILTRATION RATE > 60.0 (>45); GLUCOSE, FASTING 148 MG/DL (74-106); MAGNESIUM LEVEL 1.6 MG/DL (1.8-2.4); POTASSIUM SERUM 3.7 MMOL/L (3.5-5.1); SODIUM LEVEL 137 MMOL/L (136-145); TOTAL PROTEIN 5.5 G/DL (5.7-8.2)
[2023-03-26] MEDS: MAG SULF 1GM/100ML (MAG RUN) 1 GM in IV 1 EA IV SCH ×2 (07:44→08:52)
[2023-03-26] MEDS: NORCO, ANEXSIA 5/325MG TABLET (HYDROcodone/ACETAMINOPHEN) PO PRN ×2 (07:45→21:36)
[2023-03-26] MEDS: ACETAMINOPHEN TAB 650MG DOSE (2X325MG) PO PRN (07:45)
[2023-03-26] MEDS: BUDESONIDE 0.5 MG/2 ML INHALATION SUSPENSION INH SCH ×2 (07:48→19:04)
[2023-03-26] MEDS: ADVAIR HFA 115/21MCG INHALER INH SCH ×2 (07:49→19:02)
[2023-03-26] MEDS: ENOXAPARIN 40MG/0.4ML SYRINGE (J1650 PER 10MG) SC SCH (08:53)
[2023-03-26] MEDS: FUROSEMIDE 40MG/4ML VIAL IV SCH ×2 (08:53→16:19)
[2023-03-26] MEDS: MAGNESIUM OXIDE 400MG TAB (MAG-OX) PO SCH ×3 (08:54→21:36)
[2023-03-26] MEDS: ROSUVASTATIN 10 MG TAB (CRESTOR) PO SCH (08:54)
[2023-03-26] MEDS: PANTOPRAZOLE 40MG TAB (PROTONIX) PO SCH (08:54)
[2023-03-26] MEDS: CLOPIDOGREL 75 MG TAB PO SCH (08:54)
[2023-03-26] MEDS: guaiFENesin ER 600 MG TAB PO SCH ×2 (08:54→21:37)
[2023-03-26] MEDS: METOPROLOL TART 25 MG TABLET PO SCH ×2 (08:54→21:37)
[2023-03-26] MEDS: DOCUSATE SODIUM 100MG CAPSULE PO SCH ×2 (08:55→21:36)
[2023-03-26] MEDS: LACTOBACILLUS ACIDOPHILUS CAP (BACID) PO SCH (08:55)
[2023-03-26] MEDS: FLUTICASONE PROP 0.05% NASAL SPRAY 16 GM (FLONASE) NARES SCH ×2 (08:55→21:39)
[2023-03-26] MEDS: POTASSIUM CHLORIDE 10MEQ SR TABLET PO SCH (08:55)
[2023-03-26] MEDS: cefTRIAXone SOD 1 GM in D5W MINI-BAG PLUS 50 ML IV SCH (11:54)
[2023-03-26 14:00] VITALS: BP 149/85; TEMP 98.2; O2SAT 96
[2023-03-26 21:00] VITALS: BP 134/74; TEMP 97.7; O2SAT 94
[2023-03-26] MEDS: NYSTATIN 500,000U/5ML SUSP UDC SSP PRN (21:34)
[2023-03-26 23:00] VITALS: O2SAT 94
[2023-03-27 01:05] VITALS: O2SAT 93
[2023-03-27] MEDS: methylPREDNISolone 125MG 2ML VIAL IV SCH ×3 (03:10→17:22)
[2023-03-27] MEDS: LEVALBUTEROL 1.25MG/3ML NEB SOLN INH SCH ×5 (03:18→20:19)
[2023-03-27] MEDS: IPRATROPIUM 0.02% SOLN 0.5MG 2.5ML NEB INH SCH ×4 (03:18→20:19)
[2023-03-27] MEDS: NORCO, ANEXSIA 5/325MG TABLET (HYDROcodone/ACETAMINOPHEN) PO PRN ×3 (04:43→21:03)
[2023-03-27 06:00] VITALS: BP 154/95; TEMP 97.9; O2SAT 95
[2023-03-27 06:04] LABS: HEMATOCRIT 34.9 % (36.0-47.0); MEAN CORPUSCULAR HEMOGLOBIN 28.8 pg (27.0-33.0); MEAN CORPUSCULAR HGB CONC 31.5 g/dl (32.0-36.5); MEAN CORPUSCULAR VOLUME 91.4 fl (80.0-96.0); PLATELET COUNT, AUTOMATED 347 10^3/uL (150-450); RED BLOOD COUNT 3.82 10^6/uL (4.00-5.40); WHITE BLOOD COUNT 13.9 10^3/uL (4.0-10.0)
[2023-03-27 06:19] LABS: ALBUMIN 3.2 G/DL (3.2-5.2); ALKALINE PHOSPHATASE 77 U/L (46-116); ALT/SGPT 31 U/L (7.0-40); AST/SGOT 22 U/L (<34); BILIRUBIN,TOTAL 0.4 MG/DL (0.3-1.2); BLOOD UREA NITROGEN 27 MG/DL (9-23); CALCIUM LEVEL 9.7 MG/DL (8.3-10.6); CARBON DIOXIDE LEVEL > 40.0 MMOL/L (20-31); CHLORIDE LEVEL 89 MMOL/L (98-107); CREATININE FOR GFR 0.68 MG/DL (0.55-1.30); GLOMERULAR FILTRATION RATE > 60.0 (>45); GLUCOSE, FASTING 129 MG/DL (74-106); MAGNESIUM LEVEL 1.9 MG/DL (1.8-2.4); POTASSIUM SERUM 4.1 MMOL/L (3.5-5.1); SODIUM LEVEL 137 MMOL/L (136-145); TOTAL PROTEIN 5.7 G/DL (5.7-8.2)
[2023-03-27] MEDS: ADVAIR HFA 115/21MCG INHALER INH SCH ×2 (07:31→20:20)
[2023-03-27] MEDS: BUDESONIDE 0.5 MG/2 ML INHALATION SUSPENSION INH SCH ×2 (07:31→20:20)
[2023-03-27] MEDS: ENOXAPARIN 40MG/0.4ML SYRINGE (J1650 PER 10MG) SC SCH (09:00)
[2023-03-27] MEDS: DOCUSATE SODIUM 100MG CAPSULE PO SCH ×2 (09:49→21:04)
[2023-03-27] MEDS: MAGNESIUM OXIDE 400MG TAB (MAG-OX) PO SCH ×3 (09:50→21:04)
[2023-03-27] MEDS: METOPROLOL TART 25 MG TABLET PO SCH ×2 (09:50→21:04)
[2023-03-27] MEDS: PANTOPRAZOLE 40MG TAB (PROTONIX) PO SCH (09:50)
[2023-03-27] MEDS: guaiFENesin ER 600 MG TAB PO SCH ×2 (09:50→21:02)
[2023-03-27] MEDS: ROSUVASTATIN 10 MG TAB (CRESTOR) PO SCH (09:50)
[2023-03-27] MEDS: FUROSEMIDE 40MG/4ML VIAL IV SCH ×2 (09:51→17:22)
[2023-03-27] MEDS: CLOPIDOGREL 75 MG TAB PO SCH (09:51)
[2023-03-27] MEDS: POTASSIUM CHLORIDE 10MEQ SR TABLET PO SCH (09:51)
[2023-03-27] MEDS: FLUTICASONE PROP 0.05% NASAL SPRAY 16 GM (FLONASE) NARES SCH ×2 (09:52→21:02)
[2023-03-27] MEDS: LACTOBACILLUS ACIDOPHILUS CAP (BACID) PO SCH (09:52)
[2023-03-27] MEDS: NYSTATIN 500,000U/5ML SUSP UDC SSP PRN ×2 (09:53→21:04)
[2023-03-27] MEDS: traMADol 50 MG TAB PO PRN (09:56)
[2023-03-27] MEDS: cefTRIAXone SOD 1 GM in D5W MINI-BAG PLUS 50 ML IV SCH (12:34)
[2023-03-27] MEDS: ACETAMINOPHEN TAB 650MG DOSE (2X325MG) PO PRN (14:11)
[2023-03-27 14:30] VITALS: BP 119/70; TEMP 97.9; O2SAT 95
[2023-03-27 21:05] VITALS: BP 150/94; TEMP 97.5; O2SAT 97
[2023-03-28] VITALS (8 sets, daily range): BP systolic 118–169; BP diastolic 70–88; TEMP 97.9–99.7; O2SAT 92–99
[2023-03-28] MEDS: LEVALBUTEROL 1.25MG/3ML NEB SOLN INH SCH ×7 (00:05→23:24)
[2023-03-28] MEDS: IPRATROPIUM 0.02% SOLN 0.5MG 2.5ML NEB INH SCH ×7 (00:05→23:24)
[2023-03-28] MEDS: methylPREDNISolone 125MG 2ML VIAL IV SCH ×3 (01:24→17:27)
[2023-03-28 07:01] LABS: HEMATOCRIT 36.7 % (36.0-47.0); MEAN CORPUSCULAR HEMOGLOBIN 29.4 pg (27.0-33.0); MEAN CORPUSCULAR HGB CONC 32.7 g/dl (32.0-36.5); PLATELET COUNT, AUTOMATED 321 10^3/uL (150-450); RED BLOOD COUNT 4.08 10^6/uL (4.00-5.40); WHITE BLOOD COUNT 13.2 10^3/uL (4.0-10.0)
[2023-03-28 07:33] LABS: ALBUMIN 3.2 G/DL (3.2-5.2); ALKALINE PHOSPHATASE 75 U/L (46-116); ALT/SGPT 37 U/L (7.0-40); AST/SGOT 19 U/L (<34); BILIRUBIN,TOTAL 0.5 MG/DL (0.3-1.2); BLOOD UREA NITROGEN 28 MG/DL (9-23); CALCIUM LEVEL 9.9 MG/DL (8.3-10.6); CARBON DIOXIDE LEVEL 38 MMOL/L (20-31); CHLORIDE LEVEL 90 MMOL/L (98-107); CREATININE FOR GFR 0.65 MG/DL (0.55-1.30); GLOMERULAR FILTRATION RATE > 60.0 (>45); GLUCOSE, FASTING 157 MG/DL (74-106); MAGNESIUM LEVEL 1.8 MG/DL (1.8-2.4); POTASSIUM SERUM 4.3 MMOL/L (3.5-5.1); SODIUM LEVEL 137 MMOL/L (136-145); TOTAL PROTEIN 5.9 G/DL (5.7-8.2)
[2023-03-28] MEDS: BUDESONIDE 0.5 MG/2 ML INHALATION SUSPENSION INH SCH ×2 (08:00→19:10)
[2023-03-28] MEDS: ADVAIR HFA 115/21MCG INHALER INH SCH ×2 (08:00→19:11)
[2023-03-28] MEDS: FLUTICASONE PROP 0.05% NASAL SPRAY 16 GM (FLONASE) NARES SCH ×2 (08:36→21:07)
[2023-03-28] MEDS: guaiFENesin ER 600 MG TAB PO SCH ×2 (08:36→21:06)
[2023-03-28] MEDS: LACTOBACILLUS ACIDOPHILUS CAP (BACID) PO SCH (08:39)
[2023-03-28] MEDS: METOPROLOL TART 25 MG TABLET PO SCH ×2 (08:39→21:06)
[2023-03-28] MEDS: PANTOPRAZOLE 40MG TAB (PROTONIX) PO SCH (08:39)
[2023-03-28] MEDS: ROSUVASTATIN 10 MG TAB (CRESTOR) PO SCH (08:39)
[2023-03-28] MEDS: MAGNESIUM OXIDE 400MG TAB (MAG-OX) PO SCH ×3 (08:40→21:07)
[2023-03-28] MEDS: ENOXAPARIN 40MG/0.4ML SYRINGE (J1650 PER 10MG) SC SCH (08:40)
[2023-03-28] MEDS: DOCUSATE SODIUM 100MG CAPSULE PO SCH ×2 (08:40→21:06)
[2023-03-28] MEDS: CLOPIDOGREL 75 MG TAB PO SCH (08:40)
[2023-03-28] MEDS: FUROSEMIDE 40MG/4ML VIAL IV SCH ×2 (08:40→16:16)
[2023-03-28] MEDS: POTASSIUM CHLORIDE 10MEQ SR TABLET PO SCH (08:40)
[2023-03-28] MEDS: NYSTATIN 500,000U/5ML SUSP UDC SSP PRN (08:42)
[2023-03-28] MEDS: NORCO, ANEXSIA 5/325MG TABLET (HYDROcodone/ACETAMINOPHEN) PO PRN ×2 (08:43→21:06)
[2023-03-28 09:45] LABS: ABG BASE EXCESS 8.3 (-2.0-2.0); ABG HCO3 33.4 MMOL/L (22.0-26.0); ABG O2 SATURATION 95.8 % (95.0-99.0); ABG PARTIAL PRESSURE CO2 48.2 mmHg (35.0-45.0); ABG PARTIAL PRESSURE O2 81.8 mmHg (75.0-100.0); ABG TOTAL CO2 34.8 MMOL/L (23.0-31.0); ABG pH (ARTERIAL) 7.458 UNITS (7.350-7.450)
[2023-03-28] MEDS: cefTRIAXone SOD 1 GM in D5W MINI-BAG PLUS 50 ML IV SCH (11:05)
[2023-03-28] MEDS: acetaZOLAMIDE 250MG TAB PO SCH (21:25)
[2023-03-29] VITALS (19 sets, daily range): BP systolic 148–182; BP diastolic 69–94; TEMP 97.5–98.2; O2SAT 92–100
[2023-03-29] MEDS: methylPREDNISolone 125MG 2ML VIAL IV SCH (01:28)
[2023-03-29] MEDS: IPRATROPIUM 0.02% SOLN 0.5MG 2.5ML NEB INH SCH ×6 (04:09→23:00)
[2023-03-29] MEDS: LEVALBUTEROL 1.25MG/3ML NEB SOLN INH SCH ×6 (04:09→23:00)
[2023-03-29] MEDS: NORCO, ANEXSIA 5/325MG TABLET (HYDROcodone/ACETAMINOPHEN) PO PRN ×3 (04:19→21:27)
[2023-03-29] MEDS ORDERED: hydrALAZINE 20MG/ML 1ML VIAL IV ONE (05:00)
[2023-03-29 05:06] LABS: HEMATOCRIT 35.8 % (36.0-47.0); HEMOGLOBIN 11.4 g/dl (12.0-15.5); MEAN CORPUSCULAR HEMOGLOBIN 28.8 pg (27.0-33.0); MEAN CORPUSCULAR HGB CONC 31.8 g/dl (32.0-36.5); MEAN CORPUSCULAR VOLUME 90.4 fl (80.0-96.0); PLATELET COUNT, AUTOMATED 321 10^3/uL (150-450); RED BLOOD COUNT 3.96 10^6/uL (4.00-5.40); WHITE BLOOD COUNT 12.2 10^3/uL (4.0-10.0)
[2023-03-29 05:48] LABS: ALBUMIN 3.1 G/DL (3.2-5.2); ALKALINE PHOSPHATASE 77 U/L (46-116); ALT/SGPT 35 U/L (7.0-40); AST/SGOT 10 U/L (<34); BILIRUBIN,TOTAL 0.5 MG/DL (0.3-1.2); BLOOD UREA NITROGEN 30 MG/DL (9-23); CALCIUM LEVEL 9.8 MG/DL (8.3-10.6); CARBON DIOXIDE LEVEL > 40.0 MMOL/L (20-31); CHLORIDE LEVEL 91 MMOL/L (98-107); GLOMERULAR FILTRATION RATE > 60.0 (>45); GLUCOSE, FASTING 182 MG/DL (74-106); MAGNESIUM LEVEL 1.8 MG/DL (1.8-2.4); POTASSIUM SERUM 3.7 MMOL/L (3.5-5.1); SODIUM LEVEL 135 MMOL/L (136-145); TOTAL PROTEIN 5.7 G/DL (5.7-8.2)
[2023-03-29] MEDS ORDERED: LevoFLOXacin 500 MG TABLET PO SCH (06:00)
[2023-03-29 06:15] LABS: ABG BASE EXCESS 13.8 (-2.0-2.0); ABG HCO3 39.1 MMOL/L (22.0-26.0); ABG O2 SATURATION 98.7 % (95.0-99.0); ABG PARTIAL PRESSURE CO2 51.7 mmHg (35.0-45.0); ABG PARTIAL PRESSURE O2 135.9 mmHg (75.0-100.0); ABG STANDARD HCO3 37.7 MMOL/L. (22.0-26.0); ABG TOTAL CO2 40.6 MMOL/L (23.0-31.0); ABG pH (ARTERIAL) 7.496 UNITS (7.350-7.450)
[2023-03-29] MEDS: BUDESONIDE 0.5 MG/2 ML INHALATION SUSPENSION INH SCH ×2 (07:34→19:01)
[2023-03-29] MEDS: TIOTROPIUM INHALER/CAPSULE (SPIRIVA) INH SCH (07:34)
[2023-03-29] MEDS: ADVAIR HFA 115/21MCG INHALER INH SCH ×2 (07:44→19:02)
[2023-03-29] MEDS ORDERED: POTASSIUM CHLORIDE 10MEQ SR TABLET PO ONE (09:00)
[2023-03-29] MEDS ORDERED: MAG SULF 1GM/100ML (MAG RUN) 1 GM in IV 1 EA IV ONE (09:00)
[2023-03-29] MEDS: ENOXAPARIN 40MG/0.4ML SYRINGE (J1650 PER 10MG) SC SCH (09:31)
[2023-03-29] MEDS: MAGNESIUM OXIDE 400MG TAB (MAG-OX) PO SCH ×3 (09:31→21:25)
[2023-03-29] MEDS: ROSUVASTATIN 10 MG TAB (CRESTOR) PO SCH (09:31)
[2023-03-29] MEDS: PANTOPRAZOLE 40MG TAB (PROTONIX) PO SCH (09:32)
[2023-03-29] MEDS: guaiFENesin ER 600 MG TAB PO SCH ×2 (09:32→21:27)
[2023-03-29] MEDS: acetaZOLAMIDE 250MG TAB PO SCH ×2 (09:32→21:25)
[2023-03-29] MEDS: LACTOBACILLUS ACIDOPHILUS CAP (BACID) PO SCH (09:32)
[2023-03-29] MEDS: CLOPIDOGREL 75 MG TAB PO SCH (09:32)
[2023-03-29] MEDS: DOCUSATE SODIUM 100MG CAPSULE PO SCH ×2 (09:32→21:27)
[2023-03-29] MEDS: METOPROLOL TART 25 MG TABLET PO SCH ×2 (09:33→21:26)
[2023-03-29] MEDS: FLUTICASONE PROP 0.05% NASAL SPRAY 16 GM (FLONASE) NARES SCH ×2 (09:33→21:28)
[2023-03-29] MEDS: NYSTATIN 500,000U/5ML SUSP UDC SSP PRN ×2 (09:36→21:26)
[2023-03-29] MEDS: traMADol 50 MG TAB PO PRN (09:49)
[2023-03-29] MEDS: methylPREDNISolone 40MG 1ML VIAL IV SCH (14:20)
[2023-03-30] VITALS (13 sets, daily range): BP systolic 121–161; BP diastolic 60–93; TEMP 96.8–97.5; O2SAT 94–100
[2023-03-30] MEDS: methylPREDNISolone 40MG 1ML VIAL IV SCH ×2 (01:23→08:54)
[2023-03-30] MEDS: IPRATROPIUM 0.02% SOLN 0.5MG 2.5ML NEB INH SCH ×6 (03:09→22:58)
[2023-03-30] MEDS: LEVALBUTEROL 1.25MG/3ML NEB SOLN INH SCH ×6 (03:09→22:58)
[2023-03-30] MEDS: NORCO, ANEXSIA 5/325MG TABLET (HYDROcodone/ACETAMINOPHEN) PO PRN ×3 (04:45→21:03)
[2023-03-30 05:02] LABS: HEMATOCRIT 35.8 % (36.0-47.0); HEMOGLOBIN 11.2 g/dl (12.0-15.5); MEAN CORPUSCULAR HEMOGLOBIN 28.3 pg (27.0-33.0); MEAN CORPUSCULAR HGB CONC 31.3 g/dl (32.0-36.5); MEAN CORPUSCULAR VOLUME 90.4 fl (80.0-96.0); PLATELET COUNT, AUTOMATED 317 10^3/uL (150-450); RED BLOOD COUNT 3.96 10^6/uL (4.00-5.40); WHITE BLOOD COUNT 12.4 10^3/uL (4.0-10.0)
[2023-03-30 05:13] LABS: INR 0.92; PARTIAL THROMBOPLASTIN TIME 20.5 SECONDS (24.8-34.2); PROTHROMBIN TIME 12.6 SECONDS (12.5-14.5)
[2023-03-30 05:23] LABS: ALBUMIN 3.1 G/DL (3.2-5.2); ALKALINE PHOSPHATASE 74 U/L (46-116); ALT/SGPT 30 U/L (7.0-40); AST/SGOT 14 U/L (<34); BILIRUBIN,TOTAL 0.4 MG/DL (0.3-1.2); BLOOD UREA NITROGEN 36 MG/DL (9-23); CALCIUM LEVEL 9.1 MG/DL (8.3-10.6); CARBON DIOXIDE LEVEL > 40.0 MMOL/L (20-31); CHLORIDE LEVEL 95 MMOL/L (98-107); CREATININE FOR GFR 0.78 MG/DL (0.55-1.30); GLOMERULAR FILTRATION RATE > 60.0 (>45); GLUCOSE, FASTING 155 MG/DL (74-106); MAGNESIUM LEVEL 2.1 MG/DL (1.8-2.4); POTASSIUM SERUM 4.3 MMOL/L (3.5-5.1); SODIUM LEVEL 139 MMOL/L (136-145); TOTAL PROTEIN 5.5 G/DL (5.7-8.2)
[2023-03-30] MEDS: TIOTROPIUM INHALER/CAPSULE (SPIRIVA) INH SCH (07:11)
[2023-03-30] MEDS: ADVAIR HFA 115/21MCG INHALER INH SCH ×2 (07:11→19:18)
[2023-03-30] MEDS: ENOXAPARIN 40MG/0.4ML SYRINGE (J1650 PER 10MG) SC SCH (08:54)
[2023-03-30] MEDS: acetaZOLAMIDE 250MG TAB PO SCH ×2 (08:54→20:05)
[2023-03-30] MEDS: MAGNESIUM OXIDE 400MG TAB (MAG-OX) PO SCH ×3 (08:55→20:05)
[2023-03-30] MEDS: METOPROLOL TART 25 MG TABLET PO SCH ×2 (08:55→20:06)
[2023-03-30] MEDS: guaiFENesin ER 600 MG TAB PO SCH ×2 (08:55→20:05)
[2023-03-30] MEDS: ROSUVASTATIN 10 MG TAB (CRESTOR) PO SCH (08:55)
[2023-03-30] MEDS: PANTOPRAZOLE 40MG TAB (PROTONIX) PO SCH (08:55)
[2023-03-30] MEDS: CLOPIDOGREL 75 MG TAB PO SCH (08:55)
[2023-03-30] MEDS: LACTOBACILLUS ACIDOPHILUS CAP (BACID) PO SCH (08:55)
[2023-03-30] MEDS: DOCUSATE SODIUM 100MG CAPSULE PO SCH ×2 (08:56→20:05)
[2023-03-30] MEDS: traMADol 50 MG TAB PO PRN (08:57)
[2023-03-30] MEDS: NYSTATIN 500,000U/5ML SUSP UDC SSP PRN ×2 (09:12→21:02)
[2023-03-30] MEDS: FLUTICASONE PROP 0.05% NASAL SPRAY 16 GM (FLONASE) NARES SCH ×2 (09:13→20:06)
[2023-03-31] VITALS (18 sets, daily range): BP systolic 114–143; BP diastolic 60–70; TEMP 96.8–98.1; O2SAT 83–99
[2023-03-31] MEDS: NORCO, ANEXSIA 5/325MG TABLET (HYDROcodone/ACETAMINOPHEN) PO PRN ×3 (03:34→20:07)
[2023-03-31] MEDS: LEVALBUTEROL 1.25MG/3ML NEB SOLN INH SCH ×6 (03:35→23:54)
[2023-03-31] MEDS: IPRATROPIUM 0.02% SOLN 0.5MG 2.5ML NEB INH SCH ×6 (03:35→23:54)
[2023-03-31 05:23] LABS: HEMATOCRIT 35.2 % (36.0-47.0); HEMOGLOBIN 11.4 g/dl (12.0-15.5); MEAN CORPUSCULAR HEMOGLOBIN 28.8 pg (27.0-33.0); MEAN CORPUSCULAR HGB CONC 32.4 g/dl (32.0-36.5); MEAN CORPUSCULAR VOLUME 88.9 fl (80.0-96.0); PLATELET COUNT, AUTOMATED 282 10^3/uL (150-450); RED BLOOD COUNT 3.96 10^6/uL (4.00-5.40); WHITE BLOOD COUNT 11.7 10^3/uL (4.0-10.0)
[2023-03-31 05:30] LABS: ALBUMIN 3.1 G/DL (3.2-5.2); ALKALINE PHOSPHATASE 75 U/L (46-116); ALT/SGPT 14 U/L (7.0-40); AST/SGOT 12 U/L (<34); BILIRUBIN,TOTAL 0.5 MG/DL (0.3-1.2); BLOOD UREA NITROGEN 34 MG/DL (9-23); CALCIUM LEVEL 8.8 MG/DL (8.3-10.6); CARBON DIOXIDE LEVEL 38 MMOL/L (20-31); CHLORIDE LEVEL 98 MMOL/L (98-107); CREATININE FOR GFR 0.73 MG/DL (0.55-1.30); GLOMERULAR FILTRATION RATE > 60.0 (>45); GLUCOSE, FASTING 97 MG/DL (74-106); MAGNESIUM LEVEL 2.1 MG/DL (1.8-2.4); POTASSIUM SERUM 3.7 MMOL/L (3.5-5.1); SODIUM LEVEL 139 MMOL/L (136-145); TOTAL PROTEIN 5.4 G/DL (5.7-8.2)
[2023-03-31] MEDS: ADVAIR HFA 115/21MCG INHALER INH SCH ×2 (07:21→19:02)
[2023-03-31] MEDS: TIOTROPIUM INHALER/CAPSULE (SPIRIVA) INH SCH (07:21)
[2023-03-31] MEDS: NYSTATIN 500,000U/5ML SUSP UDC SSP PRN ×2 (08:19→20:06)
[2023-03-31] MEDS: methylPREDNISolone 40MG 1ML VIAL IV SCH (08:19)
[2023-03-31] MEDS: MAGNESIUM OXIDE 400MG TAB (MAG-OX) PO SCH ×3 (08:19→20:06)
[2023-03-31] MEDS: ENOXAPARIN 40MG/0.4ML SYRINGE (J1650 PER 10MG) SC SCH (08:19)
[2023-03-31] MEDS: guaiFENesin ER 600 MG TAB PO SCH ×2 (08:19→20:06)
[2023-03-31] MEDS: PANTOPRAZOLE 40MG TAB (PROTONIX) PO SCH (08:20)
[2023-03-31] MEDS: LACTOBACILLUS ACIDOPHILUS CAP (BACID) PO SCH (08:21)
[2023-03-31] MEDS: METOPROLOL TART 25 MG TABLET PO SCH ×2 (08:21→20:07)
[2023-03-31] MEDS: ROSUVASTATIN 10 MG TAB (CRESTOR) PO SCH (08:21)
[2023-03-31] MEDS: CLOPIDOGREL 75 MG TAB PO SCH (08:21)
[2023-03-31] MEDS: acetaZOLAMIDE 250MG TAB PO SCH ×2 (08:21→20:07)
[2023-03-31] MEDS: DOCUSATE SODIUM 100MG CAPSULE PO SCH ×2 (08:21→20:08)
[2023-03-31] MEDS: FLUTICASONE PROP 0.05% NASAL SPRAY 16 GM (FLONASE) NARES SCH ×2 (08:23→20:08)
[2023-03-31] MEDS: SPIRONOLACTONE 25 MG TAB PO SCH ×2 (10:32→16:03)
[2023-03-31] MEDS: FUROSEMIDE 40MG/4ML VIAL IV SCH ×2 (10:32→18:51)
[2023-04-01] VITALS (21 sets, daily range): BP systolic 107–148; BP diastolic 55–80; TEMP 96.2–97.6; O2SAT 87–99
[2023-04-01] MEDS: LEVALBUTEROL 1.25MG/3ML NEB SOLN INH SCH ×6 (03:05→22:58)
[2023-04-01] MEDS: IPRATROPIUM 0.02% SOLN 0.5MG 2.5ML NEB INH SCH ×6 (03:05→22:59)
[2023-04-01] MEDS: FUROSEMIDE 40MG/4ML VIAL IV SCH ×3 (03:09→18:11)
[2023-04-01] MEDS: traMADol 50 MG TAB PO PRN (05:17)
[2023-04-01 06:49] LABS: HEMATOCRIT 38.2 % (36.0-47.0); HEMOGLOBIN 12.5 g/dl (12.0-15.5); MEAN CORPUSCULAR HEMOGLOBIN 28.7 pg (27.0-33.0); MEAN CORPUSCULAR HGB CONC 32.7 g/dl (32.0-36.5); MEAN CORPUSCULAR VOLUME 87.8 fl (80.0-96.0); PLATELET COUNT, AUTOMATED 327 10^3/uL (150-450); RED BLOOD COUNT 4.35 10^6/uL (4.00-5.40)
[2023-04-01 07:25] LABS: ALBUMIN 3.5 G/DL (3.2-5.2); ALKALINE PHOSPHATASE 83 U/L (46-116); ALT/SGPT 24 U/L (7.0-40); AST/SGOT < 8 U/L (<34); BILIRUBIN,TOTAL 0.6 MG/DL (0.3-1.2); BLOOD UREA NITROGEN 30 MG/DL (9-23); CALCIUM LEVEL 8.8 MG/DL (8.3-10.6); CARBON DIOXIDE LEVEL 34 MMOL/L (20-31); CHLORIDE LEVEL 95 MMOL/L (98-107); CREATININE FOR GFR 0.73 MG/DL (0.55-1.30); GLOMERULAR FILTRATION RATE > 60.0 (>45); GLUCOSE, FASTING 120 MG/DL (74-106); MAGNESIUM LEVEL 1.9 MG/DL (1.8-2.4); POTASSIUM SERUM 3.3 MMOL/L (3.5-5.1); SODIUM LEVEL 138 MMOL/L (136-145); TOTAL PROTEIN 5.9 G/DL (5.7-8.2)
[2023-04-01] MEDS: TIOTROPIUM INHALER/CAPSULE (SPIRIVA) INH SCH (07:39)
[2023-04-01] MEDS: ADVAIR HFA 115/21MCG INHALER INH SCH ×2 (07:40→19:55)
[2023-04-01] MEDS: acetaZOLAMIDE 250MG TAB PO SCH ×2 (08:53→21:24)
[2023-04-01] MEDS: MAGNESIUM OXIDE 400MG TAB (MAG-OX) PO SCH ×3 (08:53→21:25)
[2023-04-01] MEDS: DOCUSATE SODIUM 100MG CAPSULE PO SCH ×2 (08:54→21:25)
[2023-04-01] MEDS: ROSUVASTATIN 10 MG TAB (CRESTOR) PO SCH (08:54)
[2023-04-01] MEDS: SPIRONOLACTONE 50 MG TAB PO SCH ×2 (08:54→18:11)
[2023-04-01] MEDS: LACTOBACILLUS ACIDOPHILUS CAP (BACID) PO SCH (08:54)
[2023-04-01] MEDS: guaiFENesin ER 600 MG TAB PO SCH ×2 (08:54→21:24)
[2023-04-01] MEDS: PANTOPRAZOLE 40MG TAB (PROTONIX) PO SCH (08:54)
[2023-04-01] MEDS: METOPROLOL TART 25 MG TABLET PO SCH ×2 (08:54→21:00)
[2023-04-01] MEDS: CLOPIDOGREL 75 MG TAB PO SCH (08:55)
[2023-04-01] MEDS: ENOXAPARIN 40MG/0.4ML SYRINGE (J1650 PER 10MG) SC SCH (08:55)
[2023-04-01] MEDS: NORCO, ANEXSIA 5/325MG TABLET (HYDROcodone/ACETAMINOPHEN) PO PRN ×3 (08:55→21:29)
[2023-04-01] MEDS: methylPREDNISolone 40MG 1ML VIAL IV SCH (08:55)
[2023-04-01] MEDS: FLUTICASONE PROP 0.05% NASAL SPRAY 16 GM (FLONASE) NARES SCH ×2 (08:56→21:25)
[2023-04-01] MEDS ORDERED: POTASSIUM CHLORIDE 10MEQ SR TABLET PO ONE (09:00)
[2023-04-01] MEDS: NYSTATIN 500,000U/5ML SUSP UDC SSP PRN ×2 (10:07→21:28)
[2023-04-01 15:24] LABS: ALBUMIN 3.7 G/DL (3.2-5.2); BLOOD UREA NITROGEN 31 MG/DL (9-23); CALCIUM LEVEL 8.6 MG/DL (8.3-10.6); CARBON DIOXIDE LEVEL 34 MMOL/L (20-31); CHLORIDE LEVEL 95 MMOL/L (98-107); CREATININE FOR GFR 0.87 MG/DL (0.55-1.30); GLOMERULAR FILTRATION RATE > 60.0 (>45); GLUCOSE, FASTING 189 MG/DL (74-106); PHOSPHORUS LEVEL 4.1 MG/DL (2.4-5.1); POTASSIUM SERUM 4.2 MMOL/L (3.5-5.1); SODIUM LEVEL 137 MMOL/L (136-145)
[2023-04-02] VITALS (20 sets, daily range): BP systolic 116–143; BP diastolic 62–87; TEMP 96.3–97.6; O2SAT 88–100
[2023-04-02] MEDS: FUROSEMIDE 40MG/4ML VIAL IV SCH ×2 (02:53→11:02)
[2023-04-02] MEDS: IPRATROPIUM 0.02% SOLN 0.5MG 2.5ML NEB INH SCH ×6 (03:03→23:22)
[2023-04-02] MEDS: LEVALBUTEROL 1.25MG/3ML NEB SOLN INH SCH ×6 (03:03→23:23)
[2023-04-02] MEDS: traMADol 50 MG TAB PO PRN ×2 (05:07→11:01)
[2023-04-02 06:01] LABS: BASO # 0.1 10^3/uL (0.0-0.2); BASO % 0.4 % (0.0-1.0); EOS % 0.1 % (0.0-3.0); HEMOGLOBIN 12.1 g/dl (12.0-15.5); LYMPH # 2.4 10^3/uL (1.5-5.0); LYMPH % 16.1 % (24.0-44.0); MEAN CORPUSCULAR HEMOGLOBIN 28.5 pg (27.0-33.0); MEAN CORPUSCULAR HGB CONC 31.8 g/dl (32.0-36.5); MEAN CORPUSCULAR VOLUME 89.4 fl (80.0-96.0); MONO # 1.1 10^3/uL (0.0-0.8); MONO % 7.1 % (2.0-8.0); NEUTROPHILS # 10.9 10^3/uL (1.5-8.5); NEUTROPHILS % 71.7 % (36.0-66.0); PLATELET COUNT, AUTOMATED 290 10^3/uL (150-450); RED BLOOD COUNT 4.25 10^6/uL (4.00-5.40); WHITE BLOOD COUNT 15.1 10^3/uL (4.0-10.0)
[2023-04-02 06:22] LABS: BLOOD UREA NITROGEN 27 MG/DL (9-23); CALCIUM LEVEL 8.8 MG/DL (8.3-10.6); CARBON DIOXIDE LEVEL 34 MMOL/L (20-31); CHLORIDE LEVEL 94 MMOL/L (98-107); CREATININE FOR GFR 0.78 MG/DL (0.55-1.30); GLOMERULAR FILTRATION RATE > 60.0 (>45); GLUCOSE, FASTING 123 MG/DL (74-106); PHOSPHORUS LEVEL 3.5 MG/DL (2.4-5.1); POTASSIUM SERUM 3.2 MMOL/L (3.5-5.1); SODIUM LEVEL 134 MMOL/L (136-145)
[2023-04-02] MEDS: POTASSIUM CHLORIDE 10MEQ SR TABLET PO SCH ×2 (06:41→08:39)
[2023-04-02] MEDS: TIOTROPIUM INHALER/CAPSULE (SPIRIVA) INH SCH (07:10)
[2023-04-02] MEDS: ADVAIR HFA 115/21MCG INHALER INH SCH ×2 (07:11→19:38)
[2023-04-02] MEDS: NYSTATIN 500,000U/5ML SUSP UDC SSP PRN ×2 (08:38→20:37)
[2023-04-02] MEDS: ENOXAPARIN 40MG/0.4ML SYRINGE (J1650 PER 10MG) SC SCH (08:38)
[2023-04-02] MEDS: acetaZOLAMIDE 250MG TAB PO SCH ×2 (08:39→20:37)
[2023-04-02] MEDS: LACTOBACILLUS ACIDOPHILUS CAP (BACID) PO SCH (08:39)
[2023-04-02] MEDS: MAGNESIUM OXIDE 400MG TAB (MAG-OX) PO SCH ×3 (08:39→20:39)
[2023-04-02] MEDS: DOCUSATE SODIUM 100MG CAPSULE PO SCH ×2 (08:39→20:41)
[2023-04-02] MEDS: SPIRONOLACTONE 50 MG TAB PO SCH ×2 (08:39→16:17)
[2023-04-02] MEDS: CLOPIDOGREL 75 MG TAB PO SCH (08:40)
[2023-04-02] MEDS: methylPREDNISolone 40MG 1ML VIAL IV SCH ×3 (08:40→22:44)
[2023-04-02] MEDS: ROSUVASTATIN 10 MG TAB (CRESTOR) PO SCH (08:40)
[2023-04-02] MEDS: METOPROLOL TART 25 MG TABLET PO SCH ×2 (08:40→20:42)
[2023-04-02] MEDS: PANTOPRAZOLE 40MG TAB (PROTONIX) PO SCH (08:40)
[2023-04-02] MEDS: guaiFENesin ER 600 MG TAB PO SCH ×2 (08:40→20:40)
[2023-04-02] MEDS: FLUTICASONE PROP 0.05% NASAL SPRAY 16 GM (FLONASE) NARES SCH ×2 (08:41→20:44)
[2023-04-02] MEDS ORDERED: ISOVUE-370 76% 100ML VIAL As Ordered ONE (09:18)
[2023-04-02 09:27] LABS: PROCALCITONIN 0.08 ng/ml
[2023-04-02] MEDS: MIRALAX *UNIT DOSE* 17GM PACKET PO SCH (11:01)
[2023-04-02] MEDS: NORCO, ANEXSIA 5/325MG TABLET (HYDROcodone/ACETAMINOPHEN) PO PRN (20:44)
[2023-04-03] VITALS (24 sets, daily range): BP systolic 135–153; BP diastolic 60–96; TEMP 96–97.5; O2SAT 77–100
[2023-04-03] MEDS: LEVALBUTEROL 1.25MG/3ML NEB SOLN INH SCH ×6 (03:12→23:21)
[2023-04-03] MEDS: IPRATROPIUM 0.02% SOLN 0.5MG 2.5ML NEB INH SCH ×6 (03:12→23:21)
[2023-04-03] MEDS: methylPREDNISolone 40MG 1ML VIAL IV SCH ×3 (04:42→16:55)
[2023-04-03 06:32] LABS: HEMATOCRIT 34.1 % (36.0-47.0); HEMOGLOBIN 11.2 g/dl (12.0-15.5); MEAN CORPUSCULAR HEMOGLOBIN 29.1 pg (27.0-33.0); MEAN CORPUSCULAR HGB CONC 32.8 g/dl (32.0-36.5); MEAN CORPUSCULAR VOLUME 88.6 fl (80.0-96.0); PLATELET COUNT, AUTOMATED 271 10^3/uL (150-450); RED BLOOD COUNT 3.85 10^6/uL (4.00-5.40); WHITE BLOOD COUNT 16.4 10^3/uL (4.0-10.0)
[2023-04-03 06:58] LABS: BLOOD UREA NITROGEN 26 MG/DL (9-23); CALCIUM LEVEL 9.2 MG/DL (8.3-10.6); CARBON DIOXIDE LEVEL 32 MMOL/L (20-31); CHLORIDE LEVEL 93 MMOL/L (98-107); GLOMERULAR FILTRATION RATE > 60.0 (>45); GLUCOSE, FASTING 160 MG/DL (74-106); PHOSPHORUS LEVEL 4.2 MG/DL (2.4-5.1); POTASSIUM SERUM 3.8 MMOL/L (3.5-5.1); SODIUM LEVEL 134 MMOL/L (136-145)
[2023-04-03 07:08] LABS: LYMPHOCYTES 7 % (16-44); METAMYELOCYTES 1 % (0-0); MONOCYTES 2 % (0-5); MYELOCYTES 2 % (0-0); NEUTROPHILS 87 % (28-66); PLATELET ESTIMATE NORMAL (NORMAL)
[2023-04-03] MEDS: TIOTROPIUM INHALER/CAPSULE (SPIRIVA) INH SCH (08:18)
[2023-04-03] MEDS: ADVAIR HFA 115/21MCG INHALER INH SCH ×2 (08:27→19:02)
[2023-04-03] MEDS: ENOXAPARIN 40MG/0.4ML SYRINGE (J1650 PER 10MG) SC SCH ×2 (09:00→09:36)
[2023-04-03] MEDS: MIRALAX *UNIT DOSE* 17GM PACKET PO SCH ×2 (09:00→09:36)
[2023-04-03] MEDS ORDERED: FUROSEMIDE 40MG/4ML VIAL IV SCH (09:00)
[2023-04-03] MEDS ORDERED: POTASSIUM CHLORIDE 10MEQ SR TABLET PO ONE (09:25)
[2023-04-03] MEDS: FLUTICASONE PROP 0.05% NASAL SPRAY 16 GM (FLONASE) NARES SCH ×2 (09:34→20:34)
[2023-04-03] MEDS: FUROSEMIDE 40MG/4ML VIAL IV SCH ×2 (09:36→18:18)
[2023-04-03] MEDS: NYSTATIN 500,000U/5ML SUSP UDC SSP PRN ×2 (09:36→20:32)
[2023-04-03] MEDS: acetaZOLAMIDE 250MG TAB PO SCH ×2 (09:37→20:33)
[2023-04-03] MEDS: LACTOBACILLUS ACIDOPHILUS CAP (BACID) PO SCH (09:37)
[2023-04-03] MEDS: NORCO, ANEXSIA 5/325MG TABLET (HYDROcodone/ACETAMINOPHEN) PO PRN ×2 (09:38→20:33)
[2023-04-03] MEDS: PANTOPRAZOLE 40MG TAB (PROTONIX) PO SCH (09:38)
[2023-04-03] MEDS: SPIRONOLACTONE 50 MG TAB PO SCH ×2 (09:38→16:55)
[2023-04-03] MEDS: METOPROLOL TART 25 MG TABLET PO SCH ×2 (09:38→20:32)
[2023-04-03] MEDS: DOCUSATE SODIUM 100MG CAPSULE PO SCH ×2 (09:38→20:32)
[2023-04-03] MEDS: CLOPIDOGREL 75 MG TAB PO SCH (09:38)
[2023-04-03] MEDS: guaiFENesin ER 600 MG TAB PO SCH ×2 (09:38→20:33)
[2023-04-03] MEDS: ROSUVASTATIN 10 MG TAB (CRESTOR) PO SCH (09:38)
[2023-04-03] MEDS: MAGNESIUM OXIDE 400MG TAB (MAG-OX) PO SCH ×3 (09:38→20:33)
[2023-04-03] MEDS: NYSTATIN 100,000 UNITS/GM TOPICAL PWD 15GM TOP PRN (18:18)
[2023-04-03] MEDS: MONTELUKAST 10 MG TAB PO SCH (21:50)
[2023-04-04] VITALS (27 sets, daily range): BP systolic 147–170; BP diastolic 67–94; TEMP 96–96.8; O2SAT 86–100
[2023-04-04] MEDS: FUROSEMIDE 40MG/4ML VIAL IV SCH ×3 (01:04→17:23)
[2023-04-04] MEDS: methylPREDNISolone 40MG 1ML VIAL IV SCH ×3 (01:05→17:24)
[2023-04-04] MEDS: IPRATROPIUM 0.02% SOLN 0.5MG 2.5ML NEB INH SCH ×6 (04:15→23:32)
[2023-04-04] MEDS: LEVALBUTEROL 1.25MG/3ML NEB SOLN INH SCH ×6 (04:15→23:32)
[2023-04-04 06:12] LABS: HEMATOCRIT 35.1 % (36.0-47.0); HEMOGLOBIN 11.5 g/dl (12.0-15.5); MEAN CORPUSCULAR HEMOGLOBIN 28.9 pg (27.0-33.0); MEAN CORPUSCULAR HGB CONC 32.8 g/dl (32.0-36.5); MEAN CORPUSCULAR VOLUME 88.2 fl (80.0-96.0); PLATELET COUNT, AUTOMATED 299 10^3/uL (150-450); RED BLOOD COUNT 3.98 10^6/uL (4.00-5.40)
[2023-04-04 06:37] LABS: BLOOD UREA NITROGEN 30 MG/DL (9-23); CALCIUM LEVEL 10.1 MG/DL (8.3-10.6); CARBON DIOXIDE LEVEL 32 MMOL/L (20-31); CHLORIDE LEVEL 91 MMOL/L (98-107); CREATININE FOR GFR 0.75 MG/DL (0.55-1.30); GLOMERULAR FILTRATION RATE > 60.0 (>45); GLUCOSE, FASTING 156 MG/DL (74-106); MAGNESIUM LEVEL 1.9 MG/DL (1.8-2.4); POTASSIUM SERUM 3.8 MMOL/L (3.5-5.1); SODIUM LEVEL 132 MMOL/L (136-145)
[2023-04-04] MEDS: NORCO, ANEXSIA 5/325MG TABLET (HYDROcodone/ACETAMINOPHEN) PO PRN ×2 (06:40→20:25)
[2023-04-04] MEDS: ADVAIR HFA 115/21MCG INHALER INH SCH ×2 (08:19→20:33)
[2023-04-04] MEDS: TIOTROPIUM INHALER/CAPSULE (SPIRIVA) INH SCH (08:19)
[2023-04-04] MEDS: MIRALAX *UNIT DOSE* 17GM PACKET PO SCH (09:00)
[2023-04-04] MEDS: ENOXAPARIN 40MG/0.4ML SYRINGE (J1650 PER 10MG) SC SCH ×2 (09:00→09:37)
[2023-04-04] MEDS: NYSTATIN 500,000U/5ML SUSP UDC SSP PRN ×2 (09:34→20:26)
[2023-04-04] MEDS: acetaZOLAMIDE 250MG TAB PO SCH ×2 (09:35→20:25)
[2023-04-04] MEDS: PANTOPRAZOLE 40MG TAB (PROTONIX) PO SCH (09:35)
[2023-04-04] MEDS: POTASSIUM CHLORIDE 10MEQ SR TABLET PO SCH (09:35)
[2023-04-04] MEDS: LACTOBACILLUS ACIDOPHILUS CAP (BACID) PO SCH (09:35)
[2023-04-04] MEDS: SPIRONOLACTONE 50 MG TAB PO SCH ×2 (09:35→17:23)
[2023-04-04] MEDS: guaiFENesin ER 600 MG TAB PO SCH ×2 (09:35→20:24)
[2023-04-04] MEDS: CLOPIDOGREL 75 MG TAB PO SCH (09:36)
[2023-04-04] MEDS: METOPROLOL TART 25 MG TABLET PO SCH ×2 (09:36→20:24)
[2023-04-04] MEDS: AZITHROMYCIN 250MG TABLET PO SCH (09:36)
[2023-04-04] MEDS: ROSUVASTATIN 10 MG TAB (CRESTOR) PO SCH (09:36)
[2023-04-04] MEDS: MAGNESIUM OXIDE 400MG TAB (MAG-OX) PO SCH ×3 (09:36→20:25)
[2023-04-04] MEDS: DOCUSATE SODIUM 100MG CAPSULE PO SCH ×2 (09:36→20:24)
[2023-04-04] MEDS: FLUTICASONE PROP 0.05% NASAL SPRAY 16 GM (FLONASE) NARES SCH ×2 (09:37→20:26)
[2023-04-04] MEDS: NYSTATIN 100,000 UNITS/GM TOPICAL PWD 15GM TOP PRN (09:48)
[2023-04-04] MEDS: traMADol 50 MG TAB PO PRN (15:13)
[2023-04-04] MEDS: MONTELUKAST 10 MG TAB PO SCH (20:24)
[2023-04-05] VITALS (27 sets, daily range): BP systolic 125–151; BP diastolic 59–86; TEMP 96.6–98.5; O2SAT 92–100
[2023-04-05] MEDS: FUROSEMIDE 40MG/4ML VIAL IV SCH ×3 (01:51→17:05)
[2023-04-05] MEDS: methylPREDNISolone 40MG 1ML VIAL IV SCH ×2 (01:51→13:29)
[2023-04-05] MEDS: LEVALBUTEROL 1.25MG/3ML NEB SOLN INH SCH ×6 (03:16→23:44)
[2023-04-05] MEDS: IPRATROPIUM 0.02% SOLN 0.5MG 2.5ML NEB INH SCH ×6 (03:16→23:44)
[2023-04-05 06:07] LABS: HEMOGLOBIN 12.5 g/dl (12.0-15.5); MEAN CORPUSCULAR HEMOGLOBIN 28.9 pg (27.0-33.0); MEAN CORPUSCULAR HGB CONC 32.9 g/dl (32.0-36.5); MEAN CORPUSCULAR VOLUME 87.8 fl (80.0-96.0); PLATELET COUNT, AUTOMATED 337 10^3/uL (150-450); RED BLOOD COUNT 4.33 10^6/uL (4.00-5.40)
[2023-04-05 06:40] LABS: BLOOD UREA NITROGEN 34 MG/DL (9-23); CARBON DIOXIDE LEVEL 31 MMOL/L (20-31); CHLORIDE LEVEL 90 MMOL/L (98-107); CREATININE FOR GFR 0.81 MG/DL (0.55-1.30); GLOMERULAR FILTRATION RATE > 60.0 (>45); GLUCOSE, FASTING 194 MG/DL (74-106); PHOSPHORUS LEVEL 4.2 MG/DL (2.4-5.1); SODIUM LEVEL 131 MMOL/L (136-145)
[2023-04-05] MEDS: NORCO, ANEXSIA 5/325MG TABLET (HYDROcodone/ACETAMINOPHEN) PO PRN ×3 (06:46→20:34)
[2023-04-05] MEDS: TIOTROPIUM INHALER/CAPSULE (SPIRIVA) INH SCH (08:00)
[2023-04-05] MEDS: ADVAIR HFA 115/21MCG INHALER INH SCH ×2 (08:25→19:43)
[2023-04-05] MEDS: MIRALAX *UNIT DOSE* 17GM PACKET PO SCH (09:00)
[2023-04-05] MEDS: acetaZOLAMIDE 250MG TAB PO SCH ×2 (09:54→20:33)
[2023-04-05] MEDS: PANTOPRAZOLE 40MG TAB (PROTONIX) PO SCH (09:54)
[2023-04-05] MEDS: LACTOBACILLUS ACIDOPHILUS CAP (BACID) PO SCH (09:54)
[2023-04-05] MEDS: MAGNESIUM OXIDE 400MG TAB (MAG-OX) PO SCH ×3 (09:54→20:34)
[2023-04-05] MEDS: CLOPIDOGREL 75 MG TAB PO SCH (09:54)
[2023-04-05] MEDS: METOPROLOL TART 25 MG TABLET PO SCH ×2 (09:55→20:34)
[2023-04-05] MEDS: DOCUSATE SODIUM 100MG CAPSULE PO SCH ×2 (09:55→20:34)
[2023-04-05] MEDS: POTASSIUM CHLORIDE 10MEQ SR TABLET PO SCH (09:55)
[2023-04-05] MEDS: guaiFENesin ER 600 MG TAB PO SCH ×2 (09:55→20:33)
[2023-04-05] MEDS: AZITHROMYCIN 250MG TABLET PO SCH (09:55)
[2023-04-05] MEDS: ROSUVASTATIN 10 MG TAB (CRESTOR) PO SCH (09:55)
[2023-04-05] MEDS: NYSTATIN 500,000U/5ML SUSP UDC SSP PRN ×2 (09:55→20:33)
[2023-04-05] MEDS: FLUTICASONE PROP 0.05% NASAL SPRAY 16 GM (FLONASE) NARES SCH ×2 (09:56→20:35)
[2023-04-05] MEDS: SPIRONOLACTONE 50 MG TAB PO SCH ×2 (10:03→17:05)
[2023-04-05] MEDS: RIVAROXABAN 10MG TAB (XARELTO) PO SCH (17:05)
[2023-04-05] MEDS: MONTELUKAST 10 MG TAB PO SCH (20:33)
[2023-04-06] VITALS (30 sets, daily range): BP systolic 107–180; BP diastolic 59–108; TEMP 96.2–96.9; O2SAT 81–100
[2023-04-06] MEDS: methylPREDNISolone 40MG 1ML VIAL IV SCH ×2 (00:26→12:44)
[2023-04-06] MEDS: IPRATROPIUM 0.02% SOLN 0.5MG 2.5ML NEB INH SCH ×6 (03:26→23:25)
[2023-04-06] MEDS: LEVALBUTEROL 1.25MG/3ML NEB SOLN INH SCH ×6 (03:26→23:25)
[2023-04-06] MEDS: NORCO, ANEXSIA 5/325MG TABLET (HYDROcodone/ACETAMINOPHEN) PO PRN ×2 (04:57→15:35)
[2023-04-06 05:09] LABS: HEMATOCRIT 36.8 % (36.0-47.0); MEAN CORPUSCULAR HEMOGLOBIN 29.1 pg (27.0-33.0); MEAN CORPUSCULAR HGB CONC 32.6 g/dl (32.0-36.5); MEAN CORPUSCULAR VOLUME 89.3 fl (80.0-96.0); PLATELET COUNT, AUTOMATED 312 10^3/uL (150-450); RED BLOOD COUNT 4.12 10^6/uL (4.00-5.40); WHITE BLOOD COUNT 17.8 10^3/uL (4.0-10.0)
[2023-04-06] MEDS ORDERED: amLODIPine 5 MG TAB PO ONE (05:20)
[2023-04-06 05:33] LABS: BLOOD UREA NITROGEN 39 MG/DL (9-23); CARBON DIOXIDE LEVEL 35 MMOL/L (20-31); CHLORIDE LEVEL 92 MMOL/L (98-107); CREATININE FOR GFR 0.79 MG/DL (0.55-1.30); GLOMERULAR FILTRATION RATE > 60.0 (>45); GLUCOSE, FASTING 197 MG/DL (74-106); MAGNESIUM LEVEL 2.1 MG/DL (1.8-2.4); PHOSPHORUS LEVEL 3.7 MG/DL (2.4-5.1); POTASSIUM SERUM 4.1 MMOL/L (3.5-5.1); SODIUM LEVEL 135 MMOL/L (136-145)
[2023-04-06] MEDS: ADVAIR HFA 115/21MCG INHALER INH SCH ×2 (08:55→20:11)
[2023-04-06] MEDS: TIOTROPIUM INHALER/CAPSULE (SPIRIVA) INH SCH (08:55)
[2023-04-06] MEDS: MIRALAX *UNIT DOSE* 17GM PACKET PO SCH (09:00)
[2023-04-06] MEDS: FUROSEMIDE 40MG/4ML VIAL IV SCH ×2 (09:29→17:26)
[2023-04-06] MEDS: MAGNESIUM OXIDE 400MG TAB (MAG-OX) PO SCH ×3 (09:29→20:40)
[2023-04-06] MEDS: LACTOBACILLUS ACIDOPHILUS CAP (BACID) PO SCH (09:29)
[2023-04-06] MEDS: AZITHROMYCIN 250MG TABLET PO SCH (09:29)
[2023-04-06] MEDS: POTASSIUM CHLORIDE 10MEQ SR TABLET PO SCH (09:30)
[2023-04-06] MEDS: CLOPIDOGREL 75 MG TAB PO SCH (09:31)
[2023-04-06] MEDS: SPIRONOLACTONE 50 MG TAB PO SCH ×2 (09:31→17:26)
[2023-04-06] MEDS: guaiFENesin ER 600 MG TAB PO SCH ×2 (09:31→20:40)
[2023-04-06] MEDS: amLODIPine 5 MG TAB PO SCH (09:31)
[2023-04-06] MEDS: PANTOPRAZOLE 40MG TAB (PROTONIX) PO SCH (09:31)
[2023-04-06] MEDS: DOCUSATE SODIUM 100MG CAPSULE PO SCH ×2 (09:32→20:40)
[2023-04-06] MEDS: METOPROLOL TART 25 MG TABLET PO SCH ×2 (09:32→20:42)
[2023-04-06] MEDS: ROSUVASTATIN 10 MG TAB (CRESTOR) PO SCH (09:32)
[2023-04-06] MEDS: FLUTICASONE PROP 0.05% NASAL SPRAY 16 GM (FLONASE) NARES SCH ×2 (09:33→20:41)
[2023-04-06] MEDS: NYSTATIN 500,000U/5ML SUSP UDC SSP PRN ×2 (09:50→20:38)
[2023-04-06] MEDS: RIVAROXABAN 10MG TAB (XARELTO) PO SCH (17:27)
[2023-04-06] MEDS: MONTELUKAST 10 MG TAB PO SCH (20:40)
[2023-04-06] MEDS: traMADol 50 MG TAB PO PRN (20:40)
[2023-04-07] VITALS (18 sets, daily range): BP systolic 123–150; BP diastolic 58–83; TEMP 96.4–98.4; O2SAT 90–100
[2023-04-07] MEDS: methylPREDNISolone 40MG 1ML VIAL IV SCH ×2 (00:51→12:56)
[2023-04-07] MEDS: LEVALBUTEROL 1.25MG/3ML NEB SOLN INH SCH ×6 (03:19→23:20)
[2023-04-07] MEDS: IPRATROPIUM 0.02% SOLN 0.5MG 2.5ML NEB INH SCH ×6 (03:19→23:20)
[2023-04-07] MEDS: NORCO, ANEXSIA 5/325MG TABLET (HYDROcodone/ACETAMINOPHEN) PO PRN ×2 (04:34→15:15)
[2023-04-07 06:36] LABS: BLOOD UREA NITROGEN 24 MG/DL (9-23); CALCIUM LEVEL 8.5 MG/DL (8.3-10.6); CARBON DIOXIDE LEVEL 29 MMOL/L (20-31); CHLORIDE LEVEL 94 MMOL/L (98-107); CREATININE FOR GFR 0.83 MG/DL (0.55-1.30); GLOMERULAR FILTRATION RATE > 60.0 (>45); GLUCOSE, FASTING 223 MG/DL (74-106); MAGNESIUM LEVEL 1.9 MG/DL (1.8-2.4); PHOSPHORUS LEVEL 3.3 MG/DL (2.4-5.1); POTASSIUM SERUM 4.3 MMOL/L (3.5-5.1); SODIUM LEVEL 131 MMOL/L (136-145)
[2023-04-07] MEDS: ADVAIR HFA 115/21MCG INHALER INH SCH ×2 (07:49→21:04)
[2023-04-07] MEDS: TIOTROPIUM INHALER/CAPSULE (SPIRIVA) INH SCH (07:50)
[2023-04-07] MEDS: MIRALAX *UNIT DOSE* 17GM PACKET PO SCH (09:00)
[2023-04-07] MEDS: SPIRONOLACTONE 50 MG TAB PO SCH ×2 (09:18→16:13)
[2023-04-07] MEDS: ROSUVASTATIN 10 MG TAB (CRESTOR) PO SCH (09:18)
[2023-04-07] MEDS: DOCUSATE SODIUM 100MG CAPSULE PO SCH ×2 (09:18→20:17)
[2023-04-07] MEDS: LACTOBACILLUS ACIDOPHILUS CAP (BACID) PO SCH (09:18)
[2023-04-07] MEDS: METOPROLOL TART 25 MG TABLET PO SCH ×2 (09:18→20:17)
[2023-04-07] MEDS: guaiFENesin ER 600 MG TAB PO SCH ×2 (09:19→20:17)
[2023-04-07] MEDS: POTASSIUM CHLORIDE 10MEQ SR TABLET PO SCH (09:19)
[2023-04-07] MEDS: amLODIPine 5 MG TAB PO SCH (09:19)
[2023-04-07] MEDS: MAGNESIUM OXIDE 400MG TAB (MAG-OX) PO SCH ×3 (09:19→20:18)
[2023-04-07] MEDS: CLOPIDOGREL 75 MG TAB PO SCH (09:19)
[2023-04-07] MEDS: PANTOPRAZOLE 40MG TAB (PROTONIX) PO SCH (09:20)
[2023-04-07] MEDS: FUROSEMIDE 40MG/4ML VIAL IV SCH ×2 (09:20→16:14)
[2023-04-07] MEDS: AZITHROMYCIN 250MG TABLET PO SCH (09:20)
[2023-04-07] MEDS: FLUTICASONE PROP 0.05% NASAL SPRAY 16 GM (FLONASE) NARES SCH ×2 (09:21→20:19)
[2023-04-07] MEDS: traMADol 50 MG TAB PO PRN ×2 (09:24→20:18)
[2023-04-07] MEDS: NYSTATIN 500,000U/5ML SUSP UDC SSP PRN ×2 (09:24→20:17)
[2023-04-07 12:10] LABS: BASO # 0.1 10^3/uL (0.0-0.2); BASO % 0.3 % (0.0-1.0); HEMATOCRIT 36.3 % (36.0-47.0); LYMPH # 0.8 10^3/uL (1.5-5.0); LYMPH % 3.5 % (24.0-44.0); MEAN CORPUSCULAR HEMOGLOBIN 28.9 pg (27.0-33.0); MEAN CORPUSCULAR HGB CONC 33.1 g/dl (32.0-36.5); MEAN CORPUSCULAR VOLUME 87.5 fl (80.0-96.0); MONO # 1.4 10^3/uL (0.0-0.8); MONO % 6.3 % (2.0-8.0); NEUTROPHILS # 19.3 10^3/uL (1.5-8.5); PLATELET COUNT, AUTOMATED 318 10^3/uL (150-450); RED BLOOD COUNT 4.15 10^6/uL (4.00-5.40); WHITE BLOOD COUNT 22.4 10^3/uL (4.0-10.0)
[2023-04-07] MEDS: RIVAROXABAN 10MG TAB (XARELTO) PO SCH (17:15)
[2023-04-07] MEDS: MONTELUKAST 10 MG TAB PO SCH (20:17)
[2023-04-08] VITALS (24 sets, daily range): BP systolic 115–138; BP diastolic 65–82; TEMP 96.1–97; O2SAT 96–100
[2023-04-08] MEDS: methylPREDNISolone 40MG 1ML VIAL IV SCH ×2 (00:32→12:21)
[2023-04-08] MEDS: IPRATROPIUM 0.02% SOLN 0.5MG 2.5ML NEB INH SCH ×6 (03:34→23:48)
[2023-04-08] MEDS: LEVALBUTEROL 1.25MG/3ML NEB SOLN INH SCH ×6 (03:34→23:48)
[2023-04-08 06:07] LABS: BASO # 0.1 10^3/uL (0.0-0.2); BASO % 0.2 % (0.0-1.0); HEMATOCRIT 38.2 % (36.0-47.0); HEMOGLOBIN 12.8 g/dl (12.0-15.5); LYMPH # 0.6 10^3/uL (1.5-5.0); MEAN CORPUSCULAR HEMOGLOBIN 29.1 pg (27.0-33.0); MEAN CORPUSCULAR HGB CONC 33.5 g/dl (32.0-36.5); MEAN CORPUSCULAR VOLUME 86.8 fl (80.0-96.0); MONO # 0.8 10^3/uL (0.0-0.8); MONO % 3.6 % (2.0-8.0); NEUTROPHILS # 19.2 10^3/uL (1.5-8.5); NEUTROPHILS % 89.8 % (36.0-66.0); PLATELET COUNT, AUTOMATED 336 10^3/uL (150-450); WHITE BLOOD COUNT 21.4 10^3/uL (4.0-10.0)
[2023-04-08 06:39] LABS: BLOOD UREA NITROGEN 45 MG/DL (9-23); CALCIUM LEVEL 9.4 MG/DL (8.3-10.6); CARBON DIOXIDE LEVEL 34 MMOL/L (20-31); CHLORIDE LEVEL 87 MMOL/L (98-107); CREATININE FOR GFR 0.67 MG/DL (0.55-1.30); GLOMERULAR FILTRATION RATE > 60.0 (>45); GLUCOSE, FASTING 223 MG/DL (74-106); MAGNESIUM LEVEL 1.8 MG/DL (1.8-2.4); POTASSIUM SERUM 4.4 MMOL/L (3.5-5.1); SODIUM LEVEL 131 MMOL/L (136-145)
[2023-04-08] MEDS: TIOTROPIUM INHALER/CAPSULE (SPIRIVA) INH SCH (07:43)
[2023-04-08] MEDS: ADVAIR HFA 115/21MCG INHALER INH SCH ×2 (07:43→19:31)
[2023-04-08] MEDS: DOCUSATE SODIUM 100MG CAPSULE PO SCH ×2 (08:59→20:16)
[2023-04-08] MEDS: ROSUVASTATIN 10 MG TAB (CRESTOR) PO SCH (08:59)
[2023-04-08] MEDS: SPIRONOLACTONE 50 MG TAB PO SCH ×2 (08:59→16:08)
[2023-04-08] MEDS: LACTOBACILLUS ACIDOPHILUS CAP (BACID) PO SCH (08:59)
[2023-04-08] MEDS: guaiFENesin ER 600 MG TAB PO SCH ×2 (09:00→20:17)
[2023-04-08] MEDS: POTASSIUM CHLORIDE 10MEQ SR TABLET PO SCH (09:00)
[2023-04-08] MEDS: METOPROLOL TART 25 MG TABLET PO SCH ×2 (09:00→20:17)
[2023-04-08] MEDS: amLODIPine 5 MG TAB PO SCH (09:00)
[2023-04-08] MEDS: MAGNESIUM OXIDE 400MG TAB (MAG-OX) PO SCH ×3 (09:00→20:17)
[2023-04-08] MEDS: MIRALAX *UNIT DOSE* 17GM PACKET PO SCH (09:00)
[2023-04-08] MEDS: PANTOPRAZOLE 40MG TAB (PROTONIX) PO SCH (09:01)
[2023-04-08] MEDS: CLOPIDOGREL 75 MG TAB PO SCH (09:01)
[2023-04-08] MEDS: AZITHROMYCIN 250MG TABLET PO SCH (09:01)
[2023-04-08] MEDS: FLUTICASONE PROP 0.05% NASAL SPRAY 16 GM (FLONASE) NARES SCH ×2 (09:02→20:16)
[2023-04-08] MEDS: NORCO, ANEXSIA 5/325MG TABLET (HYDROcodone/ACETAMINOPHEN) PO PRN ×2 (09:03→20:18)
[2023-04-08] MEDS: NYSTATIN 500,000U/5ML SUSP UDC SSP PRN ×2 (09:03→20:16)
[2023-04-08] MEDS: FUROSEMIDE 100MG/10ML VIAL IV SCH ×3 (09:58→20:16)
[2023-04-08] MEDS: traMADol 50 MG TAB PO PRN (14:30)
[2023-04-08] MEDS: RIVAROXABAN 10MG TAB (XARELTO) PO SCH (18:15)
[2023-04-08] MEDS: MONTELUKAST 10 MG TAB PO SCH (20:17)
[2023-04-09] VITALS (27 sets, daily range): BP systolic 97–140; BP diastolic 58–85; PULSE 91; TEMP 96.5–96.9; O2SAT 90–100
[2023-04-09] MEDS: methylPREDNISolone 40MG 1ML VIAL IV SCH (00:35)
[2023-04-09] MEDS: NORCO, ANEXSIA 5/325MG TABLET (HYDROcodone/ACETAMINOPHEN) PO PRN ×2 (02:51→17:24)
[2023-04-09] MEDS: LEVALBUTEROL 1.25MG/3ML NEB SOLN INH SCH ×6 (03:08→23:41)
[2023-04-09] MEDS: IPRATROPIUM 0.02% SOLN 0.5MG 2.5ML NEB INH SCH ×6 (03:08→23:41)
[2023-04-09 05:54] LABS: BASO % 0.2 % (0.0-1.0); HEMATOCRIT 36.5 % (36.0-47.0); HEMOGLOBIN 12.2 g/dl (12.0-15.5); LYMPH # 0.6 10^3/uL (1.5-5.0); LYMPH % 3.1 % (24.0-44.0); MEAN CORPUSCULAR HEMOGLOBIN 29.2 pg (27.0-33.0); MEAN CORPUSCULAR HGB CONC 33.4 g/dl (32.0-36.5); MEAN CORPUSCULAR VOLUME 87.3 fl (80.0-96.0); MONO # 0.7 10^3/uL (0.0-0.8); MONO % 3.9 % (2.0-8.0); NEUTROPHILS # 16.3 10^3/uL (1.5-8.5); NEUTROPHILS % 90.5 % (36.0-66.0); PLATELET COUNT, AUTOMATED 292 10^3/uL (150-450); RED BLOOD COUNT 4.18 10^6/uL (4.00-5.40)
[2023-04-09 06:22] LABS: BLOOD UREA NITROGEN 50 MG/DL (9-23); CALCIUM LEVEL 9.9 MG/DL (8.3-10.6); CARBON DIOXIDE LEVEL 35 MMOL/L (20-31); CHLORIDE LEVEL 86 MMOL/L (98-107); CREATININE FOR GFR 0.88 MG/DL (0.55-1.30); GLOMERULAR FILTRATION RATE > 60.0 (>45); GLUCOSE, FASTING 250 MG/DL (74-106); MAGNESIUM LEVEL 1.8 MG/DL (1.8-2.4); POTASSIUM SERUM 4.6 MMOL/L (3.5-5.1); SODIUM LEVEL 130 MMOL/L (136-145)
[2023-04-09] MEDS: amLODIPine 5 MG TAB PO SCH (08:47)
[2023-04-09] MEDS: MIRALAX *UNIT DOSE* 17GM PACKET PO SCH (08:48)
[2023-04-09] MEDS: FUROSEMIDE 100MG/10ML VIAL IV SCH ×4 (08:48→20:27)
[2023-04-09] MEDS: DOCUSATE SODIUM 100MG CAPSULE PO SCH ×2 (08:53→20:28)
[2023-04-09] MEDS: ROSUVASTATIN 10 MG TAB (CRESTOR) PO SCH (08:53)
[2023-04-09] MEDS: LACTOBACILLUS ACIDOPHILUS CAP (BACID) PO SCH (08:53)
[2023-04-09] MEDS: SPIRONOLACTONE 50 MG TAB PO SCH ×2 (08:53→16:40)
[2023-04-09] MEDS: CLOPIDOGREL 75 MG TAB PO SCH (08:54)
[2023-04-09] MEDS: MAGNESIUM OXIDE 400MG TAB (MAG-OX) PO SCH ×3 (08:54→20:27)
[2023-04-09] MEDS: PANTOPRAZOLE 40MG TAB (PROTONIX) PO SCH (08:54)
[2023-04-09] MEDS: FLUTICASONE PROP 0.05% NASAL SPRAY 16 GM (FLONASE) NARES SCH ×2 (08:54→20:29)
[2023-04-09] MEDS: POTASSIUM CHLORIDE 10MEQ SR TABLET PO SCH (08:54)
[2023-04-09] MEDS: guaiFENesin ER 600 MG TAB PO SCH ×2 (08:54→20:27)
[2023-04-09] MEDS: METOPROLOL TART 25 MG TABLET PO SCH (08:54)
[2023-04-09] MEDS: NYSTATIN 500,000U/5ML SUSP UDC SSP PRN ×2 (08:55→20:27)
[2023-04-09] MEDS: traMADol 50 MG TAB PO PRN (08:55)
[2023-04-09] MEDS: ADVAIR HFA 115/21MCG INHALER INH SCH ×2 (09:09→20:48)
[2023-04-09] MEDS: TIOTROPIUM INHALER/CAPSULE (SPIRIVA) INH SCH (09:09)
[2023-04-09] MEDS: predniSONE 20 MG TAB PO SCH (11:10)
[2023-04-09 11:35] LABS: CK-MB VALUE MASS 2.4 NG/ML (<3.6)
[2023-04-09 12:33] LABS: CK-MB VALUE MASS 1.3 NG/ML (<3.6); MB/CK RELATIVE INDEX 2.7 (< OR =4)
[2023-04-09] MEDS: RIVAROXABAN 10MG TAB (XARELTO) PO SCH (17:25)
[2023-04-09] MEDS: MONTELUKAST 10 MG TAB PO SCH (20:27)
[2023-04-10] VITALS (11 sets, daily range): BP systolic 118–130; BP diastolic 62–83; TEMP 96.2–97; O2SAT 93–100
[2023-04-10] MEDS: NORCO, ANEXSIA 5/325MG TABLET (HYDROcodone/ACETAMINOPHEN) PO PRN ×3 (01:17→20:26)
[2023-04-10] MEDS: LEVALBUTEROL 1.25MG/3ML NEB SOLN INH SCH ×6 (03:28→23:47)
[2023-04-10] MEDS: IPRATROPIUM 0.02% SOLN 0.5MG 2.5ML NEB INH SCH ×6 (03:28→23:47)
[2023-04-10 04:52] LABS: BASO % 0.2 % (0.0-1.0); HEMATOCRIT 37.4 % (36.0-47.0); HEMOGLOBIN 12.6 g/dl (12.0-15.5); LYMPH # 1.5 10^3/uL (1.5-5.0); LYMPH % 8.1 % (24.0-44.0); MEAN CORPUSCULAR HEMOGLOBIN 29.5 pg (27.0-33.0); MEAN CORPUSCULAR HGB CONC 33.7 g/dl (32.0-36.5); MEAN CORPUSCULAR VOLUME 87.6 fl (80.0-96.0); MONO # 1.1 10^3/uL (0.0-0.8); MONO % 5.7 % (2.0-8.0); NEUTROPHILS # 15.6 10^3/uL (1.5-8.5); NEUTROPHILS % 83.5 % (36.0-66.0); PLATELET COUNT, AUTOMATED 312 10^3/uL (150-450); RED BLOOD COUNT 4.27 10^6/uL (4.00-5.40); WHITE BLOOD COUNT 18.7 10^3/uL (4.0-10.0)
[2023-04-10] MEDS: ALBUTEROL SULFATE 2.5MG/0.5ML INH NEB SOLN NEB PRN (05:03)
[2023-04-10 05:22] LABS: CALCIUM LEVEL 9.2 MG/DL (8.3-10.6); CREATININE FOR GFR 1.1 MG/DL (0.55-1.30); GLOMERULAR FILTRATION RATE 53.4 (>45); MAGNESIUM LEVEL 1.9 MG/DL (1.8-2.4); POTASSIUM SERUM 3.4 MMOL/L (3.5-5.1)
[2023-04-10] MEDS: TIOTROPIUM INHALER/CAPSULE (SPIRIVA) INH SCH (07:28)
[2023-04-10] MEDS: ADVAIR HFA 115/21MCG INHALER INH SCH ×2 (07:29→20:57)
[2023-04-10] MEDS ORDERED: POTASSIUM CHLORIDE 10MEQ SR TABLET PO ONE (08:00)
[2023-04-10] MEDS: MIRALAX *UNIT DOSE* 17GM PACKET PO SCH (09:00)
[2023-04-10] MEDS: CLOPIDOGREL 75 MG TAB PO SCH (10:21)
[2023-04-10] MEDS: guaiFENesin ER 600 MG TAB PO SCH ×2 (10:21→20:25)
[2023-04-10] MEDS: LACTOBACILLUS ACIDOPHILUS CAP (BACID) PO SCH (10:21)
[2023-04-10] MEDS: ROSUVASTATIN 10 MG TAB (CRESTOR) PO SCH (10:21)
[2023-04-10] MEDS: DOCUSATE SODIUM 100MG CAPSULE PO SCH ×2 (10:21→20:26)
[2023-04-10] MEDS: NYSTATIN 500,000U/5ML SUSP UDC SSP PRN ×2 (10:21→20:25)
[2023-04-10] MEDS: PANTOPRAZOLE 40MG TAB (PROTONIX) PO SCH (10:21)
[2023-04-10] MEDS: MAGNESIUM OXIDE 400MG TAB (MAG-OX) PO SCH ×3 (10:21→20:26)
[2023-04-10] MEDS: predniSONE 20 MG TAB PO SCH (10:21)
[2023-04-10] MEDS: POTASSIUM CHLORIDE 10MEQ SR TABLET PO SCH (10:22)
[2023-04-10] MEDS: FLUTICASONE PROP 0.05% NASAL SPRAY 16 GM (FLONASE) NARES SCH ×2 (10:22→20:27)
[2023-04-10] MEDS: METOPROLOL SUCC *XL* 12.5MG PER 1/2 TAB (TopROL *XL*) PO SCH (10:22)
[2023-04-10] MEDS ORDERED: TOLVAPTAN 15 MG TAB (SAMSCA) PO ONE (12:00)
[2023-04-10] MEDS: RIVAROXABAN 10MG TAB (XARELTO) PO SCH (17:52)
[2023-04-10] MEDS: MONTELUKAST 10 MG TAB PO SCH (20:26)
[2023-04-11] VITALS (7 sets, daily range): BP systolic 106–140; BP diastolic 57–81; TEMP 96.2–97.1; O2SAT 95–100
[2023-04-11] MEDS: LEVALBUTEROL 1.25MG/3ML NEB SOLN INH SCH ×6 (03:35→23:15)
[2023-04-11] MEDS: IPRATROPIUM 0.02% SOLN 0.5MG 2.5ML NEB INH SCH ×6 (03:35→23:15)
[2023-04-11] MEDS: NORCO, ANEXSIA 5/325MG TABLET (HYDROcodone/ACETAMINOPHEN) PO PRN ×2 (04:34→21:06)
[2023-04-11 06:49] LABS: BASO % 0.2 % (0.0-1.0); HEMATOCRIT 37.8 % (36.0-47.0); HEMOGLOBIN 12.5 g/dl (12.0-15.5); LYMPH # 1.9 10^3/uL (1.5-5.0); LYMPH % 11.4 % (24.0-44.0); MEAN CORPUSCULAR HEMOGLOBIN 28.9 pg (27.0-33.0); MEAN CORPUSCULAR HGB CONC 33.1 g/dl (32.0-36.5); MEAN CORPUSCULAR VOLUME 87.5 fl (80.0-96.0); MONO # 0.9 10^3/uL (0.0-0.8); MONO % 5.1 % (2.0-8.0); NEUTROPHILS # 13.8 10^3/uL (1.5-8.5); NEUTROPHILS % 81.1 % (36.0-66.0); PLATELET COUNT, AUTOMATED 296 10^3/uL (150-450); RED BLOOD COUNT 4.32 10^6/uL (4.00-5.40)
[2023-04-11 07:18] LABS: BLOOD UREA NITROGEN 41 MG/DL (9-23); CALCIUM LEVEL 9.4 MG/DL (8.3-10.6); CARBON DIOXIDE LEVEL 37 MMOL/L (20-31); CHLORIDE LEVEL 89 MMOL/L (98-107); CREATININE FOR GFR 0.74 MG/DL (0.55-1.30); GLOMERULAR FILTRATION RATE > 60.0 (>45); GLUCOSE, FASTING 154 MG/DL (74-106); MAGNESIUM LEVEL 2.2 MG/DL (1.8-2.4); POTASSIUM SERUM 4.2 MMOL/L (3.5-5.1); SODIUM LEVEL 132 MMOL/L (136-145)
[2023-04-11] MEDS: ADVAIR HFA 115/21MCG INHALER INH SCH ×2 (08:07→19:51)
[2023-04-11] MEDS: TIOTROPIUM INHALER/CAPSULE (SPIRIVA) INH SCH (08:07)
[2023-04-11] MEDS: MIRALAX *UNIT DOSE* 17GM PACKET PO SCH ×2 (09:00→09:10)
[2023-04-11] MEDS ORDERED: TOLVAPTAN 15 MG TAB (SAMSCA) PO SCH (09:00)
[2023-04-11] MEDS: METOPROLOL SUCC *XL* 12.5MG PER 1/2 TAB (TopROL *XL*) PO SCH (09:08)
[2023-04-11] MEDS: ACETAMINOPHEN TAB 650MG DOSE (2X325MG) PO PRN (09:08)
[2023-04-11] MEDS: NYSTATIN 500,000U/5ML SUSP UDC SSP PRN ×2 (09:08→21:05)
[2023-04-11] MEDS: POTASSIUM CHLORIDE 10MEQ SR TABLET PO SCH (09:09)
[2023-04-11] MEDS: MAGNESIUM OXIDE 400MG TAB (MAG-OX) PO SCH ×3 (09:09→21:04)
[2023-04-11] MEDS: LACTOBACILLUS ACIDOPHILUS CAP (BACID) PO SCH (09:09)
[2023-04-11] MEDS: DOCUSATE SODIUM 100MG CAPSULE PO SCH ×2 (09:09→21:04)
[2023-04-11] MEDS: CLOPIDOGREL 75 MG TAB PO SCH (09:09)
[2023-04-11] MEDS: ROSUVASTATIN 10 MG TAB (CRESTOR) PO SCH (09:09)
[2023-04-11] MEDS: guaiFENesin ER 600 MG TAB PO SCH ×2 (09:09→21:04)
[2023-04-11] MEDS: predniSONE 20 MG TAB PO SCH (09:10)
[2023-04-11] MEDS: PANTOPRAZOLE 40MG TAB (PROTONIX) PO SCH (09:10)
[2023-04-11] MEDS: FLUTICASONE PROP 0.05% NASAL SPRAY 16 GM (FLONASE) NARES SCH ×2 (11:31→21:04)
[2023-04-11] MEDS: traMADol 50 MG TAB PO PRN (15:00)
[2023-04-11] MEDS: RIVAROXABAN 10MG TAB (XARELTO) PO SCH (17:57)
[2023-04-11] MEDS: MONTELUKAST 10 MG TAB PO SCH (21:04)
[2023-04-12] MEDS: NORCO, ANEXSIA 5/325MG TABLET (HYDROcodone/ACETAMINOPHEN) PO PRN ×2 (03:23→21:56)
[2023-04-12] MEDS: IPRATROPIUM 0.02% SOLN 0.5MG 2.5ML NEB INH SCH ×6 (03:33→23:26)
[2023-04-12] MEDS: LEVALBUTEROL 1.25MG/3ML NEB SOLN INH SCH ×6 (03:33→23:26)
[2023-04-12 03:40] VITALS: BP 149/81; TEMP 97; O2SAT 99
[2023-04-12 06:26] LABS: BASO % 0.3 % (0.0-1.0); EOS % 0.1 % (0.0-3.0); HEMATOCRIT 35.8 % (36.0-47.0); HEMOGLOBIN 11.9 g/dl (12.0-15.5); LYMPH # 2.1 10^3/uL (1.5-5.0); LYMPH % 14.1 % (24.0-44.0); MEAN CORPUSCULAR HGB CONC 33.2 g/dl (32.0-36.5); MEAN CORPUSCULAR VOLUME 87.3 fl (80.0-96.0); MONO # 0.8 10^3/uL (0.0-0.8); MONO % 5.1 % (2.0-8.0); NEUTROPHILS # 11.7 10^3/uL (1.5-8.5); NEUTROPHILS % 77.7 % (36.0-66.0); PLATELET COUNT, AUTOMATED 269 10^3/uL (150-450)
[2023-04-12 06:46] LABS: BLOOD UREA NITROGEN 34 MG/DL (9-23); CALCIUM LEVEL 9.6 MG/DL (8.3-10.6); CARBON DIOXIDE LEVEL 35 MMOL/L (20-31); CHLORIDE LEVEL 89 MMOL/L (98-107); CREATININE FOR GFR 0.64 MG/DL (0.55-1.30); GLOMERULAR FILTRATION RATE > 60.0 (>45); GLUCOSE, FASTING 146 MG/DL (74-106); MAGNESIUM LEVEL 2.3 MG/DL (1.8-2.4); POTASSIUM SERUM 4.3 MMOL/L (3.5-5.1); SODIUM LEVEL 130 MMOL/L (136-145)
[2023-04-12] MEDS: TIOTROPIUM INHALER/CAPSULE (SPIRIVA) INH SCH (07:13)
[2023-04-12] MEDS: ADVAIR HFA 115/21MCG INHALER INH SCH ×2 (07:13→20:01)
[2023-04-12 07:49] VITALS: BP 138/78; TEMP 96.7; O2SAT 98
[2023-04-12] MEDS: MIRALAX *UNIT DOSE* 17GM PACKET PO SCH (09:00)
[2023-04-12] MEDS: METOPROLOL SUCC *XL* 12.5MG PER 1/2 TAB (TopROL *XL*) PO SCH (09:48)
[2023-04-12] MEDS: traMADol 50 MG TAB PO PRN ×2 (09:49→14:39)
[2023-04-12] MEDS: TOLVAPTAN 15 MG TAB (SAMSCA) PO SCH (09:49)
[2023-04-12] MEDS: MAGNESIUM OXIDE 400MG TAB (MAG-OX) PO SCH ×3 (09:50→21:54)
[2023-04-12] MEDS: CLOPIDOGREL 75 MG TAB PO SCH (09:50)
[2023-04-12] MEDS: NYSTATIN 500,000U/5ML SUSP UDC SSP PRN ×2 (09:50→21:54)
[2023-04-12] MEDS: POTASSIUM CHLORIDE 10MEQ SR TABLET PO SCH (09:50)
[2023-04-12] MEDS: predniSONE 20 MG TAB PO SCH (09:50)
[2023-04-12] MEDS: LACTOBACILLUS ACIDOPHILUS CAP (BACID) PO SCH (09:50)
[2023-04-12] MEDS: guaiFENesin ER 600 MG TAB PO SCH ×2 (09:51→21:56)
[2023-04-12] MEDS: ROSUVASTATIN 10 MG TAB (CRESTOR) PO SCH (09:51)
[2023-04-12] MEDS: PANTOPRAZOLE 40MG TAB (PROTONIX) PO SCH (09:51)
[2023-04-12] MEDS: DOCUSATE SODIUM 100MG CAPSULE PO SCH ×2 (09:52→21:56)
[2023-04-12] MEDS: FLUTICASONE PROP 0.05% NASAL SPRAY 16 GM (FLONASE) NARES SCH ×2 (09:52→21:56)
[2023-04-12 11:40] VITALS: BP 134/67; TEMP 96.7; O2SAT 99
[2023-04-12 15:48] VITALS: BP 140/73; TEMP 96.8; O2SAT 97
[2023-04-12] MEDS: RIVAROXABAN 10MG TAB (XARELTO) PO SCH (17:21)
[2023-04-12 19:46] VITALS: BP 120/65; TEMP 97.1; O2SAT 99
[2023-04-12] MEDS: MONTELUKAST 10 MG TAB PO SCH (21:56)
[2023-04-12 23:30] VITALS: BP 157/72; TEMP 96.4; O2SAT 100
[2023-04-13] VITALS (7 sets, daily range): BP systolic 102–143; BP diastolic 8–80; TEMP 96.2–96.9; O2SAT 97–100
[2023-04-13] MEDS: LEVALBUTEROL 1.25MG/3ML NEB SOLN INH SCH ×6 (03:23→23:35)
[2023-04-13] MEDS: IPRATROPIUM 0.02% SOLN 0.5MG 2.5ML NEB INH SCH ×6 (03:23→23:35)
[2023-04-13 05:47] LABS: BASO # 0.1 10^3/uL (0.0-0.2); BASO % 0.3 % (0.0-1.0); EOS % 0.1 % (0.0-3.0); HEMATOCRIT 34.8 % (36.0-47.0); HEMOGLOBIN 11.4 g/dl (12.0-15.5); LYMPH # 1.9 10^3/uL (1.5-5.0); LYMPH % 11.9 % (24.0-44.0); MEAN CORPUSCULAR HEMOGLOBIN 28.8 pg (27.0-33.0); MEAN CORPUSCULAR HGB CONC 32.8 g/dl (32.0-36.5); MEAN CORPUSCULAR VOLUME 87.9 fl (80.0-96.0); MONO # 0.7 10^3/uL (0.0-0.8); MONO % 4.3 % (2.0-8.0); NEUTROPHILS % 80.4 % (36.0-66.0); PLATELET COUNT, AUTOMATED 265 10^3/uL (150-450); RED BLOOD COUNT 3.96 10^6/uL (4.00-5.40); WHITE BLOOD COUNT 16.1 10^3/uL (4.0-10.0)
[2023-04-13 06:11] LABS: BLOOD UREA NITROGEN 28 MG/DL (9-23); CALCIUM LEVEL 9.3 MG/DL (8.3-10.6); CARBON DIOXIDE LEVEL 33 MMOL/L (20-31); CHLORIDE LEVEL 90 MMOL/L (98-107); CREATININE FOR GFR 0.69 MG/DL (0.55-1.30); GLOMERULAR FILTRATION RATE > 60.0 (>45); GLUCOSE, FASTING 153 MG/DL (74-106); MAGNESIUM LEVEL 2.3 MG/DL (1.8-2.4); SODIUM LEVEL 131 MMOL/L (136-145)
[2023-04-13] MEDS: ADVAIR HFA 115/21MCG INHALER INH SCH ×2 (07:14→19:46)
[2023-04-13] MEDS: TIOTROPIUM INHALER/CAPSULE (SPIRIVA) INH SCH (07:14)
[2023-04-13] MEDS: MIRALAX *UNIT DOSE* 17GM PACKET PO SCH (09:00)
[2023-04-13] MEDS: traMADol 50 MG TAB PO PRN ×2 (09:43→16:11)
[2023-04-13] MEDS: TOLVAPTAN 15 MG TAB (SAMSCA) PO SCH (09:43)
[2023-04-13] MEDS: METOPROLOL SUCC *XL* 12.5MG PER 1/2 TAB (TopROL *XL*) PO SCH (09:44)
[2023-04-13] MEDS: POTASSIUM CHLORIDE 10MEQ SR TABLET PO SCH (09:44)
[2023-04-13] MEDS: predniSONE 10MG TAB PO SCH (09:44)
[2023-04-13] MEDS: LACTOBACILLUS ACIDOPHILUS CAP (BACID) PO SCH (09:44)
[2023-04-13] MEDS: DOCUSATE SODIUM 100MG CAPSULE PO SCH ×2 (09:45→20:42)
[2023-04-13] MEDS: ROSUVASTATIN 10 MG TAB (CRESTOR) PO SCH (09:45)
[2023-04-13] MEDS: guaiFENesin ER 600 MG TAB PO SCH ×2 (09:45→20:42)
[2023-04-13] MEDS: PANTOPRAZOLE 40MG TAB (PROTONIX) PO SCH (09:45)
[2023-04-13] MEDS: MAGNESIUM OXIDE 400MG TAB (MAG-OX) PO SCH ×3 (09:46→20:42)
[2023-04-13] MEDS: CLOPIDOGREL 75 MG TAB PO SCH (09:46)
[2023-04-13] MEDS: FLUTICASONE PROP 0.05% NASAL SPRAY 16 GM (FLONASE) NARES SCH ×2 (09:46→20:45)
[2023-04-13] MEDS: NYSTATIN 500,000U/5ML SUSP UDC SSP PRN ×2 (13:51→20:44)
[2023-04-13] MEDS: RIVAROXABAN 10MG TAB (XARELTO) PO SCH (18:38)
[2023-04-13] MEDS: MONTELUKAST 10 MG TAB PO SCH (20:43)
[2023-04-13] MEDS: NORCO, ANEXSIA 5/325MG TABLET (HYDROcodone/ACETAMINOPHEN) PO PRN (20:44)
[2023-04-13] MEDS: NYSTATIN 100,000 UNITS/GM TOPICAL PWD 15GM TOP PRN (20:44)
[2023-04-14] VITALS (7 sets, daily range): BP systolic 100–156; BP diastolic 52–76; TEMP 96.6–97.1; O2SAT 91–100
[2023-04-14] MEDS: traMADol 50 MG TAB PO PRN ×2 (01:44→08:57)
[2023-04-14] MEDS: LEVALBUTEROL 1.25MG/3ML NEB SOLN INH SCH ×5 (03:37→19:46)
[2023-04-14] MEDS: IPRATROPIUM 0.02% SOLN 0.5MG 2.5ML NEB INH SCH ×5 (03:37→19:47)
[2023-04-14 07:18] LABS: BASO % 0.2 % (0.0-1.0); HEMATOCRIT 34.4 % (36.0-47.0); HEMOGLOBIN 11.3 g/dl (12.0-15.5); LYMPH # 2.4 10^3/uL (1.5-5.0); LYMPH % 14.2 % (24.0-44.0); MEAN CORPUSCULAR HEMOGLOBIN 28.8 pg (27.0-33.0); MEAN CORPUSCULAR HGB CONC 32.8 g/dl (32.0-36.5); MEAN CORPUSCULAR VOLUME 87.5 fl (80.0-96.0); MONO # 0.8 10^3/uL (0.0-0.8); NEUTROPHILS # 13.2 10^3/uL (1.5-8.5); NEUTROPHILS % 78.1 % (36.0-66.0); PLATELET COUNT, AUTOMATED 256 10^3/uL (150-450); RED BLOOD COUNT 3.93 10^6/uL (4.00-5.40); WHITE BLOOD COUNT 16.9 10^3/uL (4.0-10.0)
[2023-04-14 07:42] LABS: BLOOD UREA NITROGEN 23 MG/DL (9-23); CARBON DIOXIDE LEVEL 28 MMOL/L (20-31); CHLORIDE LEVEL 91 MMOL/L (98-107); CREATININE FOR GFR 0.71 MG/DL (0.55-1.30); GLOMERULAR FILTRATION RATE > 60.0 (>45); GLUCOSE, FASTING 129 MG/DL (74-106); MAGNESIUM LEVEL 1.8 MG/DL (1.8-2.4); POTASSIUM SERUM 5.2 MMOL/L (3.5-5.1); SODIUM LEVEL 128 MMOL/L (136-145)
[2023-04-14] MEDS: guaiFENesin ER 600 MG TAB PO SCH ×2 (08:55→20:40)
[2023-04-14] MEDS: DOCUSATE SODIUM 100MG CAPSULE PO SCH ×2 (08:55→20:39)
[2023-04-14] MEDS: FLUTICASONE PROP 0.05% NASAL SPRAY 16 GM (FLONASE) NARES SCH ×2 (08:55→20:43)
[2023-04-14] MEDS: CLOPIDOGREL 75 MG TAB PO SCH (08:55)
[2023-04-14] MEDS: NYSTATIN 500,000U/5ML SUSP UDC SSP PRN ×2 (08:55→20:41)
[2023-04-14] MEDS: LACTOBACILLUS ACIDOPHILUS CAP (BACID) PO SCH (08:55)
[2023-04-14] MEDS: ROSUVASTATIN 10 MG TAB (CRESTOR) PO SCH (08:55)
[2023-04-14] MEDS: predniSONE 10MG TAB PO SCH (08:55)
[2023-04-14] MEDS: PANTOPRAZOLE 40MG TAB (PROTONIX) PO SCH (08:55)
[2023-04-14] MEDS: MAGNESIUM OXIDE 400MG TAB (MAG-OX) PO SCH ×3 (08:56→20:40)
[2023-04-14] MEDS: POTASSIUM CHLORIDE 10MEQ SR TABLET PO SCH (08:56)
[2023-04-14] MEDS: METOPROLOL SUCC *XL* 12.5MG PER 1/2 TAB (TopROL *XL*) PO SCH (08:56)
[2023-04-14] MEDS: TOLVAPTAN 15 MG TAB (SAMSCA) PO SCH ×2 (08:56→20:41)
[2023-04-14] MEDS: MIRALAX *UNIT DOSE* 17GM PACKET PO SCH (08:56)
[2023-04-14] MEDS: ADVAIR HFA 115/21MCG INHALER INH SCH ×2 (09:02→20:09)
[2023-04-14] MEDS: TIOTROPIUM INHALER/CAPSULE (SPIRIVA) INH SCH (09:02)
[2023-04-14] MEDS: RIVAROXABAN 10MG TAB (XARELTO) PO SCH (17:57)
[2023-04-14] MEDS: MONTELUKAST 10 MG TAB PO SCH (20:40)
[2023-04-14] MEDS: NORCO, ANEXSIA 5/325MG TABLET (HYDROcodone/ACETAMINOPHEN) PO PRN (20:41)
[2023-04-15] VITALS (7 sets, daily range): BP systolic 116–157; BP diastolic 56–92; TEMP 96.3–97.8; O2SAT 96–100
[2023-04-15] MEDS: LEVALBUTEROL 1.25MG/3ML NEB SOLN INH SCH ×5 (00:12→20:53)
[2023-04-15] MEDS: IPRATROPIUM 0.02% SOLN 0.5MG 2.5ML NEB INH SCH ×5 (00:12→20:53)
[2023-04-15] MEDS: NORCO, ANEXSIA 5/325MG TABLET (HYDROcodone/ACETAMINOPHEN) PO PRN ×2 (02:21→07:06)
[2023-04-15 06:20] LABS: BASO % 0.3 % (0.0-1.0); EOS % 0.1 % (0.0-3.0); HEMATOCRIT 32.7 % (36.0-47.0); HEMOGLOBIN 10.9 g/dl (12.0-15.5); LYMPH # 2.1 10^3/uL (1.5-5.0); LYMPH % 16.9 % (24.0-44.0); MEAN CORPUSCULAR HEMOGLOBIN 29.2 pg (27.0-33.0); MEAN CORPUSCULAR HGB CONC 33.3 g/dl (32.0-36.5); MEAN CORPUSCULAR VOLUME 87.7 fl (80.0-96.0); MONO # 0.7 10^3/uL (0.0-0.8); MONO % 5.3 % (2.0-8.0); NEUTROPHILS # 9.3 10^3/uL (1.5-8.5); NEUTROPHILS % 75.1 % (36.0-66.0); PLATELET COUNT, AUTOMATED 234 10^3/uL (150-450); RED BLOOD COUNT 3.73 10^6/uL (4.00-5.40); WHITE BLOOD COUNT 12.4 10^3/uL (4.0-10.0)
[2023-04-15 06:57] LABS: BLOOD UREA NITROGEN 21 MG/DL (9-23); CALCIUM LEVEL 9.1 MG/DL (8.3-10.6); CARBON DIOXIDE LEVEL 32 MMOL/L (20-31); CHLORIDE LEVEL 92 MMOL/L (98-107); GLOMERULAR FILTRATION RATE > 60.0 (>45); GLUCOSE, FASTING 127 MG/DL (74-106); MAGNESIUM LEVEL 1.9 MG/DL (1.8-2.4); POTASSIUM SERUM 4.7 MMOL/L (3.5-5.1); SODIUM LEVEL 133 MMOL/L (136-145)
[2023-04-15] MEDS: TIOTROPIUM INHALER/CAPSULE (SPIRIVA) INH SCH (08:02)
[2023-04-15] MEDS: ADVAIR HFA 115/21MCG INHALER INH SCH ×2 (08:03→20:54)
[2023-04-15] MEDS: predniSONE 10MG TAB PO SCH (08:36)
[2023-04-15] MEDS: LACTOBACILLUS ACIDOPHILUS CAP (BACID) PO SCH (08:36)
[2023-04-15] MEDS: ROSUVASTATIN 10 MG TAB (CRESTOR) PO SCH (08:36)
[2023-04-15] MEDS: METOPROLOL SUCC *XL* 12.5MG PER 1/2 TAB (TopROL *XL*) PO SCH (08:36)
[2023-04-15] MEDS: guaiFENesin ER 600 MG TAB PO SCH ×2 (08:37→21:26)
[2023-04-15] MEDS: CLOPIDOGREL 75 MG TAB PO SCH (08:37)
[2023-04-15] MEDS: PANTOPRAZOLE 40MG TAB (PROTONIX) PO SCH (08:37)
[2023-04-15] MEDS: MAGNESIUM OXIDE 400MG TAB (MAG-OX) PO SCH ×2 (08:37→21:26)
[2023-04-15] MEDS: POTASSIUM CHLORIDE 10MEQ SR TABLET PO SCH (08:37)
[2023-04-15] MEDS: DOCUSATE SODIUM 100MG CAPSULE PO SCH ×2 (08:38→21:24)
[2023-04-15] MEDS: MIRALAX *UNIT DOSE* 17GM PACKET PO SCH (08:38)
[2023-04-15] MEDS: TOLVAPTAN 15 MG TAB (SAMSCA) PO SCH ×2 (08:38→21:31)
[2023-04-15] MEDS: FLUTICASONE PROP 0.05% NASAL SPRAY 16 GM (FLONASE) NARES SCH ×2 (08:39→21:23)
[2023-04-15] MEDS: NYSTATIN 500,000U/5ML SUSP UDC SSP PRN (08:43)
[2023-04-15] MEDS ORDERED: FUROSEMIDE 100MG/10ML VIAL IV ONE (10:30)
[2023-04-15] MEDS: NYSTATIN 100,000 UNITS/GM TOPICAL PWD 15GM TOP PRN (12:19)
[2023-04-15] MEDS: RIVAROXABAN 10MG TAB (XARELTO) PO SCH (17:10)
[2023-04-15] MEDS: traMADol 50 MG TAB PO PRN (21:24)
[2023-04-15] MEDS: MONTELUKAST 10 MG TAB PO SCH (21:26)
[2023-04-16] MEDS ORDERED: NYSTATIN 500,000U/5ML SUSP UDC SS ONE (00:20)
[2023-04-16] MEDS: LEVALBUTEROL 1.25MG/3ML NEB SOLN INH SCH ×4 (00:47→19:39)
[2023-04-16] MEDS: IPRATROPIUM 0.02% SOLN 0.5MG 2.5ML NEB INH SCH ×4 (00:47→19:39)
[2023-04-16 03:24] VITALS: BP 122/77; TEMP 97; O2SAT 99
[2023-04-16 05:51] LABS: BASO % 0.2 % (0.0-1.0); EOS % 0.1 % (0.0-3.0); HEMATOCRIT 31.8 % (36.0-47.0); HEMOGLOBIN 10.4 g/dl (12.0-15.5); LYMPH # 1.8 10^3/uL (1.5-5.0); LYMPH % 17.2 % (24.0-44.0); MEAN CORPUSCULAR HEMOGLOBIN 28.9 pg (27.0-33.0); MEAN CORPUSCULAR HGB CONC 32.7 g/dl (32.0-36.5); MEAN CORPUSCULAR VOLUME 88.3 fl (80.0-96.0); MONO # 0.6 10^3/uL (0.0-0.8); MONO % 5.9 % (2.0-8.0); NEUTROPHILS # 7.7 10^3/uL (1.5-8.5); NEUTROPHILS % 74.4 % (36.0-66.0); PLATELET COUNT, AUTOMATED 203 10^3/uL (150-450); WHITE BLOOD COUNT 10.3 10^3/uL (4.0-10.0)
[2023-04-16 05:59] LABS: ABG BASE EXCESS 8.8 (-2.0-2.0); ABG HCO3 32.7 MMOL/L (22.0-26.0); ABG O2 SATURATION 98.9 % (95.0-99.0); ABG PARTIAL PRESSURE CO2 42.1 mmHg (35.0-45.0); ABG PARTIAL PRESSURE O2 159.4 mmHg (75.0-100.0); ABG STANDARD HCO3 32.6 MMOL/L. (22.0-26.0); ABG pH (ARTERIAL) 7.508 UNITS (7.350-7.450)
[2023-04-16 06:16] LABS: BLOOD UREA NITROGEN 22 MG/DL (9-23); CARBON DIOXIDE LEVEL 34 MMOL/L (20-31); CHLORIDE LEVEL 94 MMOL/L (98-107); CREATININE FOR GFR 0.77 MG/DL (0.55-1.30); GLOMERULAR FILTRATION RATE > 60.0 (>45); GLUCOSE, FASTING 137 MG/DL (74-106); MAGNESIUM LEVEL 1.9 MG/DL (1.8-2.4); POTASSIUM SERUM 4.2 MMOL/L (3.5-5.1); SODIUM LEVEL 135 MMOL/L (136-145)
[2023-04-16] MEDS: traMADol 50 MG TAB PO PRN ×2 (06:28→12:05)
[2023-04-16 07:45] VITALS: BP 137/79; TEMP 97.1; O2SAT 97
[2023-04-16] MEDS: TIOTROPIUM INHALER/CAPSULE (SPIRIVA) INH SCH (08:10)
[2023-04-16] MEDS: ADVAIR HFA 115/21MCG INHALER INH SCH ×2 (08:10→19:39)
[2023-04-16] MEDS: MIRALAX *UNIT DOSE* 17GM PACKET PO SCH (08:44)
[2023-04-16] MEDS: ROSUVASTATIN 10 MG TAB (CRESTOR) PO SCH (09:00)
[2023-04-16] MEDS: LACTOBACILLUS ACIDOPHILUS CAP (BACID) PO SCH (09:01)
[2023-04-16] MEDS: CLOPIDOGREL 75 MG TAB PO SCH (09:01)
[2023-04-16] MEDS: guaiFENesin ER 600 MG TAB PO SCH ×2 (09:01→20:21)
[2023-04-16] MEDS: TOLVAPTAN 15 MG TAB (SAMSCA) PO SCH ×2 (09:01→20:22)
[2023-04-16] MEDS: predniSONE 10MG TAB PO SCH (09:01)
[2023-04-16] MEDS: DOCUSATE SODIUM 100MG CAPSULE PO SCH ×2 (09:01→20:21)
[2023-04-16] MEDS: PANTOPRAZOLE 40MG TAB (PROTONIX) PO SCH (09:02)
[2023-04-16] MEDS: MAGNESIUM OXIDE 400MG TAB (MAG-OX) PO SCH ×2 (09:02→20:21)
[2023-04-16] MEDS: METOPROLOL SUCC *XL* 25MG TAB (TopROL *XL*) PO SCH (09:02)
[2023-04-16] MEDS: FLUTICASONE PROP 0.05% NASAL SPRAY 16 GM (FLONASE) NARES SCH ×2 (09:03→20:22)
[2023-04-16] MEDS ORDERED: SALIVA SUBSTITUTE(MOUTHKOTE) BTL MT PRN (09:55)
[2023-04-16] MEDS: FUROSEMIDE injection 250 MG in D5W 225 ML IV SCH ×2 (11:20→22:54)
[2023-04-16] MEDS ORDERED: MIRALAX *UNIT DOSE* 17GM PACKET PO PRN (11:40)
[2023-04-16] MEDS: ALBUTEROL SULFATE 2.5MG/0.5ML INH NEB SOLN NEB PRN ×2 (11:50→18:08)
[2023-04-16 11:57] VITALS: BP 116/71; TEMP 97.6; O2SAT 100
[2023-04-16 15:58] VITALS: BP 141/72; TEMP 96.3; O2SAT 99
[2023-04-16] MEDS: RIVAROXABAN 10MG TAB (XARELTO) PO SCH (17:58)
[2023-04-16 19:46] LABS: ALBUMIN 3.6 G/DL (3.2-5.2); BLOOD UREA NITROGEN 22 MG/DL (9-23); CARBON DIOXIDE LEVEL 34 MMOL/L (20-31); CHLORIDE LEVEL 89 MMOL/L (98-107); CREATININE FOR GFR 0.81 MG/DL (0.55-1.30); GLOMERULAR FILTRATION RATE > 60.0 (>45); GLUCOSE, FASTING 134 MG/DL (74-106); PHOSPHORUS LEVEL 5.1 MG/DL (2.4-5.1); POTASSIUM SERUM 3.6 MMOL/L (3.5-5.1); SODIUM LEVEL 133 MMOL/L (136-145)
[2023-04-16 19:59] VITALS: BP 126/65; TEMP 96.2; O2SAT 99
[2023-04-16] MEDS: MONTELUKAST 10 MG TAB PO SCH (20:21)
[2023-04-16] MEDS: NYSTATIN 500,000U/5ML SUSP UDC SS PRN (20:31)
[2023-04-16] MEDS: NORCO, ANEXSIA 5/325MG TABLET (HYDROcodone/ACETAMINOPHEN) PO PRN (20:31)
[2023-04-17] VITALS (14 sets, daily range): BP systolic 84–144; BP diastolic 54–79; TEMP 96.4–97; O2SAT 95–100
[2023-04-17] MEDS: LEVALBUTEROL 1.25MG/3ML NEB SOLN INH SCH ×3 (00:48→15:44)
[2023-04-17] MEDS: IPRATROPIUM 0.02% SOLN 0.5MG 2.5ML NEB INH SCH ×3 (00:48→15:44)
[2023-04-17] MEDS: traMADol 50 MG TAB PO PRN (01:14)
[2023-04-17 05:12] LABS: BASO % 0.2 % (0.0-1.0); HEMOGLOBIN 11.4 g/dl (12.0-15.5); LYMPH % 20.5 % (24.0-44.0); MEAN CORPUSCULAR HEMOGLOBIN 29.1 pg (27.0-33.0); MEAN CORPUSCULAR HGB CONC 33.5 g/dl (32.0-36.5); MEAN CORPUSCULAR VOLUME 86.7 fl (80.0-96.0); MONO # 0.7 10^3/uL (0.0-0.8); MONO % 6.9 % (2.0-8.0); NEUTROPHILS # 6.8 10^3/uL (1.5-8.5); NEUTROPHILS % 70.3 % (36.0-66.0); PLATELET COUNT, AUTOMATED 247 10^3/uL (150-450); RED BLOOD COUNT 3.92 10^6/uL (4.00-5.40); WHITE BLOOD COUNT 9.6 10^3/uL (4.0-10.0)
[2023-04-17 05:57] LABS: BLOOD UREA NITROGEN 21 MG/DL (9-23); CALCIUM LEVEL 8.4 MG/DL (8.3-10.6); CARBON DIOXIDE LEVEL 40 MMOL/L (20-31); CHLORIDE LEVEL 84 MMOL/L (98-107); CREATININE FOR GFR 0.76 MG/DL (0.55-1.30); GLOMERULAR FILTRATION RATE > 60.0 (>45); GLUCOSE, FASTING 142 MG/DL (74-106); MAGNESIUM LEVEL 1.2 MG/DL (1.8-2.4); POTASSIUM SERUM 2.7 MMOL/L (3.5-5.1); SODIUM LEVEL 132 MMOL/L (136-145)
[2023-04-17] MEDS ORDERED: MAG SULF 1GM/100ML (MAG RUN) 1 GM in IV 1 EA IV ONE (06:00)
[2023-04-17] MEDS ORDERED: POTASSIUM CHLORIDE 10MEQ SR TABLET PO ONE ×2 (06:30→07:25)
[2023-04-17] MEDS ORDERED: MAGNESIUM OXIDE 400MG TAB (MAG-OX) PO ONE (06:35)
[2023-04-17] MEDS: NORCO, ANEXSIA 5/325MG TABLET (HYDROcodone/ACETAMINOPHEN) PO PRN ×2 (06:44→20:25)
[2023-04-17] MEDS: TIOTROPIUM INHALER/CAPSULE (SPIRIVA) INH SCH (06:57)
[2023-04-17] MEDS: ADVAIR HFA 115/21MCG INHALER INH SCH (06:57)
[2023-04-17] MEDS: MAG SULF 1GM/100ML (MAG RUN) 1 GM in IV 1 EA IV SCH ×2 (07:00→08:00)
[2023-04-17] MEDS ORDERED: KCL 10MEQ/100ML SWI (KRUN) 10 MEQ in IV 1 EA IV SCH (07:00)
[2023-04-17] MEDS: LACTOBACILLUS ACIDOPHILUS CAP (BACID) PO SCH (08:28)
[2023-04-17] MEDS: ROSUVASTATIN 10 MG TAB (CRESTOR) PO SCH (08:28)
[2023-04-17] MEDS: predniSONE 10MG TAB PO SCH (08:28)
[2023-04-17] MEDS: MAGNESIUM OXIDE 400MG TAB (MAG-OX) PO SCH ×2 (08:29→20:24)
[2023-04-17] MEDS: DOCUSATE SODIUM 100MG CAPSULE PO SCH ×2 (08:29→20:24)
[2023-04-17] MEDS: guaiFENesin ER 600 MG TAB PO SCH ×2 (08:30→20:24)
[2023-04-17] MEDS: PANTOPRAZOLE 40MG TAB (PROTONIX) PO SCH (08:30)
[2023-04-17] MEDS: CLOPIDOGREL 75 MG TAB PO SCH (08:30)
[2023-04-17] MEDS: TOLVAPTAN 15 MG TAB (SAMSCA) PO SCH ×2 (08:31→20:25)
[2023-04-17] MEDS: ALBUTEROL SULFATE 2.5MG/0.5ML INH NEB SOLN NEB PRN (09:03)
[2023-04-17] MEDS: POTASSIUM CHLORIDE 10MEQ SR TABLET PO SCH ×3 (09:22→20:24)
[2023-04-17] MEDS: NYSTATIN 500,000U/5ML SUSP UDC SS PRN ×2 (09:22→20:25)
[2023-04-17] MEDS: FLUTICASONE PROP 0.05% NASAL SPRAY 16 GM (FLONASE) NARES SCH ×2 (09:23→20:26)
[2023-04-17] MEDS: METOPROLOL SUCC *XL* 25MG TAB (TopROL *XL*) PO SCH (09:29)
[2023-04-17 10:03] LABS: URIC ACID 9.2 MG/DL (3.1-7.8)
[2023-04-17] MEDS ORDERED: LIDOCAINE 1% MDV 20ML VIAL As Ordered ONE (10:10)
[2023-04-17] MEDS: FUROSEMIDE injection 250 MG in D5W 225 ML IV SCH (11:35)
[2023-04-17] MEDS ORDERED: IPRATROPIUM 0.02% SOLN 0.5MG 2.5ML NEB INH SCH (12:00)
[2023-04-17] MEDS: SODIUM CHLORIDE 0.9% INJ 10 ML SYR IV SCH (12:05)
[2023-04-17] MEDS ORDERED: predniSONE 20 MG TAB PO ONE (16:00)
[2023-04-17] MEDS: RIVAROXABAN 10MG TAB (XARELTO) PO SCH (17:01)
[2023-04-17 17:54] LABS: BLOOD UREA NITROGEN 22 MG/DL (9-23); CALCIUM LEVEL 8.5 MG/DL (8.3-10.6); CARBON DIOXIDE LEVEL 35 MMOL/L (20-31); CHLORIDE LEVEL 87 MMOL/L (98-107); CREATININE FOR GFR 0.91 MG/DL (0.55-1.30); GLOMERULAR FILTRATION RATE > 60.0 (>45); GLUCOSE, FASTING 203 MG/DL (74-106); MAGNESIUM LEVEL 1.8 MG/DL (1.8-2.4); SODIUM LEVEL 131 MMOL/L (136-145)
[2023-04-17] MEDS: BUDESONIDE 0.5 MG/2 ML INHALATION SUSPENSION INH SCH (20:21)
[2023-04-17] MEDS: FORMOTEROL FUMARATE 20 MCG/2 ML INHALATION SOLUTION (PERFOROMIST) INH SCH (20:21)
[2023-04-17] MEDS: GLYCOPYRROLATE INJ 0.2 MG/ML 2 ML VIAL NEB SCH (20:21)
[2023-04-17] MEDS: MONTELUKAST 10 MG TAB PO SCH (20:23)
[2023-04-18] VITALS (20 sets, daily range): BP systolic 101–130; BP diastolic 55–74; TEMP 96.1–97.1; O2SAT 89–100
[2023-04-18] MEDS: LEVALBUTEROL 1.25MG/3ML NEB SOLN INH SCH ×5 (00:05→23:11)
[2023-04-18] MEDS: IPRATROPIUM 0.02% SOLN 0.5MG 2.5ML NEB INH SCH ×5 (00:06→23:11)
[2023-04-18] MEDS: NORCO, ANEXSIA 5/325MG TABLET (HYDROcodone/ACETAMINOPHEN) PO PRN ×3 (03:40→20:42)
[2023-04-18] MEDS: ALBUTEROL SULFATE 2.5MG/0.5ML INH NEB SOLN NEB PRN ×2 (04:06→13:37)
[2023-04-18 06:21] LABS: BASO % 0.1 % (0.0-1.0); EOS % 0.1 % (0.0-3.0); HEMATOCRIT 34.1 % (36.0-47.0); HEMOGLOBIN 11.5 g/dl (12.0-15.5); LYMPH # 1.5 10^3/uL (1.5-5.0); LYMPH % 15.6 % (24.0-44.0); MEAN CORPUSCULAR HEMOGLOBIN 29.6 pg (27.0-33.0); MEAN CORPUSCULAR HGB CONC 33.7 g/dl (32.0-36.5); MEAN CORPUSCULAR VOLUME 87.9 fl (80.0-96.0); MONO # 0.8 10^3/uL (0.0-0.8); MONO % 8.1 % (2.0-8.0); NEUTROPHILS % 74.8 % (36.0-66.0); PLATELET COUNT, AUTOMATED 237 10^3/uL (150-450); RED BLOOD COUNT 3.88 10^6/uL (4.00-5.40); WHITE BLOOD COUNT 9.3 10^3/uL (4.0-10.0)
[2023-04-18 06:45] LABS: BLOOD UREA NITROGEN 23 MG/DL (9-23); CALCIUM LEVEL 9.1 MG/DL (8.3-10.6); CARBON DIOXIDE LEVEL 40 MMOL/L (20-31); CHLORIDE LEVEL 87 MMOL/L (98-107); CREATININE FOR GFR 0.86 MG/DL (0.55-1.30); GLOMERULAR FILTRATION RATE > 60.0 (>45); GLUCOSE, FASTING 150 MG/DL (74-106); MAGNESIUM LEVEL 1.8 MG/DL (1.8-2.4); SODIUM LEVEL 131 MMOL/L (136-145)
[2023-04-18] MEDS: BUDESONIDE 0.5 MG/2 ML INHALATION SUSPENSION INH SCH ×2 (07:18→20:23)
[2023-04-18] MEDS: FORMOTEROL FUMARATE 20 MCG/2 ML INHALATION SOLUTION (PERFOROMIST) INH SCH ×2 (07:18→20:23)
[2023-04-18] MEDS: GLYCOPYRROLATE INJ 0.2 MG/ML 2 ML VIAL NEB SCH ×2 (07:18→20:24)
[2023-04-18] MEDS: NYSTATIN 500,000U/5ML SUSP UDC SS PRN ×2 (08:50→20:42)
[2023-04-18] MEDS: DOCUSATE SODIUM 100MG CAPSULE PO SCH ×2 (08:50→20:41)
[2023-04-18] MEDS: traMADol 50 MG TAB PO PRN (08:51)
[2023-04-18] MEDS: MAGNESIUM OXIDE 400MG TAB (MAG-OX) PO SCH ×2 (08:51→20:41)
[2023-04-18] MEDS: VITAMIN D 50,000 UNITS CAPSULE (ERGOCALCIFEROL 1.25MG) PO SCH (08:52)
[2023-04-18] MEDS: LACTOBACILLUS ACIDOPHILUS CAP (BACID) PO SCH (08:52)
[2023-04-18] MEDS: TOLVAPTAN 15 MG TAB (SAMSCA) PO SCH ×2 (08:52→20:41)
[2023-04-18] MEDS: predniSONE 10MG TAB PO SCH (08:53)
[2023-04-18] MEDS: CLOPIDOGREL 75 MG TAB PO SCH (08:54)
[2023-04-18] MEDS: ROSUVASTATIN 10 MG TAB (CRESTOR) PO SCH (08:54)
[2023-04-18] MEDS: METOPROLOL SUCC *XL* 25MG TAB (TopROL *XL*) PO SCH (08:54)
[2023-04-18] MEDS: FLUTICASONE PROP 0.05% NASAL SPRAY 16 GM (FLONASE) NARES SCH ×2 (08:54→20:48)
[2023-04-18] MEDS: guaiFENesin ER 600 MG TAB PO SCH ×2 (08:54→20:41)
[2023-04-18] MEDS: PANTOPRAZOLE 40MG TAB (PROTONIX) PO SCH (08:54)
[2023-04-18] MEDS: allopurinoL 100 MG TAB PO SCH (08:54)
[2023-04-18] MEDS ORDERED: POTASSIUM CHLORIDE 10MEQ SR TABLET PO SCH (09:00)
[2023-04-18] MEDS: SODIUM CHLORIDE 0.9% INJ 10 ML SYR IV SCH (11:48)
[2023-04-18] MEDS: RIVAROXABAN 10MG TAB (XARELTO) PO SCH (18:16)
[2023-04-18] MEDS: MONTELUKAST 10 MG TAB PO SCH (20:41)
[2023-04-18] MEDS: predniSONE 20 MG TAB PO SCH (20:41)
[2023-04-19] VITALS (13 sets, daily range): BP systolic 105–128; BP diastolic 54–84; TEMP 96–97.6; O2SAT 90–99
[2023-04-19] MEDS: NORCO, ANEXSIA 5/325MG TABLET (HYDROcodone/ACETAMINOPHEN) PO PRN ×3 (03:28→17:17)
[2023-04-19 05:49] LABS: BASO % 0.1 % (0.0-1.0); HEMOGLOBIN 10.2 g/dl (12.0-15.5); LYMPH # 0.8 10^3/uL (1.5-5.0); LYMPH % 10.9 % (24.0-44.0); MEAN CORPUSCULAR HEMOGLOBIN 28.9 pg (27.0-33.0); MEAN CORPUSCULAR HGB CONC 32.9 g/dl (32.0-36.5); MEAN CORPUSCULAR VOLUME 87.8 fl (80.0-96.0); MONO # 0.4 10^3/uL (0.0-0.8); MONO % 5.7 % (2.0-8.0); NEUTROPHILS # 6.2 10^3/uL (1.5-8.5); NEUTROPHILS % 81.8 % (36.0-66.0); PLATELET COUNT, AUTOMATED 229 10^3/uL (150-450); RED BLOOD COUNT 3.53 10^6/uL (4.00-5.40); WHITE BLOOD COUNT 7.5 10^3/uL (4.0-10.0)
[2023-04-19 06:15] LABS: BLOOD UREA NITROGEN 25 MG/DL (9-23); CALCIUM LEVEL 9.2 MG/DL (8.3-10.6); CARBON DIOXIDE LEVEL > 40.0 MMOL/L (20-31); CHLORIDE LEVEL 89 MMOL/L (98-107); CREATININE FOR GFR 0.86 MG/DL (0.55-1.30); GLOMERULAR FILTRATION RATE > 60.0 (>45); GLUCOSE, FASTING 178 MG/DL (74-106); MAGNESIUM LEVEL 1.8 MG/DL (1.8-2.4); POTASSIUM SERUM 4.7 MMOL/L (3.5-5.1); SODIUM LEVEL 133 MMOL/L (136-145)
[2023-04-19] MEDS: LEVALBUTEROL 1.25MG/3ML NEB SOLN INH SCH ×3 (07:57→23:42)
[2023-04-19] MEDS: IPRATROPIUM 0.02% SOLN 0.5MG 2.5ML NEB INH SCH ×3 (07:57→23:42)
[2023-04-19] MEDS: allopurinoL 100 MG TAB PO SCH (08:12)
[2023-04-19] MEDS: PANTOPRAZOLE 40MG TAB (PROTONIX) PO SCH (08:12)
[2023-04-19] MEDS: MAGNESIUM OXIDE 400MG TAB (MAG-OX) PO SCH ×2 (08:12→20:10)
[2023-04-19] MEDS: DOCUSATE SODIUM 100MG CAPSULE PO SCH ×2 (08:12→20:10)
[2023-04-19] MEDS: predniSONE 10MG TAB PO SCH (08:12)
[2023-04-19] MEDS: TOLVAPTAN 15 MG TAB (SAMSCA) PO SCH ×2 (08:12→20:11)
[2023-04-19] MEDS: ROSUVASTATIN 10 MG TAB (CRESTOR) PO SCH (08:12)
[2023-04-19] MEDS: CLOPIDOGREL 75 MG TAB PO SCH (08:12)
[2023-04-19] MEDS: LACTOBACILLUS ACIDOPHILUS CAP (BACID) PO SCH (08:12)
[2023-04-19] MEDS: guaiFENesin ER 600 MG TAB PO SCH ×2 (08:12→20:11)
[2023-04-19] MEDS: traMADol 50 MG TAB PO PRN (08:13)
[2023-04-19] MEDS: FLUTICASONE PROP 0.05% NASAL SPRAY 16 GM (FLONASE) NARES SCH ×2 (08:14→20:11)
[2023-04-19] MEDS: METOPROLOL SUCC *XL* 25MG TAB (TopROL *XL*) PO SCH (08:16)
[2023-04-19] MEDS: BUDESONIDE 0.5 MG/2 ML INHALATION SUSPENSION INH SCH ×2 (08:59→19:04)
[2023-04-19] MEDS: FORMOTEROL FUMARATE 20 MCG/2 ML INHALATION SOLUTION (PERFOROMIST) INH SCH ×2 (08:59→19:04)
[2023-04-19] MEDS ORDERED: POTASSIUM CHLORIDE 10MEQ SR TABLET PO SCH (09:00)
[2023-04-19] MEDS: SODIUM CHLORIDE 0.9% INJ 10 ML SYR IV SCH (09:28)
[2023-04-19] MEDS: NYSTATIN 500,000U/5ML SUSP UDC SS PRN ×2 (09:28→20:10)
[2023-04-19] MEDS: GLYCOPYRROLATE INJ 0.2 MG/ML 2 ML VIAL NEB SCH ×2 (09:43→19:40)
[2023-04-19] MEDS: ALBUTEROL SULFATE 2.5MG/0.5ML INH NEB SOLN NEB PRN (12:32)
[2023-04-19] MEDS: RIVAROXABAN 10MG TAB (XARELTO) PO SCH (17:17)
[2023-04-19] MEDS: MONTELUKAST 10 MG TAB PO SCH (20:10)
[2023-04-19] MEDS: predniSONE 20 MG TAB PO SCH (20:10)
[2023-04-20] MEDS: NORCO, ANEXSIA 5/325MG TABLET (HYDROcodone/ACETAMINOPHEN) PO PRN ×2 (00:22→20:48)
[2023-04-20] MEDS: ALBUTEROL SULFATE 2.5MG/0.5ML INH NEB SOLN NEB PRN (03:52)
[2023-04-20 06:00] VITALS: BP 122/71; TEMP 97.1; O2SAT 96
[2023-04-20] MEDS: traMADol 50 MG TAB PO PRN ×3 (06:11→16:09)
[2023-04-20] MEDS: IPRATROPIUM 0.02% SOLN 0.5MG 2.5ML NEB INH SCH ×3 (07:00→23:58)
[2023-04-20] MEDS: LEVALBUTEROL 1.25MG/3ML NEB SOLN INH SCH ×3 (07:00→23:58)
[2023-04-20 07:47] LABS: BLOOD UREA NITROGEN 24 MG/DL (9-23); CALCIUM LEVEL 9.1 MG/DL (8.3-10.6); CARBON DIOXIDE LEVEL 32 MMOL/L (20-31); CHLORIDE LEVEL 91 MMOL/L (98-107); CREATININE FOR GFR 0.72 MG/DL (0.55-1.30); GLOMERULAR FILTRATION RATE > 60.0 (>45); GLUCOSE, FASTING 163 MG/DL (74-106); MAGNESIUM LEVEL 1.6 MG/DL (1.8-2.4); POTASSIUM SERUM 3.3 MMOL/L (3.5-5.1); SODIUM LEVEL 130 MMOL/L (136-145)
[2023-04-20] MEDS: GLYCOPYRROLATE INJ 0.2 MG/ML 2 ML VIAL NEB SCH ×2 (08:03→21:13)
[2023-04-20] MEDS: BUDESONIDE 0.5 MG/2 ML INHALATION SUSPENSION INH SCH ×2 (08:03→21:13)
[2023-04-20] MEDS: FORMOTEROL FUMARATE 20 MCG/2 ML INHALATION SOLUTION (PERFOROMIST) INH SCH ×2 (08:03→21:13)
[2023-04-20] MEDS ORDERED: POTASSIUM CHLORIDE 10MEQ SR TABLET PO ONE (09:15)
[2023-04-20] MEDS: LACTOBACILLUS ACIDOPHILUS CAP (BACID) PO SCH (09:28)
[2023-04-20] MEDS: DOCUSATE SODIUM 100MG CAPSULE PO SCH ×2 (09:29→20:40)
[2023-04-20] MEDS: allopurinoL 100 MG TAB PO SCH (09:29)
[2023-04-20] MEDS: ROSUVASTATIN 10 MG TAB (CRESTOR) PO SCH (09:29)
[2023-04-20] MEDS: guaiFENesin ER 600 MG TAB PO SCH ×2 (09:30→20:40)
[2023-04-20] MEDS: predniSONE 10MG TAB PO SCH (09:30)
[2023-04-20] MEDS: PANTOPRAZOLE 40MG TAB (PROTONIX) PO SCH (09:30)
[2023-04-20] MEDS: CLOPIDOGREL 75 MG TAB PO SCH (09:31)
[2023-04-20] MEDS: TOLVAPTAN 15 MG TAB (SAMSCA) PO SCH ×2 (09:31→20:41)
[2023-04-20] MEDS: METOPROLOL SUCC *XL* 25MG TAB (TopROL *XL*) PO SCH (09:32)
[2023-04-20] MEDS: MAGNESIUM OXIDE 400MG TAB (MAG-OX) PO SCH ×2 (09:32→20:41)
[2023-04-20] MEDS: FLUTICASONE PROP 0.05% NASAL SPRAY 16 GM (FLONASE) NARES SCH ×2 (09:37→20:41)
[2023-04-20] MEDS: MAG SULF 1GM/100ML (MAG RUN) 1 GM in IV 1 EA IV SCH ×2 (09:53→11:05)
[2023-04-20] MEDS: NYSTATIN 500,000U/5ML SUSP UDC SS PRN (10:22)
[2023-04-20 14:00] VITALS: BP 139/71; TEMP 96.7; O2SAT 76
[2023-04-20] MEDS: SODIUM CHLORIDE 0.9% INJ 10 ML SYR IV SCH (15:04)
[2023-04-20] MEDS: RIVAROXABAN 10MG TAB (XARELTO) PO SCH (18:04)
[2023-04-20 20:00] VITALS: BP 109/63; TEMP 97.6; O2SAT 96
[2023-04-20] MEDS: MONTELUKAST 10 MG TAB PO SCH (20:40)
[2023-04-20] MEDS: predniSONE 20 MG TAB PO SCH (20:40)
[2023-04-21] MEDS: NORCO, ANEXSIA 5/325MG TABLET (HYDROcodone/ACETAMINOPHEN) PO PRN ×3 (03:21→18:19)
[2023-04-21] MEDS: SODIUM CHLORIDE 0.9% INJ 10 ML SYR IV PRN (05:26)
[2023-04-21 05:36] VITALS: BP 96/56; TEMP 96.8; O2SAT 97
[2023-04-21 06:51] LABS: BLOOD UREA NITROGEN 18 MG/DL (9-23); CALCIUM LEVEL 8.7 MG/DL (8.3-10.6); CARBON DIOXIDE LEVEL 31 MMOL/L (20-31); CHLORIDE LEVEL 96 MMOL/L (98-107); CREATININE FOR GFR 0.63 MG/DL (0.55-1.30); GLOMERULAR FILTRATION RATE > 60.0 (>45); GLUCOSE, FASTING 166 MG/DL (74-106); MAGNESIUM LEVEL 1.8 MG/DL (1.8-2.4); POTASSIUM SERUM 3.5 MMOL/L (3.5-5.1); SODIUM LEVEL 136 MMOL/L (136-145)
[2023-04-21] MEDS: IPRATROPIUM 0.02% SOLN 0.5MG 2.5ML NEB INH SCH ×3 (07:20→22:34)
[2023-04-21] MEDS: LEVALBUTEROL 1.25MG/3ML NEB SOLN INH SCH ×3 (07:20→22:33)
[2023-04-21] MEDS: FORMOTEROL FUMARATE 20 MCG/2 ML INHALATION SOLUTION (PERFOROMIST) INH SCH ×2 (07:20→19:23)
[2023-04-21] MEDS: GLYCOPYRROLATE INJ 0.2 MG/ML 2 ML VIAL NEB SCH ×2 (07:20→19:24)
[2023-04-21] MEDS: BUDESONIDE 0.5 MG/2 ML INHALATION SUSPENSION INH SCH ×2 (07:21→19:23)
[2023-04-21] MEDS: LACTOBACILLUS ACIDOPHILUS CAP (BACID) PO SCH (09:18)
[2023-04-21] MEDS: PANTOPRAZOLE 40MG TAB (PROTONIX) PO SCH (09:19)
[2023-04-21] MEDS: predniSONE 10MG TAB PO SCH (09:19)
[2023-04-21] MEDS: POTASSIUM CHLORIDE 10MEQ SR TABLET PO SCH (09:19)
[2023-04-21] MEDS: allopurinoL 100 MG TAB PO SCH (09:19)
[2023-04-21] MEDS: TOLVAPTAN 15 MG TAB (SAMSCA) PO SCH (09:19)
[2023-04-21] MEDS: MAGNESIUM OXIDE 400MG TAB (MAG-OX) PO SCH ×2 (09:19→21:56)
[2023-04-21] MEDS: DOCUSATE SODIUM 100MG CAPSULE PO SCH ×2 (09:19→21:56)
[2023-04-21] MEDS: ROSUVASTATIN 10 MG TAB (CRESTOR) PO SCH (09:19)
[2023-04-21] MEDS: guaiFENesin ER 600 MG TAB PO SCH ×2 (09:20→21:55)
[2023-04-21] MEDS: CLOPIDOGREL 75 MG TAB PO SCH (09:20)
[2023-04-21] MEDS: METOPROLOL SUCC *XL* 25MG TAB (TopROL *XL*) PO SCH (09:21)
[2023-04-21 14:00] VITALS: BP 130/71; TEMP 97.2; O2SAT 100
[2023-04-21] MEDS: FLUTICASONE PROP 0.05% NASAL SPRAY 16 GM (FLONASE) NARES SCH ×2 (14:09→21:56)
[2023-04-21] MEDS: SODIUM CHLORIDE 0.9% INJ 10 ML SYR IV SCH (14:10)
[2023-04-21] MEDS: traMADol 50 MG TAB PO PRN ×2 (14:29→22:33)
[2023-04-21] MEDS: RIVAROXABAN 10MG TAB (XARELTO) PO SCH (18:19)
[2023-04-21] MEDS: MONTELUKAST 10 MG TAB PO SCH (21:55)
[2023-04-21] MEDS: predniSONE 20 MG TAB PO SCH (21:56)
[2023-04-21] MEDS: NYSTATIN 500,000U/5ML SUSP UDC SS PRN (21:58)
[2023-04-22 03:53] VITALS: BP 144/88; TEMP 98.4; O2SAT 95
[2023-04-22] MEDS: ALBUTEROL SULFATE 2.5MG/0.5ML INH NEB SOLN NEB PRN (04:04)
[2023-04-22] MEDS: traMADol 50 MG TAB PO PRN ×2 (06:40→15:30)
[2023-04-22 06:42] LABS: BLOOD UREA NITROGEN 20 MG/DL (9-23); CALCIUM LEVEL 8.6 MG/DL (8.3-10.6); CARBON DIOXIDE LEVEL 33 MMOL/L (20-31); CHLORIDE LEVEL 95 MMOL/L (98-107); CREATININE FOR GFR 0.62 MG/DL (0.55-1.30); GLOMERULAR FILTRATION RATE > 60.0 (>45); GLUCOSE, FASTING 178 MG/DL (74-106); MAGNESIUM LEVEL 1.7 MG/DL (1.8-2.4); POTASSIUM SERUM 4.1 MMOL/L (3.5-5.1); SODIUM LEVEL 133 MMOL/L (136-145)
[2023-04-22] MEDS: LEVALBUTEROL 1.25MG/3ML NEB SOLN INH SCH ×3 (07:33→23:13)
[2023-04-22] MEDS: IPRATROPIUM 0.02% SOLN 0.5MG 2.5ML NEB INH SCH ×3 (07:33→23:13)
[2023-04-22] MEDS: GLYCOPYRROLATE INJ 0.2 MG/ML 2 ML VIAL NEB SCH ×2 (08:29→19:21)
[2023-04-22] MEDS: NYSTATIN 500,000U/5ML SUSP UDC SS PRN ×2 (09:32→20:08)
[2023-04-22] MEDS: LACTOBACILLUS ACIDOPHILUS CAP (BACID) PO SCH (09:33)
[2023-04-22] MEDS: NORCO, ANEXSIA 5/325MG TABLET (HYDROcodone/ACETAMINOPHEN) PO PRN ×2 (09:33→20:13)
[2023-04-22] MEDS: MAGNESIUM OXIDE 400MG TAB (MAG-OX) PO SCH ×2 (09:33→20:09)
[2023-04-22] MEDS: ROSUVASTATIN 10 MG TAB (CRESTOR) PO SCH (09:34)
[2023-04-22] MEDS: allopurinoL 100 MG TAB PO SCH (09:34)
[2023-04-22] MEDS: CLOPIDOGREL 75 MG TAB PO SCH (09:34)
[2023-04-22] MEDS: guaiFENesin ER 600 MG TAB PO SCH ×2 (09:34→20:08)
[2023-04-22] MEDS: TOLVAPTAN 15 MG TAB (SAMSCA) PO SCH (09:34)
[2023-04-22] MEDS: TORSEMIDE (DEMADEX) 50 MG PER 1/2 TAB PO SCH (09:34)
[2023-04-22] MEDS: METOPROLOL SUCC *XL* 25MG TAB (TopROL *XL*) PO SCH (09:35)
[2023-04-22] MEDS: PANTOPRAZOLE 40MG TAB (PROTONIX) PO SCH (09:35)
[2023-04-22] MEDS: FLUTICASONE PROP 0.05% NASAL SPRAY 16 GM (FLONASE) NARES SCH ×2 (09:35→20:14)
[2023-04-22] MEDS: DOCUSATE SODIUM 100MG CAPSULE PO SCH ×2 (09:35→20:09)
[2023-04-22] MEDS: POTASSIUM CHLORIDE 10MEQ SR TABLET PO SCH (09:35)
[2023-04-22] MEDS: BUDESONIDE 0.5 MG/2 ML INHALATION SUSPENSION INH SCH ×2 (11:33→19:21)
[2023-04-22] MEDS: FORMOTEROL FUMARATE 20 MCG/2 ML INHALATION SOLUTION (PERFOROMIST) INH SCH ×2 (11:33→19:21)
[2023-04-22 12:29] LABS: HIV SCREEN CENTAUR SOURCE NEGATIVE (NEGATIVE)
[2023-04-22] MEDS: SODIUM CHLORIDE 0.9% INJ 10 ML SYR IV SCH (13:50)
[2023-04-22] MEDS: RIVAROXABAN 10MG TAB (XARELTO) PO SCH (17:17)
[2023-04-22 20:00] VITALS: BP 153/70; TEMP 97.4; O2SAT 98
[2023-04-22] MEDS: MONTELUKAST 10 MG TAB PO SCH (20:09)
[2023-04-23] MEDS: ALBUTEROL SULFATE 2.5MG/0.5ML INH NEB SOLN NEB PRN (03:31)
[2023-04-23 05:57] VITALS: BP 134/81; TEMP 98.2; O2SAT 99
[2023-04-23] MEDS: NORCO, ANEXSIA 5/325MG TABLET (HYDROcodone/ACETAMINOPHEN) PO PRN ×2 (06:03→14:58)
[2023-04-23 06:13] LABS: BLOOD UREA NITROGEN 20 MG/DL (9-23); CALCIUM LEVEL 8.8 MG/DL (8.3-10.6); CARBON DIOXIDE LEVEL 34 MMOL/L (20-31); CHLORIDE LEVEL 92 MMOL/L (98-107); CREATININE FOR GFR 0.74 MG/DL (0.55-1.30); GLOMERULAR FILTRATION RATE > 60.0 (>45); GLUCOSE, FASTING 121 MG/DL (74-106); MAGNESIUM LEVEL 1.6 MG/DL (1.8-2.4); POTASSIUM SERUM 3.2 MMOL/L (3.5-5.1); SODIUM LEVEL 135 MMOL/L (136-145)
[2023-04-23] MEDS: GLYCOPYRROLATE INJ 0.2 MG/ML 2 ML VIAL NEB SCH ×2 (07:35→19:17)
[2023-04-23] MEDS: IPRATROPIUM 0.02% SOLN 0.5MG 2.5ML NEB INH SCH ×3 (07:35→23:32)
[2023-04-23] MEDS: FORMOTEROL FUMARATE 20 MCG/2 ML INHALATION SOLUTION (PERFOROMIST) INH SCH ×2 (07:35→19:17)
[2023-04-23] MEDS: LEVALBUTEROL 1.25MG/3ML NEB SOLN INH SCH ×3 (07:35→23:33)
[2023-04-23] MEDS: BUDESONIDE 0.5 MG/2 ML INHALATION SUSPENSION INH SCH ×2 (07:36→19:17)
[2023-04-23] MEDS: TOLVAPTAN 15 MG TAB (SAMSCA) PO SCH (08:51)
[2023-04-23] MEDS: TORSEMIDE (DEMADEX) 50 MG PER 1/2 TAB PO SCH (08:52)
[2023-04-23] MEDS: MAG SULF 1GM/100ML (MAG RUN) 1 GM in IV 1 EA IV SCH ×2 (08:52→08:55)
[2023-04-23] MEDS: MAGNESIUM OXIDE 400MG TAB (MAG-OX) PO SCH ×2 (08:53→20:36)
[2023-04-23] MEDS: ROSUVASTATIN 10 MG TAB (CRESTOR) PO SCH (08:53)
[2023-04-23] MEDS: LACTOBACILLUS ACIDOPHILUS CAP (BACID) PO SCH (08:53)
[2023-04-23] MEDS: METOPROLOL SUCC *XL* 25MG TAB (TopROL *XL*) PO SCH (08:53)
[2023-04-23] MEDS: DOCUSATE SODIUM 100MG CAPSULE PO SCH ×2 (08:53→20:36)
[2023-04-23] MEDS: allopurinoL 100 MG TAB PO SCH (08:54)
[2023-04-23] MEDS: CLOPIDOGREL 75 MG TAB PO SCH (08:54)
[2023-04-23] MEDS: FLUTICASONE PROP 0.05% NASAL SPRAY 16 GM (FLONASE) NARES SCH ×2 (08:54→20:38)
[2023-04-23] MEDS: guaiFENesin ER 600 MG TAB PO SCH ×2 (08:54→20:35)
[2023-04-23] MEDS: PANTOPRAZOLE 40MG TAB (PROTONIX) PO SCH (08:54)
[2023-04-23] MEDS ORDERED: POTASSIUM CHLORIDE 10MEQ SR TABLET PO SCH (09:00)
[2023-04-23] MEDS: NYSTATIN 500,000U/5ML SUSP UDC SS PRN ×2 (09:04→20:35)
[2023-04-23] MEDS: SODIUM CHLORIDE 0.9% INJ 10 ML SYR IV SCH (11:10)
[2023-04-23] MEDS: traMADol 50 MG TAB PO PRN ×2 (11:18→20:36)
[2023-04-23] MEDS: RIVAROXABAN 10MG TAB (XARELTO) PO SCH (17:20)
[2023-04-23] MEDS: MONTELUKAST 10 MG TAB PO SCH (20:36)
[2023-04-23 20:39] VITALS: BP 132/85
[2023-04-24] MEDS: NORCO, ANEXSIA 5/325MG TABLET (HYDROcodone/ACETAMINOPHEN) PO PRN ×3 (00:13→17:03)
[2023-04-24] MEDS: ALBUTEROL SULFATE 2.5MG/0.5ML INH NEB SOLN NEB PRN (03:47)
[2023-04-24 05:43] VITALS: BP 155/82; TEMP 96.8; O2SAT 100
[2023-04-24] MEDS: traMADol 50 MG TAB PO PRN ×3 (05:54→20:54)
[2023-04-24 06:30] LABS: BLOOD UREA NITROGEN 18 MG/DL (9-23); CARBON DIOXIDE LEVEL 35 MMOL/L (20-31); CHLORIDE LEVEL 88 MMOL/L (98-107); CREATININE FOR GFR 0.63 MG/DL (0.55-1.30); GLOMERULAR FILTRATION RATE > 60.0 (>45); GLUCOSE, FASTING 119 MG/DL (74-106); POTASSIUM SERUM 4.6 MMOL/L (3.5-5.1); SODIUM LEVEL 132 MMOL/L (136-145)
[2023-04-24] MEDS: BUDESONIDE 0.5 MG/2 ML INHALATION SUSPENSION INH SCH ×2 (07:19→19:21)
[2023-04-24] MEDS: FORMOTEROL FUMARATE 20 MCG/2 ML INHALATION SOLUTION (PERFOROMIST) INH SCH ×2 (07:19→19:19)
[2023-04-24] MEDS: GLYCOPYRROLATE INJ 0.2 MG/ML 2 ML VIAL NEB SCH ×2 (07:19→19:20)
[2023-04-24] MEDS: LEVALBUTEROL 1.25MG/3ML NEB SOLN INH SCH ×3 (08:08→23:06)
[2023-04-24] MEDS: IPRATROPIUM 0.02% SOLN 0.5MG 2.5ML NEB INH SCH ×3 (08:09→23:05)
[2023-04-24] MEDS: LACTOBACILLUS ACIDOPHILUS CAP (BACID) PO SCH (08:50)
[2023-04-24] MEDS: allopurinoL 100 MG TAB PO SCH (08:50)
[2023-04-24] MEDS: NYSTATIN 500,000U/5ML SUSP UDC SS PRN ×2 (08:50→20:52)
[2023-04-24] MEDS: ROSUVASTATIN 10 MG TAB (CRESTOR) PO SCH (08:50)
[2023-04-24] MEDS: guaiFENesin ER 600 MG TAB PO SCH ×2 (08:50→20:52)
[2023-04-24] MEDS: CLOPIDOGREL 75 MG TAB PO SCH (08:50)
[2023-04-24] MEDS: TOLVAPTAN 15 MG TAB (SAMSCA) PO SCH (08:50)
[2023-04-24] MEDS: TORSEMIDE (DEMADEX) 50 MG PER 1/2 TAB PO SCH (08:51)
[2023-04-24] MEDS: MAGNESIUM OXIDE 400MG TAB (MAG-OX) PO SCH ×2 (08:51→20:52)
[2023-04-24] MEDS: DOCUSATE SODIUM 100MG CAPSULE PO SCH ×2 (08:51→20:52)
[2023-04-24] MEDS: METOPROLOL SUCC *XL* 25MG TAB (TopROL *XL*) PO SCH (08:51)
[2023-04-24] MEDS: PANTOPRAZOLE 40MG TAB (PROTONIX) PO SCH (08:51)
[2023-04-24] MEDS: FLUTICASONE PROP 0.05% NASAL SPRAY 16 GM (FLONASE) NARES SCH ×2 (08:54→20:54)
[2023-04-24] MEDS: SODIUM CHLORIDE 0.9% INJ 10 ML SYR IV SCH (12:21)
[2023-04-24] MEDS: RIVAROXABAN 10MG TAB (XARELTO) PO SCH (17:02)
[2023-04-24 20:00] VITALS: BP 104/64; TEMP 97.2; O2SAT 97
[2023-04-24] MEDS: MONTELUKAST 10 MG TAB PO SCH (20:52)
[2023-04-25] MEDS: NORCO, ANEXSIA 5/325MG TABLET (HYDROcodone/ACETAMINOPHEN) PO PRN ×2 (01:38→20:46)
[2023-04-25] MEDS: ALBUTEROL SULFATE 2.5MG/0.5ML INH NEB SOLN NEB PRN (03:19)
[2023-04-25 06:27] LABS: BLOOD UREA NITROGEN 18 MG/DL (9-23); CARBON DIOXIDE LEVEL 38 MMOL/L (20-31); CHLORIDE LEVEL 86 MMOL/L (98-107); CREATININE FOR GFR 0.64 MG/DL (0.55-1.30); GLOMERULAR FILTRATION RATE > 60.0 (>45); GLUCOSE, FASTING 132 MG/DL (74-106); MAGNESIUM LEVEL 1.7 MG/DL (1.8-2.4); POTASSIUM SERUM 3.3 MMOL/L (3.5-5.1); SODIUM LEVEL 131 MMOL/L (136-145)
[2023-04-25] MEDS: traMADol 50 MG TAB PO PRN (06:39)
[2023-04-25] MEDS: BUDESONIDE 0.5 MG/2 ML INHALATION SUSPENSION INH SCH ×2 (07:08→19:07)
[2023-04-25] MEDS: FORMOTEROL FUMARATE 20 MCG/2 ML INHALATION SOLUTION (PERFOROMIST) INH SCH ×2 (07:08→19:07)
[2023-04-25] MEDS: GLYCOPYRROLATE INJ 0.2 MG/ML 2 ML VIAL NEB SCH ×2 (08:52→20:23)
[2023-04-25] MEDS: ALBUTEROL SULFATE 2.5MG/0.5ML INH NEB SOLN NEB SCH ×4 (08:53→23:23)
[2023-04-25] MEDS: IPRATROPIUM 0.02% SOLN 0.5MG 2.5ML NEB INH SCH ×3 (08:53→23:23)
[2023-04-25] MEDS: guaiFENesin ER 600 MG TAB PO SCH ×2 (09:30→20:45)
[2023-04-25] MEDS: TOLVAPTAN 15 MG TAB (SAMSCA) PO SCH (09:30)
[2023-04-25] MEDS: MAGNESIUM OXIDE 400MG TAB (MAG-OX) PO SCH ×2 (09:31→20:46)
[2023-04-25] MEDS: DOCUSATE SODIUM 100MG CAPSULE PO SCH ×2 (09:31→20:46)
[2023-04-25] MEDS: TORSEMIDE (DEMADEX) 50 MG PER 1/2 TAB PO SCH (09:31)
[2023-04-25] MEDS: METOPROLOL SUCC *XL* 25MG TAB (TopROL *XL*) PO SCH (09:33)
[2023-04-25] MEDS: LACTOBACILLUS ACIDOPHILUS CAP (BACID) PO SCH (09:34)
[2023-04-25] MEDS: PANTOPRAZOLE 40MG TAB (PROTONIX) PO SCH (09:34)
[2023-04-25] MEDS: FLUTICASONE PROP 0.05% NASAL SPRAY 16 GM (FLONASE) NARES SCH ×2 (09:34→20:46)
[2023-04-25] MEDS: allopurinoL 100 MG TAB PO SCH (09:34)
[2023-04-25] MEDS: CLOPIDOGREL 75 MG TAB PO SCH (09:34)
[2023-04-25] MEDS: ROSUVASTATIN 10 MG TAB (CRESTOR) PO SCH (09:34)
[2023-04-25] MEDS: VITAMIN D 50,000 UNITS CAPSULE (ERGOCALCIFEROL 1.25MG) PO SCH (09:34)
[2023-04-25] MEDS: NYSTATIN 500,000U/5ML SUSP UDC SS PRN ×2 (09:34→20:45)
[2023-04-25] MEDS: SODIUM CHLORIDE 0.9% INJ 10 ML SYR IV SCH (12:50)
[2023-04-25] MEDS: RIVAROXABAN 10MG TAB (XARELTO) PO SCH (17:53)
[2023-04-25] MEDS: MONTELUKAST 10 MG TAB PO SCH (20:45)
[2023-04-26] MEDS: NORCO, ANEXSIA 5/325MG TABLET (HYDROcodone/ACETAMINOPHEN) PO PRN ×2 (03:09→21:23)
[2023-04-26] MEDS: ALBUTEROL SULFATE 2.5MG/0.5ML INH NEB SOLN NEB PRN ×2 (03:57→21:06)
[2023-04-26 06:00] VITALS: BP 138/77; TEMP 97.1; O2SAT 96
[2023-04-26] MEDS: traMADol 50 MG TAB PO PRN (06:19)
[2023-04-26 07:15] LABS: BLOOD UREA NITROGEN 14 MG/DL (9-23); CARBON DIOXIDE LEVEL 37 MMOL/L (20-31); CHLORIDE LEVEL 84 MMOL/L (98-107); CREATININE FOR GFR 0.61 MG/DL (0.55-1.30); GLOMERULAR FILTRATION RATE > 60.0 (>45); GLUCOSE, FASTING 128 MG/DL (74-106); MAGNESIUM LEVEL 1.5 MG/DL (1.8-2.4); POTASSIUM SERUM 2.7 MMOL/L (3.5-5.1); SODIUM LEVEL 129 MMOL/L (136-145)
[2023-04-26] MEDS ORDERED: POTASSIUM CHLORIDE 10MEQ SR TABLET PO ONE (07:45)
[2023-04-26] MEDS ORDERED: KCL 10MEQ/100ML SWI (KRUN) 10 MEQ in IV 1 EA IV SCH (08:00)
[2023-04-26] MEDS ORDERED: MAG SULF 1GM/100ML (MAG RUN) 1 GM in IV 1 EA IV ONE (09:00)
[2023-04-26] MEDS: DOCUSATE SODIUM 100MG CAPSULE PO SCH ×2 (09:02→21:21)
[2023-04-26] MEDS: guaiFENesin ER 600 MG TAB PO SCH ×2 (09:03→21:21)
[2023-04-26] MEDS: ROSUVASTATIN 10 MG TAB (CRESTOR) PO SCH (09:03)
[2023-04-26] MEDS: allopurinoL 100 MG TAB PO SCH (09:03)
[2023-04-26] MEDS: TOLVAPTAN 15 MG TAB (SAMSCA) PO SCH (09:03)
[2023-04-26] MEDS: MAGNESIUM OXIDE 400MG TAB (MAG-OX) PO SCH ×2 (09:03→21:21)
[2023-04-26] MEDS: LACTOBACILLUS ACIDOPHILUS CAP (BACID) PO SCH (09:03)
[2023-04-26] MEDS: CLOPIDOGREL 75 MG TAB PO SCH (09:03)
[2023-04-26] MEDS: PANTOPRAZOLE 40MG TAB (PROTONIX) PO SCH (09:03)
[2023-04-26] MEDS: MAG SULF 1GM/100ML (MAG RUN) 1 GM in IV 1 EA IV SCH ×2 (09:04→10:58)
[2023-04-26] MEDS: METOPROLOL SUCC *XL* 25MG TAB (TopROL *XL*) PO SCH (09:08)
[2023-04-26] MEDS: FLUTICASONE PROP 0.05% NASAL SPRAY 16 GM (FLONASE) NARES SCH ×2 (09:08→21:21)
[2023-04-26] MEDS: NYSTATIN 500,000U/5ML SUSP UDC SS PRN ×2 (09:16→21:23)
[2023-04-26] MEDS: FORMOTEROL FUMARATE 20 MCG/2 ML INHALATION SOLUTION (PERFOROMIST) INH SCH ×2 (09:27→19:05)
[2023-04-26] MEDS: BUDESONIDE 0.5 MG/2 ML INHALATION SUSPENSION INH SCH ×2 (09:27→19:05)
[2023-04-26] MEDS: ALBUTEROL SULFATE 2.5MG/0.5ML INH NEB SOLN NEB SCH ×3 (09:48→22:58)
[2023-04-26] MEDS: IPRATROPIUM 0.02% SOLN 0.5MG 2.5ML NEB INH SCH ×3 (09:48→22:58)
[2023-04-26] MEDS: POTASSIUM CHLORIDE 10MEQ SR TABLET PO SCH ×3 (10:58→21:21)
[2023-04-26 11:36] VITALS: O2SAT 3
[2023-04-26] MEDS: GLYCOPYRROLATE INJ 0.2 MG/ML 2 ML VIAL NEB SCH ×2 (11:36→21:06)
[2023-04-26] MEDS: SODIUM CHLORIDE 0.9% INJ 10 ML SYR IV SCH (12:04)
[2023-04-26] MEDS: RIVAROXABAN 10MG TAB (XARELTO) PO SCH (18:17)
[2023-04-26] MEDS ORDERED: TOLVAPTAN 15 MG TAB (SAMSCA) PO ONE (19:00)
[2023-04-26] MEDS: MONTELUKAST 10 MG TAB PO SCH (21:20)
[2023-04-27 01:01] LABS: HEMATOCRIT 30.4 % (36.0-47.0); HEMOGLOBIN 10.3 g/dl (12.0-15.5)
[2023-04-27] MEDS: CEPACOL LOZENGE PO PRN ×4 (02:00→20:08)
[2023-04-27] MEDS: traMADol 50 MG TAB PO PRN ×3 (02:06→22:49)
[2023-04-27] MEDS: ALBUTEROL SULFATE 2.5MG/0.5ML INH NEB SOLN NEB PRN (03:26)
[2023-04-27] MEDS: NORCO, ANEXSIA 5/325MG TABLET (HYDROcodone/ACETAMINOPHEN) PO PRN ×2 (05:19→20:08)
[2023-04-27 06:00] VITALS: BP 130/60; TEMP 97.3; O2SAT 100
[2023-04-27] MEDS: BUDESONIDE 0.5 MG/2 ML INHALATION SUSPENSION INH SCH ×2 (07:10→19:55)
[2023-04-27] MEDS: FORMOTEROL FUMARATE 20 MCG/2 ML INHALATION SOLUTION (PERFOROMIST) INH SCH ×2 (07:10→19:55)
[2023-04-27] MEDS: GLYCOPYRROLATE INJ 0.2 MG/ML 2 ML VIAL NEB SCH ×2 (07:11→19:56)
[2023-04-27 07:49] LABS: ALBUMIN 3.6 G/DL (3.2-5.2); BLOOD UREA NITROGEN 13 MG/DL (9-23); CARBON DIOXIDE LEVEL 34 MMOL/L (20-31); CHLORIDE LEVEL 90 MMOL/L (98-107); CREATININE FOR GFR 0.66 MG/DL (0.55-1.30); GLOMERULAR FILTRATION RATE > 60.0 (>45); GLUCOSE, FASTING 117 MG/DL (74-106); PHOSPHORUS LEVEL 2.9 MG/DL (2.4-5.1); POTASSIUM SERUM 4.4 MMOL/L (3.5-5.1); SODIUM LEVEL 130 MMOL/L (136-145)
[2023-04-27 07:52] LABS: BLOOD UREA NITROGEN 12 MG/DL (9-23); CALCIUM LEVEL 8.9 MG/DL (8.3-10.6); CARBON DIOXIDE LEVEL 34 MMOL/L (20-31); CHLORIDE LEVEL 90 MMOL/L (98-107); CREATININE FOR GFR 0.67 MG/DL (0.55-1.30); GLOMERULAR FILTRATION RATE > 60.0 (>45); GLUCOSE, FASTING 121 MG/DL (74-106); MAGNESIUM LEVEL 1.6 MG/DL (1.8-2.4); POTASSIUM SERUM 4.6 MMOL/L (3.5-5.1); SODIUM LEVEL 134 MMOL/L (136-145)
[2023-04-27] MEDS: IPRATROPIUM 0.02% SOLN 0.5MG 2.5ML NEB INH SCH ×3 (09:08→23:46)
[2023-04-27] MEDS: ALBUTEROL SULFATE 2.5MG/0.5ML INH NEB SOLN NEB SCH ×3 (09:08→23:46)
[2023-04-27] MEDS: PANTOPRAZOLE 40MG TAB (PROTONIX) PO SCH (09:22)
[2023-04-27] MEDS: NYSTATIN 500,000U/5ML SUSP UDC SS PRN ×2 (09:22→20:07)
[2023-04-27] MEDS: CLOPIDOGREL 75 MG TAB PO SCH (09:22)
[2023-04-27] MEDS: METOPROLOL SUCC *XL* 25MG TAB (TopROL *XL*) PO SCH (09:23)
[2023-04-27] MEDS: DOCUSATE SODIUM 100MG CAPSULE PO SCH ×2 (09:23→20:08)
[2023-04-27] MEDS: MAGNESIUM OXIDE 400MG TAB (MAG-OX) PO SCH ×2 (09:23→20:08)
[2023-04-27] MEDS: guaiFENesin ER 600 MG TAB PO SCH ×2 (09:23→20:08)
[2023-04-27] MEDS: LACTOBACILLUS ACIDOPHILUS CAP (BACID) PO SCH (09:23)
[2023-04-27] MEDS: ROSUVASTATIN 10 MG TAB (CRESTOR) PO SCH (09:23)
[2023-04-27] MEDS: allopurinoL 100 MG TAB PO SCH (09:23)
[2023-04-27] MEDS: FLUTICASONE PROP 0.05% NASAL SPRAY 16 GM (FLONASE) NARES SCH ×2 (09:24→20:09)
[2023-04-27] MEDS: SODIUM CHLORIDE 0.9% INJ 10 ML SYR IV SCH (11:49)
[2023-04-27] MEDS: TOLVAPTAN 15 MG TAB (SAMSCA) PO SCH (12:50)
[2023-04-27] MEDS: RIVAROXABAN 10MG TAB (XARELTO) PO SCH (17:33)
[2023-04-27] MEDS: ACETAMINOPHEN TAB 650MG DOSE (2X325MG) PO PRN (18:24)
[2023-04-27] MEDS: MONTELUKAST 10 MG TAB PO SCH (20:08)
[2023-04-27 23:07] LABS: APPEARANCE, URINE CLEAR (CLEAR); BACTERIA, URINE AUTO 1+ (NEGATIVE); BILIRUBIN, URINE AUTO NEGATIVE (NEGATIVE); BLOOD, URINE BLOOD 1+ (NEGATIVE); COLOR, URINE YELLOW (YELLOW); GLUCOSE, URINE (UA) AUTO NEGATIVE (NEGATIVE); KETONE, URINE AUTO NEGATIVE (NEGATIVE); LEUKOCYTE ESTERASE, URINE AUTO 2+ (NEGATIVE); NITRITE, URINE AUTO NEGATIVE (NEGATIVE); PROTEIN, URINE AUTO NEGATIVE (NEGATIVE); RBC, URINE AUTO 1 /HPF (0-3); SPECIFIC GRAVITY URINE AUTO 1.006 (1.002-1.035); SQUAMOUS EPITHELIAL CELL UR AU 0 /HPF (0-6); UROBILINOGEN, URINE AUTO 0.2 mg/dL (0.0-2.0); WBC, URINE AUTO 5 /HPF (0-3)
[2023-04-28] MEDS: ALBUTEROL SULFATE 2.5MG/0.5ML INH NEB SOLN NEB PRN (03:33)
[2023-04-28 05:37] LABS: HEMATOCRIT 27.2 % (36.0-47.0); HEMOGLOBIN 9.1 g/dl (12.0-15.5); MEAN CORPUSCULAR HEMOGLOBIN 29.5 pg (27.0-33.0); MEAN CORPUSCULAR HGB CONC 33.5 g/dl (32.0-36.5); MEAN CORPUSCULAR VOLUME 88.3 fl (80.0-96.0); PLATELET COUNT, AUTOMATED 180 10^3/uL (150-450); RED BLOOD COUNT 3.08 10^6/uL (4.00-5.40); WHITE BLOOD COUNT 5.9 10^3/uL (4.0-10.0)
[2023-04-28 06:00] VITALS: BP 126/63; TEMP 96.1; O2SAT 98
[2023-04-28 06:11] LABS: BLOOD UREA NITROGEN 11 MG/DL (9-23); CALCIUM LEVEL 8.8 MG/DL (8.3-10.6); CARBON DIOXIDE LEVEL 33 MMOL/L (20-31); CHLORIDE LEVEL 91 MMOL/L (98-107); CREATININE FOR GFR 0.69 MG/DL (0.55-1.30); GLOMERULAR FILTRATION RATE > 60.0 (>45); GLUCOSE, FASTING 125 MG/DL (74-106); MAGNESIUM LEVEL 1.6 MG/DL (1.8-2.4); POTASSIUM SERUM 4.1 MMOL/L (3.5-5.1); SODIUM LEVEL 133 MMOL/L (136-145)
[2023-04-28] MEDS: FORMOTEROL FUMARATE 20 MCG/2 ML INHALATION SOLUTION (PERFOROMIST) INH SCH ×2 (07:11→20:11)
[2023-04-28] MEDS: BUDESONIDE 0.5 MG/2 ML INHALATION SUSPENSION INH SCH ×2 (07:12→20:11)
[2023-04-28] MEDS: GLYCOPYRROLATE INJ 0.2 MG/ML 2 ML VIAL NEB SCH ×2 (07:43→20:11)
[2023-04-28] MEDS: FLUTICASONE PROP 0.05% NASAL SPRAY 16 GM (FLONASE) NARES SCH ×2 (08:48→20:55)
[2023-04-28] MEDS: PANTOPRAZOLE 40MG TAB (PROTONIX) PO SCH (08:49)
[2023-04-28] MEDS: NYSTATIN 500,000U/5ML SUSP UDC SS PRN ×2 (08:49→20:52)
[2023-04-28] MEDS: allopurinoL 100 MG TAB PO SCH (08:49)
[2023-04-28] MEDS: CLOPIDOGREL 75 MG TAB PO SCH (08:49)
[2023-04-28] MEDS: DOCUSATE SODIUM 100MG CAPSULE PO SCH ×2 (08:49→20:52)
[2023-04-28] MEDS: MAGNESIUM OXIDE 400MG TAB (MAG-OX) PO SCH ×2 (08:49→20:53)
[2023-04-28] MEDS: TOLVAPTAN 15 MG TAB (SAMSCA) PO SCH (08:49)
[2023-04-28] MEDS: guaiFENesin ER 600 MG TAB PO SCH ×2 (08:49→20:52)
[2023-04-28] MEDS: ROSUVASTATIN 10 MG TAB (CRESTOR) PO SCH (08:49)
[2023-04-28] MEDS: LACTOBACILLUS ACIDOPHILUS CAP (BACID) PO SCH (08:49)
[2023-04-28] MEDS: NORCO, ANEXSIA 5/325MG TABLET (HYDROcodone/ACETAMINOPHEN) PO PRN ×2 (08:50→20:55)
[2023-04-28] MEDS: METOPROLOL SUCC *XL* 25MG TAB (TopROL *XL*) PO SCH (08:53)
[2023-04-28] MEDS: ALBUTEROL SULFATE 2.5MG/0.5ML INH NEB SOLN NEB SCH ×3 (11:00→23:17)
[2023-04-28] MEDS: IPRATROPIUM 0.02% SOLN 0.5MG 2.5ML NEB INH SCH ×3 (11:00→23:17)
[2023-04-28] MEDS: SODIUM CHLORIDE 0.9% INJ 10 ML SYR IV SCH (12:01)
[2023-04-28] MEDS: MAG SULF 1GM/100ML (MAG RUN) 1 GM in IV 1 EA IV SCH ×2 (12:15→12:16)
[2023-04-28] MEDS: ACETAMINOPHEN TAB 650MG DOSE (2X325MG) PO PRN (12:21)
[2023-04-28] MEDS: traMADol 50 MG TAB PO PRN ×2 (14:10→23:28)
[2023-04-28] MEDS: CEPACOL LOZENGE PO PRN ×2 (14:11→20:52)
[2023-04-28] MEDS: RIVAROXABAN 10MG TAB (XARELTO) PO SCH (17:04)
[2023-04-28] MEDS: MONTELUKAST 10 MG TAB PO SCH (20:55)
[2023-04-29] MEDS: ACETAMINOPHEN TAB 650MG DOSE (2X325MG) PO PRN ×2 (01:49→09:45)
[2023-04-29] MEDS: CEPACOL LOZENGE PO PRN ×3 (02:33→19:07)
[2023-04-29] MEDS: ALBUTEROL SULFATE 2.5MG/0.5ML INH NEB SOLN NEB PRN (03:30)
[2023-04-29] MEDS: traMADol 50 MG TAB PO PRN ×2 (04:40→16:16)
[2023-04-29 05:50] VITALS: BP 154/83; TEMP 96.8; O2SAT 95
[2023-04-29 07:10] LABS: BLOOD UREA NITROGEN 13 MG/DL (9-23); CARBON DIOXIDE LEVEL 31 MMOL/L (20-31); CHLORIDE LEVEL 88 MMOL/L (98-107); CREATININE FOR GFR 0.69 MG/DL (0.55-1.30); GLOMERULAR FILTRATION RATE > 60.0 (>45); GLUCOSE, FASTING 108 MG/DL (74-106); MAGNESIUM LEVEL 1.6 MG/DL (1.8-2.4); POTASSIUM SERUM 3.9 MMOL/L (3.5-5.1); SODIUM LEVEL 129 MMOL/L (136-145)
[2023-04-29] MEDS: FORMOTEROL FUMARATE 20 MCG/2 ML INHALATION SOLUTION (PERFOROMIST) INH SCH ×2 (07:16→20:14)
[2023-04-29] MEDS: GLYCOPYRROLATE INJ 0.2 MG/ML 2 ML VIAL NEB SCH ×2 (07:17→20:17)
[2023-04-29] MEDS: ALBUTEROL SULFATE 2.5MG/0.5ML INH NEB SOLN NEB SCH ×3 (07:17→22:11)
[2023-04-29] MEDS: BUDESONIDE 0.5 MG/2 ML INHALATION SUSPENSION INH SCH ×2 (07:17→20:14)
[2023-04-29] MEDS: IPRATROPIUM 0.02% SOLN 0.5MG 2.5ML NEB INH SCH ×3 (07:17→22:12)
[2023-04-29] MEDS: NYSTATIN 500,000U/5ML SUSP UDC SS PRN ×2 (07:40→21:53)
[2023-04-29] MEDS: NORCO, ANEXSIA 5/325MG TABLET (HYDROcodone/ACETAMINOPHEN) PO PRN ×2 (07:41→23:29)
[2023-04-29] MEDS: guaiFENesin ER 600 MG TAB PO SCH ×2 (08:44→21:25)
[2023-04-29] MEDS: TOLVAPTAN 15 MG TAB (SAMSCA) PO SCH (08:44)
[2023-04-29] MEDS: LACTOBACILLUS ACIDOPHILUS CAP (BACID) PO SCH (08:44)
[2023-04-29] MEDS: PANTOPRAZOLE 40MG TAB (PROTONIX) PO SCH (08:44)
[2023-04-29] MEDS: allopurinoL 100 MG TAB PO SCH (08:44)
[2023-04-29] MEDS: ROSUVASTATIN 10 MG TAB (CRESTOR) PO SCH (08:44)
[2023-04-29] MEDS: CLOPIDOGREL 75 MG TAB PO SCH (08:44)
[2023-04-29] MEDS: DOCUSATE SODIUM 100MG CAPSULE PO SCH ×2 (08:44→21:25)
[2023-04-29] MEDS: MAGNESIUM OXIDE 400MG TAB (MAG-OX) PO SCH (08:44)
[2023-04-29] MEDS: METOPROLOL SUCC *XL* 25MG TAB (TopROL *XL*) PO SCH (08:45)
[2023-04-29] MEDS: FLUTICASONE PROP 0.05% NASAL SPRAY 16 GM (FLONASE) NARES SCH ×2 (08:45→21:26)
[2023-04-29] MEDS: SODIUM CHLORIDE 0.9% INJ 10 ML SYR IV SCH (11:11)
[2023-04-29] MEDS ORDERED: BUMETANIDE 1MG/4ML VIAL IV ONE (11:15)
[2023-04-29 16:35] VITALS: BP 107/65; TEMP 97.2; O2SAT 98
[2023-04-29] MEDS ORDERED: TOLVAPTAN 15 MG TAB (SAMSCA) PO ONE (17:00)
[2023-04-29] MEDS: RIVAROXABAN 10MG TAB (XARELTO) PO SCH (18:21)
[2023-04-29 19:03] LABS: BLOOD UREA NITROGEN 12 MG/DL (9-23); CALCIUM LEVEL 8.9 MG/DL (8.3-10.6); CARBON DIOXIDE LEVEL 31 MMOL/L (20-31); CHLORIDE LEVEL 89 MMOL/L (98-107); GLOMERULAR FILTRATION RATE > 60.0 (>45); GLUCOSE, FASTING 96 MG/DL (74-106); POTASSIUM SERUM 3.6 MMOL/L (3.5-5.1); SODIUM LEVEL 131 MMOL/L (136-145)
[2023-04-29] MEDS: MAGNESIUM GLUCONATE 500 MG TAB PO SCH (19:07)
[2023-04-29] MEDS: MONTELUKAST 10 MG TAB PO SCH (21:25)
[2023-04-30] MEDS: MAGNESIUM GLUCONATE 500 MG TAB PO SCH ×5 (00:13→23:01)
[2023-04-30] MEDS: ALBUTEROL SULFATE 2.5MG/0.5ML INH NEB SOLN NEB PRN (03:22)
[2023-04-30] MEDS: CEPACOL LOZENGE PO PRN ×3 (03:43→23:04)
[2023-04-30 06:25] LABS: BLOOD UREA NITROGEN 13 MG/DL (9-23); CALCIUM LEVEL 8.8 MG/DL (8.3-10.6); CARBON DIOXIDE LEVEL 32 MMOL/L (20-31); CHLORIDE LEVEL 86 MMOL/L (98-107); CREATININE FOR GFR 0.69 MG/DL (0.55-1.30); GLOMERULAR FILTRATION RATE > 60.0 (>45); GLUCOSE, FASTING 111 MG/DL (74-106); MAGNESIUM LEVEL 1.4 MG/DL (1.8-2.4); POTASSIUM SERUM 3.8 MMOL/L (3.5-5.1); SODIUM LEVEL 128 MMOL/L (136-145)
[2023-04-30] MEDS: ALBUTEROL SULFATE 2.5MG/0.5ML INH NEB SOLN NEB SCH ×3 (07:22→22:18)
[2023-04-30] MEDS: FORMOTEROL FUMARATE 20 MCG/2 ML INHALATION SOLUTION (PERFOROMIST) INH SCH ×2 (07:22→19:13)
[2023-04-30] MEDS: GLYCOPYRROLATE INJ 0.2 MG/ML 2 ML VIAL NEB SCH ×2 (07:22→19:34)
[2023-04-30] MEDS: BUDESONIDE 0.5 MG/2 ML INHALATION SUSPENSION INH SCH ×2 (07:22→19:13)
[2023-04-30] MEDS: IPRATROPIUM 0.02% SOLN 0.5MG 2.5ML NEB INH SCH ×3 (07:23→22:18)
[2023-04-30] MEDS ORDERED: MAG SULF 1GM/100ML (MAG RUN) 1 GM in IV 1 EA IV ONE (08:25)
[2023-04-30] MEDS: allopurinoL 100 MG TAB PO SCH (10:04)
[2023-04-30] MEDS: CLOPIDOGREL 75 MG TAB PO SCH (10:04)
[2023-04-30] MEDS: DOCUSATE SODIUM 100MG CAPSULE PO SCH ×2 (10:04→20:36)
[2023-04-30] MEDS: SPIRONOLACTONE 50 MG TAB PO SCH ×2 (10:04→17:00)
[2023-04-30] MEDS: BUMETANIDE 1 MG TAB PO SCH ×2 (10:05→20:36)
[2023-04-30] MEDS: TOLVAPTAN 15 MG TAB (SAMSCA) PO SCH (10:05)
[2023-04-30] MEDS: ROSUVASTATIN 10 MG TAB (CRESTOR) PO SCH (10:06)
[2023-04-30] MEDS: guaiFENesin ER 600 MG TAB PO SCH ×2 (10:06→20:36)
[2023-04-30] MEDS: METOPROLOL SUCC *XL* 25MG TAB (TopROL *XL*) PO SCH (10:06)
[2023-04-30] MEDS: LACTOBACILLUS ACIDOPHILUS CAP (BACID) PO SCH (10:06)
[2023-04-30] MEDS: PANTOPRAZOLE 40MG TAB (PROTONIX) PO SCH (10:06)
[2023-04-30] MEDS: FLUTICASONE PROP 0.05% NASAL SPRAY 16 GM (FLONASE) NARES SCH ×2 (10:07→20:36)
[2023-04-30] MEDS: SODIUM CHLORIDE 0.9% INJ 10 ML SYR IV SCH (11:22)
[2023-04-30] MEDS: traMADol 50 MG TAB PO PRN (12:07)
[2023-04-30 13:21] LABS: BLOOD UREA NITROGEN 13 MG/DL (9-23); CALCIUM LEVEL 8.9 MG/DL (8.3-10.6); CARBON DIOXIDE LEVEL 32 MMOL/L (20-31); CHLORIDE LEVEL 86 MMOL/L (98-107); CREATININE FOR GFR 0.75 MG/DL (0.55-1.30); GLOMERULAR FILTRATION RATE > 60.0 (>45); GLUCOSE, FASTING 110 MG/DL (74-106); POTASSIUM SERUM 3.7 MMOL/L (3.5-5.1); SODIUM LEVEL 129 MMOL/L (136-145)
[2023-04-30] MEDS: NYSTATIN 500,000U/5ML SUSP UDC SS PRN ×3 (13:53→20:35)
[2023-04-30 14:00] VITALS: BP 117/70; TEMP 97; O2SAT 99
[2023-04-30] MEDS: RIVAROXABAN 10MG TAB (XARELTO) PO SCH (17:00)
[2023-04-30 19:08] LABS: BLOOD UREA NITROGEN 13 MG/DL (9-23); CALCIUM LEVEL 8.9 MG/DL (8.3-10.6); CARBON DIOXIDE LEVEL 36 MMOL/L (20-31); CHLORIDE LEVEL 87 MMOL/L (98-107); CREATININE FOR GFR 0.76 MG/DL (0.55-1.30); GLOMERULAR FILTRATION RATE > 60.0 (>45); GLUCOSE, FASTING 121 MG/DL (74-106); POTASSIUM SERUM 3.5 MMOL/L (3.5-5.1); SODIUM LEVEL 130 MMOL/L (136-145)
[2023-04-30 19:57] VITALS: BP 125/75; TEMP 96.8; O2SAT 100
[2023-04-30] MEDS: NORCO, ANEXSIA 5/325MG TABLET (HYDROcodone/ACETAMINOPHEN) PO PRN (20:36)
[2023-04-30] MEDS: MONTELUKAST 10 MG TAB PO SCH (20:36)
[2023-05-01 00:35] LABS: BLOOD UREA NITROGEN 12 MG/DL (9-23); CALCIUM LEVEL 8.5 MG/DL (8.3-10.6); CARBON DIOXIDE LEVEL 35 MMOL/L (20-31); CHLORIDE LEVEL 87 MMOL/L (98-107); CREATININE FOR GFR 0.73 MG/DL (0.55-1.30); GLOMERULAR FILTRATION RATE > 60.0 (>45); GLUCOSE, FASTING 99 MG/DL (74-106); POTASSIUM SERUM 3.7 MMOL/L (3.5-5.1); SODIUM LEVEL 131 MMOL/L (136-145)
[2023-05-01] MEDS: traMADol 50 MG TAB PO PRN ×3 (01:38→15:31)
[2023-05-01] MEDS: CEPACOL LOZENGE PO PRN ×3 (03:02→15:32)
[2023-05-01] MEDS ORDERED: KETOROLAC 30 MG/ML 1ML VIAL IV ONE (03:25)
[2023-05-01] MEDS: ALBUTEROL SULFATE 2.5MG/0.5ML INH NEB SOLN NEB PRN ×2 (04:59→10:48)
[2023-05-01 05:19] VITALS: BP 127/74; TEMP 97.5; O2SAT 96
[2023-05-01] MEDS: MAGNESIUM GLUCONATE 500 MG TAB PO SCH ×4 (05:23→23:51)
[2023-05-01 06:08] LABS: BLOOD UREA NITROGEN 11 MG/DL (9-23); CALCIUM LEVEL 8.3 MG/DL (8.3-10.6); CARBON DIOXIDE LEVEL 35 MMOL/L (20-31); CHLORIDE LEVEL 85 MMOL/L (98-107); CREATININE FOR GFR 0.84 MG/DL (0.55-1.30); GLOMERULAR FILTRATION RATE > 60.0 (>45); GLUCOSE, FASTING 108 MG/DL (74-106); POTASSIUM SERUM 3.2 MMOL/L (3.5-5.1); SODIUM LEVEL 129 MMOL/L (136-145)
[2023-05-01 06:39] LABS: MAGNESIUM LEVEL 1.3 MG/DL (1.8-2.4)
[2023-05-01] MEDS ORDERED: POTASSIUM CHLORIDE 10% LIQ 20MEQ/15ML UDC PO ONE ×2 (07:20→09:00)
[2023-05-01] MEDS: FORMOTEROL FUMARATE 20 MCG/2 ML INHALATION SOLUTION (PERFOROMIST) INH SCH ×2 (07:24→19:09)
[2023-05-01] MEDS: BUDESONIDE 0.5 MG/2 ML INHALATION SUSPENSION INH SCH ×2 (07:24→19:09)
[2023-05-01] MEDS: GLYCOPYRROLATE INJ 0.2 MG/ML 2 ML VIAL NEB SCH ×2 (07:25→19:10)
[2023-05-01] MEDS: IPRATROPIUM 0.02% SOLN 0.5MG 2.5ML NEB INH SCH ×3 (07:25→23:13)
[2023-05-01] MEDS: ALBUTEROL SULFATE 2.5MG/0.5ML INH NEB SOLN NEB SCH ×3 (07:25→23:13)
[2023-05-01] MEDS ORDERED: MAG SULF 1GM/100ML (MAG RUN) 1 GM in IV 1 EA IV ONE ×2 (08:00→10:00)
[2023-05-01] MEDS ORDERED: predniSONE 20 MG TAB PO SCH (09:00)
[2023-05-01] MEDS ORDERED: MAGNESIUM OXIDE 400MG TAB (MAG-OX) PO SCH (09:00)
[2023-05-01] MEDS ORDERED: POTASSIUM CHLORIDE 10MEQ SR TABLET PO ONE (09:00)
[2023-05-01] MEDS: SPIRONOLACTONE 50 MG TAB PO SCH ×2 (09:23→17:24)
[2023-05-01] MEDS: NYSTATIN 500,000U/5ML SUSP UDC SS PRN ×3 (09:23→20:49)
[2023-05-01] MEDS: PANTOPRAZOLE 40MG TAB (PROTONIX) PO SCH (09:24)
[2023-05-01] MEDS: AUGMENTIN 875 MG TAB PO SCH ×2 (09:24→20:49)
[2023-05-01] MEDS: LACTOBACILLUS ACIDOPHILUS CAP (BACID) PO SCH (09:24)
[2023-05-01] MEDS: guaiFENesin ER 600 MG TAB PO SCH ×2 (09:24→20:50)
[2023-05-01] MEDS: CLOPIDOGREL 75 MG TAB PO SCH (09:25)
[2023-05-01] MEDS: DOCUSATE SODIUM 100MG CAPSULE PO SCH ×2 (09:25→20:49)
[2023-05-01] MEDS: ROSUVASTATIN 10 MG TAB (CRESTOR) PO SCH (09:25)
[2023-05-01] MEDS: allopurinoL 100 MG TAB PO SCH (09:26)
[2023-05-01] MEDS: TOLVAPTAN 15 MG TAB (SAMSCA) PO SCH (09:26)
[2023-05-01] MEDS: METOPROLOL SUCC *XL* 25MG TAB (TopROL *XL*) PO SCH (09:26)
[2023-05-01] MEDS: FLUTICASONE PROP 0.05% NASAL SPRAY 16 GM (FLONASE) NARES SCH ×2 (09:27→20:50)
[2023-05-01] MEDS: MAG SULF 1GM/100ML (MAG RUN) 1 GM in IV 1 EA IV SCH ×2 (09:30→09:43)
[2023-05-01] MEDS: SODIUM CHLORIDE 0.9% INJ 10 ML SYR IV SCH (11:50)
[2023-05-01 13:07] LABS: CALCIUM LEVEL 8.5 MG/DL (8.3-10.6); CREATININE FOR GFR 1.07 MG/DL (0.55-1.30); GLOMERULAR FILTRATION RATE 55.1 (>45); MAGNESIUM LEVEL 2.1 MG/DL (1.8-2.4); POTASSIUM SERUM 3.9 MMOL/L (3.5-5.1)
[2023-05-01 14:00] VITALS: BP 111/73; TEMP 97.3; O2SAT 99
[2023-05-01] MEDS: RIVAROXABAN 10MG TAB (XARELTO) PO SCH (17:25)
[2023-05-01 19:24] LABS: CALCIUM LEVEL 8.8 MG/DL (8.3-10.6); CREATININE FOR GFR 1.01 MG/DL (0.55-1.30); GLOMERULAR FILTRATION RATE 58.9 (>45); POTASSIUM SERUM 4.7 MMOL/L (3.5-5.1)
[2023-05-01] MEDS: MONTELUKAST 10 MG TAB PO SCH (20:49)
[2023-05-01] MEDS: NORCO, ANEXSIA 5/325MG TABLET (HYDROcodone/ACETAMINOPHEN) PO PRN (20:50)
[2023-05-01 21:19] VITALS: BP 112/67; TEMP 97.7; O2SAT 95
[2023-05-02 01:21] LABS: BLOOD UREA NITROGEN 16 MG/DL (9-23); CALCIUM LEVEL 8.9 MG/DL (8.3-10.6); CARBON DIOXIDE LEVEL 29 MMOL/L (20-31); CHLORIDE LEVEL 88 MMOL/L (98-107); CREATININE FOR GFR 0.98 MG/DL (0.55-1.30); GLOMERULAR FILTRATION RATE > 60.0 (>45); GLUCOSE, FASTING 115 MG/DL (74-106); POTASSIUM SERUM 5.4 MMOL/L (3.5-5.1); SODIUM LEVEL 127 MMOL/L (136-145)
[2023-05-02] MEDS ORDERED: OXYMETAZOLINE 0.05% NASAL SPRAY (AFRIN) ONE (01:30)
[2023-05-02] MEDS: CEPACOL LOZENGE PO PRN ×2 (01:59→11:57)
[2023-05-02] MEDS: NORCO, ANEXSIA 5/325MG TABLET (HYDROcodone/ACETAMINOPHEN) PO PRN ×2 (02:53→23:19)
[2023-05-02] MEDS: ALBUTEROL SULFATE 2.5MG/0.5ML INH NEB SOLN NEB PRN (04:43)
[2023-05-02] MEDS: MAGNESIUM GLUCONATE 500 MG TAB PO SCH ×4 (05:33→23:50)
[2023-05-02 06:46] VITALS: BP 118/80; TEMP 97.2; O2SAT 100
[2023-05-02 06:58] LABS: BLOOD UREA NITROGEN 15 MG/DL (9-23); CALCIUM LEVEL 8.8 MG/DL (8.3-10.6); CARBON DIOXIDE LEVEL 31 MMOL/L (20-31); CHLORIDE LEVEL 88 MMOL/L (98-107); CREATININE FOR GFR 0.93 MG/DL (0.55-1.30); GLOMERULAR FILTRATION RATE > 60.0 (>45); GLUCOSE, FASTING 125 MG/DL (74-106); POTASSIUM SERUM 4.6 MMOL/L (3.5-5.1); SODIUM LEVEL 128 MMOL/L (136-145)
[2023-05-02] MEDS: GLYCOPYRROLATE INJ 0.2 MG/ML 2 ML VIAL NEB SCH ×2 (07:16→20:39)
[2023-05-02] MEDS: FORMOTEROL FUMARATE 20 MCG/2 ML INHALATION SOLUTION (PERFOROMIST) INH SCH ×2 (07:16→19:58)
[2023-05-02] MEDS: BUDESONIDE 0.5 MG/2 ML INHALATION SUSPENSION INH SCH ×2 (07:17→19:58)
[2023-05-02] MEDS: ALBUTEROL SULFATE 2.5MG/0.5ML INH NEB SOLN NEB SCH ×3 (07:17→23:01)
[2023-05-02] MEDS: IPRATROPIUM 0.02% SOLN 0.5MG 2.5ML NEB INH SCH ×3 (07:17→23:01)
[2023-05-02] MEDS: CLOPIDOGREL 75 MG TAB PO SCH (09:55)
[2023-05-02] MEDS: TOLVAPTAN 15 MG TAB (SAMSCA) PO SCH (09:55)
[2023-05-02] MEDS: traMADol 50 MG TAB PO PRN ×2 (09:55→17:08)
[2023-05-02] MEDS: VITAMIN D 50,000 UNITS CAPSULE (ERGOCALCIFEROL 1.25MG) PO SCH (09:55)
[2023-05-02] MEDS: guaiFENesin ER 600 MG TAB PO SCH ×2 (09:56→20:11)
[2023-05-02] MEDS: DOCUSATE SODIUM 100MG CAPSULE PO SCH ×2 (09:56→20:12)
[2023-05-02] MEDS: LACTOBACILLUS ACIDOPHILUS CAP (BACID) PO SCH (09:56)
[2023-05-02] MEDS: allopurinoL 100 MG TAB PO SCH (09:56)
[2023-05-02] MEDS: AUGMENTIN 875 MG TAB PO SCH ×2 (09:56→20:11)
[2023-05-02] MEDS: SPIRONOLACTONE 50 MG TAB PO SCH ×2 (09:56→17:35)
[2023-05-02] MEDS: METOPROLOL SUCC *XL* 25MG TAB (TopROL *XL*) PO SCH (09:57)
[2023-05-02] MEDS: ROSUVASTATIN 10 MG TAB (CRESTOR) PO SCH (09:57)
[2023-05-02] MEDS: PANTOPRAZOLE 40MG TAB (PROTONIX) PO SCH (09:58)
[2023-05-02] MEDS: FLUTICASONE PROP 0.05% NASAL SPRAY 16 GM (FLONASE) NARES SCH ×2 (10:08→20:16)
[2023-05-02] MEDS: NYSTATIN 500,000U/5ML SUSP UDC SS PRN ×2 (11:57→23:19)
[2023-05-02 11:58] LABS: INR 1.26; PROTHROMBIN TIME 16.1 SECONDS (12.5-14.5)
[2023-05-02 12:06] LABS: BLOOD UREA NITROGEN 16 MG/DL (9-23); CALCIUM LEVEL 9.1 MG/DL (8.3-10.6); CARBON DIOXIDE LEVEL 25 MMOL/L (20-31); CHLORIDE LEVEL 87 MMOL/L (98-107); GLOMERULAR FILTRATION RATE > 60.0 (>45); GLUCOSE, FASTING 173 MG/DL (74-106); MAGNESIUM LEVEL 1.6 MG/DL (1.8-2.4); POTASSIUM SERUM 4.5 MMOL/L (3.5-5.1); SODIUM LEVEL 127 MMOL/L (136-145)
[2023-05-02] MEDS: SODIUM CHLORIDE 0.9% INJ 10 ML SYR IV SCH (13:11)
[2023-05-02 14:15] VITALS: BP 126/82; TEMP 97.4; O2SAT 99
[2023-05-02] MEDS: RIVAROXABAN 10MG TAB (XARELTO) PO SCH (17:35)
[2023-05-02 18:56] LABS: BLOOD UREA NITROGEN 15 MG/DL (9-23); CALCIUM LEVEL 8.8 MG/DL (8.3-10.6); CARBON DIOXIDE LEVEL 30 MMOL/L (20-31); CHLORIDE LEVEL 88 MMOL/L (98-107); GLOMERULAR FILTRATION RATE > 60.0 (>45); GLUCOSE, FASTING 151 MG/DL (74-106); SODIUM LEVEL 128 MMOL/L (136-145)
[2023-05-02 19:54] VITALS: BP 123/76; TEMP 97.7; O2SAT 97
[2023-05-02] MEDS: MONTELUKAST 10 MG TAB PO SCH (20:12)
[2023-05-03 00:37] LABS: BLOOD UREA NITROGEN 14 MG/DL (9-23); CALCIUM LEVEL 8.8 MG/DL (8.3-10.6); CARBON DIOXIDE LEVEL 31 MMOL/L (20-31); CHLORIDE LEVEL 89 MMOL/L (98-107); CREATININE FOR GFR 0.86 MG/DL (0.55-1.30); GLOMERULAR FILTRATION RATE > 60.0 (>45); GLUCOSE, FASTING 128 MG/DL (74-106); POTASSIUM SERUM 4.2 MMOL/L (3.5-5.1); SODIUM LEVEL 129 MMOL/L (136-145)
[2023-05-03] MEDS: ALBUTEROL SULFATE 2.5MG/0.5ML INH NEB SOLN NEB PRN ×2 (02:49→11:12)
[2023-05-03] MEDS: MAGNESIUM GLUCONATE 500 MG TAB PO SCH ×4 (04:59→23:16)
[2023-05-03] MEDS: traMADol 50 MG TAB PO PRN (05:00)
[2023-05-03 06:00] VITALS: BP 132/77; TEMP 97.3; O2SAT 98
[2023-05-03 06:35] LABS: BLOOD UREA NITROGEN 15 MG/DL (9-23); CALCIUM LEVEL 9.2 MG/DL (8.3-10.6); CARBON DIOXIDE LEVEL 25 MMOL/L (20-31); CHLORIDE LEVEL 88 MMOL/L (98-107); GLOMERULAR FILTRATION RATE > 60.0 (>45); GLUCOSE, FASTING 116 MG/DL (74-106); MAGNESIUM LEVEL 1.4 MG/DL (1.8-2.4); POTASSIUM SERUM 4.5 MMOL/L (3.5-5.1); SODIUM LEVEL 128 MMOL/L (136-145)
[2023-05-03 07:09] LABS: BASO % 0.3 % (0.0-1.0); EOS % 0.1 % (0.0-3.0); HEMATOCRIT 28.4 % (36.0-47.0); HEMOGLOBIN 9.6 g/dl (12.0-15.5); LYMPH # 2.1 10^3/uL (1.5-5.0); LYMPH % 22.9 % (24.0-44.0); MEAN CORPUSCULAR HEMOGLOBIN 29.8 pg (27.0-33.0); MEAN CORPUSCULAR HGB CONC 33.8 g/dl (32.0-36.5); MEAN CORPUSCULAR VOLUME 88.2 fl (80.0-96.0); MONO # 1.1 10^3/uL (0.0-0.8); MONO % 11.4 % (2.0-8.0); NEUTROPHILS # 5.9 10^3/uL (1.5-8.5); NEUTROPHILS % 63.4 % (36.0-66.0); PLATELET COUNT, AUTOMATED 343 10^3/uL (150-450); RED BLOOD COUNT 3.22 10^6/uL (4.00-5.40); WHITE BLOOD COUNT 9.3 10^3/uL (4.0-10.0)
[2023-05-03] MEDS: LACTOBACILLUS ACIDOPHILUS CAP (BACID) PO SCH (07:41)
[2023-05-03] MEDS: TOLVAPTAN 15 MG TAB (SAMSCA) PO SCH (07:41)
[2023-05-03] MEDS: AUGMENTIN 875 MG TAB PO SCH ×2 (07:42→20:33)
[2023-05-03] MEDS: SPIRONOLACTONE 50 MG TAB PO SCH ×2 (07:42→17:39)
[2023-05-03] MEDS: DOCUSATE SODIUM 100MG CAPSULE PO SCH ×2 (07:42→20:33)
[2023-05-03] MEDS: ROSUVASTATIN 10 MG TAB (CRESTOR) PO SCH (07:42)
[2023-05-03] MEDS: METOPROLOL SUCC *XL* 25MG TAB (TopROL *XL*) PO SCH (07:42)
[2023-05-03] MEDS: PANTOPRAZOLE 40MG TAB (PROTONIX) PO SCH (07:43)
[2023-05-03] MEDS: CLOPIDOGREL 75 MG TAB PO SCH (07:43)
[2023-05-03] MEDS: guaiFENesin ER 600 MG TAB PO SCH ×2 (07:43→20:34)
[2023-05-03] MEDS: allopurinoL 100 MG TAB PO SCH (07:43)
[2023-05-03] MEDS: FLUTICASONE PROP 0.05% NASAL SPRAY 16 GM (FLONASE) NARES SCH ×2 (07:44→20:43)
[2023-05-03] MEDS: SODIUM CHLORIDE NASAL 0.65% SPRAY BTL (OCEAN) PRN (07:44)
[2023-05-03] MEDS: BUDESONIDE 0.5 MG/2 ML INHALATION SUSPENSION INH SCH ×2 (07:46→20:25)
[2023-05-03] MEDS: FORMOTEROL FUMARATE 20 MCG/2 ML INHALATION SOLUTION (PERFOROMIST) INH SCH ×2 (07:46→20:25)
[2023-05-03] MEDS: GLYCOPYRROLATE INJ 0.2 MG/ML 2 ML VIAL NEB SCH ×2 (07:46→20:40)
[2023-05-03] MEDS: ALBUTEROL SULFATE 2.5MG/0.5ML INH NEB SOLN NEB SCH ×3 (07:46→23:41)
[2023-05-03] MEDS: IPRATROPIUM 0.02% SOLN 0.5MG 2.5ML NEB INH SCH ×3 (07:47→23:41)
[2023-05-03] MEDS: SODIUM CHLORIDE 0.9% INJ 10 ML SYR IV SCH (11:56)
[2023-05-03] MEDS: NYSTATIN 500,000U/5ML SUSP UDC SS PRN ×2 (11:56→20:34)
[2023-05-03] MEDS: NORCO, ANEXSIA 5/325MG TABLET (HYDROcodone/ACETAMINOPHEN) PO PRN ×2 (11:56→20:40)
[2023-05-03 13:00] LABS: BLOOD UREA NITROGEN 13 MG/DL (9-23); CALCIUM LEVEL 8.7 MG/DL (8.3-10.6); CARBON DIOXIDE LEVEL 31 MMOL/L (20-31); CHLORIDE LEVEL 90 MMOL/L (98-107); CREATININE FOR GFR 0.82 MG/DL (0.55-1.30); GLOMERULAR FILTRATION RATE > 60.0 (>45); GLUCOSE, FASTING 110 MG/DL (74-106); POTASSIUM SERUM 4.3 MMOL/L (3.5-5.1); SODIUM LEVEL 129 MMOL/L (136-145)
[2023-05-03] MEDS: RIVAROXABAN 10MG TAB (XARELTO) PO SCH (17:39)
[2023-05-03 18:27] LABS: BLOOD UREA NITROGEN 13 MG/DL (9-23); CARBON DIOXIDE LEVEL 29 MMOL/L (20-31); CHLORIDE LEVEL 91 MMOL/L (98-107); CREATININE FOR GFR 0.82 MG/DL (0.55-1.30); GLOMERULAR FILTRATION RATE > 60.0 (>45); GLUCOSE, FASTING 106 MG/DL (74-106); POTASSIUM SERUM 4.3 MMOL/L (3.5-5.1); SODIUM LEVEL 131 MMOL/L (136-145)
[2023-05-03] MEDS: MONTELUKAST 10 MG TAB PO SCH (20:34)
[2023-05-04 01:19] LABS: BLOOD UREA NITROGEN 12 MG/DL (9-23); CARBON DIOXIDE LEVEL 31 MMOL/L (20-31); CHLORIDE LEVEL 90 MMOL/L (98-107); CREATININE FOR GFR 0.76 MG/DL (0.55-1.30); GLOMERULAR FILTRATION RATE > 60.0 (>45); GLUCOSE, FASTING 126 MG/DL (74-106); POTASSIUM SERUM 4.6 MMOL/L (3.5-5.1); SODIUM LEVEL 131 MMOL/L (136-145)
[2023-05-04] MEDS: ALBUTEROL SULFATE 2.5MG/0.5ML INH NEB SOLN NEB PRN (03:12)
[2023-05-04] MEDS: NORCO, ANEXSIA 5/325MG TABLET (HYDROcodone/ACETAMINOPHEN) PO PRN ×2 (04:29→20:08)
[2023-05-04] MEDS: MAGNESIUM GLUCONATE 500 MG TAB PO SCH ×3 (05:18→18:49)
[2023-05-04 06:00] VITALS: BP 128/72; TEMP 97.2; O2SAT 96
[2023-05-04 06:30] LABS: BLOOD UREA NITROGEN 12 MG/DL (9-23); CALCIUM LEVEL 8.8 MG/DL (8.3-10.6); CARBON DIOXIDE LEVEL 32 MMOL/L (20-31); CHLORIDE LEVEL 88 MMOL/L (98-107); CREATININE FOR GFR 0.81 MG/DL (0.55-1.30); GLOMERULAR FILTRATION RATE > 60.0 (>45); GLUCOSE, FASTING 107 MG/DL (74-106); POTASSIUM SERUM 4.1 MMOL/L (3.5-5.1); SODIUM LEVEL 128 MMOL/L (136-145)
[2023-05-04] MEDS: FORMOTEROL FUMARATE 20 MCG/2 ML INHALATION SOLUTION (PERFOROMIST) INH SCH ×2 (07:20→19:08)
[2023-05-04] MEDS: ALBUTEROL SULFATE 2.5MG/0.5ML INH NEB SOLN NEB SCH ×3 (07:20→23:10)
[2023-05-04] MEDS: BUDESONIDE 0.5 MG/2 ML INHALATION SUSPENSION INH SCH ×2 (07:20→19:08)
[2023-05-04] MEDS: GLYCOPYRROLATE INJ 0.2 MG/ML 2 ML VIAL NEB SCH ×2 (07:20→19:08)
[2023-05-04] MEDS: IPRATROPIUM 0.02% SOLN 0.5MG 2.5ML NEB INH SCH ×3 (08:00→23:10)
[2023-05-04] MEDS: NYSTATIN 500,000U/5ML SUSP UDC SS PRN ×3 (08:36→20:08)
[2023-05-04] MEDS: METOPROLOL SUCC *XL* 25MG TAB (TopROL *XL*) PO SCH (08:39)
[2023-05-04] MEDS: TOLVAPTAN 15 MG TAB (SAMSCA) PO SCH (08:40)
[2023-05-04] MEDS: PANTOPRAZOLE 40MG TAB (PROTONIX) PO SCH (08:41)
[2023-05-04] MEDS: guaiFENesin ER 600 MG TAB PO SCH ×2 (08:41→20:08)
[2023-05-04] MEDS: SPIRONOLACTONE 50 MG TAB PO SCH ×2 (08:41→16:40)
[2023-05-04] MEDS: DOCUSATE SODIUM 100MG CAPSULE PO SCH ×2 (08:41→20:08)
[2023-05-04] MEDS: CLOPIDOGREL 75 MG TAB PO SCH (08:41)
[2023-05-04] MEDS: AUGMENTIN 875 MG TAB PO SCH ×2 (08:41→20:08)
[2023-05-04] MEDS: ROSUVASTATIN 10 MG TAB (CRESTOR) PO SCH (08:42)
[2023-05-04] MEDS: FLUTICASONE PROP 0.05% NASAL SPRAY 16 GM (FLONASE) NARES SCH ×2 (08:42→20:09)
[2023-05-04] MEDS: LACTOBACILLUS ACIDOPHILUS CAP (BACID) PO SCH (08:42)
[2023-05-04] MEDS: allopurinoL 100 MG TAB PO SCH (08:42)
[2023-05-04] MEDS: SODIUM CHLORIDE 0.9% INJ 10 ML SYR IV SCH (13:09)
[2023-05-04] MEDS: traMADol 50 MG TAB PO PRN (13:09)
[2023-05-04] MEDS: CEPACOL LOZENGE PO PRN (17:26)
[2023-05-04] MEDS: ACETAMINOPHEN TAB 650MG DOSE (2X325MG) PO PRN (17:26)
[2023-05-04] MEDS: RIVAROXABAN 10MG TAB (XARELTO) PO SCH (18:50)
[2023-05-04] MEDS: MONTELUKAST 10 MG TAB PO SCH (20:08)
[2023-05-05] MEDS: MAGNESIUM GLUCONATE 500 MG TAB PO SCH ×5 (00:35→23:12)
[2023-05-05] MEDS: traMADol 50 MG TAB PO PRN (03:02)
[2023-05-05] MEDS: ALBUTEROL SULFATE 2.5MG/0.5ML INH NEB SOLN NEB PRN (03:32)
[2023-05-05 05:31] VITALS: BP 123/74; TEMP 97.7; O2SAT 98
[2023-05-05 06:00] LABS: BASO % 0.3 % (0.0-1.0); EOS % 0.1 % (0.0-3.0); HEMATOCRIT 24.5 % (36.0-47.0); HEMOGLOBIN 8.2 g/dl (12.0-15.5); LYMPH # 1.6 10^3/uL (1.5-5.0); LYMPH % 16.7 % (24.0-44.0); MEAN CORPUSCULAR HEMOGLOBIN 29.5 pg (27.0-33.0); MEAN CORPUSCULAR HGB CONC 33.5 g/dl (32.0-36.5); MEAN CORPUSCULAR VOLUME 88.1 fl (80.0-96.0); MONO % 9.9 % (2.0-8.0); NEUTROPHILS # 6.9 10^3/uL (1.5-8.5); NEUTROPHILS % 70.9 % (36.0-66.0); PLATELET COUNT, AUTOMATED 331 10^3/uL (150-450); RED BLOOD COUNT 2.78 10^6/uL (4.00-5.40); WHITE BLOOD COUNT 9.8 10^3/uL (4.0-10.0)
[2023-05-05 06:24] LABS: BLOOD UREA NITROGEN 9 MG/DL (9-23); CALCIUM LEVEL 8.5 MG/DL (8.3-10.6); CARBON DIOXIDE LEVEL 29 MMOL/L (20-31); CHLORIDE LEVEL 88 MMOL/L (98-107); GLOMERULAR FILTRATION RATE > 60.0 (>45); GLUCOSE, FASTING 112 MG/DL (74-106); MAGNESIUM LEVEL 1.1 MG/DL (1.8-2.4); POTASSIUM SERUM 3.7 MMOL/L (3.5-5.1); SODIUM LEVEL 128 MMOL/L (136-145)
[2023-05-05] MEDS: FORMOTEROL FUMARATE 20 MCG/2 ML INHALATION SOLUTION (PERFOROMIST) INH SCH ×2 (07:18→19:09)
[2023-05-05] MEDS: BUDESONIDE 0.5 MG/2 ML INHALATION SUSPENSION INH SCH ×2 (07:18→19:09)
[2023-05-05] MEDS ORDERED: MAG SULF 1GM/100ML (MAG RUN) 1 GM in IV 1 EA IV ONE (07:30)
[2023-05-05] MEDS: GLYCOPYRROLATE INJ 0.2 MG/ML 2 ML VIAL NEB SCH ×2 (07:36→19:09)
[2023-05-05] MEDS: MAGNESIUM OXIDE 400MG TAB (MAG-OX) PO SCH ×3 (08:37→20:27)
[2023-05-05] MEDS: ACETAMINOPHEN TAB 650MG DOSE (2X325MG) PO PRN ×2 (08:38→14:26)
[2023-05-05] MEDS: LACTOBACILLUS ACIDOPHILUS CAP (BACID) PO SCH (08:38)
[2023-05-05] MEDS: allopurinoL 100 MG TAB PO SCH (08:38)
[2023-05-05] MEDS: ROSUVASTATIN 10 MG TAB (CRESTOR) PO SCH (08:39)
[2023-05-05] MEDS: PANTOPRAZOLE 40MG TAB (PROTONIX) PO SCH (08:39)
[2023-05-05] MEDS: guaiFENesin ER 600 MG TAB PO SCH ×2 (08:39→20:27)
[2023-05-05] MEDS: SPIRONOLACTONE 50 MG TAB PO SCH ×2 (08:39→16:47)
[2023-05-05] MEDS: CLOPIDOGREL 75 MG TAB PO SCH (08:40)
[2023-05-05] MEDS: AUGMENTIN 875 MG TAB PO SCH (08:40)
[2023-05-05] MEDS: TOLVAPTAN 15 MG TAB (SAMSCA) PO SCH (08:40)
[2023-05-05] MEDS: METOPROLOL SUCC *XL* 25MG TAB (TopROL *XL*) PO SCH (08:47)
[2023-05-05] MEDS: DOCUSATE SODIUM 100MG CAPSULE PO SCH ×2 (08:48→20:21)
[2023-05-05] MEDS: FLUTICASONE PROP 0.05% NASAL SPRAY 16 GM (FLONASE) NARES SCH ×2 (08:48→20:33)
[2023-05-05] MEDS: MAG SULF 1GM/100ML (MAG RUN) 1 GM in IV 1 EA IV SCH ×2 (10:33→11:47)
[2023-05-05 10:35] LABS: INR 1.47; PROTHROMBIN TIME 18.1 SECONDS (12.5-14.5)
[2023-05-05] MEDS: IPRATROPIUM 0.02% SOLN 0.5MG 2.5ML NEB INH SCH ×3 (10:57→23:08)
[2023-05-05] MEDS: ALBUTEROL SULFATE 2.5MG/0.5ML INH NEB SOLN NEB SCH ×3 (10:57→23:08)
[2023-05-05] MEDS: TORSEMIDE (DEMADEX) 50 MG PER 1/2 TAB PO SCH (11:47)
[2023-05-05 13:46] LABS: COLLAGEN EPINEPHRINE > 300 SECONDS (74-162)
[2023-05-05] MEDS: SODIUM CHLORIDE 0.9% INJ 10 ML SYR IV SCH (13:48)
[2023-05-05] MEDS: NYSTATIN 500,000U/5ML SUSP UDC SS PRN ×2 (14:26→20:27)
[2023-05-05] MEDS: RIVAROXABAN 10MG TAB (XARELTO) PO SCH (18:49)
[2023-05-05] MEDS: MONTELUKAST 10 MG TAB PO SCH (20:27)
[2023-05-05] MEDS: NORCO, ANEXSIA 5/325MG TABLET (HYDROcodone/ACETAMINOPHEN) PO PRN (20:31)
[2023-05-06] MEDS: NORCO, ANEXSIA 5/325MG TABLET (HYDROcodone/ACETAMINOPHEN) PO PRN ×2 (02:31→19:56)
[2023-05-06] MEDS: ALBUTEROL SULFATE 2.5MG/0.5ML INH NEB SOLN NEB SCH ×2 (03:34→15:30)
[2023-05-06 05:30] VITALS: BP 122/74; TEMP 97.9; O2SAT 98
[2023-05-06] MEDS: MAGNESIUM GLUCONATE 500 MG TAB PO SCH ×4 (05:46→23:05)
[2023-05-06 07:04] LABS: HEMATOCRIT 26.1 % (36.0-47.0); HEMOGLOBIN 8.7 g/dl (12.0-15.5); MEAN CORPUSCULAR HEMOGLOBIN 29.4 pg (27.0-33.0); MEAN CORPUSCULAR HGB CONC 33.3 g/dl (32.0-36.5); MEAN CORPUSCULAR VOLUME 88.2 fl (80.0-96.0); PLATELET COUNT, AUTOMATED 368 10^3/uL (150-450); RED BLOOD COUNT 2.96 10^6/uL (4.00-5.40); WHITE BLOOD COUNT 9.7 10^3/uL (4.0-10.0)
[2023-05-06 07:23] LABS: CALCIUM LEVEL 8.8 MG/DL (8.3-10.6); CREATININE FOR GFR 1.06 MG/DL (0.55-1.30); GLOMERULAR FILTRATION RATE 55.7 (>45); MAGNESIUM LEVEL 1.7 MG/DL (1.8-2.4); POTASSIUM SERUM 4.1 MMOL/L (3.5-5.1)
[2023-05-06] MEDS: BUDESONIDE 0.5 MG/2 ML INHALATION SUSPENSION INH SCH ×2 (07:29→20:38)
[2023-05-06] MEDS: FORMOTEROL FUMARATE 20 MCG/2 ML INHALATION SOLUTION (PERFOROMIST) INH SCH ×2 (07:29→20:38)
[2023-05-06] MEDS: GLYCOPYRROLATE INJ 0.2 MG/ML 2 ML VIAL NEB SCH ×2 (07:30→21:00)
[2023-05-06] MEDS ORDERED: MAG SULF 1GM/100ML (MAG RUN) 1 GM in IV 1 EA IV ONE (08:00)
[2023-05-06] MEDS: METOPROLOL SUCC *XL* 25MG TAB (TopROL *XL*) PO SCH (09:13)
[2023-05-06] MEDS: traMADol 50 MG TAB PO PRN (09:13)
[2023-05-06] MEDS: PANTOPRAZOLE 40MG TAB (PROTONIX) PO SCH (09:13)
[2023-05-06] MEDS: TORSEMIDE (DEMADEX) 50 MG PER 1/2 TAB PO SCH (09:14)
[2023-05-06] MEDS: MAGNESIUM OXIDE 400MG TAB (MAG-OX) PO SCH ×3 (09:14→19:57)
[2023-05-06] MEDS: SPIRONOLACTONE 50 MG TAB PO SCH ×2 (09:14→16:17)
[2023-05-06] MEDS: LACTOBACILLUS ACIDOPHILUS CAP (BACID) PO SCH (09:14)
[2023-05-06] MEDS: ROSUVASTATIN 10 MG TAB (CRESTOR) PO SCH (09:15)
[2023-05-06] MEDS: allopurinoL 100 MG TAB PO SCH (09:15)
[2023-05-06] MEDS: CLOPIDOGREL 75 MG TAB PO SCH (09:15)
[2023-05-06] MEDS: guaiFENesin ER 600 MG TAB PO SCH ×2 (09:15→19:57)
[2023-05-06] MEDS: NYSTATIN 500,000U/5ML SUSP UDC SS PRN ×2 (09:15→19:56)
[2023-05-06] MEDS: TOLVAPTAN 15 MG TAB (SAMSCA) PO SCH (09:15)
[2023-05-06] MEDS: DOCUSATE SODIUM 100MG CAPSULE PO SCH ×2 (09:16→19:57)
[2023-05-06] MEDS: FLUTICASONE PROP 0.05% NASAL SPRAY 16 GM (FLONASE) NARES SCH ×2 (09:28→19:57)
[2023-05-06] MEDS: IPRATROPIUM 0.02% SOLN 0.5MG 2.5ML NEB INH SCH ×2 (11:33→15:30)
[2023-05-06] MEDS: ALBUTEROL SULFATE 2.5MG/0.5ML INH NEB SOLN NEB PRN (11:33)
[2023-05-06] MEDS: SODIUM CHLORIDE 0.9% INJ 10 ML SYR IV SCH (13:56)
[2023-05-06] MEDS: RIVAROXABAN 10MG TAB (XARELTO) PO SCH (17:46)
[2023-05-06] MEDS: MONTELUKAST 10 MG TAB PO SCH (19:57)
[2023-05-07] MEDS: IPRATROPIUM 0.02% SOLN 0.5MG 2.5ML NEB INH SCH ×4 (00:21→23:17)
[2023-05-07] MEDS: ALBUTEROL SULFATE 2.5MG/0.5ML INH NEB SOLN NEB SCH ×4 (00:21→23:17)
[2023-05-07] MEDS: NORCO, ANEXSIA 5/325MG TABLET (HYDROcodone/ACETAMINOPHEN) PO PRN ×2 (02:18→21:11)
[2023-05-07] MEDS: ALBUTEROL SULFATE 2.5MG/0.5ML INH NEB SOLN NEB PRN (04:15)
[2023-05-07] MEDS: traMADol 50 MG TAB PO PRN ×2 (04:17→11:58)
[2023-05-07 05:24] VITALS: BP 102/57; TEMP 96.1; O2SAT 89
[2023-05-07] MEDS: MAGNESIUM GLUCONATE 500 MG TAB PO SCH ×3 (05:44→17:48)
[2023-05-07 06:15] LABS: BASO # 0.1 10^3/uL (0.0-0.2); BASO % 0.6 % (0.0-1.0); EOS % 0.3 % (0.0-3.0); HEMATOCRIT 24.7 % (36.0-47.0); HEMOGLOBIN 8.5 g/dl (12.0-15.5); LYMPH # 1.8 10^3/uL (1.5-5.0); LYMPH % 19.7 % (24.0-44.0); MEAN CORPUSCULAR HGB CONC 34.4 g/dl (32.0-36.5); MEAN CORPUSCULAR VOLUME 87.3 fl (80.0-96.0); MONO # 0.7 10^3/uL (0.0-0.8); MONO % 8.2 % (2.0-8.0); NEUTROPHILS # 6.1 10^3/uL (1.5-8.5); NEUTROPHILS % 69.1 % (36.0-66.0); PLATELET COUNT, AUTOMATED 375 10^3/uL (150-450); RED BLOOD COUNT 2.83 10^6/uL (4.00-5.40); WHITE BLOOD COUNT 8.9 10^3/uL (4.0-10.0)
[2023-05-07 06:29] LABS: CALCIUM LEVEL 8.5 MG/DL (8.3-10.6); CREATININE FOR GFR 1.45 MG/DL (0.55-1.30); GLOMERULAR FILTRATION RATE 38.8 (>45); MAGNESIUM LEVEL 1.7 MG/DL (1.8-2.4); POTASSIUM SERUM 3.8 MMOL/L (3.5-5.1)
[2023-05-07] MEDS: BUDESONIDE 0.5 MG/2 ML INHALATION SUSPENSION INH SCH ×2 (07:41→19:21)
[2023-05-07] MEDS: FORMOTEROL FUMARATE 20 MCG/2 ML INHALATION SOLUTION (PERFOROMIST) INH SCH ×2 (07:41→19:21)
[2023-05-07] MEDS: GLYCOPYRROLATE INJ 0.2 MG/ML 2 ML VIAL NEB SCH ×2 (07:42→19:21)
[2023-05-07] MEDS: TORSEMIDE (DEMADEX) 50 MG PER 1/2 TAB PO SCH (08:29)
[2023-05-07] MEDS: ROSUVASTATIN 10 MG TAB (CRESTOR) PO SCH (08:29)
[2023-05-07] MEDS: CLOPIDOGREL 75 MG TAB PO SCH (08:29)
[2023-05-07] MEDS: TOLVAPTAN 15 MG TAB (SAMSCA) PO SCH (08:30)
[2023-05-07 08:34] VITALS: BP 124/72
[2023-05-07] MEDS: METOPROLOL SUCC *XL* 25MG TAB (TopROL *XL*) PO SCH (08:34)
[2023-05-07] MEDS: SODIUM CHLORIDE NASAL 0.65% SPRAY BTL (OCEAN) PRN (08:34)
[2023-05-07] MEDS: FLUTICASONE PROP 0.05% NASAL SPRAY 16 GM (FLONASE) NARES SCH ×2 (08:34→21:14)
[2023-05-07] MEDS: MAGNESIUM OXIDE 400MG TAB (MAG-OX) PO SCH ×3 (08:35→21:10)
[2023-05-07] MEDS: guaiFENesin ER 600 MG TAB PO SCH ×2 (08:35→21:11)
[2023-05-07] MEDS: PANTOPRAZOLE 40MG TAB (PROTONIX) PO SCH (08:35)
[2023-05-07] MEDS: allopurinoL 100 MG TAB PO SCH (08:35)
[2023-05-07] MEDS: SPIRONOLACTONE 50 MG TAB PO SCH (08:36)
[2023-05-07] MEDS: LACTOBACILLUS ACIDOPHILUS CAP (BACID) PO SCH (08:36)
[2023-05-07] MEDS: DOCUSATE SODIUM 100MG CAPSULE PO SCH ×2 (08:36→21:00)
[2023-05-07] MEDS ORDERED: MAG SULF 1GM/100ML (MAG RUN) 1 GM in IV 1 EA IV ONE (09:00)
[2023-05-07] MEDS ORDERED: OXYMETAZOLINE 0.05% NASAL SPRAY (AFRIN) ONE (11:30)
[2023-05-07] MEDS: SODIUM CHLORIDE 0.9% INJ 10 ML SYR IV SCH ×2 (11:37→11:41)
[2023-05-07] MEDS: NYSTATIN 500,000U/5ML SUSP UDC SS PRN (11:55)
[2023-05-07] MEDS ORDERED: SCOPOLAMINE 1MG TRANSDERMAL PATCH TOP PRN (13:20)
[2023-05-07] MEDS: POTASSIUM CHLORIDE 10MEQ SR TABLET PO SCH (14:58)
[2023-05-07] MEDS: RIVAROXABAN 10MG TAB (XARELTO) PO SCH (17:48)
[2023-05-07] MEDS: MONTELUKAST 10 MG TAB PO SCH (21:11)
[2023-05-08] MEDS: NYSTATIN 500,000U/5ML SUSP UDC SS PRN ×2 (00:54→09:09)
[2023-05-08] MEDS: MAGNESIUM GLUCONATE 500 MG TAB PO SCH ×4 (00:54→17:14)
[2023-05-08] MEDS: traMADol 50 MG TAB PO PRN ×2 (02:39→12:20)
[2023-05-08] MEDS: ALBUTEROL SULFATE 2.5MG/0.5ML INH NEB SOLN NEB PRN ×2 (02:45→11:31)
[2023-05-08] MEDS: FORMOTEROL FUMARATE 20 MCG/2 ML INHALATION SOLUTION (PERFOROMIST) INH SCH ×2 (07:43→19:12)
[2023-05-08] MEDS: BUDESONIDE 0.5 MG/2 ML INHALATION SUSPENSION INH SCH ×2 (07:43→19:12)
[2023-05-08] MEDS: GLYCOPYRROLATE INJ 0.2 MG/ML 2 ML VIAL NEB SCH ×2 (07:44→19:12)
[2023-05-08] MEDS: IPRATROPIUM 0.02% SOLN 0.5MG 2.5ML NEB INH SCH ×4 (08:00→23:32)
[2023-05-08] MEDS: ALBUTEROL SULFATE 2.5MG/0.5ML INH NEB SOLN NEB SCH ×3 (08:00→23:32)
[2023-05-08] MEDS: TOLVAPTAN 15 MG TAB (SAMSCA) PO SCH (09:03)
[2023-05-08] MEDS: CLOPIDOGREL 75 MG TAB PO SCH (09:04)
[2023-05-08] MEDS: LACTOBACILLUS ACIDOPHILUS CAP (BACID) PO SCH (09:04)
[2023-05-08] MEDS: ROSUVASTATIN 10 MG TAB (CRESTOR) PO SCH (09:04)
[2023-05-08] MEDS: MAGNESIUM OXIDE 400MG TAB (MAG-OX) PO SCH ×3 (09:04→20:34)
[2023-05-08] MEDS: DOCUSATE SODIUM 100MG CAPSULE PO SCH ×2 (09:04→20:35)
[2023-05-08] MEDS: guaiFENesin ER 600 MG TAB PO SCH ×2 (09:04→20:34)
[2023-05-08] MEDS: allopurinoL 100 MG TAB PO SCH (09:04)
[2023-05-08] MEDS: PANTOPRAZOLE 40MG TAB (PROTONIX) PO SCH (09:04)
[2023-05-08] MEDS: POTASSIUM CHLORIDE 10MEQ SR TABLET PO SCH (09:05)
[2023-05-08] MEDS: FLUTICASONE PROP 0.05% NASAL SPRAY 16 GM (FLONASE) NARES SCH ×2 (12:20→20:36)
[2023-05-08] MEDS: SODIUM CHLORIDE 0.9% INJ 10 ML SYR IV SCH (12:21)
[2023-05-08] MEDS: SODIUM CHLORIDE 0.9% INJ 10 ML SYR IV PRN (12:21)
[2023-05-08] MEDS: RIVAROXABAN 10MG TAB (XARELTO) PO SCH (17:14)
[2023-05-08] MEDS: MONTELUKAST 10 MG TAB PO SCH (20:34)
[2023-05-08] MEDS: NORCO, ANEXSIA 5/325MG TABLET (HYDROcodone/ACETAMINOPHEN) PO PRN (20:34)
[2023-05-09] MEDS: LORazepam 1 MG TAB PO PRN ×3 (00:12→20:17)
[2023-05-09] MEDS: MAGNESIUM GLUCONATE 500 MG TAB PO SCH ×4 (00:13→17:06)
[2023-05-09] MEDS: NYSTATIN 500,000U/5ML SUSP UDC SS PRN (00:13)
[2023-05-09] MEDS: ALBUTEROL SULFATE 2.5MG/0.5ML INH NEB SOLN NEB PRN (03:23)
[2023-05-09] MEDS: FORMOTEROL FUMARATE 20 MCG/2 ML INHALATION SOLUTION (PERFOROMIST) INH SCH ×2 (07:36→19:00)
[2023-05-09] MEDS: GLYCOPYRROLATE INJ 0.2 MG/ML 2 ML VIAL NEB SCH ×2 (07:36→21:00)
[2023-05-09] MEDS: BUDESONIDE 0.5 MG/2 ML INHALATION SUSPENSION INH SCH ×2 (07:36→19:00)
[2023-05-09] MEDS: TOLVAPTAN 15 MG TAB (SAMSCA) PO SCH (08:02)
[2023-05-09] MEDS: CLOPIDOGREL 75 MG TAB PO SCH (08:03)
[2023-05-09] MEDS: guaiFENesin ER 600 MG TAB PO SCH ×2 (08:04→20:17)
[2023-05-09] MEDS: DOCUSATE SODIUM 100MG CAPSULE PO SCH ×2 (08:04→20:17)
[2023-05-09] MEDS: PANTOPRAZOLE 40MG TAB (PROTONIX) PO SCH (08:05)
[2023-05-09] MEDS: POTASSIUM CHLORIDE 10MEQ SR TABLET PO SCH (08:05)
[2023-05-09] MEDS: allopurinoL 100 MG TAB PO SCH (08:05)
[2023-05-09] MEDS: MAGNESIUM OXIDE 400MG TAB (MAG-OX) PO SCH ×3 (08:05→20:16)
[2023-05-09] MEDS: VITAMIN D 50,000 UNITS CAPSULE (ERGOCALCIFEROL 1.25MG) PO SCH (08:06)
[2023-05-09] MEDS: ROSUVASTATIN 10 MG TAB (CRESTOR) PO SCH (08:06)
[2023-05-09] MEDS: LACTOBACILLUS ACIDOPHILUS CAP (BACID) PO SCH (08:06)
[2023-05-09] MEDS: FLUTICASONE PROP 0.05% NASAL SPRAY 16 GM (FLONASE) NARES SCH ×2 (08:08→20:18)
[2023-05-09] MEDS: IPRATROPIUM 0.02% SOLN 0.5MG 2.5ML NEB INH SCH ×3 (11:28→23:25)
[2023-05-09] MEDS: ALBUTEROL SULFATE 2.5MG/0.5ML INH NEB SOLN NEB SCH ×3 (11:28→23:24)
[2023-05-09] MEDS: traMADol 50 MG TAB PO PRN (13:54)
[2023-05-09] MEDS: SODIUM CHLORIDE 0.9% INJ 10 ML SYR IV SCH (13:55)
[2023-05-09] MEDS: RIVAROXABAN 10MG TAB (XARELTO) PO SCH (17:05)
[2023-05-09] MEDS: CEPACOL LOZENGE PO PRN (17:09)
[2023-05-09] MEDS: NORCO, ANEXSIA 5/325MG TABLET (HYDROcodone/ACETAMINOPHEN) PO PRN (20:16)
[2023-05-09] MEDS: MONTELUKAST 10 MG TAB PO SCH (20:16)
[2023-05-10] MEDS: MAGNESIUM GLUCONATE 500 MG TAB PO SCH ×4 (00:21→17:39)
[2023-05-10] MEDS: FORMOTEROL FUMARATE 20 MCG/2 ML INHALATION SOLUTION (PERFOROMIST) INH SCH ×2 (07:27→19:30)
[2023-05-10] MEDS: BUDESONIDE 0.5 MG/2 ML INHALATION SUSPENSION INH SCH ×2 (07:27→19:30)
[2023-05-10] MEDS: GLYCOPYRROLATE INJ 0.2 MG/ML 2 ML VIAL NEB SCH ×2 (07:28→19:30)
[2023-05-10] MEDS: IPRATROPIUM 0.02% SOLN 0.5MG 2.5ML NEB INH SCH ×2 (07:29→17:20)
[2023-05-10] MEDS: ALBUTEROL SULFATE 2.5MG/0.5ML INH NEB SOLN NEB SCH ×2 (07:29→17:18)
[2023-05-10] MEDS: MAGNESIUM OXIDE 400MG TAB (MAG-OX) PO SCH ×3 (09:00→21:25)
[2023-05-10] MEDS: guaiFENesin ER 600 MG TAB PO SCH ×2 (09:00→21:26)
[2023-05-10] MEDS: ROSUVASTATIN 10 MG TAB (CRESTOR) PO SCH (09:00)
[2023-05-10] MEDS: PANTOPRAZOLE 40MG TAB (PROTONIX) PO SCH ×2 (09:00→13:20)
[2023-05-10] MEDS: FLUTICASONE PROP 0.05% NASAL SPRAY 16 GM (FLONASE) NARES SCH ×2 (09:00→21:26)
[2023-05-10] MEDS: CLOPIDOGREL 75 MG TAB PO SCH ×2 (09:00→13:20)
[2023-05-10] MEDS: TOLVAPTAN 15 MG TAB (SAMSCA) PO SCH (09:00)
[2023-05-10] MEDS: allopurinoL 100 MG TAB PO SCH ×2 (09:00→13:20)
[2023-05-10] MEDS: DOCUSATE SODIUM 100MG CAPSULE PO SCH ×2 (09:00→21:00)
[2023-05-10] MEDS: LACTOBACILLUS ACIDOPHILUS CAP (BACID) PO SCH (09:00)
[2023-05-10] MEDS: POTASSIUM CHLORIDE 10MEQ SR TABLET PO SCH ×2 (09:00→13:20)
[2023-05-10] MEDS: NYSTATIN 500,000U/5ML SUSP UDC SS PRN (13:18)
[2023-05-10] MEDS: NORCO, ANEXSIA 5/325MG TABLET (HYDROcodone/ACETAMINOPHEN) PO PRN ×2 (13:19→20:59)
[2023-05-10] MEDS: SODIUM CHLORIDE 0.9% INJ 10 ML SYR IV SCH (13:19)
[2023-05-10] MEDS: RIVAROXABAN 10MG TAB (XARELTO) PO SCH (17:39)
[2023-05-10] MEDS: LORazepam 1 MG TAB PO PRN (18:53)
[2023-05-10] MEDS: traMADol 50 MG TAB PO PRN (18:54)
[2023-05-10] MEDS: MONTELUKAST 10 MG TAB PO SCH (21:26)
[2023-05-11] MEDS: IPRATROPIUM 0.02% SOLN 0.5MG 2.5ML NEB INH SCH ×4 (00:05→23:48)
[2023-05-11] MEDS: ALBUTEROL SULFATE 2.5MG/0.5ML INH NEB SOLN NEB SCH ×4 (00:05→23:48)
[2023-05-11] MEDS: traMADol 50 MG TAB PO PRN ×4 (00:23→22:38)
[2023-05-11] MEDS: MAGNESIUM GLUCONATE 500 MG TAB PO SCH ×4 (00:24→17:51)
[2023-05-11] MEDS: ALBUTEROL SULFATE 2.5MG/0.5ML INH NEB SOLN NEB PRN (03:49)
[2023-05-11] MEDS: BUDESONIDE 0.5 MG/2 ML INHALATION SUSPENSION INH SCH ×2 (07:19→19:09)
[2023-05-11] MEDS: FORMOTEROL FUMARATE 20 MCG/2 ML INHALATION SOLUTION (PERFOROMIST) INH SCH ×2 (07:20→19:09)
[2023-05-11] MEDS: GLYCOPYRROLATE INJ 0.2 MG/ML 2 ML VIAL NEB SCH ×2 (07:20→19:09)
[2023-05-11] MEDS: DOCUSATE SODIUM 100MG CAPSULE PO SCH ×2 (09:00→20:55)
[2023-05-11] MEDS: FLUTICASONE PROP 0.05% NASAL SPRAY 16 GM (FLONASE) NARES SCH ×2 (09:00→20:56)
[2023-05-11] MEDS: CLOPIDOGREL 75 MG TAB PO SCH (09:00)
[2023-05-11] MEDS: allopurinoL 100 MG TAB PO SCH (09:00)
[2023-05-11] MEDS: ROSUVASTATIN 10 MG TAB (CRESTOR) PO SCH (09:00)
[2023-05-11] MEDS: POTASSIUM CHLORIDE 10MEQ SR TABLET PO SCH (09:04)
[2023-05-11] MEDS: MAGNESIUM OXIDE 400MG TAB (MAG-OX) PO SCH ×3 (09:05→20:55)
[2023-05-11] MEDS: guaiFENesin ER 600 MG TAB PO SCH ×2 (09:05→20:54)
[2023-05-11] MEDS: PANTOPRAZOLE 40MG TAB (PROTONIX) PO SCH (09:05)
[2023-05-11] MEDS: NORCO, ANEXSIA 5/325MG TABLET (HYDROcodone/ACETAMINOPHEN) PO PRN (09:06)
[2023-05-11] MEDS: LACTOBACILLUS ACIDOPHILUS CAP (BACID) PO SCH (09:07)
[2023-05-11] MEDS: TOLVAPTAN 15 MG TAB (SAMSCA) PO SCH (09:07)
[2023-05-11] MEDS: LORazepam 1 MG TAB PO PRN ×2 (10:12→22:50)
[2023-05-11] MEDS: MORPHINE 10MG/0.5ML ORAL CONCENTRATE SOLUTION U/D SL PRN ×2 (10:13→19:53)
[2023-05-11] MEDS ORDERED: MAGIC MOUTHWASH SUSPENSION BTL SS PRN (11:05)
[2023-05-11] MEDS: SODIUM CHLORIDE 0.9% INJ 10 ML SYR IV SCH (12:05)
[2023-05-11] MEDS: CARBAMIDE PEROXIDE 6.5% OTIC SOLN 15ML AU SCH ×2 (13:03→20:56)
[2023-05-11] MEDS: RIVAROXABAN 10MG TAB (XARELTO) PO SCH (17:51)
[2023-05-11] MEDS: MONTELUKAST 10 MG TAB PO SCH (20:55)
[2023-05-12] MEDS: MAGNESIUM GLUCONATE 500 MG TAB PO SCH ×4 (00:35→16:39)
[2023-05-12] MEDS: ALBUTEROL SULFATE 2.5MG/0.5ML INH NEB SOLN NEB PRN (03:00)
[2023-05-12] MEDS: LORazepam 1 MG TAB PO PRN ×8 (03:28→22:38)
[2023-05-12] MEDS: traMADol 50 MG TAB PO PRN (05:54)
[2023-05-12] MEDS: ALBUTEROL SULFATE 2.5MG/0.5ML INH NEB SOLN NEB SCH ×3 (07:58→23:42)
[2023-05-12] MEDS: IPRATROPIUM 0.02% SOLN 0.5MG 2.5ML NEB INH SCH ×3 (07:58→23:42)
[2023-05-12] MEDS: BUDESONIDE 0.5 MG/2 ML INHALATION SUSPENSION INH SCH ×2 (07:59→19:25)
[2023-05-12] MEDS: GLYCOPYRROLATE INJ 0.2 MG/ML 2 ML VIAL NEB SCH ×2 (08:12→20:01)
[2023-05-12] MEDS: FORMOTEROL FUMARATE 20 MCG/2 ML INHALATION SOLUTION (PERFOROMIST) INH SCH ×2 (08:25→19:25)
[2023-05-12] MEDS: MORPHINE 10MG/0.5ML ORAL CONCENTRATE SOLUTION U/D SL PRN ×7 (08:41→22:38)
[2023-05-12] MEDS: allopurinoL 100 MG TAB PO SCH (09:00)
[2023-05-12] MEDS: ROSUVASTATIN 10 MG TAB (CRESTOR) PO SCH (09:00)
[2023-05-12] MEDS: CLOPIDOGREL 75 MG TAB PO SCH (09:00)
[2023-05-12] MEDS: MAGNESIUM OXIDE 400MG TAB (MAG-OX) PO SCH ×3 (09:00→21:00)
[2023-05-12] MEDS: POTASSIUM CHLORIDE 10MEQ SR TABLET PO SCH (09:00)
[2023-05-12] MEDS: TOLVAPTAN 15 MG TAB (SAMSCA) PO SCH (09:00)
[2023-05-12] MEDS: PANTOPRAZOLE 40MG TAB (PROTONIX) PO SCH (09:00)
[2023-05-12] MEDS: FLUTICASONE PROP 0.05% NASAL SPRAY 16 GM (FLONASE) NARES SCH ×2 (09:00→21:00)
[2023-05-12] MEDS: LACTOBACILLUS ACIDOPHILUS CAP (BACID) PO SCH (09:00)
[2023-05-12] MEDS: guaiFENesin ER 600 MG TAB PO SCH ×2 (09:00→21:00)
[2023-05-12] MEDS: CARBAMIDE PEROXIDE 6.5% OTIC SOLN 15ML AU SCH ×2 (09:00→21:00)
[2023-05-12] MEDS: DOCUSATE SODIUM 100MG CAPSULE PO SCH ×2 (09:00→21:00)
[2023-05-12] MEDS: SODIUM CHLORIDE 0.9% INJ 10 ML SYR IV SCH (12:05)
[2023-05-12] MEDS: RIVAROXABAN 10MG TAB (XARELTO) PO SCH (16:39)
[2023-05-12] MEDS: MONTELUKAST 10 MG TAB PO SCH (21:00)
[2023-05-13] MEDS: MORPHINE 10MG/0.5ML ORAL CONCENTRATE SOLUTION U/D SL PRN ×4 (01:41→09:16)
[2023-05-13] MEDS: LORazepam 1 MG TAB PO PRN ×4 (01:41→09:16)
[2023-05-13] MEDS: ALBUTEROL SULFATE 2.5MG/0.5ML INH NEB SOLN NEB PRN (04:11)
[2023-05-13] MEDS: MAGNESIUM GLUCONATE 500 MG TAB PO SCH ×2 (05:02)
[2023-05-13] MEDS ORDERED: HYOS125TA PO (06:05)
[2023-05-13] MEDS ORDERED: ATIV1TAB10 PO (06:05)
[2023-05-13] MEDS ORDERED: MORP1SOL5 PO (06:05)
[2023-05-13] MEDS: FORMOTEROL FUMARATE 20 MCG/2 ML INHALATION SOLUTION (PERFOROMIST) INH SCH (07:46)
[2023-05-13] MEDS: BUDESONIDE 0.5 MG/2 ML INHALATION SUSPENSION INH SCH (07:46)
[2023-05-13] MEDS: IPRATROPIUM 0.02% SOLN 0.5MG 2.5ML NEB INH SCH (07:47)
[2023-05-13] MEDS: GLYCOPYRROLATE INJ 0.2 MG/ML 2 ML VIAL NEB SCH (07:47)
[2023-05-13] MEDS: ALBUTEROL SULFATE 2.5MG/0.5ML INH NEB SOLN NEB SCH (07:47)
[2023-05-13] MEDS: POTASSIUM CHLORIDE 10MEQ SR TABLET PO SCH (09:00)
[2023-05-13] MEDS: PANTOPRAZOLE 40MG TAB (PROTONIX) PO SCH (09:00)
[2023-05-13] MEDS: TOLVAPTAN 15 MG TAB (SAMSCA) PO SCH (09:00)
[2023-05-13] MEDS: LACTOBACILLUS ACIDOPHILUS CAP (BACID) PO SCH (09:00)
[2023-05-13] MEDS: FLUTICASONE PROP 0.05% NASAL SPRAY 16 GM (FLONASE) NARES SCH (09:00)
[2023-05-13] MEDS: MAGNESIUM OXIDE 400MG TAB (MAG-OX) PO SCH (09:00)
[2023-05-13] MEDS: ROSUVASTATIN 10 MG TAB (CRESTOR) PO SCH (09:00)
[2023-05-13] MEDS: CLOPIDOGREL 75 MG TAB PO SCH (09:00)
[2023-05-13] MEDS: guaiFENesin ER 600 MG TAB PO SCH (09:00)
[2023-05-13] MEDS: CARBAMIDE PEROXIDE 6.5% OTIC SOLN 15ML AU SCH (09:00)
[2023-05-13] MEDS: DOCUSATE SODIUM 100MG CAPSULE PO SCH (09:00)
[2023-05-13] MEDS: allopurinoL 100 MG TAB PO SCH (09:00)
== END 2023-05-13 11:00 | disposition hospice, home (50) | DRG 190 ==
LOC: M ED 18:44 → M ED INP 22:51 → M MSPAV 23:39 → M ICU 03-28 19:47 → M PCU 04-01 13:25 → M MS4PR 04-19 20:46 → M MS5PR 04-29 16:35
PROVIDERS: ADMIT Internal Medicine; ATTEND Internal Medicine
PROC: 05HC33Z Insertion of Infusion Device into Left Basilic Vein, Percutaneous Approach (ICD-10-PCS; principal; 2023-04-17 12:00)
DX: J44.1 Chronic obstructive pulmonary disease with (acute) exacerbation (principal); I50.33 Acute on chronic diastolic (congestive) heart failure; J96.21 Acute and chronic respiratory failure with hypoxia; J96.22 Acute and chronic respiratory failure with hypercapnia; L03.115 Cellulitis of right lower limb; E87.4 Mixed disorder of acid-base balance; E66.2 Morbid (severe) obesity with alveolar hypoventilation; E87.1 Hypo-osmolality and hyponatremia; Z68.41 Body mass index [BMI] 40.0-44.9, adult; I73.9 Peripheral vascular disease, unspecified; R04.0 Epistaxis; I27.81 Cor pulmonale (chronic); H66.90 Otitis media, unspecified, unspecified ear; Z66 Do not resuscitate; E87.6 Hypokalemia; I11.0 Hypertensive heart disease with heart failure; E83.42 Hypomagnesemia; E78.5 Hyperlipidemia, unspecified; I27.20 Pulmonary hypertension, unspecified; K21.9 Gastro-esophageal reflux disease without esophagitis; Z86.73 Personal history of transient ischemic attack (TIA), and cerebral infarction without residual deficits; Z99.81 Dependence on supplemental oxygen; Z90.49 Acquired absence of other specified parts of digestive tract; Z95.828 Presence of other vascular implants and grafts; Z79.52 Long term (current) use of systemic steroids; Z79.899 Other long term (current) drug therapy; Z88.5 Allergy status to narcotic agent; Z88.8 Allergy status to other drugs, medicaments and biological substances; Z20.822 Contact with and (suspected) exposure to COVID-19; Z87.891 Personal history of nicotine dependence